=== PATIENT | female | born 1960 | race Caucasian/White ===

== ENCOUNTER → 2020-04-25 08:51 | Outpatient (BNVA) | payer MEDICARE, MEDICAID, SELFPAY | PROVIDERS: Family Provider Family Medicine; PCP Family Medicine; Visit Provider Family Medicine | DX: Z13.220 Encounter for screening for lipoid disorders (principal); Z13.6 Encounter for screening for cardiovascular disorders; I10 Essential (primary) hypertension; E03.9 Hypothyroidism, unspecified; M79.7 Fibromyalgia; M62.830 Muscle spasm of back; J30.2 Other seasonal allergic rhinitis; J44.9 Chronic obstructive pulmonary disease, unspecified | CPT/HCPCS: 80053; 80061; 84439; 84443; 84481 ==

== ENCOUNTER → 2020-05-02 14:02 | Outpatient (BNVA) | payer MEDICARE, MEDICAID, SELFPAY | PROVIDERS: Family Provider Family Medicine; PCP Family Medicine; Visit Provider Family Medicine | DX: I10 Essential (primary) hypertension (principal) | CPT/HCPCS: 83735; 85025 ==

== ENCOUNTER → 2020-07-16 09:54 | Outpatient (BNVA) | payer MEDICARE, MEDICAID, SELFPAY | PROVIDERS: Family Provider Family Medicine; PCP Family Medicine; Visit Provider Family Medicine | DX: G89.29 Other chronic pain (principal); M25.511 Pain in right shoulder; Z72.0 Tobacco use; M62.830 Muscle spasm of back; M79.7 Fibromyalgia; J44.9 Chronic obstructive pulmonary disease, unspecified; E66.9 Obesity, unspecified; I10 Essential (primary) hypertension; E78.00 Pure hypercholesterolemia, unspecified | CPT/HCPCS: 73030 ==

== ENCOUNTER 2021-01-10 15:53 | Outpatient (CLI) | payer MEDICARE, MEDICAID, SELFPAY ==
--- NOTE | 2021-01-10 16:15 | XRR_ITS ---
PROCEDURE INFORMATION: Exam: XR Right Shoulder Exam date and time: 01/10/2021 4:23 PM Age: 60 years old Clinical indication: Pain; Shoulder; Right; Additional info: M25.511 - pain in right shoulder TECHNIQUE: Imaging protocol: XR Right shoulder. Views: 2 or more views. COMPARISON: CR XR shoulder RT min 2V* [id number] 07/16/2020 10:04 AM FINDINGS: Bones/joints: Hypertrophic osseous spurring of the acromioclavicular joint. No fractures. Unremarkable alignment of the joints. Mild sclerosis of the inferior glenoid articular rim. Lungs: Small calcified granuloma in the right upper lobe. Soft tissues: Normal. XR/XR shoulder RT min 2V* [id number] IMPRESSION: 1. No acute right shoulder abnormality. 2. No change from comparison on 07/16/2020.
--- NOTE | 2021-01-10 16:15 | XRR_ITS ---
PROCEDURE INFORMATION: Exam: XR Left Knee Exam date and time: 01/10/2021 4:23 PM Age: 60 years old Clinical indication: Pain; Knee; Left; Additional info: M25.562 - pain in left knee TECHNIQUE: Imaging protocol: XR Left knee. Views: 3 views. COMPARISON: No relevant prior studies available. FINDINGS: Bones/joints: Normal. Soft tissues: Normal. XR/XR knee LT 3V* [id number] IMPRESSION: No acute findings.
== END 2021-01-10 15:54 | disposition home or self-care (01) ==
PROVIDERS: PCP Family Medicine; Visit Provider Emergency Medicine
DX: M25.562 Pain in left knee (principal); M25.511 Pain in right shoulder
CPT/HCPCS: 73030; 73562

== ENCOUNTER 2021-02-13 08:45 | Outpatient (CLI) | payer MEDICARE, MEDICAID, SELFPAY ==
--- NOTE | 2021-02-13 09:30 | MR_ITS ---
WS: [id number] MRI RIGHT SHOULDER HISTORY: M25.511 - Pain in right shoulder COMPARISON: Radiograph 01/10/2021 TECHNIQUE: Multiplanar sequences of the shoulder joint are submitted. Moderate AC joint osteoarthritic changes. Narrowing of the joint space with osteophytes surrounding t he distal clavicle and the acromion. There is an osteophyte measuring 8 mm encroaching upon the dista l supraspinatus muscle and tendon. There is an additional 5 mm osteophyte from the distal undersurfac e of the acromion with encroachment upon the supraspinatus tendon. Small amount of fluid in subacromi al and subdeltoid bursa. No os acromion. Small caliber biceps tendon within the bicipital groove. Moderate elevation of the humeral head from the glenoid. Moderate degenerative changes at the glenohu meral joint with osteophytes and joint space narrowing and loss of cartilage over the humeral head an d glenoid. Insertion site tear of the distal supraspinatus tendon. Does appear to be a full-thickness tear extending over a width of 6 mm. This tear is at the overlapping of the supraspinatus and subsca pularis tendons. There is additional fluid extending along the tendon sheath of the supraspinatus con sistent with interstitial extension. There is significant fraying of the surfaces of the infraspinatu s, supraspinatus and subscapularis tendons. Very mild atrophy of the subscapularis muscle. No muscle edema. Small caliber posterior labrum probably from old injury and tear. MR/MR shoulder RT wo con* [id number] IMPRESSION: 1. Moderate AC joint osteoarthritis with encroachment upon the supraspinatus m uscle and tendon. There is osteophyte encroachment upon the supraspinatus muscl e and tendon from the AC joint disease and distal undersurface of the acromion. 2. Full-thickness 6 mm tear involving the distal overlapping fibers of the sup raspinatus and subscapularis tendons. 3. Interstitial extension of tear into the supraspinatus tendon. 4. Mild atrophy of the subscapularis muscle. 5. Posterior labral chronic tear. 6. Tendinopathy in the distal infraspinatus, supraspinatus and subscapularis t endons. 7. Moderate glenohumeral joint arthritis with mild elevation and superior migr ation of the humeral head.
== END 2021-02-13 08:46 | disposition home or self-care (01) ==
LOC: RADSHAW 08:47
PROVIDERS: PCP Family Medicine; Visit Provider Orthopaedic Surgery
DX: M19.011 Primary osteoarthritis, right shoulder (principal); M75.101 Unspecified rotator cuff tear or rupture of right shoulder, not specified as traumatic; S43.431A Superior glenoid labrum lesion of right shoulder, initial encounter; X58.XXXA Exposure to other specified factors, initial encounter
CPT/HCPCS: 73221

== ENCOUNTER → 2021-03-07 11:38 | Outpatient (BNVA) | payer MEDICARE, MEDICAID, SELFPAY | PROVIDERS: PCP Family Medicine; Visit Provider Orthopaedic Surgery | DX: Z01.812 Encounter for preprocedural laboratory examination (principal); Z20.822 Contact with and (suspected) exposure to COVID-19 | CPT/HCPCS: 87635 ==

== ENCOUNTER 2021-03-13 06:07 | Day surgery (SDC) | payer MEDICARE, MEDICAID, SELFPAY ==
[2021-03-07 10:50] VITALS: BMI 36.2
--- NOTE | 2021-03-07 17:09 | ANES.PREANE2 ---
Pre-Anesthetic Assessment Pre-Anesthetic Assessment: Height/Weight: Height 1.63 m Weight 95.708 kg Proposed Procedure: Operation Date: 03/13/21 10:30 Proposed Procedures p right rotator cuff repair 35014 m75.100(Right) - Malcolm Schroeder MD Was Beta Lazara taken within 24 hours: N/A Was Clonidine taken within 24 hours: N/A Social: Social History: Tobacco and No alcohol Exam: Pre-Anes Outpt Exam: alert, oriented x 3 and regular rate & rhythm Airway: Submandibular: WNL Cervical ROM: WNL MP: 2 Pulmonary: Pulmonary: COPD CV/HEM: CV/HEM: HTN Metabolic: Metabolic: Morbid obesity and Thyroid Musc/skel: Musc/skel: Fibromyalgia and Lower Back Pain Comments: Chronic pain Neuropsych: Neuropsych: Anxiety and MARC Anesthetic Plan: ASA status: 3 Anesthesia: General and Regional (specify below) (Interscalene) Risk of > 500 ml blood loss (7ml/kg in children): No PFSH Anesthesia PFSH: Medical History Chronic pain syndrome COPD (chronic obstructive pulmonary disease) Fibromyalgia NAE (generalized anxiety disorder) Hypertension, essential Hypothyroidism Insomnia Lumbar paraspinal muscle spasm Surgical History H/O foot surgery H/O tubal ligation Family History Other Cancer Diabetes Hypertension Social History Smoking and tobacco status: current every day smoker cigarettes Packs smoked per day: 0.75 Quit status (tobacco): has tried quititng Second hand smoke exposure: No Alcohol intake: current Alcohol intake frequency: holidays/special occasions only Desire information about alcohol rehabilitation?: No Desire information about substance/drug rehabilitation?: No History of recent travel: No Data Anesthesia Cardiac Studies: No Data to Display
[2021-03-13] VITALS (14 sets, daily range): BP systolic 94–123; BP diastolic 49–78; PULSE 61–87; RESP 13–20; TEMP 36.1–36.6; O2SAT 95–98
[2021-03-13] MEDS: sodium chloride 0.9% 1,000 ML 30 ML IV (07:01)
[2021-03-13] MEDS: acetaminophen 500 mg Tablet 1000 MG PO (07:02)
--- NOTE | 2021-03-13 07:20 | P.ANESUD_ITS ---
Pre-Anesthetic Update Pre-Anesthetic Assessment: Date of Surgery/Procedure: 03/13/21 Preop Evonne gnosis: Rotator cuff tear Right shoulder Proposed Procedure: Operation Date: 03/13/21 08:00 Proposed Procedures p right rotator cuff repair 71364 m75.100(Right) - Malcolm Schroeder MD Any changes to Pre-Anesthetic Assessment?: No Last Intake: Intake Last Liquid Date 03/12/21 Last Liquid Time 22:00 Last Solid Date 03/12/21 Last Solid Time 22:00 Vitals: Temperature 97 F L 03/13/21 06:45 Pulse Rate 73 03/13/21 06:45 Respiratory Rate 18 03/13/21 08:01 Respiratory Effort 03/13/21 08:01 Respiratory Depth Normal 03/13/21 08:01 Respiratory Patter n 03/13/21 08:01 Blood Pressure 114/58 03/13/21 06:45 Blood Pressure Dee n 76 03/13/21 06:45 Pulse Oximetry 96 03/13/21 06:45 Oxygen Delivery Me thod 03/13/21 06:47 Exam: Pre-Anes Outpt Exam: alert, oriented x 3, clear to auscultation bilaterally and regular rate & rhythm Cardiac Studies: No Data to Display
[2021-03-13] MEDS: fentaNYL 50 mcg/mL INJ 2mL 100 MCG IVP (08:01)
--- NOTE | 2021-03-13 08:02 | W.PM.OPSUD ---
Surgery/Procedure H&P Update DATE OF PROCEDURE: March 13, 2021 DATE H&P PERFORMED: 02/24/21 PREOP DIAGNOSIS: Rotator cuff tear Right shoulder PLANNED PROCEDURE: Operation Date: 03/13/21 08:00 Proposed Procedures p right rotator cuff repair 35815 m75.100(Right) - Malcolm Schroeder MD
--- NOTE | 2021-03-13 08:45 | ANES.PROC ---
Anesthesia Procedures Procedure/Date: 03/13/21 Nerve Block ^: Nerve Block 1: Main Anesthesia: general anesthesia Time Out Performed: Yes Consent: requested by attending/covering physician, from patient, risks and benefits reviewed and patient agrees to proceed Nerve block location: interscalene (R) Anesthesia monitors applied: pulse oximetry, EKG, BP cuff and oxygen Anesthetic Used: ropivicaine 0.5% and with decadron (1 mg) Amount of anesthesia used (mL): 11 Ultrasound used to: visualize and ID interscalene groove Nerve Stimulator Used?: No Interscalene/Femoral BLK: 2 stimuplex 22 g needle used for position and inplane approach, visualize local anesthetic spread and no vascular puncture identified Injection: neg aspiration of heme and paresthesia +/- Patient Tolerated Procedure: well and no complications Complications: none Additional Comments: 11 cc used d/t pre-existing COPD to minimize phrenic nerve paralysis
--- NOTE | 2021-03-13 10:28 | P.OP_ITS ---
Operative Report Date of procedure: March 13, 2021 Pre-op Diagnosis: Rotator cuff tear Right shoulder Post-op diagnosis: same Post-op Diagnosis: High-grade partial-thickness tear right rotator cuff, impingement Post-op Findings: Same Procedure Done: Arthroscopic repair right rotator cuff with bio inductive implant, subacromial decompression Pathology: none sent Surgeon: Malcolm Schroeder Anesthesia: General and Nerve Block (Interscalene block) Estimated blood loss (mL): 20 Complications: None Findings: The patient had a high-grade partial tear of the leading edge of the supraspinatus with approximately 25% thickness tearing bursal he and 25% intra- articularly. No full-thickness component was identified. She had a large anterior subacromial spur, type II. She had no labral tearing. Her biceps tendon was stable and healthy. No chondromalacia was noted Condition: stable Disposition: PACU Procedure: The patient was taken to the operating room after she was given an interscalene block. She was given 2 g of Ancef. She was prepped and draped in the lateral position with her right arm in 15 and later 20 pounds of traction. A timeout was performed. A posterior portal was made 2 cm inferior medial to the posterior corded acromion. Anterior incision was made so that a small hook could be introduced into the joint. The intra-articular portion of the rotator cuff was identified. The biceps tendon was retracted and found to be healthy. Labral attachments were probed and found to be stable. No chondromalacia was noted. Initial attention was paid to the articular rotator cuff. Utilizing the [employer] Werewolf probe degenerative tissue on the undersurface of the rotator cuff was debrided. This involved a crescentic pattern beginning just posterior to the biceps tendon extending posteriorly perhaps a centimeter and a half with the undersurface tearing extending approximately a centimeter medially. No full-thickness component was identified and tearing was thought to involve perhaps 25% of the thickness of the tendon. The scope was then directed to the subacromial space. A lateral working portal was opened. A [employer] Werewolf probe was placed into the subacromial space and the leading edge of acromion outlined revealing fairly prominent anterior spurring. A 5.5 mm acromionizer was introduced and approximately 5 mm of anterior inferior acromion were removed. Attention was then focused on the bursal cuff. Area of bursal tearing was seen overlying the anterior supraspinatus again extending through perhaps 25% of the thickness of the tendon. Overall the tendon seemed quite dysvascular and atrophic. Traction was placed on the bursal aspect of tendon that was not thought to be particularly mobile. A decision was made to proceed with biological augmentation of the tendon as this was clearly a biological failure. The scope was placed into the glenohumeral joint. The biceps tendon was marked with spinal needles. The scope was then redirected to the subacromial space and through a lower anterior lateral portal a [employer]hew Regeneten implant was introduced. It was fixed medially with for soft tissue stables and out laterally with to bone ray covering the bursal defect and extending anteriorly to the marked level of the biceps tendon. The shoulder was irrigated with saline. Portals are closed with 3-0 Prolene. Sterile dressings were applied. Patient was placed in a sling, extubated, taken to recovery in stable condition.
[2021-03-13] MEDS: oxyCODONE-APAP 5-325 mg Tablet 1 TAB PO (11:03)
--- NOTE | 2021-03-13 11:38 | ANES.PROC ---
Anesthesia Procedures Procedure/Date: 03/13/21 Nerve Block ^: Nerve Block 1: Main Anesthesia: general anesthesia Time Out Performed: Yes Consent: from patient Nerve block location: interscalene (R) Anesthesia monitors applied: pulse oximetry, EKG, BP cuff and oxygen Nerve block position: lateral Anesthetic Used: ropivicaine 0.5% and with decadron (1 mg) Amount of anesthesia used (mL): 15 Ultrasound used to: recognize landmarks, visualize and ID brachial plexus and visualize and ID interscalene groove Nerve Stimulator Used?: No Interscalene/Femoral BLK: 4 stimuplex 21 g needle used for position and inplane approach, visualize local anesthetic spread and no vascular puncture identified Injection: neg aspiration of heme Patient Tolerated Procedure: well Complications: none Additional Comments: Patient requesting rescue block post-op d/t posterior shoulder pain
[2021-03-13] MEDS: ondansetron 2 mg/ML SDV 2 mL 4 MG IVP (11:52)
--- NOTE | 2021-03-13 14:51 | ANE.PACU2 ---
Inpatient post-anesthesia follow up: Airway intact: Yes Vital signs: Temperature 98 F Pulse Rate 64 Respiratory Rate 18 Blood Pressure 110/69 Pulse Oximetry 97 Oxygen Delivery Me thod Room Air Oxygen Flow Rate 2 Fraction of Inspir ed Oxygen 2.0 Hydration adequate: Yes Nausea and vomiting: No Pain level: 4 Mental status: Baseline
== END 2021-03-13 12:25 | disposition home or self-care (01) ==
PROVIDERS: PCP Family Medicine; Visit Provider Orthopaedic Surgery
PROC: (CPT 29826; principal; 2021-03-13 08:00)
DX: M75.101 Unspecified rotator cuff tear or rupture of right shoulder, not specified as traumatic (principal); M75.41 Impingement syndrome of right shoulder; J44.9 Chronic obstructive pulmonary disease, unspecified; I10 Essential (primary) hypertension; E66.01 Morbid (severe) obesity due to excess calories; Z68.36 Body mass index [BMI] 36.0-36.9, adult; M79.7 Fibromyalgia; E03.9 Hypothyroidism, unspecified; F17.210 Nicotine dependence, cigarettes, uncomplicated
CPT/HCPCS: 29826; 29827; 64415; 76942; 96374; C1713; J0690; J1100; J2250; J2405; J2704; J2710; J2795; J3010; J3490; J7030

== ENCOUNTER 2021-03-15 03:59 | Emergency (ER) | payer MEDICARE, MEDICAID, SELFPAY ==
[2021-03-15] VITALS (7 sets, daily range): BP systolic 109–143; BP diastolic 55–99; PULSE 69–84; RESP 16–32; TEMP 36.9; O2SAT 94–100; BMI 34.0
--- NOTE | 2021-03-15 04:13 | XRR_ITS ---
PROCEDURE INFORMATION: Exam: XR Chest Exam date and time: 03/15/2021 4:34 AM Age: 60 years old Clinical indication: Cough and shortness of breath; Prior surgery; Surgery date: 3-7 days post-operative; Patient HX: Cough with SOB. Rotator cuff surgery 3 days ago. ; Additional info: Cp TECHNIQUE: Imaging protocol: XR of the chest. Views: 1 view. COMPARISON: No relevant prior studies available. FINDINGS: Lungs: No CHF/pulmonary edema. Poor inspiration somewhat limits evaluation, especially of the lung bases. Small calcified granuloma in the right lateral mid lung. Visible lungs otherwise appear essentially clear. Pleural spaces: No visible pneumothorax. No definite pleural fluid. Heart/Mediastinum: Heart size is within normal limits. Bones/joints: No significant acute finding. XR/XR chest 1V portable [id number] IMPRESSION: 1. No definite pneumonia or CHF. 2. Other findings discussed above.
--- NOTE | 2021-03-15 04:14 | ECG_ITS ---
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
[2021-03-15 04:23] LABS: Basophils % 0.4 %; Eosinophils # 0.1 10^3/uL (0.0-0.8); Hematocrit 38.1 % (37.0-47.0); Hemoglobin 12.9 g/dL (11.5-15.3); Lymphocytes # 2.7 10^3/uL (0.8-4.8); Lymphocytes % 40.5 %; Mean Corpuscular HGB Conc 33.9 g/dL (30.0-36.0); Mean Corpuscular Hemoglobin 37.4 pg (28.0-34.0); Mean Corpuscular Volume 110.4 fL (81-99); Mean Platelet Volume 11.4 fL (7.4-10.4); Monocytes # 0.3 10^3/uL (0.2-0.9); Neutrophils # 3.65 10^3/uL (1.8-7.7); Nucleated Red Blood Cells % 0 %; Platelet Count 166 10^3/cmm (130-400); Red Blood Count 3.45 10^6/uL (4.1-5.3); Red Cell Distribution Width 15.9 % (12.1-15.1); White Blood Count 6.8 10^3/uL (4.0-10.0)
[2021-03-15 04:36] LABS: D Dimer 2.13 ug/mIFEU (0-0.59)
[2021-03-15 04:42] LABS: Lactic Sepsis W/Reflex 2.2 mmol/L (0.5-2.2)
--- NOTE | 2021-03-15 04:42 | ED_ITS ---
HPI - SOB/Dyspnea General: Chief Complaint: Shortness of Breath/Dyspnea Stated Complaint: cough/sob/cp Time Seen by Provider: 03/15/21 04:09 History of Present Illness: HPI Narrative: 60-year-old female who had surgery on 03/13. This was a rotator cuff repair. She presents this morning with cough, sharp chest pains worse with breathing and shortness of breath. No fever. No sputum production. She states that she had her second Covid vaccine yesterday. She tested negative for Covid 6 days ago prior to her surgery. She took a breathing treatment at home without much improvement. She complains of chest pain, shoulder pain, and shortness of breath currently. MD elicited complaint: shortness of breath, cough, pain with inspiration and chest pain Pertinent past history: COPD Onset (ago): hour(s) Context: other Timing: constant Severity: moderate Exacerbating factors: exertion Relieving factors: nothing Known history of: COPD Associated symptoms: Reports chest pain and cough; Deny abdominal pain, diaphoresis, dizziness, fever(s), nausea, rash or vomiting Treatment prior to arrival: bronchodilator Review of Systems Const: Denies: fever(s) or diaphoresis Eyes: Denies: change in vision ENMT: Reports: odynophagia; Denies: swelling of lips/tongue or bleeding gums Card: Reports: chest pain Resp: Reports: dyspnea, non-productive cough and wheezing GI: Denies: abdominal pain, nausea or vomiting : Denies: dysuria or hematuria Musc: Denies: neck pain Skin/Breast: Denies: rash or erythema Neuro: Denies: headache(s), dizziness or vertigo Psych: Denies: anxiety PFS ED PFSH: Medical History Chronic pain syndrome COPD (chronic obstructive pulmonary disease) Fibromyalgia NAE (generalized anxiety disorder) Hypertension, essential Hypothyroidism Insomnia Lumbar paraspinal muscle spasm Surgical History H/O foot surgery H/O tubal ligation Family History Other Cancer Diabetes Hypertension Social History Smoking and tobacco status: current every day smoker cigarettes Packs smoked per day: 0.75 Quit status (tobacco): has tried quititng Second hand smoke exposure: No Alcohol intake: current Alcohol intake frequency: holidays/special occasions only Desire information about alcohol rehabilitation?: No Desire information about substance/drug rehabilitation?: No History of recent travel: No Physical Exam Const: GENERAL APPEARANCE: well developed and in distress ORIENTATION/CONSCIOUSNESS: Yes oriented to person, Yes oriented to place and Yes oriented to time HENMT: COMMON NORMALS: normocephalic, external ears normal and Normal external nose present HEAD & SCALP: normocephalic FACE & SINUS: normal facial exam NOSE: Normal external nose present and No nasal discharge present EXTERNAL EAR: Yes external ears normal THROAT: posterior oropharynx normal; no peritonsillar mass Eye: COMMON NORMALS: Equal, round and reactive pupils present, EOMs intact bilaterally and conjunctivae normal EYELID: eyelids normal CONJUNCTIVA: Yes conjunctivae normal PUPIL: Yes Equal, round and reactive pupils present Neck/C-Spine: GENERAL: No tracheal deviation Chest: COMMONS NORMALS: normal inspection of the chest CHEST: No tenderness Resp: COMMON NORMALS: negative for clear to auscultation bilaterally EFFORT & INSPECTION: Yes tachypneic, No retractions, Yes uses accessory muscles and No tracheal deviation AUSCULTATION: not clear to auscultation bilaterally, no rhonchi, wheezes and lung sounds not diminished Cardio: COMMON NORMALS: regular rate and regular rhythm RATE: regular rate RHYTHM: regular rhythm HEART SOUNDS: no murmurs PERIPHERAL PULSES: radial pulses present GI: INSPECTION: No abdominal distension AUSCULTATION: No Hyperactive bowel sounds present and No Hypoactive bowel sounds present PALPATION: No Guarding due to palpation present (GI) and No Rigid due to palpation PERCUSSION: no dullness to percussion and no tympanic to percussion Neuro: SENSORIUM/ORIENTATION: Yes oriented to person, Yes oriented to place and Yes oriented to time Psych: COMMON NORMALS: mental status grossly normal Skin: COMMON NORMALS: no rashes or lesions noted GENERAL SKIN EXAM: no rashes or lesions noted Course Vital Signs: Vital signs: Vital Signs Temperature 98.4 F 03/15/21 04:05 Pulse Rate 69 03/15/21 06:32 Respiratory Rate 18 03/15/21 06:32 Blood Pressure 124/58 03/15/21 06:32 Pulse Oximetry 100 03/15/21 06:32 MDM - SOB/Dyspnea MDM Narrative: Medical decision making narrative: 60-year-old lady who is essentially 40 hours postoperative from a rotator cuff repair. She comes in short of breath, and with chest discomfort. Chest x-ray is negative. EKG shows a normal sinus rhythm heart rate of 60s, normal axis and no acute ST changes. Hemoglobin 13. White blood cell count 6.8. D-dimer is elevated post surgery. CTA, however, is negative for PE. She is given Solu-Medrol. She will be treated as a COPD exacerbation. Her second troponin is pending, and will likely be negative. Should it be negative, she will be discharged. Lab Data: Labs: Lab Results 03/15/21 03/15/21 03/15/21 Range/Units 04:15 04:15 04:15 WBC 6.8 (4.0-10.0) 10^3/ uL RBC 3.45 L (4.1-5.3) 10^6/u L Hgb 12.9 (11.5-15.3) g/dL Hct 38.1 (37.0-47.0) % MCV 110.4 H (81-99) fL MCH 37.4 H (28.0-34.0) pg MCHC 33.9 (30.0-36.0) g/dL RDW 15.9 H (12.1-15.1) % Plt Count 166 (130-400) 10^3/c mm MPV 11.4 H (7.4-10.4) fL Neut % (Auto) 54.0 % Lymph % (Auto) 40.5 % Pershing % (Auto) 4.0 % Eos % (Auto) 1.0 % Baso % (Auto) 0.4 % Neut # (Auto) 3.65 (1.8-7.7) 10^3/u L Lymph # (Auto) 2.7 (0.8-4.8) 10^3/u L Pershing # (Auto) 0.3 (0.2-0.9) 10^3/u L Eos # (Auto) 0.1 (0.0-0.8) 10^3/u L Baso # (Auto) 0.0 (0.0-0.1) 10^3/u L Nucleated RBC % (a uto) 0 % Nucleated RBCs # 0.0 /100WBC D-Dimer 2.13 H (0-0.59) ug/mIFE U Sodium 140 (136-145) mmol/L Potassium 3.6 (3.5-5.1) mmol/L Chloride 105 (98-107) mmol/L Carbon Dioxide 23 (22-29) mmol/L Anion Gap 15.6 (5-19) BUN 10 (8-23) mg/dL Creatinine 1.0 H (0.5-0.9) mg/dL GFR Calculation 56.2 L (90-130) mL/min Glucose 86 (65-115) mg/dL Calculated Osmolal ity 288 (285-295) mOsm/k g Lactic Acid (0.5-2.2) mmol/L Calcium 8.6 (8.5-10.5) mg/dL Total Bilirubin 0.8 (0.15-1.2) mg/dL AST 47 H (0-32) U/L ALT 14 (0-33) U/L Alkaline Phosphata se 59 (35-105) IU/L Troponin T Baselin e (0-10) ng/L NT-Pro-B Natriuret Pep 578 H (0-125) pg/mL Total Protein 6.4 L (6.6-8.7) g/dL Albumin 3.7 (3.5-5.2) g/dL Globulin 2.7 (1.3-4.6) g/dL 03/15/21 03/15/21 Range/Units 04:15 04:15 WBC (4.0-10.0) 10^3/ uL RBC (4.1-5.3) 10^6/u L Hgb (11.5-15.3) g/dL Hct (37.0-47.0) % MCV (81-99) fL MCH (28.0-34.0) pg MCHC (30.0-36.0) g/dL RDW (12.1-15.1) % Plt Count (130-400) 10^3/c mm MPV (7.4-10.4) fL Neut % (Auto) % Lymph % (Auto) % Pershing % (Auto) % Eos % (Auto) % Baso % (Auto) % Neut # (Auto) (1.8-7.7) 10^3/u L Lymph # (Auto) (0.8-4.8) 10^3/u L Pershing # (Auto) (0.2-0.9) 10^3/u L Eos # (Auto) (0.0-0.8) 10^3/u L Baso # (Auto) (0.0-0.1) 10^3/u L Nucleated RBC % (a uto) % Nucleated RBCs # /100WBC D-Dimer (0-0.59) ug/mIFE U Sodium (136-145) mmol/L Potassium (3.5-5.1) mmol/L Chloride (98-107) mmol/L Carbon Dioxide (22-29) mmol/L Anion Gap (5-19) BUN (8-23) mg/dL Creatinine (0.5-0.9) mg/dL GFR Calculation (90-130) mL/min Glucose (65-115) mg/dL Calculated Osmolal ity (285-295) mOsm/k g Lactic Acid 2.2 (0.5-2.2) mmol/L Calcium (8.5-10.5) mg/dL Total Bilirubin (0.15-1.2) mg/dL AST (0-32) U/L ALT (0-33) U/L Alkaline Phosphata se (35-105) IU/L Troponin T Baselin e 12 H (0-10) ng/L NT-Pro-B Natriuret Pep (0-125) pg/mL Total Protein (6.6-8.7) g/dL Albumin (3.5-5.2) g/dL Globulin (1.3-4.6) g/dL Discharge Plan Discharge Patient Disposition: Home Clinical Impression: Acute exacerbation of chronic obstructive airways disease Condition: Stable Prescriptions: New doxycycline hyclate 100 mg tablet 100 mg PO BID 7 Days Qty: 14 RF: 0 prednisone 20 mg tablet 40 mg PO DAILY 5 Days Qty: 20 RF: 0 Continued benzonatate 100 mg capsule 100 mg PO BID PRN (Reason: cough) 30 Days Qty: 60 RF: 5 No Action sumatriptan succinate 25 mg tablet 25 mg PO ONCE PRN (Reason: migraine headache) Qty: 9 RF: 2 sertraline 25 mg tablet 25 mg PO DAILY 30 Days Qty: 30 RF: 2 bupropion HCl 300 mg tablet extended release 24 hr 300 mg PO QAM 30 Days Qty: 30 RF: 2 levothyroxine 25 mcg tablet 25 mcg PO DAILY 30 Days Qty: 30 RF: 5 gabapentin 300 mg capsule 600 mg PO TID 30 Days Qty: 180 RF: 2 albuterol sulfate 90 mcg/actuation HFA aerosol inhaler 1 puff INHALATION QID PRN (Reason: shortness of breath or wheezing) 30 Days Qty: 18 RF: 5 nystatin [Nystop] 100,000 unit/gram powder 1 applic TOPICAL TID PRN (Reason: skin irritation) Qty: 15 RF: 1 acetaminophen-codeine 300-30 mg tablet 1 tab PO DAILY PRN (Reason: pain) 90 Days Qty: 30 RF: 0 lorazepam [Ativan] 1 mg tablet 1 mg PO DAILY PRN (Reason: anxiety) Qty: 1 RF: 0 lisinopril-hydrochlorothiazide 10-12.5 mg tablet 1 tab PO DAILY 30 Days Qty: 30 RF: 0 baclofen 20 mg tablet 20 mg PO QDAY PRN (Reason: back pain) RF: 0 oxycodone 5 mg tablet 5 mg PO Q4H PRN (Reason: pain) Qty: 40 RF: 0 Discharge Orders: Discharge ED (Routine); Ordered 03/15/21 Ordered By: Kennedy Sauceda Referrals: Alix Marcus MD [Primary Care Provider] - 4-7 days Patient Instructions: Chronic Obstructive Pulmonary Disease (ED) Activity Restrictions/Additional Instructions: Return for worsening shortness of breath, fever greater than 100 despite 2-3 doses of antibiotics, worsening chest pain, any other concerning symptoms. Coding Level of Care Code ED Directory Operator for [place] Fwd Exam Comprehensive
[2021-03-15] MEDS: ondansetron 2 mg/ML SDV 2 mL 4 MG IVP (04:45)
[2021-03-15 04:46] LABS: Troponin(5th) Baseline 12 ng/L (0-10)
[2021-03-15] MEDS: morphine 4 mg/mL SDV 1 mL IVP (04:47)
[2021-03-15 04:51] LABS: Alanine Aminotransferase 14 U/L (0-33); Albumin Level 3.7 g/dL (3.5-5.2); Alkaline Phosphatase 59 IU/L (35-105); Anion Gap 15.6 (5-19); Aspartate Amino Transferase 47 U/L (0-32); Blood Urea Nitrogen 10 mg/dL (8-23); Calcium 8.6 mg/dL (8.5-10.5); Carbon Dioxide 23 mmol/L (22-29); Chloride 105 mmol/L (98-107); Globulin 2.7 g/dL (1.3-4.6); Glomerular Filtration Rate 56.2 mL/min (90-130); Glucose 86 mg/dL (65-115); NT Pro B Type Natriuretic Pept 578 pg/mL (0-125); Osmolality Calculated 288 mOsm/kg (285-295); Potassium 3.6 mmol/L (3.5-5.1); Sodium 140 mmol/L (136-145); Total Bilirubin 0.8 mg/dL (0.15-1.2); Total Protein 6.4 g/dL (6.6-8.7)
--- NOTE | 2021-03-15 04:59 | CTR_ITS ---
PROCEDURE INFORMATION: Exam: CTA Chest With Contrast Exam date and time: 03/15/2021 5:02 AM Age: 60 years old Clinical indication: Cough and shortness of breath; Prior surgery; Surgery type: Rotator cuff. ; Patient HX: Cough with SOB. Elevated d dimer. Rotator cuff surgery on 03/13/2021. History of copd. ; Additional info: Chest pain TECHNIQUE: Imaging protocol: Computed tomographic angiography of the chest with contrast. 3D rendering (Not supervised by radiologist): MIP and/or 3D reconstructed images were created by the technologist. Radiation optimization: All CT scans at this facility use at least one of these dose optimization techniques: automated exposure control; mA and/or kV adjustment per patient size (includes targeted exams where dose is matched to clinical indication); or iterative reconstruction. Contrast material: OMNI 350; Contrast volume: 65 ml; Contrast route: INTRAVENOUS (IV); COMPARISON: CR (CHEST, ) 03/15/2021 4:32 AM RADIATION DOSE METRICS: Total DLP (mGy-cm): 861.57 FINDINGS: Pulmonary arteries: Normal. No pulmonary emboli. Aorta: Ectatic ascending aorta measuring 3.7 cm in diameter. Lungs: There is a small calcified granuloma in the right upper lobe. Streaky atelectasis noted in the anterior right upper lobe and posterior right lower lobe. The lungs are otherwise unremarkable. Pleural spaces: Unremarkable. No pneumothorax. No pleural effusion. Heart: Unremarkable. No cardiomegaly. No pericardial effusion. Mediastinal space: A small hiatal hernia is present. Lymph nodes: There is small calcified right hilar and mediastinal lymph nodes, likely sequela of previous granulomatous disease. Small reactive mediastinal and bilateral hilar lymph nodes noted, the largest in the right hilar region measuring 1.1 cm in transverse dimension. Stomach and bowel: The patient is status post sleeve gastrectomy. Bones/joints: Degenerative changes of the spine seen. Soft tissues: Unremarkable. CT/CT angio chest PE protcl [id number] IMPRESSION: 1. No pulmonary embolus or other acute pathology in the chest. 2. Ectatic ascending aorta. Radiation Dose CTDIVOL = (mGy): DLP = 861.57 (mGy-cm)
[2021-03-15] MEDS: ipratropium-albuterol 3 mL Neb INHALATION (05:01)
[2021-03-15] MEDS: iohexol 350 mg/mL 100 mL Btl IV (05:18)
[2021-03-15 06:09] LABS: Reflex Lactate Order REFLEX LACTIC ORDERD
--- NOTE | 2021-03-15 06:14 | ECG_ITS ---
[facility] Test Date: 2021-03-15 Pat Name: Sari Henning Department: Room: Gender: Female Manager Sterile: : 1960 Requested By: Kennedy Lopez Order Number: [id number] Reading MD: REGINA BARRIGA Measurements Intervals [place] Rate: 71 P: 49 [place]: 134 QRS: 26 QRSD: 106 T: 55 QT: 415 QTc: 453 Interpretive Statements SINUS RHYTHM Compared to ECG 03/15/2021 04:14:08 No significant changes Electronically Signed On 03-16-2021 22:29:02 CDT by REGINA BARRIGA [id number]
== END 2021-03-15 07:31 | disposition home or self-care (01) ==
PROVIDERS: Emergency Provider Emergency Medicine; PCP Family Medicine
DX: J44.1 Chronic obstructive pulmonary disease with (acute) exacerbation (principal); I10 Essential (primary) hypertension; F17.210 Nicotine dependence, cigarettes, uncomplicated
CPT/HCPCS: 71045; 71275; 80053; 83605; 83880; 84484; 85025; 85378; 93005; 94640; 96374; 96375; 99284; J2270; J2405; J2930; Q9967

== ENCOUNTER → 2021-04-15 09:50 | Outpatient (BNVA) | payer MEDICARE, MEDICAID, SELFPAY | PROVIDERS: PCP Family Medicine; Visit Provider Family Medicine | DX: G43.709 Chronic migraine without aura, not intractable, without status migrainosus (principal); E03.9 Hypothyroidism, unspecified; M79.7 Fibromyalgia; J44.9 Chronic obstructive pulmonary disease, unspecified; F41.1 Generalized anxiety disorder; E66.9 Obesity, unspecified; I10 Essential (primary) hypertension; E78.00 Pure hypercholesterolemia, unspecified; R53.83 Other fatigue; Z72.0 Tobacco use; Z98.84 Bariatric surgery status; Z79.899 Other long term (current) drug therapy | CPT/HCPCS: 80053; 80061; 82607; 82652; 84443 ==

== ENCOUNTER 2021-07-08 14:08 | Outpatient (CLI) | payer MEDICARE, MEDICAID, SELFPAY ==
--- NOTE | 2021-07-08 14:16 | XR_ITS ---
WS: [id number] Exam: XR lumbar spine 2-3V* [id number] Date/Time of Exam: 07/08/2021 2:19 PM Reason For Exam: M54.40 - Lumbago with sciatica, unspecified side No fracture or dislocation. Disc spaces are relatively well maintained. There is spondylosis. Posteri or elements are intact. Facet DJD at all levels. XR/XR lumbar spine 2-3V* [id number] IMPRESSION: 1. Degenerative change and spondylosis. 2. No fracture or malalignment.
--- NOTE | 2021-07-08 14:16 | XR_ITS ---
WS: [id number] Exam: XR hip LT 2-3V wo/w pel* [id number] Date/Time of Exam: 07/08/2021 2:19 PM Reason For Exam: M54.40 - Lumbago with sciatica, unspecified side No fracture or dislocation noted. Mild degenerative change of the acetabulum. The joint compartments are relatively well maintained. Normal soft tissues. XR/XR hip LT 2-3V wo/w pel* [id number] IMPRESSION: 1. Degenerative changes of the acetabulum. 2. No fracture or other significant finding.
== END 2021-07-08 14:09 | disposition home or self-care (01) ==
PROVIDERS: PCP Family Medicine; Visit Provider Family Medicine
DX: M54.40 Lumbago with sciatica, unspecified side (principal); M47.816 Spondylosis without myelopathy or radiculopathy, lumbar region
CPT/HCPCS: 72100; 73502

== ENCOUNTER → 2021-07-28 08:24 | Outpatient (BNVA) | payer MEDICARE, MEDICAID, SELFPAY | PROVIDERS: PCP Family Medicine; Referring Provider Orthopaedic Surgery; Visit Provider Anesthesiology Pain Medicine | DX: G89.29 Other chronic pain (principal); M48.062 Spinal stenosis, lumbar region with neurogenic claudication; M25.552 Pain in left hip; M79.605 Pain in left leg; Z79.891 Long term (current) use of opiate analgesic | CPT/HCPCS: 99204 ==

== ENCOUNTER 2021-08-18 08:31 | Outpatient (CLI) | payer MEDICARE, MEDICAID, SELFPAY ==
--- NOTE | 2021-08-18 08:45 | MR_ITS ---
WS: [id number] MRI LUMBAR SPINE NONCONTRAST HISTORY: Chronic low back pain for years. COMPARISON: None available. TECHNIQUE: Sagittal and axial multisequence imaging is submitted. Mild increase in the LEFT thoracic kyphosis. Posterior lumbar alignment is normal. Disc spaces are mildly narrowed and desiccated throughout. No acute marrow edema or fracture. Conus terminates normally at L1-2 disc level. L1-L2: Mild annular disc bulging and osteophytic ridging with a central disc protrusion. Mild ligamen janet flavum and facet arthritis. No stenosis. L2-L3: Diffuse annular disc bulging and mild osteophytic ridging. No definite disc protrusions. Moder ate ligamentum flavum hypertrophy and bony hypertrophy, greatest on the LEFT. Mild narrowing of the L EFT subarticular recess. L3-L4: Diffuse annular disc bulging and osteophytic ridging. Disc encroachment upon the traversing L4 nerve roots. Mild contact but no displacement. Moderate bilateral ligamentum flavum hypertrophy and bony hypertrophy. Mild central and bilateral subarticular recess narrowing. L4-L5: Diffuse annular disc bulging with a central disc protrusion and annular fissure. Protrusion is just slightly to the LEFT of midline. Moderate ligamentum flavum hypertrophy and bony hypertrophy. T here is very mild central and bilateral lateral recess encroachment but no foraminal stenosis. L5-S1: Mild annular disc bulging with ligamentum flavum and facet arthritis. Mild bilateral subarticu lar recess narrowing. Minimal encroachment upon the S1 nerve roots by the disc but no displacement. Paravertebral soft tissues are normal. MR/MR lumbar spine wo con* [id number] IMPRESSION: 1. Mild central and bilateral lateral recess stenosis at L4-5 due to disc dise ase and ligamentum flavum hypertrophy and facet arthritis. Very small central t o LEFT paracentral disc protrusion at L4-5. 2. Minimal disc encroachment upon the S1 nerve roots bilaterally but no displa cement. 3. Mild central and bilateral subarticular recess narrowing at L3-4. 4. Moderate facet joint arthritis at L2-3 with mild narrowing of the LEFT suba rticular recess.
== END 2021-08-18 08:32 | disposition home or self-care (01) ==
LOC: RADSHAW 08:36
PROVIDERS: PCP Family Medicine; Visit Provider Anesthesiology Pain Medicine
DX: G89.29 Other chronic pain (principal); M48.061 Spinal stenosis, lumbar region without neurogenic claudication; M51.26 Other intervertebral disc displacement, lumbar region; M47.816 Spondylosis without myelopathy or radiculopathy, lumbar region
CPT/HCPCS: 72148

== ENCOUNTER → 2021-08-25 09:37 | Outpatient (BNVA) | payer MEDICARE, MEDICAID, SELFPAY | PROVIDERS: PCP Family Medicine; Visit Provider Anesthesiology Pain Medicine | DX: G89.29 Other chronic pain (principal); M54.50 Low back pain, unspecified; M25.552 Pain in left hip; M79.605 Pain in left leg; F17.210 Nicotine dependence, cigarettes, uncomplicated; Z79.891 Long term (current) use of opiate analgesic | CPT/HCPCS: 99214 ==

== ENCOUNTER 2021-08-29 08:43 | Outpatient (CLI) | payer MEDICARE, MEDICAID, SELFPAY ==
--- NOTE | 2021-08-29 08:46 | CT_ITS ---
WS: [id number] LDCT LUNG CANCER SCREENING HISTORY: Z12.2 - Encounter for screening for malignant neoplasm TECHNIQUE: Axial imaging performed from the apices to 1 cm below the costophrenic angles. Coronal and sagittal reformats are submitted with axial MIP series. All CT scans at [facility] use at least one of these dose optimization techniques: automated exposure control; mA and/or kV adjustment per patient size (includes targeted exams where dose is matched to clinical indication); or iterativ e reconstruction. DLP: 54.98 mGy.cm DIvol: 1.58 mGy COMPARISON: 03/15/2021 Diagnostic quality: Satisfactory Lung Nodules: No pulmonary nodule or endobronchial lesions. Lungs: Benign granuloma RIGHT upper lobe. Mild emphysema. Heart: Normal size heart. Other findings: Very minimal atherosclerosis aorta. CT/CT lung screening [id number] IMPRESSION: LUNG-RADS: 1-Negative FOLLOW UP: 12 Month: Continue annual screening with LDCT OTHER FINDINGS (S MODIFIER): None.
== END 2021-08-29 08:44 | disposition home or self-care (01) ==
LOC: RAD 08:45
PROVIDERS: PCP Family Medicine; Visit Provider Family Medicine
DX: Z12.2 Encounter for screening for malignant neoplasm of respiratory organs (principal); Z72.0 Tobacco use
CPT/HCPCS: 71271

== ENCOUNTER → 2021-09-02 13:08 | Outpatient (BNVA) | payer MEDICARE, MEDICAID, SELFPAY | PROVIDERS: PCP Family Medicine; Visit Provider Anesthesiology Pain Medicine | DX: G89.29 Other chronic pain (principal); M47.816 Spondylosis without myelopathy or radiculopathy, lumbar region; F17.210 Nicotine dependence, cigarettes, uncomplicated; Z79.891 Long term (current) use of opiate analgesic | CPT/HCPCS: 64493; 64494; 64495; J3490 ==

== ENCOUNTER → 2021-09-16 09:07 | Outpatient (BNVA) | payer MEDICARE, MEDICAID, SELFPAY | PROVIDERS: PCP Family Medicine; Visit Provider Anesthesiology Pain Medicine | DX: M51.16 Intervertebral disc disorders with radiculopathy, lumbar region (principal); M47.816 Spondylosis without myelopathy or radiculopathy, lumbar region; M25.552 Pain in left hip; M79.605 Pain in left leg; Z79.891 Long term (current) use of opiate analgesic | CPT/HCPCS: 99214 ==

== ENCOUNTER 2021-09-24 22:28 | Emergency (ER) | payer MEDICARE, MEDICAID, SELFPAY ==
[2021-09-24 22:29] VITALS: BP 108/77; PULSE 70; RESP 18; TEMP 37.1; O2SAT 100; BMI 30.2
[2021-09-24 22:39] VITALS: BP 108/77; PULSE 70; RESP 18; TEMP 37.1; O2SAT 100
--- NOTE | 2021-09-24 22:48 | W.ED.FEMALGU ---
HPI - Female Genitourinary General: Chief complaint: Urogenital-Female Stated complaint: Passes Out\ UTI\Weak Time Seen by Provider: 09/24/21 22:39 History of Present Illness: HPI Narrative: Patient presents via ambulance with complaints of nausea and UTI. Patient was seen text [facility] yesterday for syncopal episode and nausea. Patient had CT of the head and lab work and a UA and was diagnosed with UTI sent home. Patient did not get prescription filled today due to timing issue. Patient presents here feeling worse, nauseated, chills. MD elicited complaint: UTI Onset (ago): day(s) Severity: moderate Associated symptoms: Reports nausea; Deny abdominal pain or headache(s) Review of Systems Const: Denies: fever(s), chills or body aches Eyes: Denies: change in vision or blurry vision ENMT: Denies: throat pain or nasal congestion Card: Reports: other (Passed out yesterday with sudden onset of nausea); Denies: chest pain or dyspnea on exertion Resp: Denies: dyspnea, productive cough or non-productive cough GI: Reports: nausea and vomiting; Denies: abdominal pain : Reports: urinary frequency and urinary urgency Musc: Denies: extremity pain Skin/Breast: Denies: rash Neuro: Denies: headache(s) Psych: Denies: anxiety or depression [place]/Lymph: Denies: easy bruising PFSH ED PFSH: Medical History Chronic pain syndrome COPD (chronic obstructive pulmonary disease) Fibromyalgia NAE (generalized anxiety disorder) Hypertension, essential Did not tolerate lisinopril. Hypothyroidism Insomnia Lumbar paraspinal muscle spasm Surgical History H/O foot surgery H/O tubal ligation Family History Other Cancer Diabetes Hypertension Social History Quit status (tobacco): has tried quititng Second hand smoke exposure: No Alcohol intake: current Alcohol intake frequency: holidays/special occasions only Desire information about alcohol rehabilitation?: No Desire information about substance/drug rehabilitation?: No History of recent travel: No Physical Exam Const: COMMON NORMALS: no acute distress, average body habitus and patient oriented x3 HENMT: COMMON NORMALS: normocephalic HEAD & SCALP: normal to inspection and normocephalic FACE & SINUS: normal facial exam Eye: COMMON NORMALS: conjunctivae normal GENERAL EYE: appearance normal, both eyes and all related structures CONJUNCTIVA: Yes conjunctivae normal Neck/C-Spine: COMMON NORMALS: no JVD Chest: COMMONS NORMALS: normal inspection of the chest Resp: COMMON NORMALS: normal respiratory effort and clear to auscultation bilaterally AUSCULTATION: clear to auscultation bilaterally Cardio: COMMON NORMALS: no JVD, regular rate and regular rhythm RATE: regular rate RHYTHM: regular rhythm GI: COMMON NORMALS: Normal to inspection, nondistended, normoactive bowel sounds present Extremity: COMMON NORMALS: normal to inspection and full ROM Neuro: COMMON NORMALS: patient oriented x3 Course Vital Signs: Vital signs: Vital Signs Temperature 98.8 F 09/24/21 22:39 Pulse Rate 70 09/24/21 22:39 Respiratory Rate 18 09/24/21 22:39 Blood Pressure 108/77 09/24/21 22:39 Pulse Oximetry 100 09/24/21 22:39 Discharge Plan Discharge Prescriptions: No Action indomethacin 50 mg capsule 50 mg PO TID 5 Days Qty: 15 RF: 0 nystatin 100,000 unit/mL suspension 1 ml PO QID 14 Days Qty: 56 RF: 0 levothyroxine 25 mcg tablet 25 mcg PO DAILY 30 Days Qty: 30 RF: 5 albuterol sulfate 90 mcg/actuation HFA aerosol inhaler 1 puff INHALATION QID PRN (Reason: shortness of breath or wheezing) 30 Days Qty: 18 RF: 5 sertraline 25 mg tablet 25 mg PO DAILY 30 Days Qty: 30 RF: 5 bupropion HCl 300 mg tablet extended release 24 hr 300 mg PO QAM 30 Days Qty: 30 RF: 5 gabapentin 300 mg capsule 300 mg PO .at bedtime 30 Days Qty: 30 RF: 5 oxycodone 5 mg tablet 5 mg PO Q4H PRN (Reason: pain) 7 Days Qty: 40 RF: 0 allopurinol PO RF: 0 diazepam 10 mg tablet 10 mg PO ONCE PRN (Reason: anxiety) Qty: 2 RF: 0 nystatin [Nystop] 100,000 unit/gram powder 1 applic TOPICAL TID PRN (Reason: skin irritation) Qty: 15 RF: 1 acetaminophen-codeine 300-30 mg tablet 1 tab PO DAILY PRN (Reason: pain) 90 Days Qty: 30 RF: 0 cyanocobalamin (vitamin B-12) 1,000 mcg/mL kit 1,000 mcg IM .MONTHLY 28 Days Qty: 1 RF: 5 (DME) BD Insulin Syringe 1 mL 25 x 1 syringe See Rx Instructions .Route Qty: 100 RF: 0 sumatriptan succinate 25 mg tablet 25 mg PO ONCE PRN (Reason: migraine headache) Qty: 9 RF: 2 baclofen 20 mg tablet 20 mg PO QDAY PRN (Reason: back pain) Qty: 30 RF: 2 benzonatate 100 mg capsule 100 mg PO BID PRN (Reason: cough) 30 Days Qty: 60 RF: 5 Coding Level of Care Code ED Aids Counselor for Chg Ning
[2021-09-24] MEDS: ondansetron 2 mg/ML SDV 2 mL 4 MG IVP (23:29)
[2021-09-24] MEDS: cefTRIAXone 1,000 MG in sodium chloride 0.9% (plus) 50 ML 100 MG IV (23:39)
[2021-09-24] MEDS: sodium chloride 0.9% 1,000 ML 999 ML IV (23:39)
[2021-09-24 23:57] LABS: Basophils % 0.7 %; Eosinophils # 0.2 10^3/uL (0.0-0.8); Eosinophils % 3.3 %; Hematocrit 38.7 % (37.0-47.0); Hemoglobin 13.7 g/dL (11.5-15.3); Lymphocytes # 1.7 10^3/uL (0.8-4.8); Mean Corpuscular HGB Conc 35.4 g/dL (30.0-36.0); Mean Corpuscular Hemoglobin 38.4 pg (28.0-34.0); Mean Corpuscular Volume 108.4 fl (81-99); Mean Platelet Volume 12.3 fL (7.4-10.4); Monocytes # 0.3 10^3/uL (0.2-0.9); Monocytes % 6.6 %; Neutrophils # 2.37 10^3/uL (1.8-7.7); Neutrophils % 52.2 %; Nucleated Red Blood Cells % 0 %; Platelet Count 172 10^3/cmm (130-400); Red Blood Count 3.57 10^6/uL (4.1-5.3); Red Cell Distribution Width 14.2 % (12.1-15.1); White Blood Count 4.5 10^3/uL (4.0-10.0)
[2021-09-25 00:10] LABS: Alanine Aminotransferase 9 U/L (0-33); Albumin Level 3.9 g/dL (3.5-5.2); Alkaline Phosphatase 59 IU/L (35-105); Aspartate Amino Transferase 15 U/L (0-32); Blood Urea Nitrogen 12 mg/dL (8-23); Calcium 8.9 mg/dL (8.5-10.5); Carbon Dioxide 23 mmol/L (22-29); Chloride 102 mmol/L (98-107); Globulin 2.5 g/dL (1.3-4.6); Glomerular Filtration Rate 72.4 mL/min (90-130); Glucose 74 mg/dL (65-115); Osmolality Calculated 282 mOsm/kg (285-295); Sodium 137 mmol/L (136-145); Total Bilirubin 0.7 mg/dL (0.15-1.2); Total Protein 6.4 g/dL (6.6-8.7)
[2021-09-25] MEDS: ketorolac 30 mg/mL INJ IVP (00:44)
== END 2021-09-25 00:46 | disposition home or self-care (01) ==
PROVIDERS: Emergency Provider Nurse Practitioner Family; PCP Family Medicine
DX: R11.0 Nausea (principal); N39.0 Urinary tract infection, site not specified; J44.9 Chronic obstructive pulmonary disease, unspecified; I10 Essential (primary) hypertension
CPT/HCPCS: 80053; 85025; 96365; 96375; 99283; J0696; J1885; J2405; J7030

== ENCOUNTER → 2021-09-30 13:20 | Outpatient (BNVA) | payer MEDICARE, MEDICAID, SELFPAY | PROVIDERS: PCP Family Medicine; Visit Provider Anesthesiology Pain Medicine | DX: G89.29 Other chronic pain (principal); M54.16 Radiculopathy, lumbar region; M47.816 Spondylosis without myelopathy or radiculopathy, lumbar region; Z79.891 Long term (current) use of opiate analgesic | CPT/HCPCS: 64493; 64494; 64495; J3490 ==

== ENCOUNTER → 2021-10-14 09:10 | Outpatient (BNVA) | payer MEDICARE, MEDICAID, SELFPAY | PROVIDERS: PCP Family Medicine; Visit Provider Anesthesiology Pain Medicine | DX: G89.29 Other chronic pain (principal); M25.559 Pain in unspecified hip; M47.816 Spondylosis without myelopathy or radiculopathy, lumbar region; M51.16 Intervertebral disc disorders with radiculopathy, lumbar region; M79.7 Fibromyalgia; M25.552 Pain in left hip; M79.605 Pain in left leg; F17.210 Nicotine dependence, cigarettes, uncomplicated | CPT/HCPCS: 99214 ==

== ENCOUNTER → 2021-10-15 09:06 | Outpatient (BNVA) | payer MEDICARE, MEDICAID, SELFPAY | PROVIDERS: PCP Family Medicine; Visit Provider Family Medicine | DX: R53.83 Other fatigue (principal); E53.8 Deficiency of other specified B group vitamins; E03.9 Hypothyroidism, unspecified; E78.00 Pure hypercholesterolemia, unspecified; M25.50 Pain in unspecified joint; I10 Essential (primary) hypertension; J44.9 Chronic obstructive pulmonary disease, unspecified; G43.709 Chronic migraine without aura, not intractable, without status migrainosus; E66.9 Obesity, unspecified; K29.70 Gastritis, unspecified, without bleeding; M70.62 Trochanteric bursitis, left hip; M1A.09X0 Idiopathic chronic gout, multiple sites, without tophus (tophi); M25.59 Pain in other specified joint; M51.16 Intervertebral disc disorders with radiculopathy, lumbar region; M79.7 Fibromyalgia; R53.82 Chronic fatigue, unspecified | CPT/HCPCS: 80053; 80061; 82607; 82652; 84439; 84443; 84481; 84550; 85025; 85651; 86140 ==

== ENCOUNTER → 2021-10-21 14:10 | Outpatient (BNVA) | payer MEDICARE, MEDICAID, SELFPAY | PROVIDERS: PCP Family Medicine; Visit Provider Anesthesiology Pain Medicine | DX: G89.29 Other chronic pain (principal); M47.816 Spondylosis without myelopathy or radiculopathy, lumbar region; F17.210 Nicotine dependence, cigarettes, uncomplicated; Z79.891 Long term (current) use of opiate analgesic | CPT/HCPCS: 64635; 64636; J1030 ==

== ENCOUNTER → 2021-11-04 12:52 | Outpatient (BNVA) | payer MEDICARE, MEDICAID, SELFPAY | PROVIDERS: PCP Family Medicine; Visit Provider Anesthesiology Pain Medicine | DX: G89.29 Other chronic pain (principal); M47.816 Spondylosis without myelopathy or radiculopathy, lumbar region; F17.210 Nicotine dependence, cigarettes, uncomplicated; Z79.891 Long term (current) use of opiate analgesic | CPT/HCPCS: 64635; 64636; J1030 ==

== ENCOUNTER → 2021-11-19 09:51 | Outpatient (BNVA) | payer MEDICARE, MEDICAID, SELFPAY | PROVIDERS: PCP Family Medicine; Visit Provider Anesthesiology Pain Medicine | DX: G89.29 Other chronic pain (principal); M47.816 Spondylosis without myelopathy or radiculopathy, lumbar region; M51.16 Intervertebral disc disorders with radiculopathy, lumbar region; M25.552 Pain in left hip; M79.605 Pain in left leg; M79.7 Fibromyalgia; F17.200 Nicotine dependence, unspecified, uncomplicated; Z79.891 Long term (current) use of opiate analgesic | CPT/HCPCS: 99214 ==

== ENCOUNTER → 2021-11-24 14:12 | Outpatient (BNVA) | payer MEDICARE, MEDICAID, SELFPAY | PROVIDERS: PCP Family Medicine; Visit Provider Family Medicine | DX: M1A.09X0 Idiopathic chronic gout, multiple sites, without tophus (tophi) (principal); M25.512 Pain in left shoulder; M25.561 Pain in right knee; M19.042 Primary osteoarthritis, left hand; M19.012 Primary osteoarthritis, left shoulder | CPT/HCPCS: 73030; 73130; 73562 ==

== ENCOUNTER → 2021-12-08 13:30 | Outpatient (BNVA) | payer MEDICARE, MEDICAID, SELFPAY | PROVIDERS: PCP Family Medicine; Visit Provider Family Medicine | DX: M79.642 Pain in left hand (principal); M25.512 Pain in left shoulder; M25.561 Pain in right knee; M79.7 Fibromyalgia | CPT/HCPCS: 85651; 86038; 86140; 86431 ==

== ENCOUNTER 2021-12-25 16:08 | Outpatient (CLI) | payer MEDICARE, MEDICAID, SELFPAY ==
[2021-12-25 17:34] LABS: Creatine Phosphokinase 43 U/L (26-192)
[2021-12-25 18:22] LABS: Hepatitis B Core AB, Total Non-Reactive (Nonreactive); Hepatitis C Virus Antibody Non-Reactive (Nonreactive)
[2021-12-25 22:32] LABS: Hepatitis B Surface Antigen Non-Reactive (Nonreactive)
[2021-12-29 12:17] LABS: Quantiferon Mitogen 9.75 IU/mL; Quantiferon Nil 0.02 IU/mL; Quantiferon Plus TB1 0.01 IU/mL; Quantiferon Plus TB2 0.01 IU/mL; Quantiferon TB Gold NEGATIVE (NEGATIVE)
[2021-12-29 12:29] LABS: THYROID PEROXIDASE ANTIBODIES 1 IU/mL (<9)
[2021-12-29 12:47] LABS: CENTROMERE B ANTIBODY <1.0 NEG AI (<1.0 NEG); COMPLEMENT COMPONENT C3C 166 mg/dL (83-193); COMPLEMENT COMPONENT C4C 33 mg/dL (15-57); JO-1 ANTIBODY <1.0 NEG AI (<1.0 NEG); RNP ANTIBODY <1.0 NEG AI (<1.0 NEG); SCL-70 ANTIBODY <1.0 NEG AI (<1.0 NEG); SJOGREN'S ANTIBODY (SS-A) <1.0 NEG AI (<1.0 NEG); SM ANTIBODY <1.0 NEG AI (<1.0 NEG); SS-B <1.0 NEG AI (<1.0 NEG)
[2021-12-29 12:57] LABS: COMPLEMENT, TOTAL (CH50) >60 U/mL (31-60)
[2021-12-29 14:03] LABS: Cyclic Citrullinated Peptide >250 UNITS
[2021-12-30 12:22] LABS: ANA PATTERN Nuclear, Homogeneous; ANA SCREEN, IFA POSITIVE (NEGATIVE); ANA TITER 1:40 titer
[2021-12-30 14:58] LABS: DNA AB (DS) CRITHIDIA,IFA NEGATIVE (NEGATIVE)
== END 2021-12-25 16:09 | disposition home or self-care (01) ==
PROVIDERS: PCP Family Medicine; Visit Provider Internal Medicine
DX: E03.9 Hypothyroidism, unspecified (principal); E53.8 Deficiency of other specified B group vitamins; G47.00 Insomnia, unspecified; Z11.59 Encounter for screening for other viral diseases; G89.29 Other chronic pain; I10 Essential (primary) hypertension; J30.2 Other seasonal allergic rhinitis; J44.9 Chronic obstructive pulmonary disease, unspecified; K29.70 Gastritis, unspecified, without bleeding; M10.9 Gout, unspecified; M54.9 Dorsalgia, unspecified; M62.830 Muscle spasm of back; M79.7 Fibromyalgia; R11.0 Nausea; Z11.1 Encounter for screening for respiratory tuberculosis; M06.9 Rheumatoid arthritis, unspecified; K29.30 Chronic superficial gastritis without bleeding; F17.210 Nicotine dependence, cigarettes, uncomplicated
CPT/HCPCS: 36415; 82550; 83516; 86160; 86162; 86200; 86235; 86255; 86376; 86480; 86704; 86803; 87340; 99204

== ENCOUNTER 2021-12-30 06:00 | Outpatient (RCR) | payer MEDICARE, MEDICAID, SELFPAY | END 2022-01-12 23:59 | disposition home or self-care (01) | LOC: MPT 06:00 | PROVIDERS: PCP Family Medicine; Referring Provider Orthopaedic Surgery; Visit Provider Orthopaedic Surgery | DX: M76.891 Other specified enthesopathies of right lower limb, excluding foot (principal) | CPT/HCPCS: 97161 ==

== ENCOUNTER 2022-01-13 06:00 | Outpatient (RCR) | payer MEDICARE, MEDICAID, SELFPAY | END 2022-02-12 23:59 | disposition home or self-care (01) | LOC: MPT 06:00 | PROVIDERS: PCP Family Medicine; Referring Provider Orthopaedic Surgery; Visit Provider Orthopaedic Surgery | DX: M25.561 Pain in right knee (principal) | CPT/HCPCS: 97110; G0283 ==

== ENCOUNTER → 2022-01-16 10:50 | Outpatient (BNVA) | payer MEDICARE, MEDICAID, SELFPAY | PROVIDERS: PCP Family Medicine; Visit Provider Internal Medicine | DX: M05.9 Rheumatoid arthritis with rheumatoid factor, unspecified (principal); Z79.899 Other long term (current) drug therapy; F17.210 Nicotine dependence, cigarettes, uncomplicated | CPT/HCPCS: 99214 ==

== ENCOUNTER 2022-01-26 08:52 | Outpatient (CLI) | payer MEDICARE, MEDICAID, SELFPAY ==
--- NOTE | 2022-01-26 08:54 | FL_ITS ---
WS: [id number] FL upper GI w air* [id number] REASON FOR EXAM: Z90.3 - Acquired absence of stomach [part of] FLUOROSCOPY TIME: 1.4 minutes FINDINGS: Barium was administered orally in the upright position. The movement of the barium through the upper GI tract was studied from the upper esophagus to the ligament of Treitz. The esophagus intermittently demonstrated intermittent delays in emptying. No tertiary contractions, stricture, or hiatal hernia identified. No reflux was noted. The stomach shows the fixed narrowing at the junction of the fundus and body of the stomach related t o the previous gastric sleeve procedure. The barium flowed readily through the stomach, pylorus, duodenum, and duodenal sweep. Small diverticulum was seen in the region of the ligament of Treitz. The proximal jejunum was normal. FL/FL upper GI w air* [id number] IMPRESSION: Intermittent hypomotility of the esophagus without fixed anatomic abnormality. The barium readily flowed through the stomach and duodenum.
== END 2022-01-26 08:53 | disposition home or self-care (01) ==
LOC: RAD 08:53
PROVIDERS: PCP Family Medicine; Visit Provider Surgery
DX: Z90.3 Acquired absence of stomach [part of] (principal)
CPT/HCPCS: 74246

== ENCOUNTER → 2022-02-16 11:24 | Outpatient (BNVA) | payer MEDICARE, MEDICAID, SELFPAY | PROVIDERS: PCP Family Medicine; Visit Provider Family Medicine | DX: J44.9 Chronic obstructive pulmonary disease, unspecified (principal); J30.2 Other seasonal allergic rhinitis; K29.70 Gastritis, unspecified, without bleeding; M79.7 Fibromyalgia; F51.05 Insomnia due to other mental disorder; F99 Mental disorder, not otherwise specified; M70.62 Trochanteric bursitis, left hip; E03.9 Hypothyroidism, unspecified; M06.9 Rheumatoid arthritis, unspecified; Z79.899 Other long term (current) drug therapy; K29.30 Chronic superficial gastritis without bleeding; M51.16 Intervertebral disc disorders with radiculopathy, lumbar region; F41.1 Generalized anxiety disorder | CPT/HCPCS: 80053; 84443; 84550; 85025 ==

== ENCOUNTER → 2022-03-23 14:14 | Outpatient (BNVA) | payer MEDICARE, MEDICAID, SELFPAY | PROVIDERS: PCP Family Medicine; Visit Provider Internal Medicine | DX: M06.9 Rheumatoid arthritis, unspecified (principal); Z79.899 Other long term (current) drug therapy | CPT/HCPCS: 80053; 85025; 85651; 86140 ==

== ENCOUNTER 2022-04-02 08:54 | Day surgery (SDC) | payer MEDICARE, MEDICAID, SELFPAY ==
[2022-02-03 10:52] VITALS: BMI 29.2
[2022-04-02 09:58] VITALS: BP 134/75; PULSE 64; RESP 18; TEMP 36.4; O2SAT 97
--- NOTE | 2022-04-02 10:04 | ANES.PREANE2 ---
Pre-Anesthetic Assessment Height/Weight: Height 1.63 m Weight 79.379 kg Temp Pulse Resp BP Pulse Ox 97.5 F L 64 18 134/75 97 04/02/22 09:58 04/02/22 09:58 04/02/22 09:58 04/02/22 09:58 04/02/22 09:58 Preop Diagnosis: Persistent nausea Operation Date: 02/05/22 16:00 Proposed Procedures p EGD Dilation W/ Balloon 26043/r11.0(Not Applicable) - James Curry MD Operation Date: 04/02/22 10:30 Proposed Procedures p EGD Dilation W/ Balloon 61600/r11.0(Not Applicable) - James Curry MD Was Beta Lazara taken within 24 hours: N/A Last intake: Intake Last Liquid Date 04/01/22 Last Liquid Time 21:00 Last Solid Date 04/01/22 Last Solid Time 23:00 Last Intake: 23:00 Social Tobacco 1/2 ppd pack(s) per day Exam alert and oriented x 3 Airway Submandibular: within normal limits Cervical ROM: within normal limits Mallampati: Class II Dentition: full History/ROS No significant history except as noted Pulmonary Chronic Obstructive Pulmonary Disease CV/HEM Hypertension (no longer takes medications) None reported Hepatic None reported GI Gastroesophageal Reflux Disease Metabolic h/o gastric bypass [facility] [place] Fibromyalgia, Lower Back Pain and Rheumatoid Arthritis Neuropsych Anxiety Anesthetic Plan ASA status: 3 Anesthesia: Anesthesia Evaluation and MAC Risk of > 500 ml blood loss (7ml/kg in children): No Medications/Allergies Home Medications Medication Instructions Recorded Confirmed Last Taken Type insulin syringe-needle U-100 1 mL #100 ea 04/29/21 04/02/22 Unknown Rx 25 x 1 (BD Insulin Syringe) promethazine 12.5 mg tablet 12.5 mg PO Q6H PRN #10 tab 09/25/21 04/02/22 03/26/22 Rx levothyroxine 25 mcg tablet 25 mcg PO DAILY 30 Days #30 tab 10/15/21 04/02/22 04/01/22 Rx Lactobacillus 25 billion 1 cap PO DAILY 10/28/21 04/02/22 04/01/22 History cell-Bifido 25 billion [id number] capsule (Women's Probiotic) sumatriptan succinate 25 mg tablet 25 mg PO ONCE PRN tab 11/19/21 04/02/22 03/03/22 History docusate sodium 100 mg capsule 100 mg PO DAILY 11/24/21 04/02/22 04/01/22 History (Colace) sertraline 50 mg tablet 50 mg PO DAILY 30 Days #30 tab 12/30/21 04/02/22 04/01/22 Rx folic acid 1 mg tablet 1 mg PO DAILY #90 tab 01/16/22 04/02/22 04/01/22 Rx methotrexate sodium 2.5 mg tablet 10 mg PO .qweek #20 tab 01/16/22 04/02/22 03/29/22 Rx albuterol sulfate 90 mcg/actuation 1 puff INHALATION QID PRN 30 Days 02/16/22 04/02/22 03/23/22 Rx aerosol inhaler #18 gm benzonatate 100 mg capsule 100 mg PO BID PRN 30 Days #60 cap 02/16/22 04/02/22 03/26/22 Rx omeprazole 40 mg capsule,delayed See Rx Instructions .ROUTE 02/16/22 04/02/22 04/01/22 Rx release .COMPLEX #90 cap oxycodone 5 mg tablet 5 mg PO DAILY PRN 30 Days #30 tab 02/16/22 04/02/22 03/30/22 Rx pregabalin 75 mg capsule 75 mg PO BID #60 cap 02/16/22 04/02/22 04/01/22 Rx trazodone 50 mg tablet 25 mg PO .at bedtime #30 tab 02/16/22 04/02/22 04/01/22 Rx insulin syringe-needle U-100 1 mL #6 ea 03/21/22 04/02/22 Unknown Rx 25 x 1 (BD Insulin Syringe) prednisone 5 mg tablet 5 mg PO DAILY PRN #60 tab 04/01/22 04/02/22 04/01/22 Rx Allergies Allergy/AdvReac Type Severity Reaction Status Date / Time No Known Allergies Allergy Verified 04/02/22 09:47 [facility] Anesthesia Medical History Chronic pain syndrome COPD (chronic obstructive pulmonary disease) Fibromyalgia NAE (generalized anxiety disorder) Hypertension, essential Did not tolerate lisinopril. Hypothyroidism Insomnia Lumbar paraspinal muscle spasm Surgical History H/O foot surgery H/O tubal ligation Family History Other CAD (coronary artery disease) Cancer Diabetes Heart attack Hyperlipidemia Hypertension Rheumatoid arthritis Stroke Denies family history of Lupus Chronic kidney disease (CKD) Social History Smoking and tobacco status: current every day smoker cigarettes Packs smoked per day: 1 Quit status (tobacco): has tried quititng Second hand smoke exposure: No Alcohol intake: current Alcohol intake frequency: holidays/special occasions only Desire information about alcohol rehabilitation?: No Desire information about substance/drug rehabilitation?: No History of recent travel: No Female Reproductive History Spontaneous abortions: No Data Anesthesia Cardiac Studies: No Data to Display
[2022-04-02] MEDS: sodium chloride 0.9% 1,000 ML 30 ML IV (10:08)
--- NOTE | 2022-04-02 10:33 | P.HP_ITS ---
Same Day Surgery H&P Indication for Procedure/HPI DATE OF PROCEDURE: April 02, 2022 CHIEF COMPLAINT/INDICATIONFOR SURGICAL PROCEDURE: Nausea PREOP DIAGNOSIS: Persistent nausea PLANNED PROCEDURE: Operation Date: 02/05/22 16:00 Proposed Procedures p EGD Dilation W/ Balloon 16802/r11.0(Not Applicable) - James Curry MD Operation Date: 04/02/22 10:30 Proposed Procedures p EGD Dilation W/ Balloon 44176/r11.0(Not Applicable) - James Curry MD 11/19/2021 This is a pleasant 61 years old female patient undergone a laparoscopic sleeve gastrectomy per her description at [facility] about 18 months ago.? She had initial weight to 98 pounds and currently she is 174 pounds with a BMI of 29.8.? It does not seem that the patient has been following up with her bariatric surgeon and apparently she has been having nausea and abdominal cramping.? Patient is referred to me for further evaluation and potential management.? Also reports history of chronic constipation and she had an attempted colonoscopy per her description 2 months ago and it seems that the prep was suboptimal. Patient denies any bleeding per orifices.? She also denies any difficulty in swallowing.? Furthermore when I asked the patient she does not seem to be compliant with her bariatric vitamins as it causes a lot of nausea and vomiting for her.Unfortunately I do not hear have her operative report from her bariatric surgery program. ? 04/02/22 Patient comes today after an upper GI study was obtained; Barium was administered orally in the upright position. The movement of the barium through the upper GI tract was studied from the upper esophagus to the ligament of Treitz. The esophagus intermittently demonstrated intermittent delays in emptying. No tertiary contractions, stricture, or hiatal hernia identified. No reflux was noted. The stomach shows the fixed narrowing at the junction of the fundus and body of the stomach related to the previous gastric sleeve procedure. The barium flowed readily through the stomach, pylorus, duodenum, and duodenal sweep. Small diverticulum was seen in the region of the ligament of Treitz. The proximal jejunum was normal. FL/FL upper GI w air* [id number] IMPRESSION: Intermittent hypomotility of the esophagus without fixed anatomic abnormality. The barium readily flowed through the stomach and duodenum. Patient comes today for diagnostic EGD with possible balloon dilation ? ROS All systems have been reviewed negative except as for the above or per problem list. Medications/Allergies* Home Medications Medication Instructions Recorded Confirmed Type Lactobacillus 25 billion 1 cap PO DAILY 10/28/21 04/02/22 History cell-Bifido 25 billion [id number] capsule (Women's Probiotic) sumatriptan succinate 25 mg tablet 25 mg PO ONCE PRN tab 11/19/21 04/02/22 History docusate sodium 100 mg capsule 100 mg PO DAILY 11/24/21 04/02/22 History (Colace) Allergies/Adverse Reactions Allergy/AdvReac Type Severity Reaction Status Date / Time No Known Allergies Allergy Verified 04/02/22 10:35 Current Medications: Generic Name Dose Route Start Last Admin Trade Name Freq PRN Reason Stop Dose Admin Sodium Chloride 1,000 mls @ 30 mls/hr 04/02/22 09:15 04/02/22 10:08 Sodium Chloride 0.9% IV 04/03/22 09:14 30 mls/hr .Q24H NICOLE Administration Pertinent History/Comorbid Conditions* Medical History (Updated 02/16/22 @ 12:54 by Alix Marcus MD) Chronic pain syndrome COPD (chronic obstructive pulmonary disease) Fibromyalgia NAE (generalized anxiety disorder) Hypertension, essential Did not tolerate lisinopril. Hypothyroidism Insomnia Failed amitriptyline, Ambien caused side effects. Lumbar paraspinal muscle spasm Surgical History (Updated 01/24/20 @ 08:32 by Alix Marcus MD) H/O foot surgery H/O tubal ligation Family History (Updated 12/25/21 @ 14:42 by Ramona Bentley LPN) Rheumatoid arthritis Diabetes CAD (coronary artery disease) Hyperlipidemia Heart attack Cancer Hypertension Stroke Denies family history of Lupus Chronic kidney disease (CKD) Social History Smoking and tobacco status: current every day smoker cigarettes Packs smoked per day: 1 Quit status (tobacco): has tried quititng Second hand smoke exposure: No Alcohol intake: current Alcohol intake frequency: holidays/special occasions on ly Desire information about alcohol rehabilitation?: No Desire information about substance/drug rehabilitation?: No History of recent travel: No Pertinent Exam Findings alert, oriented x 3, regular rate & rhythm and procedure specific exam findings (Abdominal examination nontender nontender nondistended soft) Recommendations Surgery/Procedure today (EGD with possible biopsy AND with possible balloon dilation) Coding Level of Care Code Acute Pharmacy Aide for Chg Ning
[2022-04-02 10:55] VITALS: BP 116/67; PULSE 68; RESP 16; TEMP 36.5; O2SAT 94
[2022-04-02 11:16] VITALS: BP 124/74; PULSE 55; RESP 18; O2SAT 99
--- NOTE | 2022-04-02 13:39 | ANE.PACU2 ---
Inpatient post-anesthesia follow up: Airway intact: Yes Vital signs: Temperature 97.7 F Pulse Rate 55 Respiratory Rate 18 Blood Pressure 124/74 Pulse Oximetry 99 Oxygen Delivery Me thod Room Air Oxygen Flow Rate Fraction of Inspir ed Oxygen Hydration adequate: Yes Nausea and vomiting: No Pain level: 1 Mental status: Baseline
== END 2022-04-02 11:28 | disposition home or self-care (01) ==
PROVIDERS: PCP Family Medicine; Visit Provider Surgery
DX: R11.0 Nausea (principal); Z98.84 Bariatric surgery status; Z91.14 Patient's other noncompliance with medication regimen; J44.9 Chronic obstructive pulmonary disease, unspecified; M79.7 Fibromyalgia; I10 Essential (primary) hypertension; E03.9 Hypothyroidism, unspecified; F17.210 Nicotine dependence, cigarettes, uncomplicated; Z79.52 Long term (current) use of systemic steroids
CPT/HCPCS: 43239; 88305; J2704; J7030

== ENCOUNTER → 2022-04-16 13:07 | Outpatient (BNVA) | payer MEDICARE, MEDICAID, SELFPAY | PROVIDERS: PCP Family Medicine; Visit Provider Surgery | DX: Z09 Encounter for follow-up examination after completed treatment for conditions other than malignant neoplasm (principal); R11.0 Nausea; R11.2 Nausea with vomiting, unspecified; R19.7 Diarrhea, unspecified; M06.9 Rheumatoid arthritis, unspecified; I10 Essential (primary) hypertension | CPT/HCPCS: 99213 ==

== ENCOUNTER → 2022-04-28 11:00 | Outpatient (BNVA) | payer MEDICARE, MEDICAID, SELFPAY | PROVIDERS: PCP Family Medicine; Visit Provider Internal Medicine | DX: M06.9 Rheumatoid arthritis, unspecified (principal); Z79.899 Other long term (current) drug therapy | CPT/HCPCS: 80053; 85025; 85651; 86140 ==

== ENCOUNTER → 2022-05-08 08:27 | Outpatient (BNVA) | payer MEDICARE, MEDICAID, SELFPAY | PROVIDERS: PCP Family Medicine; Visit Provider Internal Medicine | DX: M06.9 Rheumatoid arthritis, unspecified (principal); Z79.899 Other long term (current) drug therapy; M77.40 Metatarsalgia, unspecified foot | CPT/HCPCS: 36415; 73120; 73620; 81291; 99214 ==

== ENCOUNTER → 2022-06-03 09:26 | Outpatient (BNVA) | payer MEDICARE, MEDICAID, SELFPAY | PROVIDERS: PCP Family Medicine; Visit Provider Internal Medicine | DX: M06.9 Rheumatoid arthritis, unspecified (principal); M79.7 Fibromyalgia; I10 Essential (primary) hypertension; E03.9 Hypothyroidism, unspecified; Z79.899 Other long term (current) drug therapy; E78.5 Hyperlipidemia, unspecified | CPT/HCPCS: 80053; 84443; 85025; 85651; 86140 ==

== ENCOUNTER 2022-06-08 06:56 | Outpatient (CLI) | payer MEDICARE, MEDICAID, SELFPAY ==
--- NOTE | 2022-06-08 07:00 | US_ITS ---
WS: [id number] RIGHT UPPER QUADRANT ULTRASOUND HISTORY: n/v/d COMPARISON: None available. Liver: 15.4 cm in length. Liver is normal size with mild coarsened echotexture throughout. No mass or bile duct dilatation. Portal Vein: Normal hepatopetal flow with monophasic waveform. Gallbladder: Gallbladder is normally distended. There is a very small 6 mm hyperechoic focus pended p ortion of the gallbladder which does not move with positioning. This could be a small polyp or adhere nt calcification. CBD: 0.5 cm Pancreas: Normal size and echogenicity. Right kidney: 9.1 cm in length. Normal size and echogenicity. No hydronephrosis or mass. Aorta and IVC: Unremarkable abdominal aorta and IVC. No ascites. US/US gall bladder [id number] IMPRESSION: 1. 6 mm focus in the gallbladder lumen does not move with positioning. This is hyperechoic and could represent a small stone adherent to the gallbladder wall or small polyp. This could be evaluated in 3-4 months by ultrasound follow-up if clinically thought necessary. 2. Mild hepatic steatosis.
== END 2022-06-08 06:57 | disposition home or self-care (01) ==
LOC: RAD 06:56
PROVIDERS: PCP Family Medicine; Visit Provider Surgery
DX: R11.2 Nausea with vomiting, unspecified (principal); R19.7 Diarrhea, unspecified; K76.0 Fatty (change of) liver, not elsewhere classified
CPT/HCPCS: 76705

== ENCOUNTER → 2022-07-02 14:10 | Outpatient (BNVA) | payer MEDICARE, MEDICAID, SELFPAY | PROVIDERS: PCP Family Medicine; Visit Provider Surgery | DX: Z09 Encounter for follow-up examination after completed treatment for conditions other than malignant neoplasm (principal); R10.9 Unspecified abdominal pain; K80.20 Calculus of gallbladder without cholecystitis without obstruction | CPT/HCPCS: 99213 ==

== ENCOUNTER → 2022-07-22 12:00 | Outpatient (BNVA) | payer MEDICARE, MEDICAID, SELFPAY | PROVIDERS: PCP Family Medicine; Visit Provider Internal Medicine | DX: I10 Essential (primary) hypertension (principal); M06.9 Rheumatoid arthritis, unspecified | CPT/HCPCS: 80048 ==

== ENCOUNTER 2022-07-28 15:11 | Observation (INO) | payer MEDICARE, MEDICAID, SELFPAY ==
[2022-07-28] VITALS (31 sets, daily range): BP systolic 96–150; BP diastolic 49–88; PULSE 47–81; RESP 12–23; TEMP 36.4–36.8; O2SAT 93–100
[2022-07-28] MEDS: sodium chloride 0.9% 1,000 ML 30 ML IV (10:21)
[2022-07-28] MEDS: acetaminophen 1,000 MG/100 ML PIGGYBACK 400 MG IV (10:22)
[2022-07-28] MEDS: heparin 5,000 unit/mL INJ 1 mL 3000 UNIT SUBCUT (10:24)
[2022-07-28] MEDS: scopolamine 1.5 Patch 1 PATCH TRANSDERMA (10:48)
--- NOTE | 2022-07-28 11:21 | P.ANESASSM_ITS ---
Pre-Anesthetic Assessment Height/Weight: Height 1.63 m Weight 79.379 kg Temp Pulse Resp BP Pulse Ox O2 Del Method 98 F 81 15 122/77 97 07/28/22 10:07 07/28/22 10:07 07/28/22 10:07 07/28/22 10:07 07/28/22 10:07 07/28/22 10:07 Preop Diagnosis: Symptomati cholelithiasis Operation Date: 07/28/22 11:20 Proposed Procedures p Laparoscopic Cholecystectomy 07324,R10.9(Not Applicable) - James Curry MD Familial anesthetic complications: none Was Beta Lazara taken within 24 hours: N/A Was Clonidine taken within 24 hours: N/A Last intake: Intake Last Liquid Date 07/27/22 Last Liquid Time 21:00 Last Solid Date 07/27/22 Last Solid Time 21:00 Social Tobacco and No alcohol Exam alert, oriented x 3, clear to auscultation bilaterally and regular rate & rhythm Airway Submandibular: within normal limits Cervical ROM: within normal limits Mallampati: Class II Dentition: false Pulmonary Chronic Obstructive Pulmonary Disease CV/HEM MTHFR mutation METS > 4 EKG 03/2021 Interpretive Statements SINUS RHYTHM Compared to ECG 03/15/2021 04:14:08 No significant changes Electronically Signed On 03-16-2021 22:29:02 CDT by REGINA BARRIGA [email or web address] None reported Hepatic None reported GI Gastroesophageal Reflux Disease Cholelithiasis Gastritis Metabolic Thyroid Disease [facility] Fibromyalgia, Lower Back Pain, Osteoarthritis/DJD and Rheumatoid Arthritis Neuropsych Anxiety Anesthetic Plan ASA status: 3 Anesthesia: Anesthesia Evaluation and General Other: We discussed risk and benefits of general anesthesia including PONV, sore throat (sometimes severe), corneal abrasion, positioning and peripheral nerve injuries, life threatening allergic reaction, post operative ICU admission requiring prolonged intubation, aspiration, stroke, heart attack, , and rare incidences of recall. Patient consents to proceed with general anesthesia. Risk of > 500 ml blood loss (7ml/kg in children): No Medications/Allergies Home Medications Medication Instructions Recorded Confirmed Last Taken Type promethazine 12.5 mg tablet 12.5 mg PO Q6H PRN nausea and 11/11/21 09/12/22 05/12/22 Rx vomiting #10 tabs Lactobacillus 25 billion 1 cap PO DAILY 10/28/21 07/28/22 07/27/22 History cell-Bifido 25 billion [id number] capsule (Women's Probiotic) sumatriptan succinate 25 mg tablet 25 mg PO ONCE PRN migraine headache 11/19/21 07/27/22 03/03/22 History docusate sodium 100 mg capsule 100 mg PO DAILY 11/24/21 07/28/22 07/27/22 History (Colace) albuterol sulfate 90 mcg/actuation 1 puff inhalation QID PRN 02/16/22 07/27/22 03/23/22 Rx aerosol inhaler shortness of breath or wheezing 30 days #18 grams benzonatate 100 mg capsule 100 mg PO BID PRN cough 30 days 02/16/22 07/27/22 03/26/22 Rx #60 caps prednisone 5 mg tablet 15 mg PO DAILY PRN Flares 04/16/22 07/27/22 Unknown History amitriptyline 25 mg tablet 25 mg PO .at bedtime 30 days #30 05/20/22 07/28/22 07/27/22 Rx tabs levomefolate calcium 15 mg tablet 15 mg PO DAILY 90 days #90 tabs 05/20/22 07/28/22 07/27/22 Rx (L-Methylfolate) levothyroxine 25 mcg tablet 25 mcg PO DAILY 30 days #30 tabs 05/20/22 07/28/22 07/27/22 Rx omeprazole 40 mg capsule,delayed 40 mg PO BID 90 days #180 caps 05/20/22 07/28/22 07/27/22 Rx release sertraline 50 mg tablet 50 mg PO DAILY 30 days #30 tabs 05/20/22 07/27/22 Unknown Rx methotrexate sodium 2.5 mg tablet 10 mg PO .weekly #20 tabs 05/26/22 07/28/22 07/23/22 Rx diclofenac sodium 1 % topical gel 4 g topical QID #100 grams 05/28/22 07/28/22 07/27/22 Rx (Voltaren Arthritis Pain) cyanocobalamin (vitamin B-12) See Rx Instructions .Route 06/23/22 07/28/22 07/27/22 Rx 1,000 mcg/mL injection solution .COMPLEX #6 mL insulin syringe-needle U-100 1 mL #100 ea 06/23/22 07/03/22 Unknown Rx 25 x 1 (BD Insulin Syringe) oxycodone 5 mg tablet 5 mg PO DAILY PRN pain 10 days #10 07/21/22 07/27/22 Unknown Rx tabs Allergies Allergy/AdvReac Type Severity Reaction Status Date / Time fentanyl AdvReac Severe ADR-Nightma Verified 07/27/22 12:06 re Current Medications Generic Name Dose Route Start Last Admin Trade Name Freq PRN Reason Stop Dose Admin Sodium Chloride 1,000 mls @ 30 mls/hr 07/28/22 10:00 07/28/22 10:21 Sodium Chloride 0.9% IV 07/29/22 09:59 30 mls/hr .Q24H NICOLE Administration PFSH Anesthesia Medical History Chronic pain syndrome COPD (chronic obstructive pulmonary disease) Fibromyalgia NAE (generalized anxiety disorder) Hypertension, essential Did not tolerate lisinopril. Hypothyroidism Insomnia Failed amitriptyline, Ambien caused side effects. Lumbar paraspinal muscle spasm Metatarsalgia Surgical History H/O foot surgery H/O tubal ligation Family History Other CAD (coronary artery disease) Cancer Diabetes Heart attack Hyperlipidemia Hypertension Rheumatoid arthritis Stroke Denies family history of Lupus Chronic kidney disease (CKD) Social History Smoking and tobacco status: current every day smoker cigarettes Packs smoked per day: 1 Quit status (tobacco): has tried quititng Second hand smoke exposure: No Alcohol intake: current Alcohol intake frequency: holidays/special occasions only Desire information about alcohol rehabilitation?: No Desire information about substance/drug rehabilitation?: No History of recent travel: No Female Reproductive History Spontaneous abortions: No Data Anesthesia Cardiac Studies: No Data to Display
--- NOTE | 2022-07-28 11:37 | W.PM.OPSUD ---
Surgery/Procedure H&P Update DATE OF PROCEDURE: July 28, 2022 DATE H&P PERFORMED: 07/02/22 H&P UPDATE INFORMATION: I have reviewed H&P completed within last 30 days, I have examined patient prior to procedure and No changes to prior documentation PREOP DIAGNOSIS: Symptomati cholelithiasis PRIMARY INDICATION FOR PROCEDURE: The same PLANNED PROCEDURE: Operation Date: 07/28/22 11:20 Proposed Procedures p Laparoscopic Cholecystectomy 06818,R10.9(Not Applicable) - James Curry MD
[2022-07-28] MEDS: ampicillin-sulbactam 3 GM in sodium chloride 0.9% (plus) 50 ML IV (12:11)
[2022-07-28] MEDS: lidocaine 1% INJ 50 mL 20 ML INJECTION (12:53)
--- NOTE | 2022-07-28 13:27 | P.OP_ITS ---
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 Time-out was done verifying the patient's name/date of /planned procedure and destination after the procedure, all were in agreement. SCDs confirmed to be functioning, preoperative antibiotics administered per protocol, and beta mag protocol was confirmed. Patient was appropriately secured to the table, footboard was applied to the OR table, before prep and drape anesthesia was asked to tilt the table back and forth to make sure that the patient is appropriately secured and she was. Prep and drape of the abdomen was done under the usual sterile technique, followed by that supraumbilical skin incision,skin incision was done by a 15 blade knife, during dissection a small preperitoneal fat protruding at the umbilicus was noted the hernia was then dissected, fascial defect was about a centimeter in diameter and stay sutures were applied to the fascia and Bright trocar technique was used to enter the abdominal without injuring any abdominal viscera, started by low flow gas insufflation followed by a high flow, started with a 10 mm laparoscope and under direct vision there was no evidence of any injuries, the scope then switched to a 30? ,10 millimeter scope and under direct visualization 5 millimeter trocar was inserted in the epigastric region followed by two 5 mm trocars were inserted in the right upper quadrant that was done after injection of local lidocaine 1% at all incision sites. Before insertion of the last 2 5 mm trochars; Adhesiolysis under direct visualization using sharp technique and cauterization without violation of the integrity of the bowel was then achieved. Gallbladder showed chronic cholecystitis and mild fatty Liver also noticed right upper quadrant intra-abdominal adhesions between the ascending colon and the abdominal wall Patient was then positioned in the head up and tilted to the left. Ratcheted forceps were introduced into the lateral most 5mm port and was applied unto the fundus of the gallbladder cephalad and using Bullet forceps the infundibulum of the gallbladder was retracted laterally. Using [place] forceps then L-hook cautery to dissect the peritoneum overlying the Calot's triangle which was then opened medially and laterally until the cystic duct and the cystic artery were skeletonized. Dissection was carried along the body of the gallbladder and after ensuring critical view of safety was identfied. Cystic duct and cystic artery where seen connected to the gallbladder. Clips were applied on the cystic duct towards the common bile duct 1 towards the gallbladder then divided is in sharp scissors, 2 clips were then applied onto the cystic artery and 1 towards the gallbladder and divided by sharp scissors. Dissection was then carried along of the gallbladder from the gallbladder fossa using cautery as well as sharp dissection with heat energy. The gallbladder then was dissected out from the gallbladder fossa totally , cholecystectomy was then achieved and was placed in an Endo Catch bag and then retrieved from the Bright trocar site under direct visualization using a 5 mm 30? scope through the epigastric trocar, specimen was then passed to the circulating nurse to go for permanent pathology,irrigation and hemostasis was done to the gallbladder fossa after hemostasis was secured and finalized by placement of small pieces of Surgicel at the gallbladder fossa, final survey laparoscopy was done that showed no injuries. Suction irrigation was obtained. The supraumbilical fascial defect was then closed using interrupted number one PDS sutures using a fascial closure device ;Henrique Hayden under direct visualization,.following that Gas was allowed to deflate,Trocars were then taken out under direct vision there was no evidence of bleeding. Specimen was passed to the circulating nurse for permanent pathology also the umbilical hernia was passed to the circulating nurse for. No drains were placed and the supraumbilical incision as well as all trocar sites were closed by 3/0 Vicryl followed by skin staple to approximate the skin edges of the incisions , dressing was applied in the form of surical glue and the patient patient got extubated and was taken to recovery area in a stable condition. Count of sponges,needles and instruments were completed at the end of the procedure I was present for the whole entire procedure.
[2022-07-28] MEDS: ketorolac 30 mg/mL INJ 15 MG IVP (13:56)
--- NOTE | 2022-07-28 13:58 | SUR.PHASEI ---
1335 PT TO PACU 5 PT AWAKES TO VOICE, THEN QUICKLY BACK TO SLEEP VSS MONITOR SR TO SB WITH NO ECTOPY, IV TO RT WRIST #20 WITH NS 1000ML UP AT KVO RATE PER GRAVITY, ID BRACELT TO LT WRIST PT ID'D WITH 2 IDENTIFIERS, WARM BLANKETS TO PT, PT ABDOMEN SOFT WITH 4 SITES TO ABDOMEN WITH BANDAIDS.
--- NOTE | 2022-07-28 14:00 | SUR.PHASEI ---
1356 SEE PAIN MED GIVEN PT AWAKE MOANING, C/O OF ABDOMENAL PAIN OF 10 , PT IS ALLERGIC TO FENTANYL, SEE MORPINE GIVEN IN OR. DR STALLWORTH AT BEDSIDE ORDERS RECIEVED TO GIVE TORDOL 15MG IVP IN PACU.
[2022-07-28] MEDS: ondansetron 2 mg/ML SDV 2 mL 4 MG IVP (14:28)
--- NOTE | 2022-07-28 14:30 | SUR.PHASEI ---
1415 PT STILL C/O OF PAIN OF 10, BUT PT SLEEPS OFF AND ON, FACE SCALE 3 PT SLEEPY BUT APPROPRIATE. PT OK WITH TAKING PO PAIN MED IN OPS , PT REQUESTS SPRITE TO SIP ON, ABDOMEN REMAINS SOFT SITES D/I , HANDOFF AT BEDSIDE TO PETER BASHIR REGULAR ICE PACE TO ABDOMEN FOR COMFORT.
--- NOTE | 2022-07-28 14:46 | ECG_ITS ---
[facility] Test Date: 2022-07-28 Pat Name: Sari Henning Department: Room: Gender: Female Enameler: : 1960 Requested By: Jmaes Curry Order Number: [id number] Jass MD: Марина Figueroa M.D. Measurements Intervals [place] Rate: 52 P: 75 MO: 165 QRS: 12 QRSD: 96 T: 45 QT: 447 QTc: 418 Interpretive Statements SINUS BRADYCARDIA INCOMPLETE RIGHT BUNDLE BRANCH BLOCK [90+ ms QRS DURATION, TERMINAL R IN V1/V2, 40+ ms S IN I/aVL/V4/V5/V6] Compared to ECG 03/15/2021 06:28:57 Incomplete right bundle-branch block now present Sinus rhythm no longer present Electronically Signed On 07-28-2022 18:07:29 CDT by Марина Figueroa M.D. [email or web address]
--- NOTE | 2022-07-28 14:51 | XRR_ITS ---
PROCEDURE INFORMATION: Exam: XR Chest Exam date and time: 07/28/2022 2:58 PM Age: 62 years old Clinical indication: Pain; Angina pectoris; Additional info: Chest pain postoperatively, status post laparoscopic cholecystectomy patient just came TECHNIQUE: Imaging protocol: Radiologic exam of the chest. Views: 1 view. COMPARISON: CR XR chest 1V portable [id number] 03/15/2021 4:32 AM FINDINGS: Lungs: Calcified granuloma in the right lung. No consolidation. Pleural spaces: Unremarkable. No pleural effusion. No pneumothorax. Heart/Mediastinum: Unremarkable. No cardiomegaly. Bones/joints: Unremarkable. XR/XR chest 1V portable [id number] IMPRESSION: No acute findings.
--- NOTE | 2022-07-28 14:58 | PM.PACU ---
PACU note Narrative: Patient recovering in phase 2 of PACU when being evaluated by Doctor Chapa she suddenly began to complain of chest pain. I was asked to come to bedside. VSS, on RA 98% normotensive, p 55 , non labored respirations. Clutching chest, describing chest pressure that does not radiate to jaw or arm. Patient placed on 6 LPM NC. EKG, CXR, CBC, BMP, troponins ordered. Lungs CTA b/l, no murmurs, EKG showed 1st degree block, no overt ST changes, sinus bradycardia. Pain not reproducible with palpation. 2 mg morphine and 0.4 mg nitroglycerin ordered. Doctor Chapa consulted medicine and made arrangements for overnight admission.
[2022-07-28] MEDS: nitroglycerin 0.4 mg sublingual Tablet (15:06)
--- NOTE | 2022-07-28 15:06 | SUR.PHASEII ---
1505 hr 54 100% O2-2l-nc resp 18 b/p 121/79
[2022-07-28 15:13] LABS: Basophils % 0.6 %; Eosinophils # 0.1 10^3/uL (0.0-0.8); Eosinophils % 3.5 %; Hematocrit 40.2 % (37.0-47.0); Hemoglobin 13.5 g/dL (11.5-15.3); Lymphocytes # 0.6 10^3/uL (0.8-4.8); Lymphocytes % 17.7 %; Mean Corpuscular HGB Conc 33.6 g/dL (30.0-36.0); Mean Corpuscular Hemoglobin 33.8 pg (28.0-34.0); Mean Corpuscular Volume 100.8 fl (81-99); Mean Platelet Volume 11.8 fL (7.4-10.4); Monocytes # 0.1 10^3/uL (0.2-0.9); Monocytes % 1.6 %; Neutrophils # 2.37 10^3/uL (1.8-7.7); Neutrophils % 76.6 %; Nucleated Red Blood Cells % 0 %; Platelet Count 138 10^3/cmm (130-400); Red Blood Count 3.99 10^6/uL (4.1-5.3); Red Cell Distribution Width 14.2 % (12.1-15.1); White Blood Count 3.1 10^3/uL (4.0-10.0)
--- NOTE | 2022-07-28 15:18 | PM.PACU ---
PACU note Narrative: Patient continues to have chest pressure after NTG. Concerned that component of anxiety and gas pain vs PE. Midazolam 2 mg ordered.
--- NOTE | 2022-07-28 15:19 | SUR.PHASEII ---
1435 DR CHESTER IN ROOM AND PT C/O PRESSURE ON CHEST,STAT EKG,CHEST XRAY AND LABS ORDERED AND OBTAINED,DR HARTMAN ANESTHESIOLOGIST HERE,SINUS RAKESH ON MONITOR
[2022-07-28 15:36] LABS: D Dimer 1.12 ug/mIFEU (0-0.59)
[2022-07-28 15:45] LABS: Troponin T (5th) Once 13 ng/L (0-10)
[2022-07-28 15:49] LABS: Alanine Aminotransferase 58 U/L (0-33); Albumin Level 3.8 g/dL (3.5-5.2); Alkaline Phosphatase 65 U/L (35-105); Anion Gap 14.2 (5-19); Aspartate Amino Transferase 61 U/L (0-32); Blood Urea Nitrogen 8 mg/dL (8-23); Calcium 8.5 mg/dL (8.5-10.5); Carbon Dioxide 23 mmol/L (22-29); Chloride 108 mmol/L (98-107); Globulin 2.7 g/dL (1.3-4.6); Glomerular Filtration Rate 84.2 mL/min (90-130); Glucose 145 mg/dL (65-115); Osmolality Calculated 293 mOsm/kg (285-295); Phosphorus 3.3 mg/dL (2.5-4.5); Potassium 4.2 mmol/L (3.5-5.1); Sodium 141 mmol/L (136-145); Total Bilirubin 0.4 mg/dL (0.15-1.2); Total Protein 6.5 g/dL (6.6-8.7)
--- NOTE | 2022-07-28 16:01 | P.CONIM_ITS ---
Providers/Reason For Consult Consulting Physician/Specialty*: Reason for Consult*: Chest pain Attending Physician: James Curry MD Primary Care Provider: Alix Marcus MD History of Present Illness History of Present Illness Sari Henning is a 62 year old female with past medical history of HTN, hypothyroidism , fibromyalgia , chronic pain syndrome , seronegative RA, S/p laparoscopic cholecystectomy and umbilical hernia repair for history of chronic cholecystitis and small umbilical hernia.Medicine was consulted as postop patient started complaining of substernal chest pain, 6 out of 10 in severity, non radiating, pressure-like. Chest pain is reproducible . patient denied any diaphoresis, nausea vomiting, fever cough. EKG done so far has shown : Sinus bradycardia with incomplete right bundle branch block. Baseline troponin is pending, D-dimer is: 1.12 WBC 3.1, H&H 13 and 40 , PLT : 138 , serum sodium 141 serum potassium 4.2, BUN/SCR : 8/0.7 , random blood sugar 145, AST 61 ALT 58 ALP 65, Baseline troponin 13, 2-hour troponin pending. Vitals have been reviewed Review of Systems Const: Denies: fever(s), chills, body aches, change in appetite or diaphoresis Card: Denies: palpitations, edema, swelling of feet/ankles, dyspnea on exe rtion, orthopnea or leg pain with exertion Resp: Denies: dyspnea, productive cough, wheezing or pain on inspiration GI: Denies: nausea, vomiting, diarrhea or constipation : Denies: flank pain Musc: Denies: back pain, extremity pain or extremity swelling Neuro: Denies: headache(s), difficulty walking or confusion Medications/Allergies Home Medications Medication Instructions Recorded Confirmed Last Taken Type promethazine 12.5 mg tablet 12.5 mg PO Q6H PRN nausea and 09/25/21 07/27/22 03/26/22 Rx vomiting #10 tabs Lactobacillus 25 billion 1 cap PO DAILY 10/28/21 07/28/22 07/27/22 History cell-Bifido 25 billion uofc-IAW-oqloz capsule (Women's Probiotic) sumatriptan succinate 25 mg tablet 25 mg PO ONCE PRN migraine headache 11/19/21 07/27/22 03/03/22 History docusate sodium 100 mg capsule 100 mg PO DAILY 0107/28/22 07/27/22 History (Colace) albuterol sulfate 90 mcg/actuation 1 puff inhalation QID PRN 02/16/22 07/27/22 03/23/22 Rx aerosol inhaler shortness of breath or wheezing 30 days #18 grams benzonatate 100 mg capsule 100 mg PO BID PRN cough 30 days 02/16/22 07/27/22 03/26/22 Rx #60 caps prednisone 5 mg tablet 15 mg PO DAILY PRN Flares 04/16/22 07/27/22 Unknown History amitriptyline 25 mg tablet 25 mg PO .at bedtime 30 days #30 05/20/22 07/28/22 07/27/22 Rx tabs levomefolate calcium 15 mg tablet 15 mg PO DAILY 90 days #90 tabs 05/20/22 07/28/22 07/27/22 Rx (L-Methylfolate) levothyroxine 25 mcg tablet 25 mcg PO DAILY 30 days #30 tabs 05/20/22 07/28/22 07/27/22 Rx omeprazole 40 mg capsule,delayed 40 mg PO BID 90 days #180 caps 05/20/22 07/28/22 07/27/22 Rx release sertraline 50 mg tablet 50 mg PO DAILY 30 days #30 tabs 05/20/22 07/27/22 Unknown Rx methotrexate sodium 2.5 mg tablet 10 mg PO .weekly #20 tabs 05/26/22 07/28/22 07/23/22 Rx diclofenac sodium 1 % topical gel 4 g topical QID #100 grams 05/28/22 07/28/22 07/27/22 Rx (Voltaren Arthritis Pain) cyanocobalamin (vitamin B-12) See Rx Instructions .Route 06/23/22 07/28/22 07/27/22 Rx 1,000 mcg/mL injection solution .COMPLEX #6 mL insulin syringe-needle U-100 1 mL #100 ea 06/23/22 07/03/22 Unknown Rx 25 x 1 (BD Insulin Syringe) oxycodone 5 mg tablet 5 mg PO DAILY PRN pain 10 days #10 07/21/22 07/27/22 Unknown Rx tabs hydrocodone 5 mg-acetaminophen 325 1 tab PO Q6H PRN pain #28 tabs 07/28/22 Unknown Rx mg tablet Allergies Allergy/AdvReac Type Severity Reaction Status Date / Time fentanyl AdvReac Severe ADR-Nightma Verified 07/27/22 12:06 re Current Medications Generic Name Dose Route Start Last Admin Trade Name Varun PRN Reason Stop Dose Admin Sodium Chloride 1,000 mls @ 30 mls/hr 07/28/22 10:00 07/28/22 10:21 Sodium Chloride 0.9% IV 07/29/22 09:59 30 mls/hr .Q24H NICOLE Administration Ondansetron HCl 4 mg 07/28/22 11:20 07/28/22 14:28 Ondansetron 2 Mg/Ml Sdv 2 Ml IVP 4 mg Q15M PRN Administration Nausea/Vomiting PACU PHASE II PFSH Acute PFSH: Medical History Chronic pain syndrome COPD (chronic obstructive pulmonary disease) Fibromyalgia NAE (generalized anxiety disorder) Hypertension, essential Did not tolerate lisinopril. Hypothyroidism Insomnia Failed amitriptyline, Ambien caused side effects. Lumbar paraspinal muscle spasm Metatarsalgia Surgical History H/O foot surgery H/O tubal ligation Family History Other CAD (coronary artery disease) Cancer Diabetes Heart attack Hyperlipidemia Hypertension Rheumatoid arthritis Stroke Denies family history of Lupus Chronic kidney disease (CKD) Social History Smoking and tobacco status: current every day smoker cigarettes Packs smoked per day: 1 Quit status (tobacco): has tried quititng Second hand smoke exposure: No Alcohol intake: current Alcohol intake frequency: holidays/special occasions only Desire information about alcohol rehabilitation?: No Desire information about substance/drug rehabilitation?: No History of recent travel: No Female Reproductive History: Spontaneous abortions: No Vitals/I&O/Wt Last Vital Signs Temp 98 F 07/28/22 14:16 Pulse 60 07/28/22 14:31 Resp 14 07/28/22 14:31 BP 122/70 07/28/22 14:31 Pulse Ox 98 07/28/22 14:31 O2 Del Method 07/28/22 14:31 O2 Flow Rate 1.0 07/28/22 14:16 07/28/22 07/28/22 07/28/22 06:59 14:59 22:59 Intake Total 150 / 150 Output Total 25 / 25 Balance 125 / 125 Weight last 48 hrs Weight 79.379 kg Physical Exam Const: COMMON NORMALS: patient oriented x3 Resp: COMMON NORMALS: normal respiratory effort, No retractions, No use of accessory muscles and clear to auscultation bilaterally EFFORT & INSPECTION: Yes symmetric chest movement AUSCULTATION: clear to auscultation bilaterally Cardio: COMMON NORMALS: regular rate, regular rhythm, S1 normal heart sound present, S2 normal heart sound present, No gallops present (Cardio), No murmurs present (Cardio), No rub (Cardio) and Peripheral pulses 2+ throughout RATE: regular rate RHYTHM: regular rhythm HEART SOUNDS: S1 normal heart sound present and S2 normal heart sound present PERIPHERAL PULSES: Peripheral pulses 2+ throughout GI: COMMON NORMALS: Normal to inspection, nondistended, normoactive bowel sounds present AUSCULTATION: Yes normoactive bowel sounds RECTAL EXAM: deferred Extremity: COMMON NORMALS: no clubbing, cyanosis or edema and no pedal edema Neuro: COMMON NORMALS: patient oriented x3 Data : 07/28/22 14:59 07/28/22 14:59 A&P Assessment and plan (1) Chest pain: Status: Acute (2) COPD (chronic obstructive pulmonary disease): Status: Acute (3) Fibromyalgia: Status: Chronic (4) Hypertension, essential: Status: Acute (5) Hypothyroidism: Status: Acute Qualifiers: Hypothyroidism type: acquired Qualified Code(s): E03.9 - Hypothyroidism, unspecified Plan 62 year old female with past medical history of HTN, hypothyroidism , fibromyalgia , chronic pain syndrome , seronegative RA, S/p laparoscopic ch olecystectomy and umbilical hernia repair for history of chronic cholecystitis and small umbilical hernia.Medicine was consulted as postop patient started complaining of substernal chest pain, 6 out of 10 in severity, non radiating, pressure-like. Patient denied any diaphoresis, nausea vomiting, fever cough. Assessment: Chest pain: Likely noncardiac: HTN hypothyroidism fibromyalgia chronic pain syndrome seronegative RA Plan: Follow troponin trend Serial EKG Continue telemetry monitoring Continue levothyroxine Continue Zoloft. Sublingual nitro as needed As needed Tylenol. Muscle relaxant could also be helpful. Thanks for consulting medicine we will follow the patient. Consult Attestations Medical Necessity Statement: Per primary team. 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
--- NOTE | 2022-07-28 16:13 | SUR.PHASEII ---
1600 pt resting in bed in eyes closed v/s 59-13-104/63 o2 sat 100% on 2L-nc ,family at bedside, awaiting a bed to admit pt,orders in computer and [employer] labor supervisor called for a bed assignment
[2022-07-28] MEDS: HYDROcodone-acetaminophen 5-325 mg Tablet 1 TAB PO (16:52)
--- NOTE | 2022-07-28 19:23 | SUR.EXTENDED ---
patient transported to [facility]. report was called to nurse oumar. patient awake and alert. pt on nc 2L. scooted herself to floor bed. pt dressings dry and intact. scds in place.
--- NOTE | 2022-07-28 20:20 | PC.NURSE ---
Spoke with Dr Hunt regarding surgical patient admitted for chest pain. Made aware that would like him to come check on the patient tonight and that he wants a troponin series. Patient also requesting her amitriptyline that she take at home. said he would put in orders and to let him know if the patient continues to have chest pain.
--- NOTE | 2022-07-28 20:20 | ECG_ITS ---
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 Measurements Intervals [place] Rate: 50 P: 82 MI: 178 QRS: 26 QRSD: 99 T: 44 QT: 427 QTc: 390 Interpretive Statements SINUS BRADYCARDIA Compared to ECG 07/28/2022 14:46:21 Incomplete right bundle-branch block no longer present Electronically Signed On 07-29-2022 9:36:45 CDT by Марина Figueroa M.D. [id number]
[2022-07-28] MEDS: amitriptyline 25 mg Tablet PO (21:18)
[2022-07-28] MEDS: levothyroxine 25 mcg Tablet PO (21:18)
[2022-07-28] MEDS: sodium chloride 0.9% 1,000 ML 100 ML IV (21:18)
[2022-07-28] MEDS: morphine 4 mg/mL SDV 1 mL 2 MG IVP ×2 (21:31→23:16)
--- NOTE | 2022-07-28 21:40 | PC.NURSE ---
Made aware that the patient is still having chest pain 3/10, worse when she takes deep breaths. The patient has PRN morphine which she was given.
[2022-07-28 21:46] LABS: NT Pro B Type Natriuretic Pept 516 pg/mL (0-125)
--- NOTE | 2022-07-28 22:20 | ECG_ITS ---
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 Measurements Intervals [place] Rate: 63 P: 88 RI: 173 QRS: 25 QRSD: 101 T: 49 QT: 412 QTc: 425 Interpretive Statements SINUS RHYTHM WITH SINUS ARRHYTHMIA Compared to ECG 07/28/2022 21:26:41 Sinus bradycardia no longer present Electronically Signed On 07-30-2022 10:44:09 CDT by Salomón Logan M.D. [id number]
[2022-07-28 22:29] LABS: Troponin(5th) Baseline 13 ng/L (0-10)
[2022-07-28 23:54] LABS: Troponin 5 2HR 11.85 ng/L (0-10)
[2022-07-29] VITALS (11 sets, daily range): BP systolic 91–127; BP diastolic 48–71; PULSE 44–69; RESP 14–18; TEMP 36.4–37.1; O2SAT 91–94
[2022-07-29 00:02] LABS: Troponin 5 2HR Delta -1.15 ABS# (0-10)
--- NOTE | 2022-07-29 02:18 | ECG_ITS ---
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 Measurements Intervals [place] Rate: 47 P: 89 VA: 200 QRS: 32 QRSD: 105 T: 48 QT: 441 QTc: 393 Interpretive Statements SINUS BRADYCARDIA Compared to ECG 07/28/2022 23:00:55 Sinus rhythm no longer present Sinus arrhythmia no longer present Electronically Signed On 07-30-2022 10:43:54 CDT by Salomón Logan M.D. [id number]
[2022-07-29] MEDS: famotidine 20 mg/2 mL INJ IVP (02:45)
[2022-07-29] MEDS: morphine 4 mg/mL SDV 1 mL 2 MG IVP ×2 (02:49→05:32)
[2022-07-29 03:51] LABS: Troponin 5 6HR 10.91 ng/L (0-10)
[2022-07-29 04:13] LABS: Troponin 5 6HR Delta -2.09 ng/L (0-12)
[2022-07-29] MEDS: heparin 5,000 unit/mL INJ 1 mL 5000 UNIT SUBCUT ×2 (05:32→18:14)
[2022-07-29] MEDS: sodium chloride 0.9% 1,000 ML 100 ML IV (05:34)
--- NOTE | 2022-07-29 06:54 | P.HP_ITS ---
Same Day Surgery H&P Indication for Procedure/HPI DATE OF PROCEDURE: July 29, 2022 CHIEF COMPLAINT/INDICATIONFOR SURGICAL PROCEDURE: Chest pain PREOP DIAGNOSIS: Symptomati cholelithiasis PLANNED PROCEDURE: Operation Date: 07/28/22 11:20 Proposed Procedures p Laparoscopic Cholecystectomy 86282,R10.9(Not Applicable) - James Curry MD This is a pleasant 62 years old female patient undergone laparoscopic cholecystectomy 07/28/2022, at postoperative recovery phase 2 patient started to encounter acute onset of substernal chest discomfort and subsequently a full work-up was done where EKGs, lab work, chest x-ray and anesthesia postop evaluation was achieved as well as hospitalist was consulted for further evaluation. I elected to have the patient admitted to the hospital as an observation status for further evaluation and following troponin levels and also to make sure that the patient is not deteriorating and may require intervention from cardiology. Overnight seems that the patient has been feeling more comfortable yet she continues to have lower substernal chest discomfort concomitantly some discomfort at the upper epigastric incision. Pain to have stable vital signs and she is asking for food as she has been hungry. ROS All systems have been reviewed negative except as for the above or per problem list. Medications/Allergies* Home Medications Medication Instructions Recorded Confirmed Type Lactobacillus 25 billion 1 cap PO DAILY 10/28/21 07/28/22 History cell-Bifido 25 billion [id number] capsule (Women's Probiotic) sumatriptan succinate 25 mg tablet 25 mg PO ONCE PRN migraine headache 11/19/21 07/27/22 History docusate sodium 100 mg capsule 100 mg PO DAILY 11/24/21 07/28/22 History (Colace) prednisone 5 mg tablet 15 mg PO DAILY PRN Flares 04/16/22 07/27/22 History Allergies/Adverse Reactions Allergy/AdvReac Type Severity Reaction Status Date / Time fentanyl AdvReac Severe ADR-Nightma Verified 07/29/22 06:57 re Current Medications: Generic Name Dose Route Start Last Admin Trade Name Freq PRN Reason Stop Dose Admin Amitriptyline HCl 25 mg 07/28/22 21:00 07/28/22 21:18 Amitriptyline 25 Mg Tablet PO 25 mg BEDTIME NICOLE Administration Famotidine 20 mg 07/28/22 15:15 07/29/22 02:45 Famotidine 20 Mg/2 Ml Inj IVP 20 mg Q12H NICOLE Administration Heparin Sodium (Porcine) 5,000 unit 07/29/22 06:00 07/29/22 05:32 Heparin 5,000 Unit/Ml Inj 1 Ml SUBCUT 5,000 unit Q12H NICOLE Administration Sodium Chloride 1,000 mls @ 100 mls/hr 07/28/22 15:15 07/29/22 05:34 Sodium Chloride 0.9% IV 100 mls/hr .Q10H NICOLE Administration Levothyroxine Sodium 25 mcg 07/28/22 21:00 07/28/22 21:18 Levothyroxine 25 Mcg Tablet PO 25 mcg BEDTIME NICOLE Administration Morphine Sulfate 2 mg 07/28/22 15:11 07/29/22 05:32 Morphine 4 Mg/Ml Sdv 1 Ml IVP 2 mg Q1H PRN Administration SEVERE PAIN Pertinent History/Comorbid Conditions* Medical History (Updated 07/28/22 @ 16:04 by Merlin Scott MD) Chronic pain syndrome COPD (chronic obstructive pulmonary disease) Fibromyalgia NAE (generalized anxiety disorder) Hypertension, essential Did not tolerate lisinopril. Hypothyroidism Insomnia Failed amitriptyline, Ambien caused side effects. Lumbar paraspinal muscle spasm Metatarsalgia Surgical History (Updated 01/24/20 @ 08:32 by Alix Marcus MD) H/O foot surgery H/O tubal ligation Family History (Updated 12/25/21 @ 14:42 by Ramona Bentley LPN) Rheumatoid arthritis Diabetes CAD (coronary artery disease) Hyperlipidemia Heart attack Cancer Hypertension Stroke Denies family history of Lupus Chronic kidney disease (CKD) Social History Smoking and tobacco status: current every day smoker cigarettes Packs smoked per day: 1 Quit status (tobacco): has tried quititng Second hand smoke exposure: No Alcohol intake: current Alcohol intake frequency: holidays/special occasions only Desire information about alcohol rehabilitation?: No Desire information about substance/drug rehabilitation?: No History of recent travel: No Pertinent Exam Findings alert, oriented x 3, clear to auscultation bilaterally, regular rate & rhythm and procedure specific exam findings (Abdominal exam shows mild tenderness at the incision sites otherwise unrema) Soft, no signs of peritonitis. Recommendations Surgery/Procedure today (Continue conservative measures and will follow recommendations per hospitalist service) Coding Level of Care Code Acute Billing Representative for Aishwarya Barclay
--- NOTE | 2022-07-29 07:00 | PC.NURSE ---
rounded on patient this morning. Patient was informed that she would not be discharged that she needed to be seen by Hospitalist first. Dr Garzon discussed with nurse that if the patient was cleared by the hospitalist that he would possibly discharge the patient after that. Patient was to remain NPO except ice chips for the time being. Day shift to communicate with regarding any changes or updates.
[2022-07-29 07:07] LABS: Hemoglobin 11.6 g/dL (11.5-15.3)
[2022-07-29 07:17] LABS: Anion Gap 13.4 (5-19); Blood Urea Nitrogen 9 mg/dL (8-23); Calcium 8.7 mg/dL (8.5-10.5); Carbon Dioxide 24 mmol/L (22-29); Chloride 106 mmol/L (98-107); Glucose 102 mg/dL (65-115); Osmolality Calculated 287 mOsm/kg (285-295); Potassium 4.4 mmol/L (3.5-5.1); Sodium 139 mmol/L (136-145)
[2022-07-29] MEDS: sertraline 50 mg Tablet PO (10:20)
--- NOTE | 2022-07-29 10:32 | PC.NURSE ---
Discussed discharge instructions, new medications and follow up appointment with patient and family member. Verbalized understanding.
--- NOTE | 2022-07-29 12:25 | P.EN_ITS ---
Event Note Event Note: I was informed by the charge nurse Heather around 11:25 AM that Mrs. Henning got discharged by her dayshift nurse which apparently was not the plan as the patient has been under surgical and medical care for further work-up for her chest pain and was not yet released or cleared by the medical hosp italist. I did keep the patient n.p.o. except for ice chips pending further work-up and potential intervention should to be required. I rounded earlier with the wastewater project manager Sveta as I made it very clear that the patient will be staying till we have clearance from hospitalist service and at that point we will start feeding the patient for potential discharge when appropriate. Around 12:30 PM I did call the patient on [phone] and I requested that she would come back to the hospital for final evaluation, and to make sure that we are all on the same page/patient promised that she will come back and she is just waiting on her daughter to give her a ride back. I made the nursing staff aware of this conversation and to expect Mrs. Henning to come back.
--- NOTE | 2022-07-29 14:33 | P.PN_ITS ---
Subjective Subjective: Patient was seen and examined this morning, she was complaining of nonspecific chest pain mostly musculoskeletal in nature. She was also hungry and was asking for food. Medications: Medication Review Details: Generic Name Dose Route Start Last Admin Trade Name Varun PRN Reason Stop Dose Admin Amitriptyline HCl 25 mg 07/28/22 21:00 07/28/22 21:18 Amitriptyline 25 Mg Tablet PO 25 mg BEDTIME NICOLE Administration Famotidine 20 mg 07/28/22 15:15 07/29/22 02:45 Famotidine 20 Mg /2 Ml Inj IVP 20 mg Q12H NICOLE Administration Heparin Sodium (Po rcine) 5,000 unit 07/29/22 06:00 07/29/22 05:32 Heparin 5,000 Un it/Ml Inj 1 Ml SUBCUT 5,000 unit Q12H NICOLE Administration Sodium Chloride 1,000 mls @ 100 m ls/hr 07/28/22 15:15 07/29/22 05:34 Sodium Chloride 0.9% IV 100 mls/hr .Q10H NICOLE Administration Levothyroxine Sodi um 25 mcg 07/28/22 21:00 07/28/22 21:18 Levothyroxine 25 Mcg Tablet PO 25 mcg BEDTIME NICOLE Administration Morphine Sulfate 2 mg 07/28/22 15:11 07/29/22 05:32 Morphine 4 Mg/Ml Sdv 1 Ml IVP 2 mg Q1H PRN Administration SEVERE PAIN Sertraline HCl 50 mg 07/29/22 09:00 07/29/22 10:20 Sertraline 50 Mg Tablet PO 50 mg DAILY NICOLE Administration Vitals/I&O/Wt Last Vital Signs Temp 98.3 F 07/29/22 07:03 Pulse 57 L 07/29/22 12:04 Resp 17 07/29/22 12:04 BP 104/59 07/29/22 07:03 Pulse Ox 92 07/29/22 12:04 O2 Del Method 07/29/22 08:56 O2 Flow Rate 2 07/28/22 22:00 07/28/22 07/29/22 07/29/22 22:59 06:59 14:59 Intake Total 1345.667 / 1495.667 Balance 1345.667 / 1470.667 Physical Exam Const: COMMON NORMALS: patient oriented x3 Resp: COMMON NORMALS: normal respiratory effort, No retractions, No use of accessory muscles and clear to auscultation bilaterally EFFORT & INSPECTION: Yes symmetric chest movement AUSCULTATION: clear to auscultation bilaterally Cardio: COMMON NORMALS: regular rate, regular rhythm, S1 normal heart sound present, S2 normal heart sound present, No gallops present (Cardio), No murmurs present (Cardio), No rub (Cardio) and Peripheral pulses 2+ throughout RATE: regular rate RHYTHM: regular rhythm HEART SOUNDS: S1 normal heart sound present and S2 normal heart sound present PERIPHERAL PULSES: Peripheral pulses 2+ throughout GI: COMMON NORMALS: Normal to inspection, nondistended, normoactive bowel sounds present AUSCULTATION: Yes normoactive bowel sounds RECTAL EXAM: deferred Extremity: COMMON NORMALS: no clubbing, cyanosis or edema and no pedal edema Neuro: COMMON NORMALS: patient oriented x3 Data : 07/29/22 02:51 07/29/22 02:51 A&P Assessment and plan (1) Chest pain: Status: Acute (2) COPD (chronic obstructive pulmonary disease): Status: Acute (3) Fibromyalgia: Status: Chronic (4) Hypertension, essential: Status: Acute (5) Hypothyroidism: Status: Acute Qualifiers: Hypothyroidism type: acquired Qualified Code(s): E03.9 - Hypothyroidism, unspecified Plan 62 year old female with past medical history of HTN, hypothyroidism , fibromyalgia , chronic pain syndrome , seronegative RA, S/p laparoscopic cholecystectomy and umbilical hernia repair for history of chronic cholecystitis and small umbilical hernia.Medicine was consulted as postop patient started complaining of substernal chest pain, 6 out of 10 in severity, non radiating, pressure-like. Patient denied any diaphoresis, nausea vomiting, fever cough. Assessment: Chest pain: Likely noncardiac: Appears to be musculoskeletal in nature. HTN hypothyroidism fibromyalgia chronic pain syndrome seronegative RA Plan: Troponin trend: Serial EKG: Has failed to show any acute ST-T wave changes. On Telemetry monitoring Continue levothyroxine Continue Zoloft. Sublingual nitro as needed As needed Tylenol. Muscle relaxant could also be helpful. Patient chest pain appears mostly noncardiac. She can follow with primary care physician as outpatient. If she continued to have similar chest pain. She may need further cardiac work- up, including 2D echo/stress test, cardiac cath. For now she is good to be discharged from medicine standpoint. Attestations Medical Necessity Statement*: PER PRIMARY Coding Level of Care Code Acute Associate Dean Of Women for Chg Fwd Diagnoses Chest pain R07.9 COPD (chronic obstructive pulmonary disease) J44.9 Fibromyalgia M79.7 Hypertension, essential I10 Hypothyroidism E03.9 Hypothyroidism type: acquired
--- NOTE | 2022-07-29 17:04 | ANE.PACU2 ---
Inpatient post-anesthesia follow up: Airway intact: Yes Vital signs: Temperature 98.8 F Pulse Rate 60 Respiratory Rate 16 Blood Pressure 104/62 Pulse Oximetry 93 Oxygen Delivery Me thod Room Air Oxygen Flow Rate 2 Fraction of Inspir ed Oxygen Hydration adequate: Yes Nausea and vomiting: No Pain level: 1 Mental status: Baseline
--- NOTE | 2022-07-29 17:26 | PM.PN ---
Subjective Subjective: Patient came back and she was reevaluated this evening and seems to be doing well, she had a small bite of ham sandwich and tolerated it but she felt full, patient was seen later through the day by Dr. Scott and he believes that the patient is appropriate to be discharged home and to follow-up with her primary care provider as no further work-up is indicated at this point with regard to her chest pain. Vitals/I&O/Wt Last Vital Signs Temp 98.8 F 07/29/22 15:07 Pulse 60 07/29/22 15:07 Resp 16 07/29/22 15:07 BP 104/62 07/29/22 15:07 Pulse Ox 93 07/29/22 15:07 O2 Del Method 07/29/22 15:07 O2 Flow Rate 2 07/28/22 22:00 07/29/22 07/29/22 07/29/22 06:59 14:59 22:59 Intake Total 1345.667 / 1495.667 Balance 1345.667 / 1470.667 Physical Exam Narrative: Patient is conscious alert oriented X3 No apparent distress BMI 30 Head and neck examination PERRLA no masses no cervical lymphadenopathy no jaundice Abdomen nontender except slightly towards the incision site nondistended soft no organomegaly guarding or rigidity/no signs of peritonitis Data : 07/29/22 02:51 07/29/22 02:51 A&P Assessment and plan (1) Chest pain: We will keep the patient 1 more night in observation status with the plan to discharge home Status: Resolved (2) Symptomatic cholelithiasis: We will start the patient on diet and make sure that she is tolerating well Assurance and education All questions have been answered and all concerns have been addressed to patient's satisfaction. Status: Resolved Attestations Medical Necessity Statement*: Observation status for postoperative chest pain Coding Level of Care Code Acute Importer Or Exporter for Chg Fwd Diagnoses Chest pain R07.9 Symptomatic cholelithiasis K80.20
[2022-07-29] MEDS: famotidine 20 mg Tablet PO (18:14)
[2022-07-29] MEDS: levothyroxine 25 mcg Tablet PO (21:22)
[2022-07-29] MEDS: amitriptyline 25 mg Tablet PO (21:22)
[2022-07-29] MEDS: HYDROcodone-acetaminophen 5-325 mg Tablet 1 TAB PO (21:26)
[2022-07-30 04:00] VITALS: BP 112/67; PULSE 64; RESP 18; TEMP 36.5; O2SAT 94
[2022-07-30] MEDS: HYDROcodone-acetaminophen 5-325 mg Tablet 1 TAB PO (05:38)
[2022-07-30] MEDS: heparin 5,000 unit/mL INJ 1 mL 5000 UNIT SUBCUT (05:39)
--- NOTE | 2022-07-30 06:47 | PM.SDS ---
Short Stay Summary Providers Date of Admit/Discharge: 07/30/22 Attending Provider: James Curry MD Primary Care Provider: Alix Marcus MD Chief Complaint: unspecified abdominal pain HPI History of Present Illness Sari Henning is a 62 year old female undergone uneventful laparoscopic cholecystectomy and at phase 2 recovery started to encounter acute onset of chest pain. Full work-up was done and patient was admitted for observation status after hospitalist was consulted. Review of Systems General: Reports: 10 or more systems reviewed and unremarkable except in HPI and below Home Meds/Allergies Home Medications and Allergies Home Medications Medication Instructions Recorded Confirmed Type Lactobacillus 25 billion 1 cap PO DAILY 10/28/21 07/28/22 History cell-Bifido 25 billion [id number] capsule (Women's Probiotic) sumatriptan succinate 25 mg tablet 25 mg PO ONCE PRN migraine headache 11/19/21 07/27/22 History docusate sodium 100 mg capsule 100 mg PO DAILY 11/24/21 07/28/22 History (Colace) prednisone 5 mg tablet 15 mg PO DAILY PRN Flares 04/16/22 07/27/22 History Allergies Allergy/AdvReac Type Severity Reaction Status Date / Time fentanyl AdvReac Severe ADR-Nightma Verified 07/29/22 06:57 re PFSH Acute PFSH: Medical History Chest pain Chronic pain syndrome COPD (chronic obstructive pulmonary disease) Fibromyalgia NAE (generalized anxiety disorder) Hypertension, essential Did not tolerate lisinopril. Hypothyroidism Insomnia Failed amitriptyline, Ambien caused side effects. Lumbar paraspinal muscle spasm Metatarsalgia Symptomatic cholelithiasis Surgical History H/O foot surgery H/O tubal ligation Family History Other CAD (coronary artery disease) Cancer Diabetes Heart attack Hyperlipidemia Hypertension Rheumatoid arthritis Stroke Denies family history of Lupus Chronic kidney disease (CKD) Social History Smoking and tobacco status: current every day smoker cigarettes Packs smoked per day: 1 Quit status (tobacco): has tried quititng Second hand smoke exposure: No Alcohol intake: current Alcohol intake frequency: holidays/special occasions only Desire information about alcohol rehabilitation?: No Desire information about substance/drug rehabilitation?: No History of recent travel: No Female Reproductive History: Spontaneous abortions: No Vitals/I&O/Wt Last Vital Signs Temp 97.7 F 07/30/22 04:00 Pulse 64 07/30/22 04:00 Resp 18 07/30/22 04:00 BP 112/67 07/30/22 04:00 Pulse Ox 94 07/30/22 04:00 O2 Del Method 07/29/22 15:07 O2 Flow Rate 2 07/28/22 22:00 07/29/22 07/29/22 07/30/22 14:59 22:59 06:59 Intake Total 1720 / 1720 240 / 1960 Output Total 500 / 500 Balance 1720 / 1720 -260 / 1460 Physical Exam Const: COMMON NORMALS: no acute distress and patient oriented x3 GENERAL APPEARANCE: cooperative ORIENTATION/CONSCIOUSNESS: Yes awake, Yes oriented to person, Yes oriented to place and Yes oriented to time HENMT: COMMON NORMALS: normocephalic HEAD & SCALP: normocephalic Eye: COMMON NORMALS: Equal, round and reactive pupils present and no scleral icterus PUPIL: Yes Equal, round and reactive pupils present Lymph: LYMPHATIC: no lymphadenopathy noted Chest: COMMONS NORMALS: normal inspection of the chest Resp: COMMON NORMALS: normal respiratory effort and clear to auscultation bilaterally AUSCULTATION: clear to auscultation bilaterally Cardio: COMMON NORMALS: S1 normal heart sound present and S2 normal heart sound present; negative for No murmurs present (Cardio) HEART SOUNDS: S1 normal heart sound present and S2 normal heart sound present GI: COMMON NORMALS: Soft to palpation; negative for No hepatosplenomegaly present INSPECTION: Yes normal to inspection PALPATION: Yes Soft to palpation, No Firmness to palpation present (GI), No Tenderness to palpation present (GI) (Mildly tender at the incision sites), No Guarding due to palpation present (GI), No Rigid due to palpation and No No hepatosplenomegaly present Neuro: COMMON NORMALS: patient oriented x3 SENSORIUM/ORIENTATION: Yes oriented to person, Yes oriented to place and Yes oriented to time Psych: COMMON NORMALS: mental status grossly normal Skin: COMMON NORMALS: no rashes or lesions noted GENERAL SKIN EXAM: no rashes or lesions noted Hospital Course Hospital Course 62 years old female patient status post laparoscopic cholecystectomy started to encounter acute onset of chest pain. That required full work-up with hospitalist and anesthesiologist involvement and patient was admitted under my service for observation. Patient was cleared by hospitalist service and was started on diet and tolerated it well. Patient reported that she had history of DVT about 1 year ago and I decided to send her home on Lovenox 40 mg once a day for 10 days. To further discussion with hospitalist service it was not found crucial or required to obtain a CTA particularly the patient has been denying any shortness of breath and D-dimers were not impressively showing elevation. And patient has been on heparin subcu in the perioperative period. Patient maintained to have stable vital signs and adequate urine output and tolerating p.o. intake. At some point the patient was discharged prematurely by the nursing staff yet patient was educated to come back to the hospital for further evaluation and to make sure that she met the appropriate criteria for safe discharge home and subsequently I elected to keep the patient 1 more night in an observation status to make sure that the patient is able to tolerate p.o. intake and she did and subsequently patient was discharged home today after meeting the appropriate and safe indications for safe discharge home. Discharge Summary Patient met the appropriate and safe criteria to be discharged home. And she was well educated about any development of acute chest pain she is to come back to the emergency department for further work-up. Patient understand that she is at high risk of development of DVT PE subsequently she was placed on Lovenox 40 mg subcutaneous daily for 10 days. SSS Data Data Completed and Pending: Completed Studies During Hospitalization Category Date Time Status CXRP [XR chest 1V portable [id number]] S tat Exams 07/28/22 14:51 Completed Pending at discharge Category Date Time Status ES surgery / GI i mages Routine Exams 07/28/22 12:01 Taken Pathology: Surgic al [PTH] Routine Pth 07/28/22 13:38 Received Diagnoses at Discharge Discharge Diagnosis (1) Chest pain: Details from hospital stay: Condition resolved Status: Resolved (2) Symptomatic cholelithiasis: Details from hospital stay: Condition resolved Status: Resolved Discharge Plan Discharge Patient Disposition: Home Condition: Stable Prescriptions: New hydrocodone-acetaminophen 5-325 mg tablet 1 tab PO Q6H PRN (Reason: pain) Qty: 28 0RF Lovenox 40 mg/0.4 mL syringe 40 mg SUBCUT DAILY 10 Days Qty: 4 0RF Rx Instructions: Patient should start the first dose 07/31/2022 Continued docusate sodium [Colace] 100 mg capsule 100 mg PO DAILY Women's Probiotic 25B cell-25B cell-50 mg capsule 1 cap PO DAILY sumatriptan succinate 25 mg tablet 25 mg PO ONCE PRN (Reason: migraine headache) albuterol sulfate 90 mcg/actuation HFA aerosol inhaler 1 puff INHALATION QID PRN (Reason: shortness of breath or wheezing) 30 Days Qty: 18 5RF benzonatate 100 mg capsule 100 mg PO BID PRN (Reason: cough) 30 Days Qty: 60 5RF sertraline 50 mg tablet 50 mg PO DAILY 30 Days Qty: 30 5RF omeprazole 40 mg capsule,delayed release(DR/EC) 40 mg PO BID 90 Days Qty: 180 3RF levomefolate calcium [L-Methylfolate] 15 mg tablet 15 mg PO DAILY 90 Days Qty: 90 1RF levothyroxine 25 mcg tablet 25 mcg PO DAILY 30 Days Qty: 30 2RF amitriptyline 25 mg tablet 25 mg PO .at bedtime 30 Days Qty: 30 5RF prednisone 5 mg tablet 15 mg PO DAILY PRN (Reason: Flares) Rx Instructions: 1-2 for flares methotrexate sodium 2.5 mg tablet 10 mg PO .weekly Qty: 20 2RF diclofenac sodium [Voltaren Arthritis Pain] 1 % gel 4 g topical QID Qty: 100 2RF Rx Instructions: apply to single knee, ankle, foot; for foot includes sole/toes/top of foot (DME) BD Insulin Syringe 1 mL 25 x 1 syringe See Rx Instructions .Route Qty: 100 0RF Rx Instructions: use with B12 medication once weekly cyanocobalamin (vitamin B-12) 1,000 mcg/mL solution See Rx Instructions .ROUTE .COMPLEX Qty: 6 0RF Dose Instruction: INJECT 1 ML INTRAMUSCULARLY ONCE EVERY MONTH PATIENT TO INJECT AT HOME WITH SYRINGES Rx Instructions: INJECT 1 ML INTRAMUSCULARLY ONCE EVERY MONTH PATIENT TO INJECT AT HOME WITH SYRINGES oxycodone 5 mg tablet 5 mg PO DAILY PRN (Reason: pain) 10 Days Qty: 10 0RF promethazine 12.5 mg tablet 12.5 mg PO Q6H PRN (Reason: nausea and vomiting) Qty: 10 0RF Rx Instructions: 3 doses during day; last dose no later than 4 hr before bedtime Discharge Orders: Discharge Order (Routine); Ordered 07/30/22 Ordered By: James Curry Referrals: James Curry MD [Physician] - 08/06/22 1:30 pm (Return to surgery office in 10 days) Discharge Diet: Advance as tolerated Discharge Activity: Limit activity as instructed Patient Instructions: Hydrocodone/Acetaminophen (By mouth), Enoxaparin (By injection), Chest Pain (ED), How to Give a Subcutaneous Injection (GEN), Laparoscopic Cholecystectomy (GEN), Chest Pain Stoplight, Opioid Safety, Post Anesthesia Care Activity Restrictions/Additional Instructions: 1. Patient can shower after 48 hours from surgery 2. Remove secondary dressing can take down after 48 hours. 3. Up and walking as tolerated 4. Do not lift more than 5 pounds first 2 weeks after surgery and not more than 25 pounds 6 to 8 weeks after surgery. 5. Do not operate heavy machinery or drive while using pain medications. 6.Contact the office or return to the ER for worsening nausea vomiting fevers or chills, or noticing any redness around incision sites or discharge. 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
[2022-07-30 08:00] VITALS: BP 116/75; PULSE 56; RESP 16; TEMP 36.7; O2SAT 96
[2022-07-30 08:27] VITALS: PULSE 60; RESP 16; O2SAT 93
--- NOTE | 2022-07-30 09:50 | PC.NURSE ---
Discharge Note Patient discharged to home via private vehicle accompanied by family. Discharge instructions reviewed with patient and/or food service representative. Mobile pharmacy medications and/or prescriptions provided. Belongings/home medications returned.
--- NOTE | 2022-07-30 14:43 | PM.PN ---
Subjective Subjective: Patient was seen and examined this morning,was complaining of slight pain at incision sight,no other complain. Medications: Medication Review Details: Generic Name Dose Route Start Last Admin Trade Name Varun PRN Reason Stop Dose Admin Amitriptyline HCl 25 mg 07/28/22 21:00 07/28/22 21:18 Amitriptyline 25 Mg Tablet PO 25 mg BEDTIME NICOLE Administration Famotidine 20 mg 07/28/22 15:15 07/29/22 02:45 Famotidine 20 Mg /2 Ml Inj IVP 20 mg Q12H NICOLE Administration Heparin Sodium (Po rcine) 5,000 unit 07/29/22 06:00 07/29/22 05:32 Heparin 5,000 Un it/Ml Inj 1 Ml SUBCUT 5,000 unit Q12H NICOLE Administration Sodium Chloride 1,000 mls @ 100 m ls/hr 07/28/22 15:15 07/29/22 05:34 Sodium Chloride 0.9% IV 100 mls/hr .Q10H NICOLE Administration Levothyroxine Sodi um 25 mcg 07/28/22 21:00 07/28/22 21:18 Levothyroxine 25 Mcg Tablet PO 25 mcg BEDTIME NICOLE Administration Morphine Sulfate 2 mg 07/28/22 15:11 07/29/22 05:32 Morphine 4 Mg/Ml Sdv 1 Ml IVP 2 mg Q1H PRN Administration SEVERE PAIN Sertraline HCl 50 mg 07/29/22 09:00 07/29/22 10:20 Sertraline 50 Mg Tablet PO 50 mg DAILY NICOLE Administration Vitals/I&O/Wt Last Vital Signs Temp 98.1 F 07/30/22 08:00 Pulse 60 07/30/22 08:27 Resp 16 07/30/22 08:27 BP 116/75 07/30/22 08:00 Pulse Ox 93 07/30/22 08:27 O2 Del Method 07/30/22 08:27 O2 Flow Rate 2 07/30/22 08:00 07/29/22 07/30/22 07/30/22 22:59 06:59 14:59 Intake Total 1720 / 1720 240 / 1960 240 / 240 Output Total 500 / 500 525 / 525 Balance 1720 / 1720 -260 / 1460 -285 / -285 Physical Exam Const: COMMON NORMALS: patient oriented x3 Resp: COMMON NORMALS: normal respiratory effort, No retractions, No use of accessory muscles and clear to auscultation bilaterally EFFORT & INSPECTION: Yes symmetric chest movement AUSCULTATION: clear to auscultation bilaterally Cardio: COMMON NORMALS: regular rate, regular rhythm, S1 normal heart sound present, S2 normal heart sound present, No gallops present (Cardio), No murmurs present (Cardio), No rub (Cardio) and Peripheral pulses 2+ throughout RATE: regular rate RHYTHM: regular rhythm HEART SOUNDS: S1 normal heart sound present and S2 normal heart sound present PERIPHERAL PULSES: Peripheral pulses 2+ throughout GI: COMMON NORMALS: Normal to inspection, nondistended, normoactive bowel sounds present AUSCULTATION: Yes normoactive bowel sounds RECTAL EXAM: deferred Extremity: COMMON NORMALS: no clubbing, cyanosis or edema and no pedal edema Neuro: COMMON NORMALS: patient oriented x3 Data : 07/29/22 02:51 07/29/22 02:51 A&P Assessment and plan (1) Chest pain: Status: Resolved (2) COPD (chronic obstructive pulmonary disease): Status: Acute (3) Fibromyalgia: Status: Chronic (4) Hypertension, essential: Status: Acute (5) Hypothyroidism: Status: Acute Qualifiers: Hypothyroidism type: acquired Qualified Code(s): E03.9 - Hypothyroidism, unspecified Plan 62 year old female with past medical history of HTN, hypothyroidism , fibromyalgia , chronic pain syndrome , seronegative RA, S/p laparoscopic cholecystectomy and umbilical hernia repair for history of chronic cholecystitis and small umbilical hernia.Medicine was consulted as postop patient started complaining of substernal chest pain, 6 out of 10 in severity, non radiating, pressure-like. Patient denied any diaphoresis, nausea vomiting, fever cough. Assessment: Chest pain: Likely noncardiac: Appears to be musculoskeletal in nature. HTN hypothyroidism fibromyalgia chronic pain syndrome seronegative RA Plan: Troponin trend: Serial EKG: Has failed to show any acute ST-T wave changes. On Telemetry monitoring Continue levothyroxine Continue Zoloft. Sublingual nitro as needed As needed Tylenol. Muscle relaxant could also be helpful. Patient chest pain appears mostly noncardiac. She can follow with primary care physician as outpatient. If she continued to have similar chest pain. She may need further cardiac work-up, including 2D echo/stress test, cardiac cath. For now she is good to be discharged from medicine standpoint. Attestations Medical Necessity Statement*: patient is being discharged today. Coding Level of Care Code Acute [employer] Diagnoses Chest pain R07.9 COPD (chronic obstructive pulmonary disease) J44.9 Fibromyalgia M79.7 Hypertension, essential I10 Hypothyroidism E03.9 Hypothyroidism type: acquired
== END 2022-07-30 09:50 | disposition home or self-care (01) ==
LOC: MEDSURG 20:04
PROVIDERS: Anesthesiology; Family Medicine; Admitting Provider Surgery; PCP Family Medicine; Visit Provider Surgery
PROC: 0FT44ZZ Resection of Gallbladder, Percutaneous Endoscopic Approach (ICD-10-PCS; CPT 47562; principal; 2022-07-28 11:10)
PROC: (CPT 47562; 2022-07-28 11:10)
DX: K81.1 Chronic cholecystitis (principal); K42.9 Umbilical hernia without obstruction or gangrene; R07.9 Chest pain, unspecified; I10 Essential (primary) hypertension; E03.9 Hypothyroidism, unspecified; K21.9 Gastro-esophageal reflux disease without esophagitis; J44.9 Chronic obstructive pulmonary disease, unspecified; I44.0 Atrioventricular block, first degree; I45.10 Unspecified right bundle-branch block; M06.00 Rheumatoid arthritis without rheumatoid factor, unspecified site; M79.7 Fibromyalgia; G89.4 Chronic pain syndrome; F17.210 Nicotine dependence, cigarettes, uncomplicated
CPT/HCPCS: 47562; 36415; 71045; 80048; 80053; 83735; 83880; 84100; 84484; 85014; 85018; 85025; 85378; 88302; 88304; 93005; 96372; G0378; J0295; J0330; J1100; J1200; J1644; J1885; J2270; J2405; J2704; J3490; J7030

== ENCOUNTER → 2022-07-31 10:25 | Outpatient (BNVA) | payer MEDICARE, MEDICAID, SELFPAY | PROVIDERS: PCP Family Medicine; Visit Provider Internal Medicine | DX: M06.9 Rheumatoid arthritis, unspecified (principal); Z79.899 Other long term (current) drug therapy; M77.40 Metatarsalgia, unspecified foot | CPT/HCPCS: 99214 ==

== ENCOUNTER → 2022-08-06 13:18 | Outpatient (BNVA) | payer MEDICARE, MEDICAID, SELFPAY | PROVIDERS: PCP Family Medicine; Visit Provider Surgery | DX: Z98.890 Other specified postprocedural states (principal); Z90.49 Acquired absence of other specified parts of digestive tract | CPT/HCPCS: 99024 ==

== ENCOUNTER → 2022-09-17 13:17 | Outpatient (BNVA) | payer MEDICARE, MEDICAID, SELFPAY | PROVIDERS: PCP Family Medicine; Visit Provider Surgery | DX: Z98.890 Other specified postprocedural states (principal); Z90.49 Acquired absence of other specified parts of digestive tract | CPT/HCPCS: 99024 ==

== ENCOUNTER → 2022-10-19 09:58 | Outpatient (BNVA) | payer MEDICARE, MEDICAID, SELFPAY | PROVIDERS: PCP Family Medicine; Visit Provider Family Medicine | DX: M54.40 Lumbago with sciatica, unspecified side (principal); M70.62 Trochanteric bursitis, left hip; F41.1 Generalized anxiety disorder; E03.9 Hypothyroidism, unspecified; M06.9 Rheumatoid arthritis, unspecified; Z15.89 Genetic susceptibility to other disease; E78.00 Pure hypercholesterolemia, unspecified; J32.9 Chronic sinusitis, unspecified; B96.89 Other specified bacterial agents as the cause of diseases classified elsewhere; M77.40 Metatarsalgia, unspecified foot; R10.9 Unspecified abdominal pain; Z79.899 Other long term (current) drug therapy; M51.16 Intervertebral disc disorders with radiculopathy, lumbar region; R74.8 Abnormal levels of other serum enzymes | CPT/HCPCS: 80053; 80061; 84443; 85025; 85651; 86140 ==

== ENCOUNTER → 2022-10-23 10:56 | Outpatient (BNVA) | payer MEDICARE, MEDICAID, SELFPAY | PROVIDERS: PCP Family Medicine; Visit Provider Internal Medicine | DX: M06.9 Rheumatoid arthritis, unspecified (principal); Z79.899 Other long term (current) drug therapy; M77.40 Metatarsalgia, unspecified foot | CPT/HCPCS: 99214 ==

== ENCOUNTER 2022-11-24 14:15 | Outpatient (CLI) | payer MEDICARE, MEDICAID, SELFPAY ==
--- NOTE | 2022-11-24 14:26 | MM_ITS ---
WS: [id number] BILATERAL 3D TOMOSYNTHESIS DIGITAL DIAGNOSTIC MAMMOGRAPHY WITH CAD CLINICAL INFORMATION: Z12.39 - Encounter for other screening for malignant neop... HISTORY: COMPARISON: None. TECHNIQUE: Bilateral CC, MLO, and ML views. FINDINGS: Scattered fibroglandular densities bilaterally. Punctate and lucent centered calcifications. No paren chymal abnormalities in the area of palpable concern along the axillary tail. Ultrasound LEFT breast described below. RIGHT breast is unremarkable. ULTRASOUND BREAST LEFT TECHNIQUE: Ultrasound left breast focused area of concern. CLINICAL INFORMATION: Z12.39 - Encounter for other screening for malignant neop... COMPARISON: None. FINDINGS: Ultrasound LEFT breast in the area of concern. There is a normal-appearing slightly prominent lymph n ode with preserved fatty hilum in the area of concern LEFT axilla measuring 1.7 x 1.8 x 1.3 CM. No ot her suspicious findings. MM/[place] [id number] IMPRESSION: BI-RADS: 2-Benign FOLLOW UP: 1 Year Follow-up Recommend return to annual screening mammography.
--- NOTE | 2022-11-24 15:02 | US_ITS ---
WS: [id number] BILATERAL 3D TOMOSYNTHESIS DIGITAL DIAGNOSTIC MAMMOGRAPHY WITH CAD CLINICAL INFORMATION: Z12.39 - Encounter for other screening for malignant neop... HISTORY: COMPARISON: None. TECHNIQUE: Bilateral CC, MLO, and ML views. FINDINGS: Scattered fibroglandular densities bilaterally. Punctate and lucent centered calcifications. No paren chymal abnormalities in the area of palpable concern along the axillary tail. Ultrasound LEFT breast described below. RIGHT breast is unremarkable. ULTRASOUND BREAST LEFT TECHNIQUE: Ultrasound left breast focused area of concern. CLINICAL INFORMATION: Z12.39 - Encounter for other screening for malignant neop... COMPARISON: None. FINDINGS: Ultrasound LEFT breast in the area of concern. There is a normal-appearing slightly prominent lymph n ode with preserved fatty hilum in the area of concern LEFT axilla measuring 1.7 x 1.8 x 1.3 CM. No ot her suspicious findings. US/US breast LT limited* [id number] IMPRESSION: BI-RADS: 2-Benign FOLLOW UP: 1 Year Follow-up Recommend return to annual screening mammography.
== END 2022-11-24 14:16 | disposition home or self-care (01) ==
LOC: RAD 14:18
PROVIDERS: PCP Family Medicine; Visit Provider Family Medicine
DX: Z12.39 Encounter for other screening for malignant neoplasm of breast (principal)
CPT/HCPCS: 76642; 77062; G0279

== ENCOUNTER → 2022-12-21 09:35 | Outpatient (BNVA) | payer MEDICARE, MEDICAID, SELFPAY | PROVIDERS: PCP Family Medicine; Visit Provider Family Medicine | DX: F41.1 Generalized anxiety disorder (principal); M54.40 Lumbago with sciatica, unspecified side; M70.62 Trochanteric bursitis, left hip; E03.9 Hypothyroidism, unspecified; G47.00 Insomnia, unspecified; R74.8 Abnormal levels of other serum enzymes; Z51.81 Encounter for therapeutic drug level monitoring; M06.9 Rheumatoid arthritis, unspecified; F51.05 Insomnia due to other mental disorder; F99 Mental disorder, not otherwise specified; M51.16 Intervertebral disc disorders with radiculopathy, lumbar region | CPT/HCPCS: 80053; 85025 ==

== ENCOUNTER 2023-01-16 19:10 | Emergency (ER) | payer MEDICARE, MEDICAID, SELFPAY ==
[2023-01-16 19:23] VITALS: BP 108/63; PULSE 82; RESP 18; TEMP 36.4; O2SAT 100
[2023-01-16 21:08] LABS: Basophils % 0.7 %; Eosinophils % 0.4 %; Hematocrit 41.2 % (37.0-47.0); Hemoglobin 14.3 g/dL (11.5-15.3); Lymphocytes # 1.3 10^3/uL (0.8-4.8); Lymphocytes % 23.5 %; Mean Corpuscular HGB Conc 34.7 g/dL (30.0-36.0); Mean Corpuscular Volume 100.7 fl (81-99); Mean Platelet Volume 11.6 fL (7.4-10.4); Monocytes # 0.2 10^3/uL (0.2-0.9); Monocytes % 2.8 %; Neutrophils # 3.91 10^3/uL (1.8-7.7); Neutrophils % 72.4 %; Nucleated Red Blood Cells % 0 %; Platelet Count 174 10^3/cmm (130-400); Red Blood Count 4.09 10^6/uL (4.1-5.3); Red Cell Distribution Width 15.4 % (12.1-15.1); White Blood Count 5.4 10^3/uL (4.0-10.0)
[2023-01-16 21:34] LABS: Alanine Aminotransferase 36 U/L (0-33); Albumin Level 4.2 g/dL (3.5-5.2); Alkaline Phosphatase 57 U/L (35-105); Anion Gap 17.1 (5-19); Aspartate Amino Transferase 36 U/L (0-32); Blood Urea Nitrogen 11 mg/dL (8-23); Calcium 9.6 mg/dL (8.5-10.5); Carbon Dioxide 22 mmol/L (22-29); Chloride 105 mmol/L (98-107); Globulin 2.3 g/dL (1.3-4.6); Glomerular Filtration Rate 84.2 mL/min (90-130); Glucose 106 mg/dL (65-115); Lipase 11 U/L (13-60); Osmolality Calculated 290 mOsm/kg (285-295); Potassium 4.1 mmol/L (3.5-5.1); Sodium 140 mmol/L (136-145); Total Bilirubin 1.2 mg/dL (0.15-1.2); Total Protein 6.5 g/dL (6.6-8.7)
--- NOTE | 2023-01-16 22:24 | ED_ITS ---
HPI - Nausea/Vomiting/Diarrhea General: Chief complaint: Abdominal Pain Stated complaint: n/v/d, fever Time Seen by Provider: 01/16/23 20:15 Source: patient and family Mode of arrival: ambulatory History of Present Illness: 62-year-old female who presents with nausea, vomiting and diarrhea. She started having that this morning. She has not kept any fluids down all day long. She has been having crampy diffuse abdominal pain in association with it. No fever. She denies melanotic stools. She denies bloody emesis. She has been having chills and sweats but no fever. She was exposed to her grandson who has strep. She does have a history of rheumatoid arthritis. Review of Systems Narrative: See HPI PFSH ED PFSH: Medical History Chest pain Chronic pain syndrome COPD (chronic obstructive pulmonary disease) Fibromyalgia NAE (generalized anxiety disorder) Hypertension, essential Did not tolerate lisinopril. Hypothyroidism Insomnia Failed amitriptyline, Ambien caused side effects. Lumbar paraspinal muscle spasm Metatarsalgia Nausea Symptomatic cholelithiasis Surgical History H/O foot surgery H/O tubal ligation Family History Other CAD (coronary artery disease) Cancer Diabetes Heart attack Hyperlipidemia Hypertension Rheumatoid arthritis Stroke Denies family history of Lupus Chronic kidney disease (CKD) Social History Smoking and tobacco status: current every day smoker cigarettes Packs smoked per day: 1 Quit status (tobacco): has tried quititng Second hand smoke exposure: No Alcohol intake: current Alcohol intake frequency: holidays/special occasions only Desire information about alcohol rehabilitation?: No Desire information about substance/drug rehabilitation?: No Female Reproductive History: Spontaneous abortions: No Physical Exam Const: COMMON NORMALS: no acute distress, patient oriented x3 and well nourished HENMT: OTHER: Dry mucous membranes Neck/C-Spine: OTHER: Neck supple Resp: OTHER: Lungs are clear bilaterally Cardio: OTHER: Has regular rate and rhythm. GI: OTHER: Mild diffuse abdominal tenderness, normal bowel sounds. Abdomen is soft without guarding. Extremity: OTHER: No edema or tenderness Neuro: COMMON NORMALS: patient oriented x3 Course Vital Signs: Vital signs: Vital Signs Temperature 97.5 F L 01/16/23 19:23 Pulse Rate 82 01/16/23 19:23 Respiratory Rate 18 01/16/23 19:23 Blood Pressure 108/63 01/16/23 19:23 Pulse Oximetry 100 01/16/23 19:23 Oxygen Delivery Me thod 01/16/23 19:23 MDM - Nausea/Vomiting/Diarrhea Medical Decision Making 62-year-old female presents with nausea, vomiting and diarrhea. No significant abdominal pain. Differential includes gastroenteritis, pancreatitis, enteritis, gastritis, upper GI bleed. Labs have been obtained white blood cell count is normal. Electrolytes are normal. Renal function is normal. Glucose is 106. Lipase is 11. LFTs are normal. We will start an IV, give her IV fluids and IV Zofran for nausea. We will p.o. challenge the patient once she has had Zofran. Patient's labs are unremarkable. Her exam is benign. This is likely just a viral gastroenteritis. We will plan for discharge home with Phenergan to take every 4-6 hours as needed for nausea and vomiting. She can take Imodium 4 times daily as needed for diarrhea. Return if she has persistent vomiting, worsening pain or persistent fever. Medical Records I reviewed the patient's medical records. Per old charts, patient does have a history of rheumatoid arthritis and is on methotrexate as well as prednisone. With her electrolytes being stable and her blood pressure stable, I do not feel that she is in an adrenal crisis. Lab Data I reviewed the patient's lab results. White blood cell count normal. Electrolytes normal. LFTs are normal. Lipase is normal. 01/16/23 21:00 01/16/23 21:00 Laboratory Results WBC 5.4 10^3/uL (4.0-10.0) 01/16/23 21:00 RBC 4.09 10^6/uL (4.1-5.3) L 01/16/23 21:00 Hgb 14.3 g/dL (11.5-15.3) 01/16/23 21:00 Hct 41.2 % (37.0-47.0) 01/16/23 21:00 MCV 100.7 fl (81-99) H 01/16/23 21:00 MCH 35.0 pg (28.0-34.0) H 01/16/23 21:00 MCHC 34.7 g/dL (30.0-36.0) 01/16/23 21:00 RDW 15.4 % (12.1-15.1) H 01/16/23 21:00 Plt Count 174 10^3/cmm (130-400) 01/16/23 21:00 MPV 11.6 fL (7.4-10.4) H 01/16/23 21:00 Neut % (Auto) 72.4 % 01/16/23 21:00 Lymph % (Auto) 23.5 % 01/16/23 21:00 [place] % (Auto) 2.8 % 01/16/23 21:00 Eos % (Auto) 0.4 % 01/16/23 21:00 Baso % (Auto) 0.7 % 01/16/23 21:00 Neut # (Auto) 3.91 10^3/uL (1.8-7.7) 01/16/23 21:00 Lymph # (Auto) 1.3 10^3/uL (0.8-4.8) 01/16/23 21:00 [place] # (Auto) 0.2 10^3/uL (0.2-0.9) 01/16/23 21:00 Eos # (Auto) 0.0 10^3/uL (0.0-0.8) 01/16/23 21:00 Baso # (Auto) 0.0 10^3/uL (0.0-0.1) 01/16/23 21:00 Nucleated RBC % (auto) 0 % 01/16/23 21:00 Nucleated RBCs # 0.0 /100WBC 01/16/23 21:00 Sodium 140 mmol/L (136-145) 01/16/23 21:00 Potassium 4.1 mmol/L (3.5-5.1) 01/16/23 21:00 Chloride 105 mmol/L (98-107) 01/16/23 21:00 Carbon Dioxide 22 mmol/L (22-29) 01/16/23 21:00 Anion Gap 17.1 (5-19) 01/16/23 21:00 BUN 11 mg/dL (8-23) 01/16/23 21:00 Creatinine 0.7 mg/dL (0.5-0.9) 01/16/23 21:00 GFR Calculation 84.2 mL/min (90-130) L 01/16/23 21:00 Glucose 106 mg/dL (65-115) 01/16/23 21:00 Calculated Osmolality 290 mOsm/kg (285-295) 01/16/23 21:00 Calcium 9.6 mg/dL (8.5-10.5) 01/16/23 21:00 Total Bilirubin 1.2 mg/dL (0.15-1.2) 01/16/23 21:00 AST 36 U/L (0-32) H 01/16/23 21:00 ALT 36 U/L (0-33) H 01/16/23 21:00 Alkaline Phosphatase 57 U/L (35-105) 01/16/23 21:00 Total Protein 6.5 g/dL (6.6-8.7) L 01/16/23 21:00 Albumin 4.2 g/dL (3.5-5.2) 01/16/23 21:00 Globulin 2.3 g/dL (1.3-4.6) 01/16/23 21:00 Lipase 11 U/L (13-60) L 01/16/23 21:00 Discharge Plan Discharge Clinical Impression: Gastroenteritis Condition: Stable Prescriptions: New promethazine 25 mg tablet 25 mg PO QID PRN (Reason: nausea and vomiting) Qty: 20 0RF No Action docusate sodium [Colace] 100 mg capsule 100 mg PO DAILY Women's Probiotic 25B cell-25B cell-50 mg capsule 1 cap PO DAILY sumatriptan succinate 25 mg tablet 25 mg PO ONCE PRN (Reason: migraine headache) albuterol sulfate 90 mcg/actuation HFA aerosol inhaler 1 puff INHALATION QID PRN (Reason: shortness of breath or wheezing) 30 Days Qty: 18 5RF benzonatate 100 mg capsule 100 mg PO BID PRN (Reason: cough) 30 Days Qty: 60 5RF prednisone 5 mg tablet See Rx Instructions PO DAILY Qty: 30 1RF Rx Instructions: take 3 tabs daily orally for 5 days then 2 tabs daily x5 days and then 1 tab daily x5 days then stop Galzin 25 mg (zinc) capsule 25 mg PO DAILY Qty: 30 0RF ascorbic acid (vitamin C) 1,000 mg capsule 1 g PO DAILY Qty: 30 0RF levomefolate calcium [L-Methylfolate] 15 mg tablet 15 mg PO DAILY 90 Days Qty: 90 1RF omeprazole 40 mg capsule,delayed release(DR/EC) 40 mg PO BID 90 Days Qty: 180 3RF prednisone 5 mg tablet 15 mg PO DAILY PRN (Reason: Flares) Rx Instructions: 1-2 for flares sertraline 50 mg tablet 50 mg PO DAILY 30 Days Qty: 30 5RF oxycodone 5 mg tablet 5 mg PO DAILY PRN (Reason: pain) 30 Days Qty: 30 0RF levothyroxine 25 mcg tablet 25 mcg PO DAILY 30 Days Qty: 30 5RF amitriptyline 50 mg tablet 50 mg PO .at bedtime 30 Days Qty: 30 5RF diclofenac sodium [Voltaren Arthritis Pain] 1 % gel 4 g topical QID Qty: 100 2RF Rx Instructions: apply to single knee, ankle, foot; for foot includes sole/toes/top of foot (DME) BD Insulin Syringe 1 mL 25 x 1 syringe See Rx Instructions .Route Qty: 100 0RF Rx Instructions: use with B12 medication once weekly (DME) Monoject TB Safety Syringe 1 mL 25 gauge x 5/8 syringe See Rx Instructions .ROUTE .MEDSUPPLY Qty: 50 1RF Rx Instructions: As directed methotrexate sodium 25 mg/mL solution 15 mg SUBCUT .Q7days Qty: 10 0RF Humira Pen 40 mg/0.8 mL pen injector kit 40 mg SUBCUT Q14D Qty: 2 3RF cyanocobalamin (vitamin B-12) 1,000 mcg/mL solution See Rx Instructions .ROUTE .COMPLEX Qty: 6 0RF Dose Instruction: INJECT 1 ML INTRAMUSCULARLY ONCE EVERY MONTH PATIENT TO INJECT AT HOME WITH SYRINGES Rx Instructions: INJECT 1 ML INTRAMUSCULARLY ONCE EVERY MONTH PATIENT TO INJECT AT HOME WITH SYRINGES Referrals: Alix Marcus MD [Primary Care Provider] - Discharge Diet: Advance as tolerated Discharge Activity: Increase activity as tolerated Patient Instructions: Dehydration (ED), Gastroenteritis (DC), Acute Nausea and Vomiting (DC) Activity Restrictions/Additional Instructions: Patient to drink plenty of fluids. Preferably Gatorade, Powerade or Pedialyte. Take the Phenergan every 4-6 hours as needed for nausea and vomiting. You can take Imodium 4 times daily as needed for diarrhea. Return if you have persistent vomiting or worsening diarrhea or increased abdominal pain. Follow- up as needed with your primary care doctor Coding Level of Care Code ED Hybrid Tester for Aishwarya Barclay
[2023-01-16] MEDS: ondansetron 2 mg/ML SDV 2 mL 4 MG IVP (22:35)
[2023-01-16] MEDS: sodium chloride 0.9% 1,000 ML 999 ML IV (22:36)
[2023-01-16] MEDS: diphenoxylate/atropine Tablet 2 TAB PO (22:51)
[2023-01-16 22:56] VITALS: BP 143/75; PULSE 61; RESP 18; O2SAT 100
[2023-01-16 23:00] VITALS: BP 137/81; PULSE 58; RESP 18; O2SAT 100
== END 2023-01-16 23:40 | disposition home or self-care (01) ==
PROVIDERS: Nurse Practitioner Family; Emergency Provider Emergency Medicine; PCP Family Medicine
DX: K52.9 Noninfective gastroenteritis and colitis, unspecified (principal)
CPT/HCPCS: 36415; 80053; 83690; 85025; 87071; 87880; 96361; 96374; 99284; J2405; J7030

== ENCOUNTER → 2023-02-16 09:34 | Outpatient (BNVA) | payer MEDICARE, MEDICAID, SELFPAY | PROVIDERS: PCP Family Medicine; Visit Provider Internal Medicine | DX: M06.9 Rheumatoid arthritis, unspecified (principal) | CPT/HCPCS: 80053; 85025; 85651; 86140 ==

== ENCOUNTER → 2023-02-24 15:08 | Outpatient (BNVA) | payer MEDICARE, MEDICAID, SELFPAY | PROVIDERS: PCP Family Medicine; Visit Provider Internal Medicine | DX: M06.9 Rheumatoid arthritis, unspecified (principal); R11.0 Nausea; Z79.899 Other long term (current) drug therapy | CPT/HCPCS: 99214 ==

== ENCOUNTER 2023-03-12 14:03 | Outpatient (CLI) | payer MEDICARE, MEDICAID, SELFPAY ==
--- NOTE | 2023-03-12 12:30 | CT_ITS ---
WS: [id number] CT ABDOMEN PELVIS TECHNIQUE: Noncontrast CT of the abdomen and pelvis with coronal and sagittal reformatted images. CLINICAL INFORMATION: R11.0 - Nausea DLP: 482.[address] scans at [facility] use at least one of these dose optimization techniques: automated e xposure control; mA and/or kV adjustment per patient size (includes targeted exams where dose is matc hed to clinical indication); or iterative reconstruction. FINDINGS: Lung bases are well aerated. Noncontrast liver is normal. Tiny cyst RIGHT hepatic lobe. Small esophag eal hiatal hernia. Postoperative changes GE junction. Lung bases are well aerated. Normal noncontrast spleen. Fatty atrophy of the pancreas. Normal adrenal glands. No hydronephrosis in either kidney. Normal caliber abdominal aorta. Sigmoid diverticulosis. No evidence of acute divertic ulitis. No evidence of small or large bowel obstruction. Surgical clips RIGHT midabdomen laterally No free fluid in the abdomen or pelvis. No abdominal or pelvic lymphadenopathy. No inguinal lymphaden opathy. CT/CT abdomen pelvis wo con 00002 IMPRESSION: 1. Prior cholecystectomy. 2. Small esophageal hiatal hernia. Postoperative changes at the GE junction. 3. A few sigmoid diverticuli. No evidence of acute diverticulitis. 4. No evidence of small or large bowel obstruction. 5. Normal appendix in the RIGHT lower quadrant. 6. No other remarkable findings.
[2023-03-12] MEDS: iohexol 350 mg/mL 500 mL Btl (per mL) PO (15:35)
== END 2023-03-12 14:04 | disposition home or self-care (01) ==
LOC: RAD 14:08
PROVIDERS: PCP Family Medicine; Visit Provider Internal Medicine
DX: R11.0 Nausea (principal); K44.9 Diaphragmatic hernia without obstruction or gangrene; K57.30 Diverticulosis of large intestine without perforation or abscess without bleeding; Z98.890 Other specified postprocedural states
CPT/HCPCS: 74176; 99214; Q9967

== ENCOUNTER 2023-05-19 18:54 | Emergency (ER) | payer MEDICARE, MEDICAID, SELFPAY ==
[2023-05-19 18:55] VITALS: BP 149/54; PULSE 54; RESP 20; TEMP 36.7; O2SAT 100; BMI 29.8
--- NOTE | 2023-05-19 18:57 | W.ED.HEATRA ---
HPI - Head Injury General: Chief complaint: Nausea/Vomiting/Diarrhea Stated complaint: Fall/ Lightheadness Time Seen by Provider: 05/19/23 18:56 History of Present Illness: Ms. Henning is a 63-year-old lady presented the emergency department for generalized illness and episode of syncope. She notes onset of symptoms approximately 6 days ago. Somers generally unwell with recurrent episodes of vomiting. No significant associated abdominal pain, no GI changes otherwise. No measured fevers. Symptoms have worsened and patient feels achy. She has had a headache. She also notes some generalized chest heaviness and discomfort though no respiratory symptoms otherwise. Last night she became dizzy after going from sitting to standing and fell hitting her head and landing on her neck and left shoulder and side. Moderate intensity pain associated with that. No new focal neurologic deficits appreciated. No other specific changes in health, exacerbating, or alleviating factors identified. Onset (ago): day(s) Location of injury: occipital Other Injuries: neck, upper extremity and other Associated symptoms: Reports other Review of Systems General: Reports: 10 or more systems reviewed and unremarkable except in HPI and below PFSH ED PFSH: Medical History Chest pain Chronic pain syndrome COPD (chronic obstructive pulmonary disease) Fibromyalgia NAE (generalized anxiety disorder) Hypertension, essential Did not tolerate lisinopril. Hypothyroidism Insomnia Failed amitriptyline, Ambien caused side effects. Lumbar paraspinal muscle spasm Metatarsalgia Nausea Symptomatic cholelithiasis Surgical History H/O foot surgery H/O tubal ligation Family History Other CAD (coronary artery disease) Cancer Diabetes Heart attack Hyperlipidemia Hypertension Rheumatoid arthritis Stroke Denies family history of Lupus Chronic kidney disease (CKD) Social History Smoking and tobacco status: current every day smoker cigarettes Packs smoked per day: 1 Quit status (tobacco): has tried quititng Second hand smoke exposure: No Alcohol intake: current Alcohol intake frequency: holidays/special occasions only Desire information about alcohol rehabilitation?: No Substance/Drug Use: never Desire information about substance/drug rehabilitation?: No Female Reproductive History: Spontaneous abortions: No Physical Exam Const: COMMON NORMALS: alert GENERAL APPEARANCE: cooperative and well developed HENMT: COMMON NORMALS: normocephalic and atraumatic HEAD & SCALP: normocephalic and atraumatic Eye: COMMON NORMALS: Equal, round and reactive pupils present, EOMs intact bilaterally and conjunctivae normal CONJUNCTIVA: Yes conjunctivae normal SCLERA: sclerae normal PUPIL: Yes Equal, round and reactive pupils present Neck/C-Spine: COMMON NORMALS: supple GENERAL: Yes trachea midline CERVICAL SPINE: Yes Cervical spine tenderness Resp: COMMON NORMALS: normal respiratory effort and clear to auscultation bilaterally EFFORT & INSPECTION: Yes able to speak in complete sentences AUSCULTATION: clear to auscultation bilaterally Cardio: COMMON NORMALS: regular rhythm RATE: bradycardic RHYTHM: regular rhythm GI: COMMON NORMALS: Soft to palpation PALPATION: Yes Soft to palpation and No Tenderness to palpation present (GI) Extremity: NARRATIVE EXTREMITY EXAM: Left shoulder and left posterior superior iliac region tenderness palpation GENERAL: Yes normal exam except as noted and No edema Neuro: COMMON NORMALS: moves all extremities SENSORIUM/ORIENTATION: Yes alert and No Orientation impaired Psych: COMMON NORMALS: mental status grossly normal and Normal thought process present THOUGHT PROCESS: Normal thought process present Course Vital Signs: Vital signs: Vital Signs Temperature 98.1 F 05/19/23 18:55 Pulse Rate 54 L 05/19/23 22:41 Respiratory Rate 18 05/19/23 19:35 Blood Pressure 119/52 05/19/23 22:41 Pulse Oximetry 97 05/19/23 22:41 Oxygen Delivery Me thod Room Air 05/19/23 21:30 MDM - Head Injury Medcial Decision Making 63-year-old lady presenting with generalized illness and fall. Nontoxic in appearance. EKG demonstrates sinus rhythm with bradycardia. Normal axis and intervals, no STEMI. Labs with leukopenia, normal hemoglobin, normal platelet count. ANC is again noted to be low. Unremarkable electrolyte panel. Range your delta troponin. Pro-Malik negative. No UTI. Viral panel negative. CT head negative for acute process. No acute cervical spine injury. X-rays negative for fracture. Patient feels improved with fluid, antiemetic, analgesia. She is able to tolerate p.o. intake. The results of ED evaluation were discussed with the patient including prescriptions and/or symptomatic cares (if applicable) including appropriate and responsible use, followup plan, and return precautions. The patient verbalized understanding and felt safe for discharge. Medical Records I reviewed the patient's medical records. Lab Data I reviewed the patient's lab results. 05/19/23 19:29 05/19/23 19:29 Radiology Impressions Cervical Spine CT 05/19/23 19:07 IMPRESSION: No acute findings. Chest X-Ray 05/19/23 19:07 IMPRESSION: No acute findings. Head CT 05/19/23 19:07 IMPRESSION: No acute intracranial abnormality. Pelvis X-Ray 05/19/23 19:07 IMPRESSION: No acute findings. Shoulder X-Ray 05/19/23 19: IMPRESSION: No acute findings. Laboratory Results WBC 2.4 10^3/uL (4.0-10.0) L 05/19/23 19: RBC 3.31 10^6/uL (4.1-5.3) L 05/19/23: Hgb 12.1 g/dL (11.5-15.3) 05/19/23 19: Hct 34.9 % (37.0-47.0) L 05/19/23 19: MCV 105.4 fl (81-99) H 05/19/23 19: MCH 36.6 pg (28.0-34.0) H 05/19/23 19: MCHC 34.7 g/dL (30.0-36.0) 05/19/23 19: RDW 14.9 % (12.1-15.1) 05/19/23: Plt Count 130 10^3/cmm (130-400) 05/19/23 19: MPV 12.1 fL (7.4-10.4) H 05/19/23 19: Neut % (Auto) 25.8 % 05/19/23 19: Lymph % (Auto) 53.3 % 05/19/23: [place] % (Auto) 11.5 % 05/19/23 19: Eos % (Auto) 7.8 % 05/19/23: Baso % (Auto) 1.6 % 05/19/23: Neut # (Auto) 0.63 10^3/uL (1.8-7.7) L* 05/19/23 19: Lymph # (Auto) 1.3 10^3/uL (0.8-4.8) 05/19/23 19: [place] # (Auto) 0.3 10^3/uL (0.2-0.9) 05/19/23 19: Eos # (Auto) 0.2 10^3/uL (0.0-0.8) 05/19/23 19: Baso # (Auto) 0.0 10^3/uL (0.0-0.1) 05/19/23 19: Nucleated RBC % (auto) 0 % 05/19/23: Nucleated RBCs # 0.0 /100WBC 05/19/23 19: Sodium 140 mmol/L (136-145) 05/19/23 19: Potassium 4.2 mmol/L (3.5-5.1) 05/19/23: Chloride 107 mmol/L (98-107) 05/19/23: Carbon Dioxide 23 mmol/L (22-29) 05/19/23 19: Anion Gap 14.2 (5-19) 05/19/23 19: BUN 8 mg/dL (8-23) 05/19/23 19: Creatinine 0.7 mg/dL (0.5-0.9) 05/19/23 19: GFR Calculation 84.0 mL/min (90-130) L 05/19/23 19: Glucose 81 mg/dL (65-115) 05/19/23: Calculated Osmolality 287 mOsm/kg (285-295) 05/19/23 19: Lactic Acid 1.5 mmol/L (0.5-2.2) 05/19/23 19: Calcium 8.0 mg/dL (8.5-10.5) L 05/19/23: Magnesium 2.0 mg/dL (1.7-2.3) 05/19/23 19: Total Bilirubin 0.8 mg/dL (0.15-1.2) 05/19/23 19: AST 30 U/L (0-32) 05/19/23 19: ALT 27 U/L (0-33) 05/19/23 19:29 Alkaline Phosphatase 58 U/L (35-105) 05/19/23 19:29 Troponin T Baseline 7 ng/L (0-10) 05/19/23 19:29 Troponin T 120 Minute 7.68 ng/L (0-10) 05/19/23 21:55 Delta Troponin T 0.68 ABS# (0-10) 05/19/23 21:55 C-Reactive Protein 3.0 mg/L (0.0-4.9) 05/19/23 19:29 NT-Pro-B Natriuret Pep 439 pg/mL (0-125) H 05/19/23 19:29 Total Protein 5.1 g/dL (6.6-8.7) L 05/19/23 19: Albumin 3.4 g/dL (3.5-5.2) L 05/19/23 19: Globulin 1.7 g/dL (1.3-4.6) 05/19/23 19:29 Procalcitonin 0.15 ng/mL (0-0.5) 05/19/23 19: TSH 0.91 uIU/mL (0.27-4.20) 05/19/23 19:29 Urine Color Yellow (Yellow) 05/19/23 21:34 Urine Appearance Clear (CLEAR) 05/19/23 21:34 Urine pH 6 (5-7) 05/19/23 21:34 Ur Specific [place] 1.005 (1.005-1.030) 05/19/23 21:34 Urine Protein Neg (Negative) 05/19/23 21:34 Urine Glucose (UA) Norm (Normal) 05/19/23 21:34 Urine Ketones Negative (Negative) 05/19/23 21:34 Urine Blood Neg (Negative) 05/19/23 21:34 Urine Nitrate Negative (Negative) 05/19/23 21:34 Urine Bilirubin Neg (Negative) 05/19/23 21:34 Urine Urobilinogen Neg mg/dL (Negative) 05/19/23 21:34 Ur Leukocyte Esterase Negative (Negative) 05/19/23 21:34 Nasal Influ A H1 2008 PCR Not detected (NOT DETECT) 05/19/23 19:38 Adenovirus (PCR) Not detected (NOT DETECT) 05/19/23 19:38 C. pneumoniae DNA (PCR) Not detected (NOT DETECT) 05/19/23 19:38 Coronavirus 229E (PCR) Not detected (NOT DETECT) 05/19/23 19:38 Human Metapneumovir PCR Not detected (NOT DETECT) 05/19/23 19:38 Influenza A (H1) PCR Not detected (NOT DETECT) 05/19/23 19:38 Influenza A (H3) PCR Not detected (NOT DETECT) 05/19/23 19:38 Influenza Type A (PCR) Not detected (NOT DETECT) 05/19/23 19:38 Influenza Type B (PCR) Not detected (NOT DETECT) 05/19/23 19:38 M. pneumoniae (PCR) Not detected (NOT DETECT) 05/19/23 19:38 Parainfluenza 1 (PCR) Not detected (NOT DETECT) 05/19/23 19:38 Parainfluenza 2 (PCR) Not detected (NOT DETECT) 05/19/23 19:38 Parainfluenza 3 (PCR) Not detected (NOT DETECT) 05/19/23 19:38 Parainfluenza 4 (PCR) Not detected (NOT DETECT) 05/19/23 19:38 RSV Type A (PCR) Not detected (NOT DETECT) 05/19/23 19:38 RSV Type B (PCR) Not detected (NOT DETECT) 05/19/23 19:38 Entero/Rhino (PCR) Not detected (NOT DETECT) 05/19/23 19:38 SARS-CoV-2 (PCR) Not detected (NOT DETECT) 05/19/23 19:38 Discharge Plan Discharge Patient Disposition: Home Clinical Impression: Dehydration, Gastroenteritis, Head injury, Leukopenia Condition: Stable Prescriptions: New Reglan 10 mg tablet 10 mg PO Q6H PRN (Reason: nausea and vomiting) Qty: 20 0RF No Action docusate sodium [Colace] 100 mg capsule 100 mg PO DAILY Women's Probiotic 25B cell-25B cell-50 mg capsule 1 cap PO DAILY sumatriptan succinate 25 mg tablet 25 mg PO ONCE PRN (Reason: migraine headache) albuterol sulfate 90 mcg/actuation HFA aerosol inhaler 1 puff INHALATION QID PRN (Reason: shortness of breath or wheezing) 30 Days Qty: 18 5RF benzonatate 100 mg capsule 100 mg PO BID PRN (Reason: cough) 30 Days Qty: 60 5RF prednisone 5 mg tablet See Rx Instructions PO DAILY Qty: 30 1RF Rx Instructions: take 3 tabs daily orally for 5 days then 2 tabs daily x5 days and then 1 tab daily x5 days then stop Galzin 25 mg (zinc) capsule 25 mg PO DAILY Qty: 30 0RF ascorbic acid (vitamin C) 1,000 mg capsule 1 g PO DAILY Qty: 30 0RF levomefolate calcium [L-Methylfolate] 15 mg tablet 15 mg PO DAILY 90 Days Qty: 90 1RF omeprazole 40 mg capsule,delayed release(DR/EC) 40 mg PO BID 90 Days Qty: 180 3RF prednisone 5 mg tablet 15 mg PO DAILY PRN (Reason: Flares) Rx Instructions: 1-2 for flares sertraline 50 mg tablet 50 mg PO DAILY 30 Days Qty: 30 5RF levothyroxine 25 mcg tablet 25 mcg PO DAILY 30 Days Qty: 30 5RF quetiapine [Seroquel] 25 mg tablet 25 mg PO .at bedtime 30 Days Qty: 30 2RF oxycodone 5 mg tablet 5 mg PO DAILY PRN (Reason: pain) 30 Days Qty: 30 0RF [place] 125 mg/mL syringe 125 mg SUBCUT .qweek Qty: 4 3RF diclofenac sodium [Voltaren Arthritis Pain] 1 % gel 4 g topical QID Qty: 100 2RF Rx Instructions: apply to single knee, ankle, foot; for foot includes sole/toes/top of foot (DME) BD Insulin Syringe 1 mL 25 x 1 syringe See Rx Instructions .Route Qty: 100 0RF Rx Instructions: use with B12 medication once weekly (DME) Monoject TB Safety Syringe 1 mL 25 gauge x 5/8 syringe See Rx Instructions .ROUTE .MEDSUPPLY Qty: 50 1RF Rx Instructions: As directed cyanocobalamin (vitamin B-12) 1,000 mcg/mL solution See Rx Instructions .ROUTE .COMPLEX Qty: 6 0RF Dose Instruction: INJECT 1 ML INTRAMUSCULARLY ONCE EVERY MONTH PATIENT TO INJECT AT HOME WITH SYRINGES Rx Instructions: INJECT 1 ML INTRAMUSCULARLY ONCE EVERY MONTH PATIENT TO INJECT AT HOME WITH SYRINGES methotrexate sodium 25 mg/mL solution 15 mg SUBCUT .Q7days Qty: 10 0RF Humira Pen 40 mg/0.8 mL pen injector kit See Rx Instructions SUBCUT .COMPLEX Qty: 4 2RF Rx Instructions: inject one - 40 mg/0.8 mL pen every 2 weeks SUBCUT promethazine 25 mg tablet 25 mg PO QID PRN (Reason: nausea and vomiting) Qty: 20 0RF Discharge Orders: Discharge ED (Routine); Ordered 05/19/23 Ordered By: Alberto Burns Referrals: Alix Marcus MD [Primary Care Provider] - Discharge Diet: Advance as tolerated and Clear Liquid Discharge Activity: Increase activity as tolerated Patient Instructions: Dehydration (ED), Gastroenteritis (ED), Acute Headache (ED), Opioid Safety Activity Restrictions/Additional Instructions: Thank you for visiting the emergency department. You were seen and evaluated for generalized illness including fainting. The exact cause of your symptoms is unclear however may be related to a viral syndrome such as viral gastroenteritis with dehydration. Please follow-up with your primary care provider. Return for uncontrolled symptoms, inability to tolerate medication, chest pain, shortness of breath, recurrent falls or syncope, or anything else that you are concerned about and feel needs emergency department evaluation Coding Level of Care Code ED Radiochemical Technician for Aishwarya Barclay
--- NOTE | 2023-05-19 19:07 | XRR_ITS ---
PROCEDURE INFORMATION: Exam: XR Chest Exam date and time: 05/19/2023 7:19 PM Age: 63 years old Clinical indication: Pain; Chest pressure; Additional info: Cp TECHNIQUE: Imaging protocol: Radiologic exam of the chest. Views: 1 view. COMPARISON: CR XR chest 1V portable [id number] 07/28/2022 2:58 PM FINDINGS: Lungs: Unremarkable. No consolidation. Pleural spaces: Unremarkable. No pleural effusion. No pneumothorax. Heart/Mediastinum: Unremarkable. No cardiomegaly. Bones/joints: Unremarkable. XR/XR chest 1V portable [id number] IMPRESSION: No acute findings.
--- NOTE | 2023-05-19 19:07 | XRR_ITS ---
PROCEDURE INFORMATION: Exam: XR Left Shoulder Exam date and time: 05/19/2023 7:19 PM Age: 63 years old Clinical indication: Injury or trauma; Fall; Additional info: Fall, shoulder pain TECHNIQUE: Imaging protocol: Radiologic exam of the left shoulder. Views: 2 or more views. COMPARISON: CR XR chest 1V portable [id number] 07/28/2022 2:58 PM FINDINGS: Bones/joints: Osseous structures are intact. Negative for fracture or dislocation. Soft tissues: Normal. XR/XR shoulder LT min 2V* [id number] IMPRESSION: No acute findings.
--- NOTE | 2023-05-19 19:07 | CTR_ITS ---
PROCEDURE INFORMATION: Exam: CT Head Without Contrast Exam date and time: 05/19/2023 7:56 PM Age: 63 years old Clinical indication: Pain; Syncope and collapse; Headache not specified; Additional info: Headache, syncope TECHNIQUE: Imaging protocol: Computed tomography of the head without contrast. Radiation optimization: All CT scans at this facility use at least one of these dose optimization techniques: automated exposure control; mA and/or kV adjustment per patient size (includes targeted exams where dose is matched to clinical indication); or iterative reconstruction. REPORTING DATA: Count of CT and Cardiac NM exams in prior 12 months: This patient has received [address] and 0 known cardiac nuclear medicine studies in the 12 months prior to the current study. COMPARISON: No relevant prior studies available. RADIATION DOSE METRICS: Total DLP (mGy-cm): 1171.45 FINDINGS: Brain: Normal. No hemorrhage. Unremarkable white matter. No mass effect. Cerebral ventricles: No ventriculomegaly. Paranasal sinuses: Visualized sinuses are unremarkable. No fluid levels. Mastoid air cells: Visualized mastoid air cells are well aerated. Bones/joints: Unremarkable. No acute fracture. Soft tissues: Unremarkable. CT/CT head wo con* [id number] IMPRESSION: No acute intracranial abnormality.
--- NOTE | 2023-05-19 19:07 | CTR_ITS ---
PROCEDURE INFORMATION: Exam: CT Cervical Spine Without Contrast Exam date and time: 05/19/2023 7:56 PM Age: 63 years old Clinical indication: Injury or trauma; Fall; Blunt trauma; Additional info: Fall, neck pain, mid to lower TECHNIQUE: Imaging protocol: Computed tomography of the cervical spine without contrast. Radiation optimization: All CT scans at this facility use at least one of these dose optimization techniques: automated exposure control; mA and/or kV adjustment per patient size (includes targeted exams where dose is matched to clinical indication); or iterative reconstruction. REPORTING DATA: Count of CT and Cardiac NM exams in prior 12 months: This patient has received [address] and 0 known cardiac nuclear medicine studies in the 12 months prior to the current study. COMPARISON: CT lung screening [id number] 08/29/2021 8:54 AM RADIATION DOSE METRICS: Total DLP (mGy-cm): 208 FINDINGS: Bones/joints: No acute fracture. Normal alignment. No significant disc bulge or herniation. No severe spinal canal stenosis. Lungs: Lung apices are normal. Soft tissues: Unremarkable. CT/CT cervical spin wo con* [id number] IMPRESSION: No acute findings.
--- NOTE | 2023-05-19 19:07 | XRR_ITS ---
PROCEDURE INFORMATION: Exam: XR Pelvis Exam date and time: 05/19/2023 7:19 PM Age: 63 years old Clinical indication: Injury or trauma; Fall; Additional info: Fall, L pelvis pain/hip pain TECHNIQUE: Imaging protocol: Radiologic exam of the pelvis. Views: 1 or 2 view. COMPARISON: CT abdomen pelvis con [id number] 03/12/2023 3:43 PM FINDINGS: Bones/joints: Unremarkable. No acute fracture. Soft tissues: Unremarkable. XR/XR pelvis 1-2V* [id number] IMPRESSION: No acute findings.
--- NOTE | 2023-05-19 19:08 | ECG_ITS ---
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 Measurements Intervals [place] Rate: 54 P: 68 MD: 166 QRS: 16 QRSD: 94 T: 9 QT: 464 QTc: 442 Interpretive Statements SINUS BRADYCARDIA LOW QRS VOLTAGE IN PRECORDIAL LEADS [QRS DEFLECTION < 1.0 mV IN CHEST LEADS] INCOMPLETE RIGHT BUNDLE BRANCH BLOCK [90+ ms QRS DURATION, TERMINAL R IN V1/V2, 40+ ms S IN I/aVL/V4/V5/V6] Compared to ECG 07/29/2022 02:18:21 Low QRS voltage now present Incomplete right bundle-branch block now present Electronically Signed On 05-20-2023 12:16:40 CDT by Salomón Logan M.D. [id number]
[2023-05-19] MEDS: sodium chloride 0.9% 1,000 ML 999 ML IV (19:34)
[2023-05-19 19:35] VITALS: RESP 18
[2023-05-19] MEDS: morphine 4 mg/mL SDV 1 mL IVP (19:35)
[2023-05-19] MEDS: ketorolac 30 mg/mL INJ 15 MG IVP (19:35)
[2023-05-19] MEDS: ondansetron 2 mg/ML SDV 2 mL 4 MG IVP (19:35)
[2023-05-19 19:45] LABS: Basophils % 1.6 %; Eosinophils # 0.2 10^3/uL (0.0-0.8); Eosinophils % 7.8 %; Hematocrit 34.9 % (37.0-47.0); Hemoglobin 12.1 g/dL (11.5-15.3); Lymphocytes # 1.3 10^3/uL (0.8-4.8); Lymphocytes % 53.3 %; Mean Corpuscular HGB Conc 34.7 g/dL (30.0-36.0); Mean Corpuscular Hemoglobin 36.6 pg (28.0-34.0); Mean Corpuscular Volume 105.4 fl (81-99); Mean Platelet Volume 12.1 fL (7.4-10.4); Monocytes # 0.3 10^3/uL (0.2-0.9); Monocytes % 11.5 %; Neutrophils % 25.8 %; Nucleated Red Blood Cells % 0 %; Platelet Count 130 10^3/cmm (130-400); Red Blood Count 3.31 10^6/uL (4.1-5.3); Red Cell Distribution Width 14.9 % (12.1-15.1); White Blood Count 2.4 10^3/uL (4.0-10.0)
[2023-05-19 20:03] LABS: Lactic Sepsis W/Reflex 1.5 mmol/L (0.5-2.2)
[2023-05-19 20:04] LABS: Troponin(5th) Baseline 7 ng/L (0-10)
[2023-05-19 20:15] LABS: NT Pro B Type Natriuretic Pept 439 pg/mL (0-125); Procalcitonin 0.15 ng/mL (0-0.5); Thyroid Stimulating Hormone 0.91 uIU/mL (0.27-4.20)
[2023-05-19 20:16] LABS: Neutrophils # 0.63 10^3/uL (1.8-7.7)
[2023-05-19 20:26] LABS: Alanine Aminotransferase 27 U/L (0-33); Albumin Level 3.4 g/dL (3.5-5.2); Alkaline Phosphatase 58 U/L (35-105); Anion Gap 14.2 (5-19); Aspartate Amino Transferase 30 U/L (0-32); Blood Urea Nitrogen 8 mg/dL (8-23); Carbon Dioxide 23 mmol/L (22-29); Chloride 107 mmol/L (98-107); Globulin 1.7 g/dL (1.3-4.6); Glucose 81 mg/dL (65-115); Osmolality Calculated 287 mOsm/kg (285-295); Potassium 4.2 mmol/L (3.5-5.1); Sodium 140 mmol/L (136-145); Total Bilirubin 0.8 mg/dL (0.15-1.2); Total Protein 5.1 g/dL (6.6-8.7)
[2023-05-19 20:31] VITALS: BP 117/67; PULSE 53; O2SAT 98
--- NOTE | 2023-05-19 21:24 | ECG_ITS ---
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 Measurements Intervals [place] Rate: 51 P: 94 WI: 186 QRS: 14 QRSD: 97 T: 33 QT: 465 QTc: 431 Interpretive Statements SINUS BRADYCARDIA LOW QRS VOLTAGE IN PRECORDIAL LEADS [QRS DEFLECTION < 1.0 mV IN CHEST LEADS] INCOMPLETE RIGHT BUNDLE BRANCH BLOCK [90+ ms QRS DURATION, TERMINAL R IN V1/V2, 40+ ms S IN I/aVL/V4/V5/V6] Compared to ECG 05/19/2023 19:16:05 No significant changes Electronically Signed On 05-20-2023 12:23:46 CDT by Salomón Logan M.D. [id number]
[2023-05-19 21:28] LABS: Adenovirus Not Detected (NOT DETECT); Chlamydia Pneumoniae Not Detected (NOT DETECT); Coronavirus 229E,HKU1,NL63,OC4 Not Detected (NOT DETECT); Human Metapneumovirus Not Detected (NOT DETECT); Human Rhinovirus/Enterovirus Not Detected (NOT DETECT); Influenza A Not Detected (NOT DETECT); Influenza A H1 Not Detected (NOT DETECT); Influenza A H1-2009 Not Detected (NOT DETECT); Influenza A H3 Not Detected (NOT DETECT); Influenza B Not Detected (NOT DETECT); Mycoplasma Pneumoniae Not Detected (NOT DETECT); Parainfluenza Virus Type 1 Not Detected (NOT DETECT); Parainfluenza Virus Type 2 Not Detected (NOT DETECT); Parainfluenza Virus Type 3 Not Detected (NOT DETECT); Parainfluenza Virus Type 4 Not Detected (NOT DETECT); Respiratory Syncytial Virus A Not Detected (NOT DETECT); Respiratory Syncytial Virus B Not Detected (NOT DETECT); SARS-COV-2 Not Detected (NOT DETECT)
[2023-05-19 21:30] VITALS: BP 112/62; PULSE 52; O2SAT 99
[2023-05-19 21:42] LABS: Add Urine Microscopic? NO; Charge for UA Resulting for Rev
[2023-05-19 21:47] LABS: Bilirubin Urine Neg (Negative); Blood Urine Neg (Negative); Glucose Urine UA Norm (Normal); Ketones Urine Negative (Negative); Nitrate Urine Negative (Negative); Protein Urine Neg (Negative); Specific Gravity, Urine 1.005 (1.005-1.030); Urine Appearance Clear (CLEAR); Urine Color Yellow (Yellow); pH Urine 6 (5-7)
[2023-05-19 21:48] LABS: Leukocyte Esterase Urine Negative (Negative); Urobilinogen Urine Neg (Negative)
[2023-05-19 22:26] LABS: Troponin 5 2HR 7.68 ng/L (0-10)
[2023-05-19 22:35] LABS: Troponin 5 2HR Delta 0.68 ABS# (0-10)
[2023-05-19 22:41] VITALS: BP 119/52; PULSE 54; O2SAT 97
== END 2023-05-19 22:42 | disposition home or self-care (01) ==
PROVIDERS: Emergency Provider Emergency Medicine; PCP Family Medicine
DX: S09.90XA Unspecified injury of head, initial encounter (principal); W19.XXXA Unspecified fall, initial encounter; Y92.009 Unspecified place in unspecified non-institutional (private) residence as the place of occurrence of the external cause; M54.2 Cervicalgia; M25.512 Pain in left shoulder; R10.2 Pelvic and perineal pain; R00.1 Bradycardia, unspecified; D72.819 Decreased white blood cell count, unspecified; E86.0 Dehydration; K52.9 Noninfective gastroenteritis and colitis, unspecified
CPT/HCPCS: 36415; 70450; 71045; 72125; 72170; 73030; 80053; 81003; 83605; 83735; 83880; 84145; 84443; 84484; 85025; 86140; 87486; 87581; 87633; 93005; 96361; 96374; 96375; 99285; J1885; J2270; J2405; J7030

== ENCOUNTER → 2023-06-21 09:38 | Outpatient (BNVA) | payer MEDICARE, MEDICAID, SELFPAY | PROVIDERS: PCP Family Medicine; Visit Provider Family Medicine | DX: E03.9 Hypothyroidism, unspecified (principal); M54.40 Lumbago with sciatica, unspecified side; M70.62 Trochanteric bursitis, left hip; K29.70 Gastritis, unspecified, without bleeding; F41.1 Generalized anxiety disorder; G47.00 Insomnia, unspecified; K13.0 Diseases of lips; M06.9 Rheumatoid arthritis, unspecified; D72.819 Decreased white blood cell count, unspecified; F51.05 Insomnia due to other mental disorder; F99 Mental disorder, not otherwise specified; M51.16 Intervertebral disc disorders with radiculopathy, lumbar region; S83.92XD Sprain of unspecified site of left knee, subsequent encounter; W19.XXXD Unspecified fall, subsequent encounter; Y92.009 Unspecified place in unspecified non-institutional (private) residence as the place of occurrence of the external cause; K29.30 Chronic superficial gastritis without bleeding | CPT/HCPCS: 84439; 84443; 84481; 85007; 85027; 85651; 86140 ==

== ENCOUNTER → 2023-06-28 13:17 | Outpatient (BNVA) | payer MEDICARE, MEDICAID, SELFPAY | PROVIDERS: PCP Family Medicine; Visit Provider Internal Medicine | DX: Z79.899 Other long term (current) drug therapy; M05.9 Rheumatoid arthritis with rheumatoid factor, unspecified | CPT/HCPCS: 99214 ==

== ENCOUNTER → 2023-07-05 09:24 | Outpatient (BNVA) | payer MEDICARE, MEDICAID, SELFPAY | PROVIDERS: PCP Family Medicine; Referring Provider Family Medicine; Visit Provider Family Medicine | DX: E03.9 Hypothyroidism, unspecified (principal); K44.9 Diaphragmatic hernia without obstruction or gangrene; Z15.89 Genetic susceptibility to other disease; Z79.899 Other long term (current) drug therapy; G47.00 Insomnia, unspecified | CPT/HCPCS: 80053; 85025; 85651; 86140 ==

== ENCOUNTER 2023-07-08 12:08 | Emergency (ER) | payer MEDICARE, MEDICAID, SELFPAY ==
[2023-07-08 13:01] VITALS: BP 103/59; PULSE 69; RESP 15; TEMP 36.7; O2SAT 96
--- NOTE | 2023-07-08 15:43 | XR_ITS ---
WS: [id number] EXAMINATION: XR hip RT 2-3V wo/w pel* [id number] REASON FOR EXAM: Trauma COMPARISON: 05/19/2023 ORDER DATE: 07/08/2023 3:57 PM TECHNIQUE: Frontal internal/external rotation views of the right hip were obtained. X-RAY FINDINGS: There are no fractures or dislocations. Normal motion with internal/external rotation is present. Minor generalized bilateral degenerative changes. IMPRESSION: 1. Bilateral osteoarthritis of the hips with normal motion with internal/external rotation on the ri ght..
--- NOTE | 2023-07-08 15:43 | W.ED.FALL ---
HPI - Fall General: Chief Complaint: Fall Stated Complaint: fall Time Seen by Provider: 07/08/23 15:43 Source: patient Mode of arrival: EMS History of Present Illness: 63-year-old female who presents emergency room after a fall this morning. She bent over to pick something up when she stood up shortly after she began to get lightheaded and dizzy she tried to reach for chair to sit down and fell to her right side she has pain over the outer aspect of the right hip and on the right elbow with bruising on the right elbow she did not strike her head she was disoriented for a time but does not believe she ever completely lost consciousness no chest pain no shortness of breath has not happened had any previous episodes like this she is on multiple medications list reviewed she denies any recent changes in medications. Patient is diabetic no known history of coronary artery disease. MD complaint: fall Onset (ago): minute(s) Fall from: standing Fall witnessed: yes, by family Place fall occurred: home Loss of consciousness: Unsure Prolonged down time: no Symptoms prior to fall: none Context: other (After bending over and standing up) Location of injury - extremities: Right: elbow and thigh Associated symptoms-after fall: Denies abdominal pain, chest pain, confusion, difficulty walking, headache(s), hematuria, lightheadedness, neck pain, numbness, short of breath, vertigo or weakness Review of Systems Const: Denies: fever(s), chills, fatigue or malaise Card: Denies: chest pain or lightheadedness Resp: Denies: dyspnea, productive cough or non-productive cough GI: Denies: abdominal pain : Denies: hematuria Musc: Denies: neck pain Skin/Breast: Denies: rash or pruritus Neuro: Denies: headache(s), difficulty walking, vertigo or confusion Psych: Reports: hopelessness PFSH ED PFSH: Medical History Chest pain Chronic pain syndrome COPD (chronic obstructive pulmonary disease) Fibromyalgia NAE (generalized anxiety disorder) Hypertension, essential Did not tolerate lisinopril. Hypothyroidism Insomnia Failed amitriptyline, trazodone, Ambien caused side effects. Lumbar paraspinal muscle spasm Metatarsalgia Nausea Symptomatic cholelithiasis Surgical History H/O foot surgery H/O tubal ligation Family History Other CAD (coronary artery disease) Cancer Diabetes Heart attack Hyperlipidemia Hypertension Rheumatoid arthritis Stroke Denies family history of Lupus Chronic kidney disease (CKD) Social History Smoking and tobacco status: current every day smoker cigarettes Packs smoked per day: 1 Quit status (tobacco): has tried quititng Second hand smoke exposure: No Alcohol intake: current Alcohol intake frequency: holidays/special occasions only Desire information about alcohol rehabilitation?: No Substance/Drug Use: never Desire information about substance/drug rehabilitation?: No Female Reproductive History: Spontaneous abortions: No Physical Exam Const: GENERAL APPEARANCE: cooperative and comfortable ORIENTATION/CONSCIOUSNESS: Yes awake, Yes oriented to person, Yes oriented to place and Yes oriented to time HENMT: COMMON NORMALS: normocephalic, atraumatic and hearing grossly normal bilaterally HEAD & SCALP: normocephalic and atraumatic Resp: COMMON NORMALS: normal respiratory effort, No retractions, No use of accessory muscles and clear to auscultation bilaterally AUSCULTATION: clear to auscultation bilaterally Cardio: COMMON NORMALS: regular rate, regular rhythm and No murmurs present (Cardio) RATE: regular rate RHYTHM: regular rhythm GI: COMMON NORMALS: Soft to palpation and No hepatosplenomegaly present AUSCULTATION: Yes normoactive bowel sounds PALPATION: Yes Soft to palpation, No Tenderness to palpation present (GI), No Guarding due to palpation present (GI) and Yes No hepatosplenomegaly present Extremity: OTHER: Exquisite tenderness over the right greater trochanter as well as mild tenderness at the right elbow with some overlying bruising Neuro: SENSORIUM/ORIENTATION: Yes oriented to person, Yes oriented to place and Yes oriented to time Skin: COMMON NORMALS: no rashes or lesions noted GENERAL SKIN EXAM: no rashes or lesions noted Course Vital Signs: Vital signs: Vital Signs Temperature 98.1 F 07/08/23 13:01 Pulse Rate 55 L 07/08/23 18:07 Respiratory Rate 15 07/08/23 13:01 Blood Pressure 105/59 07/08/23 18:07 Pulse Oximetry 97 07/08/23 18:07 Oxygen Delivery Me thod Room Air 07/08/23 16:37 MDM - Fall Medical Decision Making X-ray left hip pelvis and left elbow are all negative for acute fracture. I do think she has a trochanteric bursitis she does have a area of ecchymosis overlying the olecranon process on the right elbow which is also exquisitely tender. She has oxycodone at home Diclofenac to use along with that. Can apply ice as needed follow-up with primary care return if has further problems. Medical Records I reviewed the patient's medical records. Lab Data I reviewed the patient's lab results. 07/08/23 16:36 07/08/23 16:36 Laboratory Results WBC 3.73 10^3/uL (3.29-11.43) 07/08/23 16:36 RBC 3.73 10^6/uL (3.85-5.65) L 07/08/23 16:36 Hgb 13.60 g/dL (11.27-16.99) 07/08/23 16:36 Hct 40.2 % (36-47) 07/08/23 16:36 MCV 107.8 fl (85-98) H 07/08/23 16:36 MCH 36.5 pg (27-33) H 07/08/23 16:36 MCHC 33.8 g/dL (30-55) 07/08/23 16:36 RDW 14.1 % (12.1-15.1) 07/08/23 16:36 Plt Count 140 10^3/cmm (157-399) L 07/08/23 16:36 MPV 12.4 fL (7.4-10.4) H 07/08/23 16:36 Neut % (Auto) 45.0 % 07/08/23 16:36 Lymph % (Auto) 30.8 % 07/08/23 16:36 [place] % (Auto) 15.8 % 07/08/23 16:36 Eos % (Auto) 7.0 % 07/08/23 16:36 Baso % (Auto) 1.1 % 07/08/23 16:36 Neut # (Auto) 1.68 10^3/uL (1.8-7.7) L 07/08/23 16:36 Lymph # (Auto) 1.2 10^3/uL (0.8-4.8) 07/08/23 16:36 [place] # (Auto) 0.6 10^3/uL (0.2-0.9) 07/08/23 16:36 Eos # (Auto) 0.3 10^3/uL (0.0-0.8) 07/08/23 16:36 Baso # (Auto) 0.0 10^3/uL (0.0-0.1) 07/08/23 16:36 Nucleated RBC % (auto) 0 % 07/08/23 16:36 Nucleated RBCs # 0.0 /100WBC 07/08/23 16:36 Sodium 140 mmol/L (136-145) 07/08/23 16:36 Potassium 4.0 mmol/L (3.5-5.1) 07/08/23 16:36 Chloride 105 mmol/L (98-107) 07/08/23 16:36 Carbon Dioxide 27 mmol/L (22-29) 07/08/23 16:36 Anion Gap 12.0 (5-19) 07/08/23 16:36 BUN 10 mg/dL (8-23) 07/08/23 16:36 Creatinine 0.7 mg/dL (0.5-0.9) 07/08/23 16:36 GFR Calculation 84.0 mL/min (90-130) L 07/08/23 16:36 Glucose 76 mg/dL (65-115) 07/08/23 16:36 Calculated Osmolality 288 mOsm/kg (285-295) 07/08/23 16:36 Calcium 8.3 mg/dL (8.5-10.5) L 07/08/23 16:36 Total Bilirubin 0.7 mg/dL (0.15-1.2) 07/08/23 16:36 AST 68 U/L (0-32) H 07/08/23 16:36 ALT 30 U/L (0-33) 07/08/23 16:36 Alkaline Phosphatase 78 U/L (35-105) 07/08/23 16:36 Total Protein 5.9 g/dL (6.6-8.7) L 07/08/23 16:36 Albumin 3.2 g/dL (3.5-5.2) L 07/08/23 16:36 Globulin 2.7 g/dL (1.3-4.6) 07/08/23 16:36 Discharge Plan Discharge Patient Disposition: Home Clinical Impression: Trochanteric bursitis of right hip, Contusion of elbow, right, Postural hypotension Condition: Stable Prescriptions: New diclofenac sodium 75 mg tablet,delayed release (DR/EC) 75 mg PO Q12H PRN (Reason: pain) Qty: 20 0RF No Action docusate sodium [Colace] 100 mg capsule 100 mg PO DAILY sumatriptan succinate 25 mg tablet 25 mg PO ONCE PRN (Reason: migraine headache) albuterol sulfate 90 mcg/actuation HFA aerosol inhaler 1 puff INHALATION QID PRN (Reason: shortness of breath or wheezing) 30 Days Qty: 18 5RF benzonatate 100 mg capsule 100 mg PO BID PRN (Reason: cough) 30 Days Qty: 60 5RF levomefolate calcium [L-Methylfolate] 15 mg tablet 15 mg PO DAILY 90 Days Qty: 90 1RF tramadol 50 mg tablet 50 mg PO Q8H PRN (Reason: Pain) levothyroxine 25 mcg tablet 25 mcg PO DAILY 30 Days Qty: 30 5RF oxycodone 5 mg tablet 5 mg PO DAILY PRN (Reason: pain) 30 Days Qty: 30 0RF omeprazole 40 mg capsule,delayed release(DR/EC) 40 mg PO BID 90 Days Qty: 180 3RF sertraline 50 mg tablet 50 mg PO DAILY 30 Days Qty: 30 5RF triamcinolone acetonide 0.025 % ointment 1 applic topical DAILY PRN (Reason: rash) Qty: 15 0RF Rx Instructions: to corners of mouth (DME) BD Insulin Syringe 1 mL 25 x 1 syringe See Rx Instructions .Route Qty: 100 0RF Rx Instructions: use with B12 medication once weekly (DME) Monoject TB Safety Syringe 1 mL 25 gauge x 5/8 syringe See Rx Instructions .ROUTE .MEDSUPPLY Qty: 50 1RF Rx Instructions: As directed methotrexate sodium 25 mg/mL solution 15 mg SUBCUT .Q7days Qty: 10 0RF Humira Pen 40 mg/0.8 mL pen injector kit See Rx Instructions SUBCUT .COMPLEX Qty: 4 2RF Rx Instructions: inject one - 40 mg/0.8 mL pen every 2 weeks SUBCUT cyanocobalamin (vitamin B-12) 1,000 mcg/mL solution See Rx Instructions .ROUTE .COMPLEX Qty: 6 0RF Dose Instruction: INJECT 1 ML INTRAMUSCULARLY ONCE EVERY MONTH PATIENT TO INJECT AT HOME WITH SYRINGES Rx Instructions: INJECT 1 ML INTRAMUSCULARLY ONCE EVERY MONTH PATIENT TO INJECT AT HOME WITH SYRINGES Probiotic Complex (Inulin) 1 cap PO DAILY quetiapine 25 mg tablet 25 mg PO BEDTIME prednisone 5 mg tablet See Rx Instructions PO DAILY PRN (Reason: Shortness Of Breath) Rx Instructions: take 5 tabs daily orally for 15 days then 5 tabs daily for 10 days and then 5 tabs daily for 5 days then stop Discharge Orders: Discharge ED (Routine); Ordered 07/08/23 Ordered By: Suhail Frey Referrals: Alix Marcus MD [Primary Care Provider] - Discharge Diet: Usual diet Discharge Activity: Increase activity as tolerated Patient Instructions: Opioid Safety, Pain Management Activity Restrictions/Additional Instructions: You were seen today after a fall. The andrews fall was due to postural hypotension. You have trochanteric bursitis on the right hip, contusion in the right elbow. Use of previously prescribed pain medications and the diclofenac you are given at this visit as needed. Coding Level of Care Code ED Outbound Telemarketing Representative for Aishwarya Barclay
--- NOTE | 2023-07-08 15:48 | XR_ITS ---
WS: [id number] EXAMINATION: XR elbow RT min 3V* [id number] REASON FOR EXAM: trauma COMPARISON: None available. ORDER DATE: 07/08/2023 3:57 PM FINDINGS: There is no sign of any acute osseous or articular abnormality. There are no specific soft tissue abn ormalities. IMPRESSION: No acute change
[2023-07-08 16:37] VITALS: BP 116/57; PULSE 56; O2SAT 97
--- NOTE | 2023-07-08 16:48 | PC.NURSE ---
ASSUMED CARE AT 1622. PT RESTING IN BED WITH EVEN RESPIRATIONS AT THIS TIME.
[2023-07-08 16:50] LABS: Basophils % 1.1 %; Eosinophils # 0.3 10^3/uL (0.0-0.8); Hematocrit 40.2 % (36-47); Lymphocytes # 1.2 10^3/uL (0.8-4.8); Lymphocytes % 30.8 %; Mean Corpuscular HGB Conc 33.8 g/dL (30-55); Mean Corpuscular Hemoglobin 36.5 pg (27-33); Mean Corpuscular Volume 107.8 fl (85-98); Mean Platelet Volume 12.4 fL (7.4-10.4); Monocytes # 0.6 10^3/uL (0.2-0.9); Monocytes % 15.8 %; Neutrophils # 1.68 10^3/uL (1.8-7.7); Nucleated Red Blood Cells % 0 %; Platelet Count 140 10^3/cmm (157-399); Red Blood Count 3.73 10^6/uL (3.85-5.65); Red Cell Distribution Width 14.1 % (12.1-15.1); White Blood Count 3.73 10^3/uL (3.29-11.43)
[2023-07-08] MEDS: HYDROcodone-acetaminophen 10-325 mg Tablet 1 TAB PO (16:53)
[2023-07-08 16:54] VITALS: BP 113/60; PULSE 50
[2023-07-08 16:55] VITALS: BP 134/69; PULSE 68
[2023-07-08 16:56] VITALS: BP 99/66; PULSE 69
[2023-07-08 17:11] LABS: Alanine Aminotransferase 30 U/L (0-33); Albumin Level 3.2 g/dL (3.5-5.2); Alkaline Phosphatase 78 U/L (35-105); Aspartate Amino Transferase 68 U/L (0-32); Blood Urea Nitrogen 10 mg/dL (8-23); Calcium 8.3 mg/dL (8.5-10.5); Carbon Dioxide 27 mmol/L (22-29); Chloride 105 mmol/L (98-107); Creatinine Clr Calc Pharmacy 73.5166; Globulin 2.7 g/dL (1.3-4.6); Glucose 76 mg/dL (65-115); Osmolality Calculated 288 mOsm/kg (285-295); Sodium 140 mmol/L (136-145); Total Bilirubin 0.7 mg/dL (0.15-1.2); Total Protein 5.9 g/dL (6.6-8.7)
[2023-07-08 18:07] VITALS: BP 105/59; PULSE 55; O2SAT 97
== END 2023-07-08 18:09 | disposition home or self-care (01) ==
PROVIDERS: Emergency Provider Family Medicine; PCP Family Medicine
DX: M70.61 Trochanteric bursitis, right hip (principal); I95.1 Orthostatic hypotension; S50.01XA Contusion of right elbow, initial encounter; F17.210 Nicotine dependence, cigarettes, uncomplicated; J44.9 Chronic obstructive pulmonary disease, unspecified; I10 Essential (primary) hypertension; W18.39XA Other fall on same level, initial encounter
CPT/HCPCS: 36415; 73080; 73502; 80053; 85025; 99284

== ENCOUNTER → 2023-08-24 09:22 | Outpatient (BNVA) | payer MEDICARE, MEDICAID, SELFPAY | PROVIDERS: PCP Family Medicine; Referring Provider Internal Medicine; Visit Provider Internal Medicine | DX: J30.2 Other seasonal allergic rhinitis (principal); J44.9 Chronic obstructive pulmonary disease, unspecified | CPT/HCPCS: 80053; 85025; 85651; 86140 ==

== ENCOUNTER → 2023-08-27 11:03 | Outpatient (BNVA) | payer MEDICARE, MEDICAID, SELFPAY | PROVIDERS: PCP Family Medicine; Visit Provider Internal Medicine | DX: Z79.899 Other long term (current) drug therapy (principal); E03.9 Hypothyroidism, unspecified; Z15.89 Genetic susceptibility to other disease; M77.40 Metatarsalgia, unspecified foot; M54.9 Dorsalgia, unspecified; G89.29 Other chronic pain; E53.8 Deficiency of other specified B group vitamins; E78.00 Pure hypercholesterolemia, unspecified; M06.9 Rheumatoid arthritis, unspecified | CPT/HCPCS: 99214 ==

== ENCOUNTER → 2023-08-31 11:17 | Outpatient (BNVA) | payer MEDICARE, MEDICAID, SELFPAY | PROVIDERS: PCP Family Medicine; Referring Provider Internal Medicine; Visit Provider Family Medicine | DX: E03.9 Hypothyroidism, unspecified (principal); E53.8 Deficiency of other specified B group vitamins; E78.00 Pure hypercholesterolemia, unspecified; G89.29 Other chronic pain; M54.9 Dorsalgia, unspecified; M77.40 Metatarsalgia, unspecified foot; Z15.89 Genetic susceptibility to other disease; Z79.899 Other long term (current) drug therapy | CPT/HCPCS: 82306; 82607; 83090 ==

== ENCOUNTER → 2023-11-30 09:55 | Outpatient (BNVA) | payer MEDICARE, MEDICAID, SELFPAY | PROVIDERS: PCP Family Medicine; Visit Provider Internal Medicine | DX: Z79.899 Other long term (current) drug therapy (principal); M06.9 Rheumatoid arthritis, unspecified; E78.00 Pure hypercholesterolemia, unspecified; R53.83 Other fatigue | CPT/HCPCS: 36415; 80053; 81001; 84443; 85025; 85651; 86140; 87086; 99214 ==

== ENCOUNTER → 2023-12-28 14:25 | Outpatient (BNVA) | payer MEDICARE, MEDICAID, SELFPAY | PROVIDERS: PCP Family Medicine; Visit Provider Family Medicine | DX: S49.92XA Unspecified injury of left shoulder and upper arm, initial encounter (principal); W19.XXXA Unspecified fall, initial encounter | CPT/HCPCS: 73030 ==

== ENCOUNTER → 2024-01-17 14:08 | Outpatient (BNVA) | payer MEDICARE, MEDICAID, SELFPAY | PROVIDERS: PCP Family Medicine; Visit Provider Emergency Medicine | DX: B34.9 Viral infection, unspecified (principal) | CPT/HCPCS: 87400; 87426 ==

== ENCOUNTER → 2024-02-03 11:34 | Outpatient (BNVA) | payer MEDICARE, MEDICAID, SELFPAY | PROVIDERS: PCP Family Medicine; Visit Provider Family Medicine | DX: K59.04 Chronic idiopathic constipation (principal); K58.1 Irritable bowel syndrome with constipation; K29.30 Chronic superficial gastritis without bleeding; M54.40 Lumbago with sciatica, unspecified side; M70.62 Trochanteric bursitis, left hip; R10.9 Unspecified abdominal pain; E78.00 Pure hypercholesterolemia, unspecified; R11.0 Nausea; R10.31 Right lower quadrant pain | CPT/HCPCS: 80053; 80061; 82977; 83690; 85025 ==

== ENCOUNTER → 2024-02-07 12:34 | Outpatient (BNVA) | payer MEDICARE, MEDICAID, SELFPAY | PROVIDERS: PCP Family Medicine; Referring Provider Family Medicine; Visit Provider Surgery | DX: K21.9 Gastro-esophageal reflux disease without esophagitis; Z87.11 Personal history of peptic ulcer disease; K59.03 Drug induced constipation; T40.2X5A Adverse effect of other opioids, initial encounter; R10.9 Unspecified abdominal pain; X58.XXXA Exposure to other specified factors, initial encounter | CPT/HCPCS: 99214 ==

== ENCOUNTER 2024-02-10 16:51 | Outpatient (CLI) | payer MEDICARE, MEDICAID, SELFPAY ==
[2024-02-10] MEDS: iohexol 350 mg/mL 500 mL Btl (per mL) IV (17:27)
--- NOTE | 2024-02-10 17:30 | CT_ITS ---
WS: [id number] CT ABDOMEN AND PELVIS WITH AND WITHOUT CONTRAST HISTORY: K29.30 - Chronic superficial gastritis without bleeding TECHNIQUE: Unenhanced 5 mm axial imaging first performed through the abdomen. Post contrast imaging t hrough the abdomen and pelvis. Oral contrast has not been provided. Sagittal and coronal reformats a re submitted. All CT scans at [facility] use at least one of these dose optimization techniqu es: automated exposure control; mA and/or kV adjustment per patient size (includes targeted exams whe re dose is matched to clinical indication); or iterative reconstruction. CONTRAST: Omnipaque 350; 95 mL IV. DLP: 1001.38 mGy.cm COMPARISON: 03/12/2023 New small to moderate but incompletely visualized bilateral pleural effusions. Heart size is normal. Small hiatal hernia. Cirrhotic appearing liver with a few scattered low-attenuation masses which are probably cysts. Some of these low-attenuation lesions are too small to characterize. There are additional granulomata. Por eugenio vein is patent. Prior cholecystectomy. Spleen is slightly enlarged at 12.6 cm. Atrophy of the dickerson creas. No adrenal mass. Low normal size kidneys with no obstruction. Nonobstructing calcification RIG HT kidney. Atherosclerosis aorta. Normal enhancement of the mesenteric arteries. There is a small to moderate amount of ascites with mesenteric edema. No GI tract obstruction. Prior gastric bypass. There is submucosal edema throughout the colon which may be related to the ascites. G reatest involving the ascending colon and the cecum. No obstructive pattern. There are a few scattere d distal colonic diverticula without acute diverticulitis. There are surgical sutures in the RIGHT lo wer quadrant. Unknown etiology the surgical sutures. The appendix is not definitely identified on tod ay's exam. Free fluid extends into the pelvis. PROVIDER RELATIONS REPRESENTATIVE structures are negative. Urinary bladder is not distended. No adenopathy. Mild degenerative changes at the hips. IMPRESSION: 1. Significant change in appearance of the abdomen and pelvis since 03/12/2023. 2. New small to moderate bilateral pleural effusions. 3. Interval development of a small to moderate amount of ascites and mesenteric edema. 4. Cirrhotic liver with portal venous hypertension. 5. Gastric bypass surgery. 6. Submucosal edema throughout a large portion of the colon, especially the RIGHT colon. This may be related to ascites and fluid overload. Submucosal edema can be seen with portal hypertension, infect ious colitis and ischemia. No free air or obstruction.
== END 2024-02-10 16:52 | disposition home or self-care (01) ==
LOC: RAD 16:51
PROVIDERS: PCP Family Medicine; Visit Provider Family Medicine
DX: K29.30 Chronic superficial gastritis without bleeding (principal)
CPT/HCPCS: 74178; Q9967

== ENCOUNTER 2024-02-17 18:06 | Emergency (ER) | payer MEDICARE, MEDICAID, SELFPAY ==
[2024-02-17 18:09] VITALS: BP 108/53; PULSE 81; RESP 16; TEMP 36.4; O2SAT 98
--- NOTE | 2024-02-17 18:12 | CTR_ITS ---
PROCEDURE INFORMATION: Exam: CT Abdomen And Pelvis With Contrast Exam date and time: 02/17/2024 7:36 PM Age: 63 years old Clinical indication: Abdominal pain; Generalized; Prior surgery; Surgery date: 6+ months; Surgery type: Gastric bypass; Additional info: Abd pain TECHNIQUE: Imaging protocol: Computed tomography of the abdomen and pelvis with contrast. Radiation optimization: All CT scans at this facility use at least one of these dose optimization techniques: automated exposure control; mA and/or kV adjustment per patient size (includes targeted exams where dose is matched to clinical indication); or iterative reconstruction. Contrast material: OMNI 350; Contrast volume: 100 ml; Contrast route: INTRAVENOUS (IV); COMPARISON: CT abdomen pelvis wo/w [id number] 02/10/2024 5:22 PM RADIATION DOSE METRICS: Total DLP (mGy-cm): 818.23 FINDINGS: Tubes, catheters and devices: Clips in the right lower quadrant. Lungs: Dependent atelectasis in the lower lobes. Pleural spaces: Stable moderate bilateral pleural effusions. Diaphragm: Small hiatal hernia. Liver: Cirrhotic appearing liver. Stable hypodense lesions are too small to characterize but are most likely cysts. No suspicious nodule. Calcified granulomas. Gallbladder and bile ducts: Cholecystectomy. The bile ducts are normal. Pancreas: Atrophic pancreas. No focal lesion. Spleen: Splenomegaly. Adrenal glands: Normal. No mass. Kidneys and ureters: 1 mm nonobstructing right renal calculus. No ureteral calculus or hydronephrosis. The left kidney is normal. Stomach and bowel: Duodenal diverticula. Gastric reduction surgery. Diverticulosis of the left colon. No diverticulitis. Stable submucosal fatty deposition or possible mild wall edema in the proximal through descending colon. The small bowel is unremarkable. Appendix: The appendix is not visualized. No secondary signs of appendicitis. Intraperitoneal space: Stable moderate ascites. Vasculature: Scattered calcified arterial plaque. No aneurysm. Lymph nodes: Unremarkable. No enlarged lymph nodes. Urinary bladder: Unremarkable as visualized. Reproductive: Unremarkable as visualized. Bones/joints: Degenerative spine. No acute fracture. Soft tissues: Slightly increased body wall edema. CT/CT abdomen pelvis w con* [id number] IMPRESSION: 1. Stable mild wall edema in the colon. This may in part represent submucosal fatty deposition. 2. Stable cirrhotic liver with splenomegaly. 3. Stable moderate ascites. 4. Stable moderate pleural effusions. 5. Slightly increased body wall edema.
--- NOTE | 2024-02-17 18:12 | ED_ITS ---
HPI - Abdominal Pain 2 General: Chief Complaint: Abdominal Pain Stated Complaint: abd pain Time Seen by Provider: 02/17/24 18:09 Source: patient Mode of arrival: ambulatory Limitations: no limitations History of Present Illness: 63-year-old female has a history of babbitter hussein abdominal pain along with cirrhosis she states her pain is worsened over the last 3 months she had seen Dr. Frey she stopped taking oxycodone because it was causing constipation was started on Linzess that she is scheduled to have an EGD and colonoscopy March 15. She states that her pain tonight is worse and it was a 7 out of 10 she had some radiation to her chest denies any vomiting denies any fevers. Associated Symptoms: Reports constipation; Denies chills, diarrhea, dysuria, fever(s), nausea and vomiting Review of Systems 2 Const: Denies: fever(s), chills, body aches or change in appetite ENMT: Denies: throat pain or dental pain Card: Denies: chest pain Resp: Denies: dyspnea GI: Reports: abdominal pain and constipation; Denies: nausea, vomiting or diarrhea : Denies: dysuria Musc: Denies: neck pain or back pain Skin/Breast: Denies: rash Neuro: Denies: headache(s) PFSH ED 2 PFSH: Medical History Chest pain Symptomatic cholelithiasis Metatarsalgia Nausea NAE (generalized anxiety disorder) COPD (chronic obstructive pulmonary disease) Lumbar paraspinal muscle spasm Chronic pain syndrome Hypertension, essential Did not tolerate lisinopril. Hypothyroidism Fibromyalgia Insomnia Failed amitriptyline, trazodone, Ambien caused side effects. Surgical History H/O tubal ligation H/O foot surgery Family History Other CAD (coronary artery disease) Cancer Diabetes Heart attack Hyperlipidemia Hypertension Rheumatoid arthritis Stroke Denies family history of Lupus Chronic kidney disease (CKD) Social History Smoking and tobacco/nicotine status: current every day tobacco/nicotine user cigarettes Packs smoked per day: 1 Quit status (tobacco/nicotine): has tried quititng Second hand smoke exposure: No Alcohol intake: current Alcohol intake frequency: holidays/special occasions only Substance/Drug Use: never Female Reproductive History: Spontaneous abortions: No Physical Exam 2 Const: COMMON NORMALS: no acute distress, patient oriented x3 and healthy appearing HENMT: COMMON NORMALS: normocephalic and atraumatic HEAD & SCALP: n ormocephalic and atraumatic Neck/C-Spine: COMMON NORMALS: full ROM and supple Chest: COMMONS NORMALS: normal inspection of the chest Resp: COMMON NORMALS: normal respiratory effort, No retractions, No use of accessory muscles and clear to auscultation bilaterally AUSCULTATION: clear to auscultation bilaterally Cardio: COMMON NORMALS: regular rate, regular rhythm and No murmurs present (Cardio) RATE: regular rate RHYTHM: regular rhythm GI: COMMON NORMALS: Normal to inspection, nondistended, normoactive bowel sounds present, Soft to palpation and no masses PALPATION: Yes Soft to palpation OTHER: diffusely tender Extremity: COMMON NORMALS: normal to inspection and full ROM Neuro: COMMON NORMALS: patient oriented x3, moves all extremities and no focal motor deficits Psych: COMMON NORMALS: mental status grossly normal, Normal thought process present and cooperative THOUGHT PROCESS: Normal thought process present Skin: COMMON NORMALS: no rashes or lesions noted and no wounds GENERAL SKIN EXAM: no rashes or lesions noted Course 2 Vital Signs: Vital signs: Vital Signs Temperature 97.6 F 02/17/24 18:09 Pulse Rate 76 02/17/24 18:20 Respiratory Rate 16 02/17/24 18:09 Blood Pressure 108/53 02/17/24 18:20 Pulse Oximetry 99 02/17/24 18:20 Oxygen Delivery Me thod Room Air 02/17/24 18:20 MDM - Abdominal Pain Medical Decision Making Presents with abdominal pain has been chronic in nature with that acutely getting worsening last few months she is scheduled to have an EGD and colonoscopy CT showed no acute findings here blood work here is her pain is improved she stable for discharge follow-up with Dr. Frey as scheduled she does need to get a GI physician as well return if worsening she understands agrees plan Medical Records I reviewed the patient's medical records. Lab Data I reviewed the patient's lab results. 02/17/24 18:56 02/17/24 18:56 Labs/Radiology: Radiology Impressions Abdomen/Pelvis CT 02/17/24 18:12 IMPRESSION: 1. Stable mild wall edema in the colon. This may in part represent submucosal fatty deposition. 2. Stable cirrhotic liver with splenomegaly. 3. Stable moderate ascites. 4. Stable moderate pleural effusions. 5. Slightly increased body wall edema. Laboratory Results WBC 2.96 10^3/uL (3.29-11.43) L 02/17/24 18:56 RBC 2.77 10^6/uL (3.85-5.65) L 02/17/24 18:56 Hgb 10.70 g/dL (11.27-16.99) L 02/17/24 18:56 Hct 31.6 % (36-47) L 02/17/24 18:56 MCV 114.1 fl (85-98) H 02/17/24 18:56 MCH 38.6 pg (27-33) H 02/17/24 18:56 MCHC 33.9 g/dL (30-55) 02/17/24 18:56 RDW 16.7 % (12.1-15.1) H 02/17/24 18:56 Plt Count 71 10^3/cmm (157-399) L 02/17/24 18:56 MPV 11.0 fL (7.4-10.4) H 02/17/24 18:56 Neut % (Auto) 64.5 % 02/17/24 18:56 Lymph % (Auto) 25.7 % 02/17/24 18:56 Harvey % (Auto) 5.1 % 02/17/24 18:56 Eos % (Auto) 3.7 % 02/17/24 18:56 Baso % (Auto) 0.7 % 02/17/24 18:56 Neut # (Auto) 1.91 10^3/uL (1.8-7.7) 02/17/24 18:56 Lymph # (Auto) 0.8 10^3/uL (0.8-4.8) 02/17/24 18:56 Harvey # (Auto) 0.2 10^3/uL (0.2-0.9) 02/17/24 18:56 Eos # (Auto) 0.1 10^3/uL (0.0-0.8) 02/17/24 18:56 Baso # (Auto) 0.0 10^3/uL (0.0-0.1) 02/17/24 18:56 Nucleated RBC % (auto) 0 % 02/17/24 18:56 Nucleated RBCs # 0.0 /100WBC 02/17/24 18:56 Sodium 138 mmol/L (136-145) 02/17/24 18:56 Potassium 3.8 mmol/L (3.5-5.1) 02/17/24 18:56 Chloride 109 mmol/L (98-107) H 02/17/24 18:56 Carbon Dioxide 22 mmol/L (22-29) 02/17/24 18:56 Anion Gap 10.8 (5-19) 02/17/24 18:56 BUN 9 mg/dL (8-23) 02/17/24 18:56 Creatinine 0.7 mg/dL (0.5-0.9) 02/17/24 18:56 GFR Calculation 84.0 mL/min (90-130) L 02/17/24 18:56 Glucose 97 mg/dL (65-115) 02/17/24 18:56 Calculated Osmolality 285 mOsm/kg (285-295) 02/17/24 18:56 Lactic Acid 2.1 mmol/L (0.5-2.2) 02/17/24 18:56 Calcium 7.6 mg/dL (8.5-10.5) L 02/17/24 18:56 Total Bilirubin 2.0 mg/dL (0.15-1.2) H 02/17/24 18:56 AST 27 U/L (0-32) 02/17/24 18:56 ALT 8 U/L (0-33) 02/17/24 18:56 Alkaline Phosphatase 68 U/L (35-105) 02/17/24 18:56 Troponin T Baseline 14 ng/L (0-10) H 02/17/24 18:56 Troponin T 120 Minute 13.51 ng/L (0-10) H 02/17/24 21:13 Delta Troponin T -0.49 ABS# (0-10) L 02/17/24 21:13 Total Protein 5.9 g/dL (6.6-8.7) L 02/17/24 18:56 Albumin 2.1 g/dL (3.5-5.2) L 02/17/24 18:56 Globulin 3.8 g/dL (1.3-4.6) 02/17/24 18:56 Lipase 25 U/L (13-60) 02/17/24 18:56 Urine Color [place] (Yellow) A 02/17/24 18:30 Urine Appearance Sl hazy (CLEAR) A 02/17/24 18:30 Urine pH 6 (5-7) 02/17/24 18:30 Ur Specific [place] 1.020 (1.005-1.030) 02/17/24 18:30 Urine Protein Trace (Negative) 02/17/24 18:30 Urine Glucose (UA) Norm (Normal) 02/17/24 18:30 Urine Ketones 1+ (Negative) H 02/17/24 18:30 Urine Blood 2+ (Negative) H 02/17/24 18:30 Urine Nitrate Negative (Negative) 02/17/24 18:30 Urine Bilirubin 2+ (Negative) H 02/17/24 18:30 Urine Urobilinogen 4+ mg/dL (Negative) H 02/17/24 18:30 Ur Leukocyte Esterase Negative (Negative) 02/17/24 18:30 Urine RBC 15-25 /hpf (0-2) H 02/17/24 18:30 Urine WBC 5-10 /hpf (0-5) H 02/17/24 18:30 Ur Squamous Epith Cells 0-4 /hpf (0-5) H 02/17/24 18:30 Ur Transition Epith Cell 0-4 /hpf 02/17/24 18:30 Ur Renal Epithelial Cell Rare /hpf 02/17/24 18:30 Amorphous Sediment Not Reportable 02/17/24 18:30 Urine Bacteria Trace /hpf (NONE) 02/17/24 18:30 Urine Mucus 2+ /hpf 02/17/24 18:30 Ur Oval Fat Bodies 1+ /hpf 02/17/24 18:30 All radiology interpretation(s) finalized by discharge EKG Data EKG 1: I personally reviewed and interpreted this EKG as follows: EKG interpretation date: 02/17/24 EKG interpretation time: 21:08 Interpretation: nsr hr [address] or t wave abnormalities qrs 99 qtc 431 Discharge Plan Discharge Patient Disposition: Home Clinical Impression: Abdominal pain Condition: Stable Prescriptions: No Action docusate sodium [Colace] 100 mg capsule 100 mg PO DAILY Linzess 72 mcg capsule 72 mcg PO QAM 30 Days Qty: 30 2RF Rx Instructions: pt has failed docusate, miralax, milk of mag sucralfate [Carafate] 1 gram tablet 1 g PO QID 30 Days Qty: 120 0RF Rx Instructions: TID with meal and at bedtime famotidine 20 mg tablet 20 mg PO BID 30 Days Qty: 60 2RF oxycodone 5 mg tablet 5 mg PO DAILY PRN (Reason: pain) 30 Days Qty: 30 0RF ondansetron 4 mg tablet,disintegrating 4 mg PO TID PRN (Reason: nausea and vomiting) Qty: 30 0RF Rx Instructions: 340b please pantoprazole [Protonix] 40 mg tablet,delayed release (DR/EC) 40 mg PO BID 42 Days Qty: 84 1RF Linzess 145 mcg capsule 145 mcg PO DAILY 30 Days Qty: 30 11RF Relistor 150 mg tablet 450 mg PO DAILY 30 Days Qty: 30 11RF omeprazole 40 mg capsule,delayed release(DR/EC) 40 mg PO BID 90 Days Qty: 180 3RF triamcinolone acetonide 0.025 % ointment 1 applic topical DAILY PRN (Reason: rash) Qty: 15 0RF Rx Instructions: to corners of mouth cholecalciferol (vitamin D3) 1,250 mcg (50,000 unit) capsule 1,250 mcg PO .weekly 90 Days Qty: 13 3RF sertraline 100 mg tablet 100 mg PO DAILY 30 Days Qty: 30 5RF quetiapine 25 mg tablet 25 mg PO BEDTIME 30 Days Qty: 30 5RF (DME) BD Insulin Syringe 1 mL 25 x 1 syringe See Rx Instructions .Route Qty: 100 0RF Rx Instructions: use with B12 medication once weekly cyanocobalamin (vitamin B-12) 1,000 mcg/mL solution See Rx Instructions .ROUTE .COMPLEX Qty: 6 2RF Dose Instruction: INJECT 1 ML INTRAMUSCULARLY ONCE EVERY MONTH PATIENT TO INJECT AT HOME WITH SYRINGES Rx Instructions: INJECT 1 ML INTRAMUSCULARLY ONCE EVERY MONTH PATIENT TO INJECT AT HOME WITH SYRINGES albuterol sulfate 90 mcg/actuation HFA aerosol inhaler 1 puff INHALATION QID PRN (Reason: shortness of breath or wheezing) 30 Days Qty: 18 5RF benzonatate 100 mg capsule 100 mg PO BID PRN (Reason: cough) 30 Days Qty: 60 5RF levomefolate calcium [L-Methylfolate] 15 mg tablet 15 mg PO DAILY 90 Days Qty: 90 1RF sumatriptan succinate 25 mg tablet 25 mg PO ONCE PRN (Reason: migraine headache) Qty: 9 5RF prednisone 5 mg tablet 5 mg PO DAILY Qty: 30 1RF levothyroxine 25 mcg tablet 25 mcg PO DAILY 30 Days Qty: 30 5RF polyethylene glycol 3350 [Miralax] 17 gram/dose powder 17 g PO DAILY Qty: 850 2RF Rx Instructions: mix with 8 oz water/juice ropinirole 0.25 mg tablet 0.25 mg PO BID 30 Days Qty: 60 5RF (DME) Monoject TB Safety Syringe 1 mL 25 gauge x 5/8 syringe See Rx Instructions .ROUTE .MEDSUPPLY Qty: 50 1RF Rx Instructions: As directed methotrexate sodium 25 mg/mL solution 15 mg SUBCUT .Q7days Qty: 10 0RF Rinvoq 30 mg tablet extended release 24 hr 30 mg PO DAILY Qty: 30 5RF nystatin [Nystop] 100,000 unit/gram powder 1 applic TOPICAL TID PRN (Reason: skin irritation) Qty: 15 1RF Rx Instructions: Apply under breast 3 times daily as needed nystatin 100,000 unit/mL suspension 1 ml PO QID 14 Days Qty: 56 0RF Rx Instructions: swish and swallow Probiotic Complex (Inulin) 1 cap PO DAILY Discharge Orders: Discharge ED (Routine); Ordered 02/17/24 Ordered By: Sebastian Gary Referrals: Franklin Frey DO [Physician] - 1-3 days Alix Marcus MD [Primary Care Provider] - Discharge Diet: Advance as tolerated Discharge Activity: Resume usual activity Patient Instructions: Abdominal Pain (ED) Coding Level of Care Code ED Chief Estimator for Aishwarya Barclay
[2024-02-17 18:20] VITALS: BP 108/53; PULSE 76; O2SAT 99
[2024-02-17 18:55] LABS: Bilirubin Urine 2+ (Negative); Blood Urine 2+ (Negative); Glucose Urine UA Norm (Normal); Ketones Urine 1+ (Negative); Nitrate Urine Negative (Negative); Protein Urine Trace (Negative); Urine Appearance SL Hazy (CLEAR); Urine Color Orange (Yellow); Urobilinogen Urine 4+ mg/dL (Negative); pH Urine 6 (5-7)
[2024-02-17 18:56] LABS: Add Urine Microscopic? YES; Leukocyte Esterase Urine Negative (Negative)
[2024-02-17 19:05] LABS: RBC Urine 15-25 /hpf (0-2)
[2024-02-17 19:05] LABS: Basophils % 0.7 %; Eosinophils # 0.1 10^3/uL (0.0-0.8); Eosinophils % 3.7 %; Hematocrit 31.6 % (36-47); Lymphocytes # 0.8 10^3/uL (0.8-4.8); Lymphocytes % 25.7 %; Mean Corpuscular HGB Conc 33.9 g/dL (30-55); Mean Corpuscular Hemoglobin 38.6 pg (27-33); Mean Corpuscular Volume 114.1 fl (85-98); Monocytes # 0.2 10^3/uL (0.2-0.9); Monocytes % 5.1 %; Neutrophils # 1.91 10^3/uL (1.8-7.7); Neutrophils % 64.5 %; Nucleated Red Blood Cells % 0 %; Platelet Count 71 10^3/cmm (157-399); Red Blood Count 2.77 10^6/uL (3.85-5.65); Red Cell Distribution Width 16.7 % (12.1-15.1); White Blood Count 2.96 10^3/uL (3.29-11.43)
[2024-02-17 19:06] LABS: Add Urine Culture? Yes; Bacteria Urine TRACE /hpf; Mucus Urine 2+ /hpf; Oval Fat Bodies Urine 1+ /hpf; Renal Epithelial Cells Urine RARE /hpf; Squamous Epithelial Cell Urine 0-4 /hpf (0-5); Transitional Epi Cells Urine 0-4 /hpf
[2024-02-17 19:23] LABS: Lactic Sepsis W/Reflex 2.1 mmol/L (0.5-2.2)
[2024-02-17 19:24] LABS: Alanine Aminotransferase 8 U/L (0-33); Albumin Level 2.1 g/dL (3.5-5.2); Alkaline Phosphatase 68 U/L (35-105); Aspartate Amino Transferase 27 U/L (0-32); Blood Urea Nitrogen 9 mg/dL (8-23); Calcium 7.6 mg/dL (8.5-10.5); Carbon Dioxide 22 mmol/L (22-29); Chloride 109 mmol/L (98-107); Globulin 3.8 g/dL (1.3-4.6); Glucose 97 mg/dL (65-115); Lipase 25 U/L (13-60); Osmolality Calculated 285 mOsm/kg (285-295); Sodium 138 mmol/L (136-145); Total Protein 5.9 g/dL (6.6-8.7)
[2024-02-17 19:34] LABS: Anion Gap 10.8 (5-19); Potassium 3.8 mmol/L (3.5-5.1)
[2024-02-17] MEDS: iohexol 350 mg/mL 500 mL Btl (per mL) IV (19:37)
[2024-02-17 20:48] LABS: Reflex Lactate Order REFLEX LACTIC ORDERD
--- NOTE | 2024-02-17 21:01 | XRR_ITS ---
PROCEDURE INFORMATION: Exam: XR Chest Exam date and time: 02/17/2024 9:22 PM Age: 63 years old Clinical indication: Chest wall pain; Additional info: Cp TECHNIQUE: Imaging protocol: Radiologic exam of the chest. Views: 1 view. COMPARISON: CR XR chest 1V portable [id number] 05/19/2023 7:19 PM FINDINGS: Lungs: Shallow inspiration with crowding and mild atelectasis in the lung bases. Calcified granuloma in the right lung. Pleural spaces: Unremarkable. No pleural effusion. No pneumothorax. Heart/Mediastinum: Unremarkable. No cardiomegaly. Bones/joints: Unremarkable. XR/XR chest 1V portable [id number] IMPRESSION: No acute findings.
--- NOTE | 2024-02-17 21:08 | ECG_ITS ---
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 Measurements Intervals [place] Rate: 74 P: 99 CO: 153 QRS: 22 QRSD: 99 T: 15 QT: 404 QTc: 450 Interpretive Statements SINUS RHYTHM LOW QRS VOLTAGE IN PRECORDIAL LEADS [QRS DEFLECTION < 1.0 mV IN CHEST LEADS] INCOMPLETE RIGHT BUNDLE BRANCH BLOCK [90+ ms QRS DURATION, TERMINAL R IN V1/V2, 40+ ms S IN I/aVL/V4/V5/V6] NONSPECIFIC T-WAVE ABNORMALITY Compared to ECG 05/19/2023 21:24:23 T-wave abnormality now present Sinus bradycardia no longer present Electronically Signed On 02-18-2024 17:05:58 CDT by Jayce David M.D. [id number]
[2024-02-17 21:24] LABS: Troponin(5th) Baseline 14 ng/L (0-10)
[2024-02-17 21:35] LABS: Troponin 5 2HR 13.51 ng/L (0-10)
[2024-02-17 21:41] LABS: Troponin 5 2HR Delta -0.49 ABS# (0-10)
--- NOTE | 2024-02-17 21:51 | DCPLANNER ---
Message sent to General Surgery for a follow up appointment
[2024-02-17 22:00] VITALS: BP 114/63; PULSE 70; O2SAT 95
[2024-02-17 22:04] VITALS: RESP 18; O2SAT 98
[2024-02-17] MEDS: HYDROmorphone 1 mg/mL INJ 1 mL 0.5 MG IVP (22:04)
[2024-02-17 22:25] VITALS: BP 114/63; PULSE 70; RESP 18; O2SAT 95
== END 2024-02-17 22:00 | disposition home or self-care (01) ==
PROVIDERS: Emergency Provider Emergency Medicine; PCP Family Medicine
DX: R10.9 Unspecified abdominal pain (principal); F17.210 Nicotine dependence, cigarettes, uncomplicated; J44.9 Chronic obstructive pulmonary disease, unspecified; I10 Essential (primary) hypertension
CPT/HCPCS: 36415; 71045; 74177; 80053; 81001; 83605; 83690; 84484; 85025; 87086; 93005; 96374; 99285; J1170; Q9967

== ENCOUNTER → 2024-02-29 13:29 | Outpatient (BNVA) | payer MEDICARE, MEDICAID, SELFPAY | PROVIDERS: PCP Family Medicine; Referring Provider Family Medicine; Visit Provider Family Medicine | DX: D72.819 Decreased white blood cell count, unspecified (principal); E78.00 Pure hypercholesterolemia, unspecified | CPT/HCPCS: 85007; 85027 ==

== ENCOUNTER → 2024-03-01 19:04 | Outpatient (BNVA) | payer MEDICARE, MEDICAID, SELFPAY | PROVIDERS: PCP Family Medicine; Referring Provider Family Medicine; Visit Provider Family Medicine | DX: D72.819 Decreased white blood cell count, unspecified (principal); E78.00 Pure hypercholesterolemia, unspecified | CPT/HCPCS: 80503 ==

== ENCOUNTER 2024-03-15 09:41 | Day surgery (SDC) | payer MEDICARE, MEDICAID, SELFPAY ==
[2024-03-15 10:01] VITALS: BP 95/65; PULSE 94; RESP 17; TEMP 36.1; O2SAT 94; BMI 25.5
[2024-03-15] MEDS: sodium chloride 0.9% 1,000 ML 30 ML IV (10:10)
--- NOTE | 2024-03-15 11:00 | ANES.PREANE2 ---
Pre-Anesthetic Assessment Height/Weight: Height 1.63 m Weight 67.585 kg Temp Pulse Resp BP Pulse Ox O2 Del Method 97.0 F L 94 17 95/65 94 Room Air 03/15/24 10:03/15/24 10:03/15/24 10:03/15/24 10:03/15/24 10:03/15/24 10:01 Operation Date: 03/15/24 11:15 Proposed Procedures p EGD(Not Applicable) - Franklin Frey DO s Colonoscopy(Not Applicable) - Franklin Frey DO Last intake: Intake Last Liquid Date 03/14/24 Last Liquid Time 21:00 Last Solid Date 03/13/24 Last Solid Time 19:00 Social Tobacco and No alcohol Exam alert, oriented x 3, clear to auscultation bilaterally and regular rate & rhythm Airway Mallampati: Class II Pulmonary Chronic Obstructive Pulmonary Disease GI Gastroesophageal Reflux Disease Metabolic Thyroid Disease Musc/skel Lower Back Pain and Osteoarthritis/DJD Neuropsych Anxiety and Depression Anesthetic Plan ASA status: 3 Anesthesia: MAC Medications/Allergies Home Medications Medication Instructions Recorded Confirmed Last Taken Type docusate sodium 100 mg capsule 100 mg PO DAILY 11/24/21 03/13/24 03/13/24 History (Colace) syringe with needle 1 mL 25 gauge #50 ea 08/10/22 03/07/24 Unknown Rx x 5/8 (Monoject TB Safety Syringe) omeprazole 40 mg capsule,delayed 40 mg PO BID 90 days #180 caps 06/21/23 03/13/24 03/13/24 Rx release albuterol sulfate 90 mcg/actuation 1 puff inhalation QID PRN 09/27/23 03/13/24 03/11/24 Rx aerosol inhaler shortness of breath or wheezing 30 days #18 grams benzonatate 100 mg capsule 100 mg PO BID PRN cough 30 days 09/27/23 03/13/24 03/11/24 Rx #60 caps cyanocobalamin (vitamin B-12) See Rx Instructions .Route 09/27/23 03/13/24 02/14/24 Rx 1,000 mcg/mL injection solution .COMPLEX #6 mL insulin syringe-needle U-100 1 mL #100 ea 09/27/23 03/07/24 Unknown Rx 25 x 1 levomefolate calcium 15 mg tablet 15 mg PO DAILY 90 days #90 tabs 09/27/23 03/13/24 03/14/24 Rx (L-Methylfolate) sertraline 100 mg tablet 100 mg PO DAILY 30 days #30 tabs 09/27/23 03/13/24 03/14/24 Rx sumatriptan succinate 25 mg tablet 25 mg PO ONCE PRN migraine 09/27/23 03/13/24 Unknown Rx headache #9 tabs upadacitinib 30 mg tablet,extended 30 mg PO DAILY #30 tabs 11/16/23 03/13/24 03/14/24 Rx release 24 hr (Rinvoq) nystatin 100,000 unit/gram topical 1 applic topical TID PRN skin 12/17/23 03/13/24 Unknown Rx powder (Nystop) irritation #15 grams levothyroxine 25 mcg tablet 25 mcg PO DAILY 30 days #30 tabs 12/28/23 03/13/24 03/14/24 Rx ropinirole 0.25 mg tablet 0.25 mg PO BID 30 days #60 tabs 12/28/23 03/13/24 03/14/24 Rx famotidine 20 mg tablet 20 mg PO BID 30 days #60 tabs 02/03/24 03/13/24 03/14/24 Rx ondansetron 4 mg disintegrating 4 mg PO TID PRN nausea and 02/03/24 03/15/24 Unknown Rx tablet vomiting #30 tabs oxycodone 5 mg tablet 5 mg PO DAILY PRN pain 30 days #30 02/03/24 03/13/24 Unknown Rx tabs sucralfate 1 gram tablet (Carafate) 1 g PO QID 30 days #120 tabs 02/03/24 03/13/24 03/14/24 Rx linaclotide 145 mcg capsule 145 mcg PO DAILY 30 days #30 caps 02/07/24 03/13/24 03/01/24 Rx (Linzess) methylnaltrexone 150 mg tablet 450 mg (3 x 150 mg) PO DAILY 30 02/07/24 03/13/24 03/13/24 Rx (Relistor) days #30 tabs pantoprazole 40 mg tablet,delayed 40 mg PO BID 6 weeks #84 tabs 02/07/24 03/13/24 03/14/24 Rx release (Protonix) prednisone 5 mg tablet 5 mg PO DAILY PRN flare ups 03/13/24 03/13/24 Unknown History quetiapine 25 mg tablet (Seroquel) 25 mg PO BEDTIME 03/13/24 03/13/24 03/14/24 History Allergies Allergy/AdvReac Type Severity Reaction Status Date / Time fentanyl AdvReac Severe ADR-Nightma Verified 03/13/24 13:40 re Current Medications Generic Name Dose Route Start Last Admin Trade Name Freq PRN Reason Stop Dose Admin Sodium Chloride 1,000 mls @ 30 mls/hr 03/15/24 08:15 03/15/24 10:10 Sodium Chloride 0.9% IV 03/16/24 08:14 30 mls/hr .Q24H NICOLE Administration PFSH Anesthesia Medical History Chest pain Symptomatic cholelithiasis Metatarsalgia Nausea NAE (generalized anxiety disorder) COPD (chronic obstructive pulmonary disease) Lumbar paraspinal muscle spasm Chronic pain syndrome Hypertension, essential Did not tolerate lisinopril. Hypothyroidism Fibromyalgia Insomnia Failed amitriptyline, trazodone, Ambien caused side effects. Surgical History H/O tubal ligation H/O foot surgery Family History Other CAD (coronary artery disease) Cancer Diabetes Heart attack Hyperlipidemia Hypertension Rheumatoid arthritis Stroke Denies family history of Lupus Chronic kidney disease (CKD) Social History Smoking and tobacco/nicotine status: current every day tobacco/nicotine user cigarettes Packs smoked per day: 1 Quit status (tobacco/nicotine): has tried quititng Second hand smoke exposure: No Alcohol intake: current Alcohol intake frequency: holidays/special occasions only Substance/Drug Use: never Female Reproductive History Spontaneous abortions: No Data Anesthesia Cardiac Studies: No Data to Display
--- NOTE | 2024-03-15 11:26 | PM.HP ---
Providers/Chief Complaint Primary Care Provider: Alix Marcus MD Chief Complaint: K21.9 History of Present Illness Sari Henning is a 63 year old female Review of Systems General: Reports: 10 or more systems reviewed and unremarkable except in HPI and below Medications/Allergies Home Medications Medication Instructions Recorded Confirmed Last Taken Type docusate sodium 100 mg capsule 100 mg PO DAILY 11/24/21 03/13/24 03/13/24 History (Colace) syringe with needle 1 mL 25 gauge #50 ea 08/10/22 03/07/24 Unknown Rx x 5/8 (Monoject TB Safety Syringe) omeprazole 40 mg capsule,delayed 40 mg PO BID 90 days #180 caps 06/21/23 03/13/24 03/13/24 Rx release albuterol sulfate 90 mcg/actuation 1 puff inhalation QID PRN 09/27/23 03/13/24 03/11/24 Rx aerosol inhaler shortness of breath or wheezing 30 days #18 grams benzonatate 100 mg capsule 100 mg PO BID PRN cough 30 days 09/27/23 03/13/24 03/11/24 Rx #60 caps cyanocobalamin (vitamin B-12) See Rx Instructions .Route 09/27/23 03/13/24 02/14/24 Rx 1,000 mcg/mL injection solution .COMPLEX #6 mL insulin syringe-needle U-100 1 mL #100 ea 09/27/23 03/07/24 Unknown Rx 25 x 1 levomefolate calcium 15 mg tablet 15 mg PO DAILY 90 days #90 tabs 09/27/23 03/13/24 03/14/24 Rx (L-Methylfolate) sertraline 100 mg tablet 100 mg PO DAILY 30 days #30 tabs 09/27/23 03/13/24 03/14/24 Rx sumatriptan succinate 25 mg tablet 25 mg PO ONCE PRN migraine 09/27/23 03/13/24 Unknown Rx headache #9 tabs upadacitinib 30 mg tablet,extended 30 mg PO DAILY #30 tabs 11/16/23 03/13/24 03/14/24 Rx release 24 hr (Rinvoq) nystatin 100,000 unit/gram topical 1 applic topical TID PRN skin 12/17/23 03/13/24 Unknown Rx powder (Nystop) irritation #15 grams levothyroxine 25 mcg tablet 25 mcg PO DAILY 30 days #30 tabs 12/28/23 03/13/24 03/14/24 Rx ropinirole 0.25 mg tablet 0.25 mg PO BID 30 days #60 tabs 12/28/23 03/13/24 03/14/24 Rx famotidine 20 mg tablet 20 mg PO BID 30 days #60 tabs 02/03/24 03/13/24 03/14/24 Rx ondansetron 4 mg disintegrating 4 mg PO TID PRN nausea and 02/03/24 03/15/24 Unknown Rx tablet vomiting #30 tabs oxycodone 5 mg tablet 5 mg PO DAILY PRN pain 30 days #30 02/03/24 03/13/24 Unknown Rx tabs sucralfate 1 gram tablet (Carafate) 1 g PO QID 30 days #120 tabs 02/03/24 03/13/24 03/14/24 Rx linaclotide 145 mcg capsule 145 mcg PO DAILY 30 days #30 caps 02/07/24 03/13/24 03/01/24 Rx (Linzess) methylnaltrexone 150 mg tablet 450 mg (3 x 150 mg) PO DAILY 30 02/07/24 03/13/24 03/13/24 Rx (Relistor) days #30 tabs pantoprazole 40 mg tablet,delayed 40 mg PO BID 6 weeks #84 tabs 02/07/24 03/13/24 03/14/24 Rx release (Protonix) prednisone 5 mg tablet 5 mg PO DAILY PRN flare ups 03/13/24 03/13/24 Unknown History quetiapine 25 mg tablet (Seroquel) 25 mg PO BEDTIME 03/13/24 03/13/24 03/14/24 History Allergies Allergy/AdvReac Type Severity Reaction Status Date / Time fentanyl AdvReac Severe ADR-Nightma Verified 03/13/24 13:40 re PFSH Acute PFSH: Medical History Chest pain Symptomatic cholelithiasis Metatarsalgia Nausea NAE (generalized anxiety disorder) COPD (chronic obstructive pulmonary disease) Lumbar paraspinal muscle spasm Chronic pain syndrome Hypertension, essential Did not tolerate lisinopril. Hypothyroidism Fibromyalgia Insomnia Failed amitriptyline, trazodone, Ambien caused side effects. Surgical History H/O tubal ligation H/O foot surgery Family History Other CAD (coronary artery disease) Cancer Diabetes Heart attack Hyperlipidemia Hypertension Rheumatoid arthritis Stroke Denies family history of Lupus Chronic kidney disease (CKD) Social History Smoking and tobacco/nicotine status: current every day tobacco/nicotine user cigarettes Packs smoked per day: 1 Quit status (tobacco/nicotine): has tried quititng Second hand smoke exposure: No Alcohol intake: current Alcohol intake frequency: holidays/special occasions only Substance/Drug Use: never Female Reproductive History: Spontaneous abortions: No Vitals/I&O/Wt Last Vital Signs Temp 97.0 F L 03/15/24 10:01 Pulse 94 03/15/24 10:01 Resp 17 03/15/24 10:01 BP 95/65 03/15/24 10:01 Pulse Ox 94 03/15/24 10:01 O2 Del Method Room Air 03/15/24 10:01 Weight last 48 hrs Weight 149 lb A&P Assessment and plan (1) Dysphagia: (2) GERD (gastroesophageal reflux disease): (3) Abdominal pain: (4) Colon cancer screening: Plan EGD with possible balloon dilation and colonoscopy Attestations Medical Necessity Statement*: Home Coding Level of Care Code Acute Code for g Fwd Diagnoses Dysphagia R13.10 GERD (gastroesophageal reflux disease) K21.9 Abdominal pain R10.9 Colon cancer screening Z12.11
[2024-03-15] MEDS: EPINEPHrine 1 mg/mL INJ XX (11:34)
[2024-03-15 11:55] VITALS: BP 88/50; PULSE 75; RESP 14; TEMP 36.1; O2SAT 93
--- NOTE | 2024-03-15 12:17 | ANE.PACU2 ---
Inpatient post-anesthesia follow up: Vital signs: Temperature 97.0 F Pulse Rate 75 Respiratory Rate 14 Blood Pressure 88/50 Pulse Oximetry 93 Oxygen Delivery Me thod Room Air Oxygen Flow Rate Fraction of Inspir ed Oxygen Hydration adequate: Yes Nausea and vomiting: No Pain level: 1 Mental status: Baseline
== END 2024-03-15 12:35 | disposition home or self-care (01) ==
PROVIDERS: PCP Family Medicine; Visit Provider Surgery
PROC: 0DJ08ZZ Inspection of Upper Intestinal Tract, Via Natural or Artificial Opening Endoscopic (ICD-10-PCS; CPT 43235; principal; 2024-03-15 11:15)
PROC: 0DJD8ZZ Inspection of Lower Intestinal Tract, Via Natural or Artificial Opening Endoscopic (ICD-10-PCS; CPT 45378; 2024-03-15 11:15)
DX: K59.03 Drug induced constipation (principal); K21.9 Gastro-esophageal reflux disease without esophagitis; Z87.11 Personal history of peptic ulcer disease; T40.2X5A Adverse effect of other opioids, initial encounter; K29.70 Gastritis, unspecified, without bleeding; J44.9 Chronic obstructive pulmonary disease, unspecified; F41.9 Anxiety disorder, unspecified; I10 Essential (primary) hypertension; E03.9 Hypothyroidism, unspecified; M79.7 Fibromyalgia; F17.210 Nicotine dependence, cigarettes, uncomplicated
CPT/HCPCS: 43239; 43255; 45380; 45382; 88305; 88342; J0171; J2704; J7030

== ENCOUNTER → 2024-03-31 10:57 | Outpatient (BNVA) | payer MEDICARE, MEDICAID, SELFPAY | PROVIDERS: PCP Family Medicine; Visit Provider Surgery | DX: K74.60 Unspecified cirrhosis of liver (principal); K76.89 Other specified diseases of liver; K59.04 Chronic idiopathic constipation; K59.03 Drug induced constipation; T40.2X5A Adverse effect of other opioids, initial encounter; R10.9 Unspecified abdominal pain; X58.XXXA Exposure to other specified factors, initial encounter | CPT/HCPCS: 99214 ==

== ENCOUNTER 2024-04-06 03:07 | Inpatient (IN) | payer MEDICARE, MEDICAID, SELFPAY ==
[2024-04-06] VITALS (84 sets, daily range): BP systolic 73–117; BP diastolic 36–63; PULSE 65–94; RESP 15–37; TEMP 36.1–36.4; O2SAT 91–95; BMI 25.7; BMI 27.9
--- NOTE | 2024-04-06 03:14 | ECG_ITS ---
[facility] Test Date: 2024-04-06 Pat Name: Sari Henning Department: Room: Gender: Female Neck Band Setter: : 1960 Requested By: Hua Le Order Number: [id number] Jass MD: Salomón Logan M.D. Measurements Intervals [place] Rate: 73 P: 97 GA: 144 QRS: 24 QRSD: 81 T: -29 QT: 399 QTc: 441 Interpretive Statements SINUS RHYTHM LOW QRS VOLTAGE IN PRECORDIAL LEADS [QRS DEFLECTION < 1.0 mV IN CHEST LEADS] NONSPECIFIC T-WAVE ABNORMALITY Compared to ECG 02/17/2024 21:08:35 Incomplete right bundle-branch block no longer present T-wave abnormality still present Electronically Signed On 04-06-2024 17:10:25 CDT by Salomón Logan M.D. [id number]
--- NOTE | 2024-04-06 03:28 | XRR_ITS ---
PROCEDURE INFORMATION: Exam: XR Chest Exam date and time: 04/06/2024 3:47 AM Age: 63 years old Clinical indication: Angina; Additional info: Chest pain TECHNIQUE: Imaging protocol: Radiologic exam of the chest. Views: 1 view. COMPARISON: CR (CHEST, ) 02/17/2024 9:22 PM FINDINGS: Lungs: Veil like opacity of the left lung field. Multiple calcified granulomas are noted. Pleural spaces: Unremarkable. No pleural effusion. No pneumothorax. Heart/Mediastinum: Unremarkable. No cardiomegaly. Bones/joints: Diffuse degenerative change of the visualized osseous structures. XR/XR chest 1V portable [id number] IMPRESSION: 1. Moderate-sized left pleural effusion with likely associated atelectasis. Superimposed infection cannot be ruled out. 2. Stable scattered calcified nodules, likely granulomas.
--- NOTE | 2024-04-06 03:30 | ED_ITS ---
Documented by User: Hua Le DO 04/07/24 01:09 HPI - Fall 2 General: Chief Complaint: Fall Stated Complaint: back pain Time Seen by Provider: 04/06/24 03:22 History of Present Illness: Patient presents to the ER from home by [facility] with daughter at bedside. Patient was found on the floor with unknown how long she had been there. Patient's daughter put her in bed approximately at 1630 and she got a call from her mom about 1:00 and said she fell and was on the floor and could not get up. Patient remembers standing up getting lightheaded dizzy and she thinks he passed out and went down to the floor patient does not hurt anywhere more than she has been recently. Patient is had multiple falls. Patient was seen at [facility] approximately 3 days ago for fall and was told she had pneumonia. Patient says she had a cardiac workup as well as x-rays and CTs and got a shot of morphine and was sent home. Patient is not complaining of any specific point tenderness currently. Patient has multiple bruises and skin tears in various stages of healing. Review of Systems 2 General: Reports: 10 or more systems reviewed and unremarkable except in HPI and below PFSH ED 2 PFSH: Medical History (Updated 04/06/24 @ 16:26 by Suhail Frey DO) Cirrhosis of liver GERD (gastroesophageal reflux disease) Rheumatoid arthritis Hyperlipidemia Chest pain Symptomatic cholelithiasis Metatarsalgia Nausea NAE (generalized anxiety disorder) COPD (chronic obstructive pulmonary disease) Lumbar paraspinal muscle spasm Chronic pain syndrome Hypertension, essential Did not tolerate lisinopril. Hypothyroidism Fibromyalgia Insomnia Failed amitriptyline, trazodone, Ambien caused side effects. Surgical History H/O gastric sleeve Hx laparoscopic cholecystectomy H/O tubal ligation H/O foot surgery Family History Other CAD (coronary artery disease) Cancer Diabetes Heart attack Hyperlipidemia Hypertension Rheumatoid arthritis Stroke Denies family history of Lupus Chronic kidney disease (CKD) Social History Smoking and tobacco/nicotine status: current every day tobacco/nicotine user cigarettes Packs smoked per day: 1 Quit status (tobacco/nicotine): has tried quititng Second hand smoke exposure: No Alcohol intake: current Alcohol intake frequency: holidays/special occasions only Substance/Drug Use: never Female Reproductive History: Spontaneous abortions: No Physical Exam 2 Const: COMMON NORMALS: no acute distress, average body habitus, patient oriented x3, no limitations, healthy appearing, alert and well nourished HENMT: COMMON NORMALS: normocephalic, atraumatic, hearing grossly normal bilaterally, external ears normal, Normal external nose present, moist oral mucous membranes and oropharynx normal HEAD & SCALP: normocephalic and atraumatic NOSE: Normal external nose present EXTERNAL EAR: Yes external ears normal Eye: COMMON NORMALS: Equal, round and reactive pupils present, EOMs intact bilaterally, conjunctivae normal and no scleral icterus CONJUNCTIVA: Yes conjunctivae normal PUPIL: Yes Equal, round and reactive pupils present Neck/C-Spine: COMMON NORMALS: full ROM, no lymphadenopathy, supple, no meningeal signs, no JVD and Thyroid normal THYROID: Thyroid normal Chest: COMMONS NORMALS: normal inspection of the chest; negative for normal palpation of entire chest wall (Tenderness with palpation over left anterior chest wall) Resp: COMMON NORMALS: normal respiratory effort, No retractions, No use of accessory muscles and clear to auscultation bilaterally AUSCULTATION: clear to auscultation bilaterally Cardio: COMMON NORMALS: no JVD, regular rate, regular rhythm, S1 normal heart sound present, S2 normal heart sound present, No gallops present (Cardio), No clicks present (Cardio), No murmurs present (Cardio) and No rub (Cardio) R ATE: regular rate RHYTHM: regular rhythm HEART SOUNDS: S1 normal heart sound present and S2 normal heart sound present GI: COMMON NORMALS: Normal to inspection, nondistended, normoactive bowel sounds present, Soft to palpation, non-tender, No hepatosplenomegaly present and no masses PALPATION: Yes Soft to palpation and Yes No hepatosplenomegaly present Extremity: NARRATIVE EXTREMITY EXAM: Multiple ecchymotic areas in various stages of healing with skin tears on bilateral upper extremities Neuro: COMMON NORMALS: patient oriented x3 SENSORIUM/ORIENTATION: Yes alert MENINGEAL SIGNS: Yes no meningeal signs Procedures Central Line Placement Left IJ: Time Out Performed: Yes Patient Placed on Monitor/Pulse Ox: Yes MD Prep: mask, gown and gloves Central Line Prep: Chlorhexidine scrub and sterile drapes applied Local Anesthetic: lidocaine 1% Amount of anesthesia used (mL): 3 Ultrasound Used for Placement: Yes Central Line Lumen Inserted: triple Post Procedure: sutured in place, good blood return, all ports aspirated, flushed, capped and sterile dressing applied Post Procedure X-Ray: no pneumothorax seen Patient Tolerated Procedure: well and no complications Course 2 Vital Signs: Vital signs: Vital Signs Temperature 97.6 F 04/06/24 03:08 Pulse Rate 72 04/06/24 14:00 Respiratory Rate 22 H 04/06/24 18:01 Blood Pressure 96/56 04/06/24 08:28 Pulse Oximetry 94 04/06/24 18:01 Oxygen Delivery Me thod Room Air 04/06/24 13:39 MDM - Fall Differential Diagnosis Likely syncope; Unlikely dislocation of shoulder region, fracture of wrist, compression fracture, concussion with loss of consciousness or concussion without loss of consciousness Medical Records I reviewed the patient's medical records. Lab Data I reviewed the patient's lab results. 04/06/24 03:00 04/06/24 03:00 Radiology Impressions Chest X-Ray 04/06/24 03:28 IMPRESSION: 1. Moderate-sized left pleural effusion with likely associated atelectasis. Superimposed infection cannot be ruled out. 2. Stable scattered calcified nodules, likely granulomas. Liver Ultrasound 04/06/24 06:19 IMPRESSION: 1. Prior cholecystectomy. 2. Small amount of ascites which was also noted on a CT from 02/17/2024. 3. Small RIGHT pleural effusion also noted on the prior study. 4. Cirrhotic liver. Chest/Abdomen/Pelvis CT 04/06/24 06:44 IMPRESSION: 1. No pulmonary embolism centrally. Beyond the lobar branches the opacification of the arteries becomes limited due to the pleural effusions and atelectasis. 2. No RIGHT heart strain. 3. LEFT upper lobe pleural nodule 2.6 x 1.7 cm. Neoplasm is not excluded. After the patient's acute illness resolves repeat chest CT recommended. Differential includes pneumonia and neoplasm. 4. Cirrhotic liver with a small amount of ascites. Ascites improved since 02/17/2024. 5. Large LEFT pleural effusion increased in size since 02/17/2024. 6. Small RIGHT pleural effusion slightly decreased in size. 7. Mild diffuse soft tissue anasarca. 8. Mucosal edema within large portion of the colon. This can be seen with portal hypertension, infection and ischemia. No thrombus noted within the visualized SMA or celiac axis. 9. No free air. Head CT 04/06/24 07:06 IMPRESSION: 1. No acute intracranial hemorrhage or edema. 2. Mild cerebral atrophy and mild small vessel ischemic disease. 3. Stable noncontrast head CT since 05/19/2023. Cervical Spine CT 04/06/24 09:17 IMPRESSION: 1. No acute cervical spine fracture. 2. Degenerative osteophytosis and spondylitic changes similar to 05/19/2023. Laboratory Results WBC 0.75 10^3/uL (3.29-11.43) L* 04/06/24 03:00 RBC 2.57 10^6/uL (3.85-5.65) L 04/06/24 03:00 Hgb 10.10 g/dL (11.27-16.99) L 04/06/24 03:00 Hct 29.7 % (36-47) L 04/06/24 03:00 MCV 115.6 fl (85-98) H 04/06/24 03:00 MCH 39.3 pg (27-33) H 04/06/24 03:00 MCHC 34.0 g/dL (30-55) 04/06/24 03:00 RDW 14.2 % (12.1-15.1) 04/06/24 03:00 Plt Count 78 10^3/cmm (157-399) L 04/06/24 03:00 MPV 11.1 fL (7.4-10.4) H 04/06/24 03:00 Neut % (Auto) 30.7 % 04/06/24 03:00 Lymph % (Auto) 32.0 % 04/06/24 03:00 Granite % (Auto) 37.3 % 04/06/24 03:00 Eos % (Auto) 0.0 % 04/06/24 03:00 Baso % (Auto) 0.0 % 04/06/24 03:00 Neut # (Auto) 0.23 10^3/uL (1.8-7.7) L* 04/06/24 03:00 Lymph # (Auto) 0.2 10^3/uL (0.8-4.8) L 04/06/24 03:00 Granite # (Auto) 0.3 10^3/uL (0.2-0.9) 04/06/24 03:00 Eos # (Auto) 0.0 10^3/uL (0.0-0.8) 04/06/24 03:00 Baso # (Auto) 0.0 10^3/uL (0.0-0.1) 04/06/24 03:00 Nucleated RBC % (auto) 0 % 04/06/24 03:00 Nucleated RBCs # 0.0 /100WBC 04/06/24 03:00 Haptoglobin 60.0 mg/L (30-200) 04/06/24 06:49 PT 22.50 SECONDS (12.1-14.9) H 04/06/24 06:49 INR 1.90 (0.8-1.2) H 04/06/24 06:49 Sodium 128 mmol/L (136-145) L 04/06/24 03:00 Potassium 4.0 mmol/L (3.5-5.1) 04/06/24 03:00 Chloride 95 mmol/L (98-107) L 04/06/24 03:00 Carbon Dioxide 21 mmol/L (22-29) L 04/06/24 03:00 Anion Gap 16.0 (5-19) 04/06/24 03:00 BUN 24 mg/dL (8-23) H 04/06/24 03:00 Creatinine 1.0 mg/dL (0.5-0.9) H 04/06/24 03:00 GFR Calculation 55.6 mL/min (90-130) L 04/06/24 03:00 Glucose 133 mg/dL (65-115) H 04/06/24 03:00 Calculated Osmolality 272 mOsm/kg (285-295) L 04/06/24 03:00 Lactic Acid 4.0 mmol/L (0.5-2.2) H 04/06/24 06:49 Calcium 7.7 mg/dL (8.5-10.5) L 04/06/24 03:00 Magnesium 2.2 mg/dL (1.7-2.3) 04/06/24 06:49 Total Bilirubin 3.3 mg/dL (0.15-1.2) H 04/06/24 03:00 AST 37 U/L (0-32) H 04/06/24 03:00 ALT 17 U/L (0-33) 04/06/24 03:00 Alkaline Phosphatase 60 U/L (35-105) 04/06/24 03:00 Ammonia 31 umol/L (11-51) 04/06/24 06:49 Lactate Dehydrogenase 165 U/L (135-214) 04/06/24 06:49 Creatine Kinase 39 U/L (26-192) 04/06/24 06:49 Troponin T Baseline 14 ng/L (0-10) H 04/06/24 03:00 Troponin T 120 Minute 11.42 ng/L (0-10) H 04/06/24 05:01 Delta Troponin T -2.58 ABS# (0-10) L 04/06/24 05:01 Total Protein 6.8 g/dL (6.6-8.7) 04/06/24 03:00 Albumin 2.2 g/dL (3.5-5.2) L 04/06/24 03:00 Globulin 4.6 g/dL (1.3-4.6) 04/06/24 03:00 Folate 4.9 ng/mL (4.8-37.3) 04/06/24 06:49 TSH 0.76 uIU/mL (0.27-4.20) 04/06/24 06:49 Urine Color Dark yellow (Yellow) 04/06/24 08:26 Urine Appearance Clear (CLEAR) 04/06/24 08:26 Urine pH 5 (5-7) 04/06/24 08:26 Ur Specific Big Pool 1.020 (1.005-1.030) 04/06/24 08:26 Urine Protein Neg (Negative) 04/06/24 08:26 Urine Glucose (UA) Norm (Normal) 04/06/24 08:26 Urine Ketones Negative (Negative) 04/06/24 08:26 Urine Blood Neg (Negative) 04/06/24 08:26 Urine Nitrate Negative (Negative) 04/06/24 08:26 Urine Bilirubin 1+ (Negative) H 04/06/24 08:26 Urine Urobilinogen 4 mg/dL (Negative) H 04/06/24 08:26 Ur Leukocyte Esterase Negative (Negative) 04/06/24 08:26 Hepatitis A IgM Ab Non-reactive (Nonreactive) 04/06/24 06:49 Hep Bs Antigen Non-reactive (Nonreactive) 04/06/24 06:49 Hep B Core IgM Ab Non-reactive (Nonreactive) 04/06/24 06:49 Hepatitis C Antibody Non-reactive (Nonreactive) 04/06/24 06:49 All radiology interpretation(s) finalized by discharge EKG Data EKG 1: I personally reviewed and interpreted this EKG as follows: EKG interpretation date: 04/06/24 EKG interpretation time: 03:14 Interpretation: Ventricular rate 73 beats minute, WI interval 144, QRS duration 81, QTc of 425, sinus rhythm Discharge Plan Discharge Patient Disposition: Admitted As Inpatient Admit Provider: Clifford Smith Clinical Impression: Septic shock, Rheumatoid arthritis, Pneumonia, Cirrhosis of liver, Acute hyponatremia, Neutropenia, Back pain, Accidental fall from bed, Thrombocytopenia, Anemia, macrocytic Condition: Stable Coding Level of Care Code ED Bottle Dealer for Chg Fwd Documented by User: Suhail Frey DO 04/06/24 10:24 HPI - Fall 2 General: Chief Complaint: Fall Stated Complaint: back pain Time Seen by Provider: 04/06/24 03:22 History of Present Illness: Patient presents to the ER from home by [facility] with daughter at bedside. Patient was found on the floor with unknown how long she had been there. Patient's daughter put her in bed approximately at 1630 and she got a call from her mom about 1:00 and said she fell and was on the floor and could not get up. Patient remembers standing up getting lightheaded dizzy and she thinks he passed out and went down to the floor patient does not hurt anywhere more than she has been recently. Patient is had multiple falls. Patient was seen at [facility] approximately 3 days ago for fall and was told she had pneumonia. Patient says she had a cardiac workup as well as x-rays and CTs and got a shot of morphine and was sent home. Patient is not complaining of any specific point tenderness currently. Patient has multiple bruises and skin tears in various stages of healing. Care assumed at change of shift. Chart reviewed. Patient has history rheumatoid arthritis recently has had some liver issues was on Rinvoq but it was stopped due to her liver issues. Last month she was seen here had a CT done that showed moderate ascites she also has previously had imaging suggestive of cirrhosis of the liver. Subsequent to that she was [facility] and had a paracentesis done the daughter with her states they took about a liter off she is unsure of her results of any testing from that. Patient is not a drinker they believe the cirrhosis changes are due to medication she was on in the past for her rheumatoid arthritis. She was seen a few days ago and told she had a pneumonia. The daughter had a picture of the chest x-ray on her phone which I reviewed. Patient complaining of mid to low back pain. Fall tonight because of weakness when she got out of bed see Dr. Le's note above. The daughter believes she was started on steroids and an antibiotic when she was at [facility] but the med list that she showed me on his cell phone did not include an antibiotic it did have prednisone 5 mg daily that was prescribed for as needed flareups of rheumatoid arthritis and she does not think she has been taking it recently patient confirmed. Patient states she feels somewhat short of breath at home, significantly more so whenever she tries to get up and walk. complaint: fall Onset (ago): hour(s) Fall from: out of bed Fall witnessed: no Place fall occurred: home Loss of consciousness: Unsure Prolonged down time: unclear Symptoms prior to fall: lightheadedness and other (weakness) Context: history of frequent falls Location of injury: back Associated symptoms-after fall: Reports abdominal pain, chest pain, difficulty walking, short of breath and weakness Review of Systems 2 Const: Reports: fatigue and malaise Card: Reports: chest pain Resp: Reports: dyspnea and non-productive cough GI: Reports: abdominal pain, nausea and constipation; Denies: vomiting Neuro: Reports: difficulty walking and frequent falls PFS ED 2 PFSH: Medical History (Updated 04/06/24 @ 16:26 by Suhail Frey DO) Cirrhosis of liver GERD (gastroesophageal reflux disease) Rheumatoid arthritis Hyperlipidemia Chest pain Symptomatic cholelithiasis Metatarsalgia Nausea NAE (generalized anxiety disorder) COPD (chronic obstructive pulmonary disease) Lumbar paraspinal muscle spasm Chronic pain syndrome Hypertension, essential Did not tolerate lisinopril. Hypothyroidism Fibromyalgia Insomnia Failed amitriptyline, trazodone, Ambien caused side effects. Surgical History H/O gastric sleeve Hx laparoscopic cholecystectomy H/O tubal ligation H/O foot surgery Family History Other CAD (coronary artery disease) Cancer Diabetes Heart attack Hyperlipidemia Hypertension Rheumatoid arthritis Stroke Denies family history of Lupus Chronic kidney disease (CKD) Social History Smoking and tobacco/nicotine status: current every day tobacco/nicotine user cigarettes Packs smoked per day: 1 Quit status (tobacco/nicotine): has tried quititng Second hand smoke exposure: No Alcohol intake: current Alcohol intake frequency: holidays/special occasions only Substance/Drug Use: never Physical Exam 2 Const: ORIENTATION/CONSCIOUSNESS: Yes awake, Yes oriented to person, Yes oriented to place and Yes oriented to time HENMT: COMMON NORMALS: normocephalic, atraumatic and hearing grossly normal bilaterally HEAD & SCALP: normocephalic and atraumatic Resp: AUSCULTATION: rhonchi left lower and diminished lung sounds on the left in the lower lung gagnon Cardio: COMMON NORMALS: regular rate, regular rhythm and No murmurs present (Cardio) RATE: regular rate RHYTHM: regular rhythm GI: COMMON NORMALS: No hepatosplenomegaly present AUSCULTATION: Yes normoactive bowel sounds PALPATION: Yes Tenderness to palpation present (GI) (Diffusely tender), No Guarding due to palpation present (GI) and Yes No hepatosplenomegaly present Extremity: COMMON NORMALS: normal to inspection, capillary refill normal, no clubbing, cyanosis or edema, no calf tenderness and no pedal edema Neuro: SENSORIUM/ORIENTATION: Yes oriented to person, Yes oriented to place and Yes oriented to time Skin: COMMON NORMALS: no rashes or lesions noted GENERAL SKIN EXAM: no rashes or lesions noted Course 2 Vital Signs: Vital signs: Vital Signs Temperature 97.6 F 04/06/24 03:08 Pulse Rate 72 04/06/24 14:00 Respiratory Rate 22 H 04/06/24 18:01 Blood Pressure 96/56 04/06/24 08:28 Pulse Oximetry 94 04/06/24 18:01 Oxygen Delivery Me thod Room Air 04/06/24 13:39 MDM - Fall Medical Decision Making Chest x-ray reviewed on the daughter's cell phone she had taken a picture of a computer screen when they were at [facility] when I reviewed that and comparing it to today's it is significantly different here there is a large left pleural effusion that was not present on the previous chest x-ray. Old records are being sought from [facility] to evaluate the fluid analysis on the paracentesis. CTA of the chest abdomen pelvis and head are pending urinalysis is pending lactic acid is elevated at 4.0. Patient's blood pressure at 90 systolic. Admit for septic shock likely secondary to pneumonia. Complicated by liver cirrhosis and neutropenia with an absolute neutrophil count of 0.2. Additionally she has hyponatremia. Discussed with Dr. Soliman will admit to the ICU fluid sepsis bolus has been ordered initially we had ordered Levaquin and Zosyn Dr. Smith asked that we also add vancomycin. No previous urine cultures for comparison UA at the time this dictation is still pending. We have also CT her head which is pending. She may need further imaging of her back pending the CTA chest abdomen pelvis. She has some chronic back pain. Normally you would be able to see acute fractures on the chest abdomen pelvis CT that is ordered but if not visualized depending on her pain may need further imaging. If the CTA of the chest shows large pleural effusion will consult pulmonology for diagnostic therapeutic thoracentesis. Medical Records I reviewed the patient's medical records. Lab Data I reviewed the patient's lab results. 04/06/24 03:00 04/06/24 03:00 Radiology Impressions Chest X-Ray 04/06/24 03:28 IMPRESSION: 1. Moderate-sized left pleural effusion with likely associated atelectasis. Superimposed infection cannot be ruled out. 2. Stable scattered calcified nodules, likely granulomas. Liver Ultrasound 04/06/24 06:19 IMPRESSION: 1. Prior cholecystectomy. 2. Small amount of ascites which was also noted on a CT from 02/17/2024. 3. Small RIGHT pleural effusion also noted on the prior study. 4. Cirrhotic liver. Chest/Abdomen/Pelvis CT 04/06/24 06:44 IMPRESSION: 1. No pulmonary embolism centrally. Beyond the lobar branches the opacification of the arteries becomes limited due to the pleural effusions and atelectasis. 2. No RIGHT heart strain. 3. LEFT upper lobe pleural nodule 2.6 x 1.7 cm. Neoplasm is not excluded. After the patient's acute illness resolves repeat chest CT recommended. Differential includes pneumonia and neoplasm. 4. Cirrhotic liver with a small amount of ascites. Ascites improved since 02/17/2024. 5. Large LEFT pleural effusion increased in size since 02/17/2024. 6. Small RIGHT pleural effusion slightly decreased in size. 7. Mild diffuse soft tissue anasarca. 8. Mucosal edema within large portion of the colon. This can be seen with portal hypertension, infection and ischemia. No thrombus noted within the visualized SMA or celiac axis. 9. No free air. Head CT 04/06/24 07:06 IMPRESSION: 1. No acute intracranial hemorrhage or edema. 2. Mild cerebral atrophy and mild small vessel ischemic disease. 3. Stable noncontrast head CT since 05/19/2023. Cervical Spine CT 04/06/24 09:17 IMPRESSION: 1. No acute cervical spine fracture. 2. Degenerative osteophytosis and spondylitic changes similar to 05/19/2023. Laboratory Results WBC 0.75 10^3/uL (3.29-11.43) L* 04/06/24 03:00 RBC 2.57 10^6/uL (3.85-5.65) L 04/06/24 03:00 Hgb 10.10 g/dL (11.27-16.99) L 04/06/24 03:00 Hct 29.7 % (36-47) L 04/06/24 03:00 MCV 115.6 fl (85-98) H 04/06/24 03:00 MCH 39.3 pg (27-33) H 04/06/24 03:00 MCHC 34.0 g/dL (30-55) 04/06/24 03:00 RDW 14.2 % (12.1-15.1) 04/06/24 03:00 Plt Count 78 10^3/cmm (157-399) L 04/06/24 03:00 MPV 11.1 fL (7.4-10.4) H 04/06/24 03:00 Neut % (Auto) 30.7 % 04/06/24 03:00 Lymph % (Auto) 32.0 % 04/06/24 03:00 Granite % (Auto) 37.3 % 04/06/24 03:00 Eos % (Auto) 0.0 % 04/06/24 03:00 Baso % (Auto) 0.0 % 04/06/24 03:00 Neut # (Auto) 0.23 10^3/uL (1.8-7.7) L* 04/06/24 03:00 Lymph # (Auto) 0.2 10^3/uL (0.8-4.8) L 04/06/24 03:00 Granite # (Auto) 0.3 10^3/uL (0.2-0.9) 04/06/24 03:00 Eos # (Auto) 0.0 10^3/uL (0.0-0.8) 04/06/24 03:00 Baso # (Auto) 0.0 10^3/uL (0.0-0.1) 04/06/24 03:00 Nucleated RBC % (auto) 0 % 04/06/24 03:00 Nucleated RBCs # 0.0 /100WBC 04/06/24 03:00 Haptoglobin 60.0 mg/L (30-200) 04/06/24 06:49 PT 22.50 SECONDS (12.1-14.9) H 04/06/24 06:49 INR 1.90 (0.8-1.2) H 04/06/24 06:49 Sodium 128 mmol/L (136-145) L 04/06/24 03:00 Potassium 4.0 mmol/L (3.5-5.1) 04/06/24 03:00 Chloride 95 mmol/L (98-107) L 04/06/24 03:00 Carbon Dioxide 21 mmol/L (22-29) L 04/06/24 03:00 Anion Gap 16.0 (5-19) 04/06/24 03:00 BUN 24 mg/dL (8-23) H 04/06/24 03:00 Creatinine 1.0 mg/dL (0.5-0.9) H 04/06/24 03:00 GFR Calculation 55.6 mL/min (90-130) L 04/06/24 03:00 Glucose 133 mg/dL (65-115) H 04/06/24 03:00 Calculated Osmolality 272 mOsm/kg (285-295) L 04/06/24 03:00 Lactic Acid 4.0 mmol/L (0.5-2.2) H 04/06/24 06:49 Calcium 7.7 mg/dL (8.5-10.5) L 04/06/24 03:00 Magnesium 2.2 mg/dL (1.7-2.3) 04/06/24 06:49 Total Bilirubin 3.3 mg/dL (0.15-1.2) H 04/06/24 03:00 AST 37 U/L (0-32) H 04/06/24 03:00 ALT 17 U/L (0-33) 04/06/24 03:00 Alkaline Phosphatase 60 U/L (35-105) 04/06/24 03:00 Ammonia 31 umol/L (11-51) 04/06/24 06:49 Lactate Dehydrogenase 165 U/L (135-214) 04/06/24 06:49 Creatine Kinase 39 U/L (26-192) 04/06/24 06:49 Troponin T Baseline 14 ng/L (0-10) H 04/06/24 03:00 Troponin T 120 Minute 11.42 ng/L (0-10) H 04/06/24 05:01 Delta Troponin T -2.58 ABS# (0-10) L 04/06/24 05:01 Total Protein 6.8 g/dL (6.6-8.7) 04/06/24 03:00 Albumin 2.2 g/dL (3.5-5.2) L 04/06/24 03:00 Globulin 4.6 g/dL (1.3-4.6) 04/06/24 03:00 Folate 4.9 ng/mL (4.8-37.3) 04/06/24 06:49 TSH 0.76 uIU/mL (0.27-4.20) 04/06/24 06:49 Urine Color Dark yellow (Yellow) 04/06/24 08:26 Urine Appearance Clear (CLEAR) 04/06/24 08:26 Urine pH 5 (5-7) 04/06/24 08:26 Ur Specific Big Pool 1.020 (1.005-1.030) 04/06/24 08:26 Urine Protein Neg (Negative) 04/06/24 08:26 Urine Glucose (UA) Norm (Normal) 04/06/24 08:26 Urine Ketones Negative (Negative) 04/06/24 08:26 Urine Blood Neg (Negative) 04/06/24 08:26 Urine Nitrate Negative (Negative) 04/06/24 08:26 Urine Bilirubin 1+ (Negative) H 04/06/24 08:26 Urine Urobilinogen 4 mg/dL (Negative) H 04/06/24 08:26 Ur Leukocyte Esterase Negative (Negative) 04/06/24 08:26 Hepatitis A IgM Ab Non-reactive (Nonreactive) 04/06/24 06:49 Hep Bs Antigen Non-reactive (Nonreactive) 04/06/24 06:49 Hep B Core IgM Ab Non-reactive (Nonreactive) 04/06/24 06:49 Hepatitis C Antibody Non-reactive (Nonreactive) 04/06/24 06:49 All radiology interpretation(s) finalized by discharge Discharge Plan Discharge Patient Disposition: Admitted As Inpatient Admit Provider: Clifford Smith Clinical Impression: Septic shock, Rheumatoid arthritis, Pneumonia, Cirrhosis of liver, Acute hyponatremia, Neutropenia, Back pain, Accidental fall from bed, Thrombocytopenia, Anemia, macrocytic Condition: Stable Coding Level of Care Code ED Bottle Dealer for Aishwarya Barclay
[2024-04-06 03:40] LABS: Hematocrit 29.7 % (36-47); Lymphocytes # 0.2 10^3/uL (0.8-4.8); Mean Corpuscular Hemoglobin 39.3 pg (27-33); Mean Corpuscular Volume 115.6 fl (85-98); Mean Platelet Volume 11.1 fL (7.4-10.4); Monocytes # 0.3 10^3/uL (0.2-0.9); Monocytes % 37.3 %; Neutrophils % 30.7 %; Nucleated Red Blood Cells % 0 %; Platelet Count 78 10^3/cmm (157-399); Red Blood Count 2.57 10^6/uL (3.85-5.65); Red Cell Distribution Width 14.2 % (12.1-15.1)
[2024-04-06 03:51] LABS: Troponin(5th) Baseline 14 ng/L (0-10)
[2024-04-06 03:53] LABS: Alanine Aminotransferase 17 U/L (0-33); Albumin Level 2.2 g/dL (3.5-5.2); Alkaline Phosphatase 60 U/L (35-105); Blood Urea Nitrogen 24 mg/dL (8-23); Calcium 7.7 mg/dL (8.5-10.5); Carbon Dioxide 21 mmol/L (22-29); Chloride 95 mmol/L (98-107); Creatine Phosphokinase 51 U/L (26-192); Globulin 4.6 g/dL (1.3-4.6); Glomerular Filtration Rate 55.6 mL/min (90-130); Glucose 133 mg/dL (65-115); Osmolality Calculated 272 mOsm/kg (285-295); Sodium 128 mmol/L (136-145); Total Bilirubin 3.3 mg/dL (0.15-1.2); Total Protein 6.8 g/dL (6.6-8.7)
[2024-04-06 03:56] LABS: Creatinine Clr Calc Pharmacy 53.1565
[2024-04-06 03:57] LABS: Aspartate Amino Transferase 37 U/L (0-32)
[2024-04-06 04:02] LABS: Slide Review Slide Review Perform
[2024-04-06 04:08] LABS: Neutrophils # 0.23 10^3/uL (1.8-7.7); White Blood Count 0.75 10^3/uL (3.29-11.43)
[2024-04-06 05:22] LABS: Troponin 5 2HR 11.42 ng/L (0-10)
[2024-04-06 05:27] LABS: Troponin 5 2HR Delta -2.58 ABS# (0-10)
--- NOTE | 2024-04-06 05:28 | ECG_ITS ---
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 Measurements Intervals [place] Rate: 78 P: 0 [place]: 0 QRS: 31 QRSD: 90 T: -26 QT: 387 QTc: 442 Interpretive Statements SUPRAVENTRICULAR RHYTHM LOW QRS VOLTAGE IN PRECORDIAL LEADS [QRS DEFLECTION < 1.0 mV IN CHEST LEADS] Compared to ECG 04/06/2024 04:48:26 Supraventricular rhythm now present Sinus rhythm no longer present T-wave abnormality no longer present Electronically Signed On 04-06-2024 17:14:08 CDT by Salomón Logan M.D. [id number]
--- NOTE | 2024-04-06 06:18 | ED_ITS ---
HPI - General Adult 2 General: Chief complaint: Fall Stated complaint: back pain Time Seen by Provider: 04/06/24 03:22 [facility] ED 2 PFSH: Medical History Chest pain Symptomatic cholelithiasis Metatarsalgia Nausea NAE (generalized anxiety disorder) COPD (chronic obstructive pulmonary disease) Lumbar paraspinal muscle spasm Chronic pain syndrome Hypertension, essential Did not tolerate lisinopril. Hypothyroidism Fibromyalgia Insomnia Failed amitriptyline, trazodone, Ambien caused side effects. Surgical History H/O gastric sleeve Hx laparoscopic cholecystectomy H/O tubal ligation H/O foot surgery Family History Other CAD (coronary artery disease) Cancer Diabetes Heart attack Hyperlipidemia Hypertension Rheumatoid arthritis Stroke Denies family history of Lupus Chronic kidney disease (CKD) Social History Smoking and tobacco/nicotine status: current every day tobacco/nicotine user cigarettes Packs smoked per day: 1 Quit status (tobacco/nicotine): has tried quititng Second hand smoke exposure: No Alcohol intake: current Alcohol intake frequency: holidays/special occasions only Substance/Drug Use: never Female Reproductive History: Spontaneous abortions: No Course 2 Vital Signs: Vital signs: Vital Signs Temperature 97.6 F 04/06/24 03:08 Pulse Rate 68 04/06/24 05:11 Respiratory Rate 16 04/06/24 05:11 Blood Pressure 90/52 04/06/24 05:11 Pulse Oximetry 93 04/06/24 05:11 Oxygen Delivery Me thod Room Air 04/06/24 03:08 [facility] - General Adult Lab Data 04/06/24 03:00 04/06/24 03:00 Radiology Impressions Chest X-Ray 04/06/24 03:28 IMPRESSION: 1. Moderate-sized left pleural effusion with likely associated atelectasis. Superimposed infection cannot be ruled out. 2. Stable scattered calcified nodules, likely granulomas. Laboratory Results WBC 0.75 10^3/uL (3.29-11.43) L* 04/06/24 03:00 RBC 2.57 10^6/uL (3.85-5.65) L 04/06/24 03:00 Hgb 10.10 g/dL (11.27-16.99) L 04/06/24 03:00 Hct 29.7 % (36-47) L 04/06/24 03:00 MCV 115.6 fl (85-98) H 04/06/24 03:00 MCH 39.3 pg (27-33) H 04/06/24 03:00 MCHC 34.0 g/dL (30-55) 04/06/24 03:00 RDW 14.2 % (12.1-15.1) 04/06/24 03:00 Plt Count 78 10^3/cmm (157-399) L 04/06/24 03:00 MPV 11.1 fL (7.4-10.4) H 04/06/24 03:00 Neut % (Auto) 30.7 % 04/06/24 03:00 Lymph % (Auto) 32.0 % 04/06/24 03:00 [place] % (Auto) 37.3 % 04/06/24 03:00 Eos % (Auto) 0.0 % 04/06/24 03:00 Baso % (Auto) 0.0 % 04/06/24 03:00 Neut # (Auto) 0.23 10^3/uL (1.8-7.7) L* 04/06/24 03:00 Lymph # (Auto) 0.2 10^3/uL (0.8-4.8) L 04/06/24 03:00 [place] # (Auto) 0.3 10^3/uL (0.2-0.9) 04/06/24 03:00 Eos # (Auto) 0.0 10^3/uL (0.0-0.8) 04/06/24 03:00 Baso # (Auto) 0.0 10^3/uL (0.0-0.1) 04/06/24 03:00 Nucleated RBC % (auto) 0 % 04/06/24 03:00 Nucleated RBCs # 0.0 /100WBC 04/06/24 03:00 Sodium 128 mmol/L (136-145) L 04/06/24 03:00 Potassium 4.0 mmol/L (3.5-5.1) 04/06/24 03:00 Chloride 95 mmol/L (98-107) L 04/06/24 03:00 Carbon Dioxide 21 mmol/L (22-29) L 04/06/24 03:00 Anion Gap 16.0 (5-19) 04/06/24 03:00 BUN 24 mg/dL (8-23) H 04/06/24 03:00 Creatinine 1.0 mg/dL (0.5-0.9) H 04/06/24 03:00 GFR Calculation 55.6 mL/min (90-130) L 04/06/24 03:00 Glucose 133 mg/dL (65-115) H 04/06/24 03:00 Calculated Osmolality 272 mOsm/kg (285-295) L 04/06/24 03:00 Calcium 7.7 mg/dL (8.5-10.5) L 04/06/24 03:00 Total Bilirubin 3.3 mg/dL (0.15-1.2) H 04/06/24 03:00 AST 37 U/L (0-32) H 04/06/24 03:00 ALT 17 U/L (0-33) 04/06/24 03:00 Alkaline Phosphatase 60 U/L (35-105) 04/06/24 03:00 Creatine Kinase 51 U/L (26-192) 04/06/24 03:00 Troponin T Baseline 14 ng/L (0-10) H 04/06/24 03:00 Troponin T 120 Minute 11.42 ng/L (0-10) H 04/06/24 05:01 Delta Troponin T -2.58 ABS# (0-10) L 04/06/24 05:01 Total Protein 6.8 g/dL (6.6-8.7) 04/06/24 03:00 Albumin 2.2 g/dL (3.5-5.2) L 04/06/24 03:00 Globulin 4.6 g/dL (1.3-4.6) 04/06/24 03:00 Discharge Plan Discharge Patient Disposition: Home Clinical Impression: Fall Qualifiers: Encounter type: initial encounter Qualified Code(s): W19.XXXA - Unspecified fall, initial encounter Leukopenia Qualifiers: Leukopenia type: unspecified Qualified Code(s): D72.819 - Decreased white blood cell count, unspecified Condition: Stable Prescriptions: No Action docusate sodium [Colace] 100 mg capsule 100 mg PO DAILY sucralfate [Carafate] 1 gram tablet 1 g PO QID 30 Days Qty: 120 0RF Rx Instructions: TID with meal and at bedtime famotidine 20 mg tablet 20 mg PO BID 30 Days Qty: 60 2RF oxycodone 5 mg tablet 5 mg PO DAILY PRN (Reason: pain) 30 Days Qty: 30 0RF ondansetron 4 mg tablet,disintegrating 4 mg PO TID PRN (Reason: nausea and vomiting) Qty: 30 0RF Rx Instructions: 340b please pantoprazole [Protonix] 40 mg tablet,delayed release (DR/EC) 40 mg PO BID 42 Days Qty: 84 1RF Linzess 145 mcg capsule 145 mcg PO DAILY 30 Days Qty: 30 11RF Relistor 150 mg tablet 450 mg PO DAILY 30 Days Qty: 30 11RF omeprazole 40 mg capsule,delayed release(DR/EC) 40 mg PO BID 90 Days Qty: 180 3RF sertraline 100 mg tablet 100 mg PO DAILY 30 Days Qty: 30 5RF (DME) insulin syringe-needle U-100 1 mL 25 x 1 syringe See Rx Instructions .Route Qty: 100 0RF Rx Instructions: use with B12 medication once weekly cyanocobalamin (vitamin B-12) 1,000 mcg/mL solution See Rx Instructions .ROUTE .COMPLEX Qty: 6 2RF Dose Instruction: INJECT 1 ML INTRAMUSCULARLY ONCE EVERY MONTH PATIENT TO INJECT AT HOME WITH SYRINGES Rx Instructions: INJECT 1 ML INTRAMUSCULARLY ONCE EVERY MONTH PATIENT TO INJECT AT HOME WITH SYRINGES albuterol sulfate 90 mcg/actuation HFA aerosol inhaler 1 puff INHALATION QID PRN (Reason: shortness of breath or wheezing) 30 Days Qty: 18 5RF benzonatate 100 mg capsule 100 mg PO BID PRN (Reason: cough) 30 Days Qty: 60 5RF levomefolate calcium [L-Methylfolate] 15 mg tablet 15 mg PO DAILY 90 Days Qty: 90 1RF sumatriptan succinate 25 mg tablet 25 mg PO ONCE PRN (Reason: migraine headache) Qty: 9 5RF levothyroxine 25 mcg tablet 25 mcg PO DAILY 30 Days Qty: 30 5RF ropinirole 0.25 mg tablet 0.25 mg PO BID 30 Days Qty: 60 5RF ondansetron 8 mg tablet,disintegrating 8 mg PO Q8H PRN (Reason: nausea and vomiting) Qty: 20 0RF Linzess 72 mcg capsule 72 mcg PO DAILY Qty: 30 0RF (DME) Monoject TB Safety Syringe 1 mL 25 gauge x 5/8 syringe See Rx Instructions .ROUTE .MEDSUPPLY Qty: 50 1RF Rx Instructions: As directed Rinvoq 30 mg tablet extended release 24 hr 30 mg PO DAILY Qty: 30 5RF nystatin [Nystop] 100,000 unit/gram powder 1 applic TOPICAL TID PRN (Reason: skin irritation) Qty: 15 1RF Rx Instructions: Apply under breast 3 times daily as needed quetiapine [Seroquel] 25 mg tablet 25 mg PO BEDTIME prednisone 5 mg tablet 5 mg PO DAILY PRN (Reason: flare ups) Referrals: Alix Marcus MD [Primary Care Provider] - 1 week Activity Restrictions/Additional Instructions: fu with your pcp in 7 days for recheck of your labs, your white blood cells are low, this may be due to your RA medicines, Coding Level of Care Code ED 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
--- NOTE | 2024-04-06 06:19 | US_ITS ---
WS: [id number] RIGHT UPPER QUADRANT ULTRASOUND HISTORY: Elevated transaminases, hx cholecystectomy, elevated Tbili COMPARISON: 06/08/2022 Liver: 10.2 cm in length. There is small with surface undulating suggesting cirrhosis. No mass. Portal Vein: Normal hepatopetal flow with monophasic waveform. Gallbladder: Surgically removed. CBD: 0.4 cm Pancreas: Poorly visualized. Portions of the mid body of the pancreas are normal. Head and tail are o bscured. Right kidney: 8.4 cm in length. Mild atrophy RIGHT kidney with no obstruction. With no mass or cortic al thinning. Aorta and IVC: Unremarkable abdominal aorta and IVC. Small amount of ascites surrounding the liver. There is also a very tiny RIGHT pleural effusion ident ified. US/US liver [id number] IMPRESSION: 1. Prior cholecystectomy. 2. Small amount of ascites which was also noted on a CT from 02/17/2024. 3. Small RIGHT pleural effusion also noted on the prior study. 4. Cirrhotic liver.
--- NOTE | 2024-04-06 06:44 | CT_ITS ---
WS: [id number] CTA CHEST WITH CT ABDOMEN AND PELVIS. HISTORY: Short of breath, weakness, effusion. Generalized abdominal pain and splenomegaly. Prior luisana marlon sleeve. TECHNIQUE: CT angiogram is performed through the chest. Additional imaging is performed through the a bdomen and pelvis with IV contrast. Sagittal and coronal reformats have been submitted. MIP imaging also reviewed. All CT scans at [facility] use at least one of these dose optimization techniqu es: automated exposure control; mA and/or kV adjustment per patient size (includes targeted exams whe re dose is matched to clinical indication); or iterative reconstruction. Contrast: Omnipaque 350; 95 cc IV. DLP: 966.13 mGy.cm COMPARISON: 02/17/2024, CT 08/29/2021 Chest CTA: Good opacification of the pulmonary arteries. Central pulmonary arteries are well-opacifie d and no thrombus identified. Beyond the lobar branches the opacification becomes limited due to flui d and atelectasis. Pulmonary artery size is normal. No RIGHT heart strain. Large layering LEFT pleural effusion has increased since 02/17/2024. There is a small RIGHT pleural eff usion which has slightly decreased in size. Mild pulmonary edema and hazy attenuation throughout the lungs. Subpleural LEFT upper lobe nodule measures 2.6 x 1.7 cm. Mild hazy opacification RIGHT middle lobe. Bibasilar areas of atelectasis due to the effusions. Thoracic aorta is normal size. There are f ew mediastinal and hilar lymph nodes. Some of these lymph nodes are calcified. Mild soft tissue edema and anasarca. Abdomen CT: Cirrhotic liver. There are a few scattered hypodensities in the liver which are too small to characterize but suspect these are cysts and previously described. Prior cholecystectomy. Spleen is slightly enlarged measuring approximately 13 cm in length. Portal vein is patent. No intrahepatic duct dilatation. Mild diffuse pancreatic atrophy. No adrenal mass. No renal obstruction. Kidneys are low normal size with a few areas of scarring. Nonobstructing 2 mm calcification upper pole RIGHT kidn ey. Atherosclerosis aorta but nonaneurysmal. Celiac axis and SMA are patent. There is a small amount of ascites with mesenteric edema and soft tissue anasarca. Stomach is nondistended. Changes of a prior gastric bypass. No small bowel obstruction. There are a f ew mildly prominent and thickened small bowel loops in the LEFT upper quadrant. There is diffuse muco domonique edema throughout portions of the colon which was also noted on the prior study. Most significantl y involving the ascending and transverse colon. There is no obstructive pattern. Sigmoid diverticular disease. No evidence for acute diverticulitis. Pelvic CT: Free fluid extends into the pelvis. Urinary bladder normally distended. Normal appearance of the uterus and adnexa. No adenopathy. Mild diffuse soft tissue anasarca. Degenerative changes involving the hips. Acetabular osteophytic ridging. CT/CT angio chest w abd pel w con IMPRESSION: 1. No pulmonary embolism centrally. Beyond the lobar branches the opacificatio n of the arteries becomes limited due to the pleural effusions and atelectasis. 2. No RIGHT heart strain. 3. LEFT upper lobe pleural nodule 2.6 x 1.7 cm. Neoplasm is not excluded. Afte r the patient's acute illness resolves repeat chest CT recommended. Differentia l includes pneumonia and neoplasm. 4. Cirrhotic liver with a small amount of ascites. Ascites improved since 2023. 5. Large LEFT pleural effusion increased in size since 02/17/2024. 6. Small RIGHT pleural effusion slightly decreased in size. 7. Mild diffuse soft tissue anasarca. 8. Mucosal edema within large portion of the colon. This can be seen with port al hypertension, infection and ischemia. No thrombus noted within the visualize d SMA or celiac axis. 9. No free air.
--- NOTE | 2024-04-06 07:06 | CT_ITS ---
WS: [id number] CT HEAD NONCONTRAST HISTORY: fall TECHNIQUE: Contiguous axial imaging performed through the brain in 3.0 mm imaging. Bone and soft tiss ue windows. Sagittal and coronal reformats reviewed. All CT scans at [facility] use at least one of these dose optimization techniques: automated exposure control; mA and/or kV adjustment per pa tient size (includes targeted exams where dose is matched to clinical indication); or iterative recon struction. DLP: 1173.98 mGy.cm COMPARISON: 05/19/2023 No acute intracranial hemorrhage, midline shift or mass effect. Mild atrophy and mild small vessel ischemic disease. Very similar to 05/19/2023. No infarct. Ventricles: Normal size with no hydrocephalus. Paranasal sinuses: Small air-fluid level in the LEFT maxillary sinus. Mastoid air cells: Well pneumatized. Calvarium and scalp: Skull is intact with no soft tissue edema or swelling. CT/CT head wo con* [id number] IMPRESSION: 1. No acute intracranial hemorrhage or edema. 2. Mild cerebral atrophy and mild small vessel ischemic disease. 3. Stable noncontrast head CT since 05/19/2023.
[2024-04-06 07:16] LABS: Ammonia 31 umol/L (11-51)
[2024-04-06] MEDS: piperacillin-tazobactam 3.375 GM in sodium chloride 0.9% (plus) 50 ML IV (07:16)
--- NOTE | 2024-04-06 07:18 | PC.NURSE ---
ABX DELAYED DUE TO BLOOD CULTURE DELAY.
[2024-04-06 07:32] LABS: Creatine Phosphokinase 39 U/L (26-192)
[2024-04-06 07:53] LABS: Hepatitis A Antibody IgM Non-Reactive (Nonreactive); Hepatitis B Core IgM Non-Reactive (Nonreactive); Hepatitis B Surface Antigen Non-Reactive (Nonreactive); Hepatitis C Virus Antibody Non-Reactive (Nonreactive)
[2024-04-06] MEDS: iohexol 350 mg/mL 500 mL Btl (per mL) IV (08:01)
[2024-04-06] MEDS: levofloxacin-dextrose 5 % 750 MG/150 ML PREMIX 100 MG IV (08:03)
[2024-04-06] MEDS: sodium chloride 0.9% 2,041.17 ML 2041.17000000000007 ML IV (08:07)
[2024-04-06] MEDS: vancomycin 1,000 MG in sodium chloride 0.9% 250 ML 250 MG IV ×2 (08:07→21:36)
[2024-04-06] MEDS: morphine 4 mg/mL SDV 1 mL 2 MG IVP ×2 (08:11→10:05)
--- NOTE | 2024-04-06 08:34 | PC.RESP ---
pt in ed. called ed for ekg to be done
[2024-04-06 08:36] LABS: Add Urine Microscopic? NO; Charge for UA Resulting for Rev
[2024-04-06 08:42] LABS: Reflex Lactate Order REFLEX LACTIC ORDERD
[2024-04-06 08:44] LABS: Bilirubin Urine 1+ (Negative); Blood Urine Neg (Negative); Glucose Urine UA Norm (Normal); Ketones Urine Negative (Negative); Leukocyte Esterase Urine Negative (Negative); Nitrate Urine Negative (Negative); Protein Urine Neg (Negative); Urine Appearance Clear (CLEAR); Urine Color Dark Yellow (Yellow); Urobilinogen Urine 4 mg/dL (Negative); pH Urine 5 (5-7)
[2024-04-06 08:45] LABS: Lactate Dehydrogenase 165 U/L (135-214); Magnesium 2.2 mg/dL (1.7-2.3); Thyroid Stimulating Hormone 0.76 uIU/mL (0.27-4.20)
--- NOTE | 2024-04-06 09:08 | PC.PHAR ---
PTS DAUGHTER AND PT HAD STSTED PT TAKES METHOTREXATE- PT WAS RECIEVING METHOTREXATE INJECTIONS AT HER DR OFFICE NOT TAKING PILL
--- NOTE | 2024-04-06 09:09 | P.HP_ITS ---
Providers/Chief Complaint 2 Admitting Physician: Clifford Smith MD Primary Care Provider: Alix Marcus MD Chief Complaint: back pain History of Present Illness Sari Henning is a 63 year old female with known rheumatoid arthritis with recent diagnosis of cirrhosis and recent hospitalization at [facility] who presents today with complaints of a fall last night. She was down for an unknown amount of time. She does not remember the fall itself. It occurred sometime between 4:30 PM and 1:30 AM this morning. She was found to have some bruising on her, and brought to the ER. She had a recent visit to [facility] emergency department where she was diagnosed with a pneumonia and presumably on some antibiotics. She had had a fall preceding this visit as well. She is also been to [facility] about 2 weeks ago, and hospitalized there for around 4 days. She was told there she has cirrhosis, and needed to see a inspector firearms and project accountant. She has had recurrent nausea and vomiting. She has not seen any blood in her stool. Daughter and her relate that she has had some shortness of breath but no significant cough. There have been no fevers noted. Intake overall has been poor. She had recently been taken off methotrexate, and switch to another medication for rheumatoid arthritis 1 or 2 weeks ago. Currently records from outside institution is not available. Patient herself was not a good historian but he just had morphine. Daughter fills in much of the gaps, and is present at bedside. I also discussed her case with the emergency department physician. Past EGD did have esophageal varices, nonbleeding, done here around March 15. Colonoscopy done then demonstrated some friability. Biopsies were normal. In the emergency department she received a dose of Levaquin, Zosyn, and vancomycin. A sepsis bolus was ordered. She reports she does not smoke anymore, but recently was. Denies alcohol use. Review of Systems 2 General: Reports: 10 or more systems reviewed and unremarkable except in HPI and below Card: Reports: chest pain (Some intermittent left-sided chest discomfort, difficult to qualify) GI: Reports: abdominal pain, nausea and vomiting; Denies: hematemesis, coffee ground emesis, hematochezia or melena Medications/Allergies Home Medications Medication Instructions Recorded Confirmed Last Taken Type docusate sodium 100 mg capsule 100 mg PO DAILY 01/10/22 05/23/24 04/29/24 History (Colace) syringe with needle 1 mL 25 gauge #50 ea 08/10/22 04/06/24 Unknown Rx x 5/8 (Monoject TB Safety Syringe) omeprazole 40 mg capsule,delayed 40 mg PO BID 90 days #180 caps 06/21/23 04/06/24 03/13/24 Rx release albuterol sulfate 90 mcg/actuation 1 puff inhalation QID PRN 09/27/23 04/06/24 03/11/24 Rx aerosol inhaler shortness of breath or wheezing 30 days #18 grams benzonatate 100 mg capsule 100 mg PO BID PRN cough 30 days 09/27/23 04/06/24 03/11/24 Rx #60 caps cyanocobalamin (vitamin B-12) See Rx Instructions .Route 09/27/23 04/06/24 02/14/24 Rx 1,000 mcg/mL injection solution .COMPLEX #6 mL insulin syringe-needle U-100 1 mL #100 ea 09/27/23 04/06/24 Unknown Rx 25 x 1 levomefolate calcium 15 mg tablet 15 mg PO DAILY 90 days #90 tabs 09/27/23 04/06/24 03/14/24 Rx (L-Methylfolate) sumatriptan succinate 25 mg tablet 25 mg PO ONCE PRN migraine 09/27/23 04/06/24 Unknown Rx headache #9 tabs nystatin 100,000 unit/gram topical 1 applic topical TID PRN skin 12/17/23 04/06/24 Unknown Rx powder (Nystop) irritation #15 grams levothyroxine 25 mcg tablet 25 mcg PO DAILY 30 days #30 tabs 12/28/23 04/06/24 03/14/24 Rx ropinirole 0.25 mg tablet 0.25 mg PO BID 30 days #60 tabs 12/28/23 04/06/24 03/14/24 Rx famotidine 20 mg tablet 20 mg PO BID 30 days #60 tabs 02/03/24 04/06/24 03/14/24 Rx oxycodone 5 mg tablet 5 mg PO DAILY PRN pain 30 days #30 02/03/24 04/06/24 Unknown Rx tabs pantoprazole 40 mg tablet,delayed 40 mg PO BID 6 weeks #84 tabs 02/07/24 04/06/24 03/14/24 Rx release (Protonix) quetiapine 25 mg tablet (Seroquel) 25 mg PO BEDTIME 03/13/24 04/06/24 03/14/24 History ondansetron 8 mg disintegrating 8 mg PO Q8H PRN nausea and 03/31/24 04/06/24 Unknown Rx tablet vomiting #20 tabs bupropion HCl 150 mg 24 hr tablet, 150 mg PO EVERY OTHER DAY 04/06/24 04/06/24 Unknown History extended release cholecalciferol (vitamin D3) 1,250 1,250 mcg PO DAILY 04/06/24 04/06/24 Unknown History mcg (50,000 unit) capsule dexamethasone 4 mg tablet 8 mg PO DAILY 04/06/24 04/06/24 Unknown History furosemide 40 mg tablet 40 mg PO DAILY 04/06/24 04/06/24 Unknown History linaclotide 72 mcg capsule 72 mcg PO DAILY 04/06/24 04/06/24 Unknown History (Linzess) sulfamethoxazole 800 1 tab PO BID 04/06/24 04/06/24 Unknown History mg-trimethoprim 160 mg tablet Allergies Allergy/AdvReac Type Severity Reaction Status Date / Time fentanyl AdvReac Severe ADR-Nightma Verified 04/06/24 03:14 re PFSH Acute 2 PFSH: Medical History (Updated 04/06/24 @ 09:25 by Clifford Smith MD) Cirrhosis of liver GERD (gastroesophageal reflux disease) Rheumatoid arthritis Hyperlipidemia Chest pain Symptomatic cholelithiasis Metatarsalgia Nausea NAE (generalized anxiety disorder) COPD (chronic obstructive pulmonary disease) Lumbar paraspinal muscle spasm Chronic pain syndrome Hypertension, essential Did not tolerate lisinopril. Hypothyroidism Fibromyalgia Insomnia Failed amitriptyline, trazodone, Ambien caused side effects. Surgical History H/O gastric sleeve Hx laparoscopic cholecystectomy H/O tubal ligation H/O foot surgery Family History Other CAD (coronary artery disease) Cancer Diabetes Heart attack Hyperlipidemia Hypertension Rheumatoid arthritis Stroke Denies family history of Lupus Chronic kidney disease (CKD) Social History Smoking and tobacco/nicotine status: current every day tobacco/nicotine user cigarettes Packs smoked per day: 1 Quit status (tobacco/nicotine): has tried quititng Second hand smoke exposure: No Alcohol intake: current Alcohol intake frequency: holidays/special occasions only Substance/Drug Use: never Female Reproductive History: Spontaneous abortions: No Vitals/I&O/Wt Last Vital Signs Temp 97.6 F 04/06/24 03:08 Pulse 77 04/06/24 08:28 Resp 16 04/06/24 06:32 BP 96/56 04/06/24 08:28 Pulse Ox 92 04/06/24 08:28 O2 Del Method Room Air 04/06/24 08:28 Weight last 48 hrs Weight 68.039 kg Physical Exam 2 Narrative: General exam demonstrates a white female, responsive but obviously in pain. Recognizes her daughter. Daughter reports she does not appear to be significantly confused currently. She does complain of some neck pain. HEENT atraumatic normocephalic. Pupils slightly icteric. Oropharynx clear. A dentulous. Neck is supple no lymphadenopathy thyromegaly. Some tenderness posteriorly Cardiovascular regular rate and rhythm without murmur Lungs diminished breath sounds bilaterally, left greater than right. No wheezes or crackles Abdomen is soft. Some edema noted in the skin. No obvious organomegaly. No severe tenderness. Extremities: Trace edema. Some scattered bruising over arms and legs. Pulses are palpable. Cap refill brisk. Skin see findings above Neuro no focal deficits Back some bruising noted on the left back, and some extension into the right side Sepsis: Is patient septic: Yes Focused sepsis exam performed: Yes Date exam was performed: 04/06/24 Time exam was performed: 09:00 Data 04/06/24 03:00 04/06/24 03:00 Other Labs: Head CT which I reviewed demonstrates no acute findings CT chest abdomen pelvis which I reviewed, done with contrast demonstrated a fairly large left upper lobe pleural nodule. No PE. Bilateral pleural effusions with a large left pleural effusion. Cirrhotic liver with a small amount of ascites, diffuse anasarca, some edema in the colon Liver ultrasound showed cholecystectomy, cirrhotic liver Chest x-ray demonstrates left pleural effusion. I reviewed this as well Blood cultures were taken EKG demonstrates sinus rhythm, normal axis, low voltage, no acute findings. INR is 1.9 Calcium 7.7, albumin 2.2 Troponin 14 with repeat of 11 LFTs demonstrate an AST of 37, and a total bilirubin of 3.3 LDH 165 CK 39 hepatitis panel negative UA negative Micro: Microbiology 04/06/24 06:52 Blood Culture - Preliminary Blood SPECIMEN COLLECTED 04/06/24 06:49 Blood Culture - Preliminary Blood SPECIMEN COLLECTED A&P Assessment and plan (1) Pleural effusion, left: Patient presents with a fairly large left pleural effusion. Secondary to presentation with concern of sepsis, this could be a parapneumonic effusion. Doubt abscess. She has had evidence in the past of bilateral pleural effusions as well as ascites. However, she has not had predominant left-sided pleural effusion before. At this point we will consult pulmonary critical care for their opinion regarding her acute critical illness as well as the left-sided pleural effusion. She may need a thoracentesis. Currently she is not requiring a large amount of oxygen so it is not emergent. Cannot completely exclude bleeding considering her cirrhosis, elevated INR, low platelets, recent fall, bruising around back. (2) Pneumonia: Concern of left-sided pneumonia, recent hospitalization, significantly immune deficient with history of rheumatoid arthritis, and treatment for. Sputum culture MRSA PCR Respiratory panel IV antibiotics consisting of meropenem and vancomycin. Close follow-up with CBC and CMP daily. Blood cultures have been obtained (3) Leukopenia: Significant leukopenia Hold rheumatoid arthritis medication with the exception of steroids. She may be on 8 mg of dexamethasone daily. Will need to confirm with her family, and at this point we will likely substitute hydrocortisone for this. (4) Thrombocytopenia: Thrombocytopenia could be secondary to sepsis, and certainly her cirrhosis contributes to this. Although she has slight anemia I doubt she has hemolysis. Her haptoglobin is within normal range. Secondary to her significant contusions on her back, recent fall, cannot completely rule out hemothorax, anemia will not do pharmacologic anticoagulation for DVT prophylaxis. SCDs only. (5) Anemia: Follow closely She has some significant contusions so hemoglobin may decrease. Note that she does have a history of varices, but I do not believe them to be actively bleeding currently Protonix 40 mg IV every 12 hours (6) Cirrhosis of liver: Patient has cirrhosis of the liver According to family she has been referred to hepatology from [facility]. They are awaiting this appointment. Continue to monitor LFTs daily Note that her INR is 1.9. Will go ahead and give some vitamin K to see if this improves somewhat. Repeat INR tomorrow. (7) Acute kidney injury: She has evidence of acute kidney injury With her borderline blood pressure of 96, cirrhosis with elevated bilirubin, concern of sepsis, will go ahead and initiate albumin as well as midodrine. Monitor closely to make sure this does not worsen. Cannot completely rule out hepatorenal syndrome currently but at this point creatinine is only 1.0. (8) Hyponatremia: Patient with hyponatremia. This may be secondary to cirrhosis. However, she is on chronic steroids and I believe dexamethasone 8 mg daily. A random cortisol level was checked but I do not know her use of other steroid products recently She is also recently suffered from recurrent nausea and vomiting Go ahead and initiate hydrocortisone, 100 mg IV every 8 hours (9) Sepsis: Concern as patient could have sepsis with her low white blood cell count, left- sided pneumonia, borderline hypotension. IV fluids have been ordered. Monitor closely for fluid overload in this patient who also has cirrhosis. Blood cultures been obtained IV antibiotics consisting of vancomycin, meropenem Lactic acid is 4, blood pressure is borderline low, white blood cell count significantly low, evidence of endorgan dysfunction with liver and kidney failure. Also with significant thrombocytopenia. Bilirubin is significantly elevated. High risk patient. (10) Macrocytosis: Check B12 and folate levels Note the patient has had a gastric sleeve Macrocytosis could also be from her medication for rheumatoid arthritis (11) Rheumatoid arthritis: Hold dexamethasone, changed to hydrocortisone secondary to acute illness Qualifiers: Rheumatoid arthritis location: multiple sites Rheumatoid factor presence: unspecified presence Qualified Code(s): M06.9 - Rheumatoid arthritis, unspecified (12) COPD (chronic obstructive pulmonary disease): Budesonide twice daily DuoNeb every 6 hours Qualifiers: COPD type: chronic bronchitis Chronic bronchitis type: simple Qualified Code(s): J41.0 - Simple chronic bronchitis Plan Fall. Etiology unknown. Telemetry. Check echocardiogram. Other medical problems as outlined in past medical history Allow natural , discussed extensively with patient and family SCDs for DVT prophylaxis, pharmacologic contraindicated secondary to thrombocytopenia, anemia, significant bruising with recent fall. Attestations 2 Medical Necessity Statement*: Will need greater than 2 midnight stay for evaluation and treatment of fall, electrolyte derangement, liver and kidney failure Critical Care Time: The high probability of a clinically significant, sudden or life threatening deterioration of the patient's [renal, cardiac, hepatic, infectious] system(s) required my full and direct attention, intervention and personal management. The critical care time is as shown. This time is in addition to time spent performing any reported procedures but includes the following: [x] Data and vital sign review and interpretation [x] Patient assessment, examination and intervention [x] Documentation [x] Medication orders and management Critical Care Time (min): 68 Coding Level of Care Code Critical Care >/= 30 minutes Critical care time (in minutes): 68 The high probability of a clinically significant, sudden or life threatening deterioration, as referenced in this documentation, required my full and direct attention, intervention and personal management. The critical care time shown is in addition to time spent performing any reported separately billable procedures and includes the following: [x] Data and vital sign review and interpretation [x ] Patient assessment, examination and intervention [x] Medication orders and management [x] Patient/Family updates as able [x] Care Coordination and Documentation. Diagnoses Pleural effusion, left J90 Pneumonia J18.9 Leukopenia D72.819 Thrombocytopenia D69.6 Anemia D64.9 Cirrhosis of liver K74.60 Acute kidney injury N17.9 Hyponatremia E87.1 Sepsis A41.9 Macrocytosis D75.89 Rheumatoid arthritis involving multiple sites, unspecified whether rheumatoid factor present M06.9 Rheumatoid arthritis location: multiple sites Rheumatoid factor presence: unspecified presence Simple chronic bronchitis J41.0 COPD type: chronic bronchitis Chronic bronchitis type: simple
--- NOTE | 2024-04-06 09:17 | CT_ITS ---
WS: [id number] CT CERVICAL SPINE HISTORY: fall TECHNIQUE: Contiguous 2.0 mm axial imaging performed through the entire cervical spine. Sagittal and coronal reformats also performed. All CT scans at [facility] use at least one of these dose o ptimization techniques: automated exposure control; mA and/or kV adjustment per patient size (include s targeted exams where dose is matched to clinical indication); or iterative reconstruction. DLP: 143.27 mGy.cm COMPARISON: 05/19/2023 Posterior cervical alignment is normal. Bridging claw osteophytes along the anterior cervical spine f rom C4-T1. Facet joints are normally aligned. Lateral masses of C1 and C2 are aligned. No acute fract ure. C2-C3: Normal. C3-C4: Central osteophyte encroaches upon the ventral thecal sac. C4-C5: Osteophytic ridging and central disc protrusion. C5-C6: Asymmetric osteophyte central and to the LEFT. Encroachment on the ventral thecal sac and cerv ical cord. Mild foraminal central stenosis. C6-C7: Osteophytic ridging with mild encroachment upon the central canal. C7-T1: Normal. Layering LEFT pleural effusion noted at the apex. CT/CT cervical spin wo con* [id number] IMPRESSION: 1. No acute cervical spine fracture. 2. Degenerative osteophytosis and spondylitic changes similar to 05/19/2023.
[2024-04-06 09:22] LABS: Troponin 5 6HR 9.58 ng/L (0-10)
[2024-04-06 09:24] LABS: Troponin 5 6HR Delta -4.42 ng/L (0-12)
--- NOTE | 2024-04-06 09:28 | ECG_ITS ---
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 Measurements Intervals [place] Rate: 70 P: 98 IA: 146 QRS: 29 QRSD: 82 T: -30 QT: 408 QTc: 442 Interpretive Statements SINUS RHYTHM LOW QRS VOLTAGE IN PRECORDIAL LEADS [QRS DEFLECTION < 1.0 mV IN CHEST LEADS] NONSPECIFIC T-WAVE ABNORMALITY Compared to ECG 04/06/2024 03:14:22 No significant changes Electronically Signed On 04-06-2024 17:14:14 CDT by Salomón Logan M.D. [email or web address]
--- NOTE | 2024-04-06 09:50 | USCV_ITS ---
Sari Henning Age: 63 Gender: F : 1960 Exam Date: 04/06/2024 18:02 Ordering Phys: Clifford Smith MD Technologist: LUZ [place]am [place] [facility] [place] Indication: GLF, elevated troponin, recent pneumonia. Patient is unresponsive in ICU-5. BP: 100 / 60 HR: 67 Rhythm: Sinus Technical Quality: Adequate MEASUREMENTS (Male / Female) Normal Values 2D ECHO LV Diastolic Diameter PLAX 5.0 cm 4.2 - 5.9 / 3.9 - 5.3 cm IVS Diastolic Thickness 1.1 cm 0.6 - 1.0 / 0.6 - 0.9 cm IVS Systolic Thickness 1.8 cm LVPW Diastolic Thickness 1.3 cm 0.6 - 1.0 / 0.6 - 0.9 cm LVPW Systolic Thickness 1.7 cm LVOT Diameter 1.9 cm LV Ejection Fraction 2D Teich 67.4 % LV Ejection Fraction MOD 2C 76.7 % LV Ejection Fraction 2C AL 76.6 % LA Diameter 3.2 cm Aorta at Sinotubular Diameter 3.5 cm IVC Diameter 1.4 cm M-MODE LA Ao Ratio MM 1.0 AV Cusp Separation MM 2.0 cm DOPPLER AV Peak Velocity 120.7 cm/s LVOT Peak Velocity 93.0 cm/s AV Area Cont Eq vti 1.9 cm squared AV Area Cont Eq pk 2.2 cm squared MV Peak Velocity 78.0 cm/s MV Area PHT 3.6 cm squared Mitral E to A Ratio 1.3 TV Peak Velocity 241.5 cm/s TR Peak Velocity 245.0 cm/s TR Peak Gradient 24.0 mmHg TV Peak E Velocity 59.0 cm/s Right Atrial Pressure 3.0 mmHg Pulmonary Artery Systolic Pressu 27.0 mmHg PV Peak Velocity 81.0 cm/s FINDINGS Left Ventricle Left ventricle is normal size. LV systolic function is normal with EF of 60-65%. No regional wall motion abnormalities. Right Ventricle Normal in size and function Right Atrium Normal in size Left Atrium Normal in size Mitral Valve Structurally normal mitral valve. Mild mitral regurgitation. Aortic Valve Structurally normal aortic valve. No significant stenosis or regurgitation. Tricuspid Valve Mild tricuspid regurgitation. Pulmonary artery systolic pressure is normal. Pulmonic Valve Not well visualized Pericardium Normal Aorta Normal in size IVC Appears to be normal CONCLUSIONS LV systolic function is normal with EF of 60-65% Mild mitral regurgitation Mild tricuspid regurgitation. No comparison studies are available. Salomón Logan MD (Electronically Signed) Final Date: 07 Apr 2024 10:53 S
[2024-04-06] MEDS: sodium chloride 0.9% 1,000 ML 100 ML IV ×2 (10:06→19:41)
[2024-04-06] MEDS: ondansetron 2 mg/ML SDV 2 mL 4 MG IVP ×2 (10:11→16:01)
[2024-04-06] MEDS: pantoprazole 40 mg SDV IVP ×2 (10:12→21:30)
[2024-04-06 10:14] LABS: Lactic Acid level (Lactate) 3.2 mmol/L (0.5-2.2)
[2024-04-06] MEDS: hydrocortisone 100 mg/2 mL SDV IVP ×2 (10:14→18:00)
[2024-04-06] MEDS: phytonadione (ADULT) 10 mg/mL Ampule 1 mL SUBCUT (10:15)
[2024-04-06] MEDS: albumin 25 G/100 ML BAG 60 G IV ×2 (10:21→17:42)
[2024-04-06] MEDS: meropenem 1,000 MG in sodium chloride 0.9% (plus) 50 ML 100 MG IV ×2 (10:26→17:38)
[2024-04-06 10:27] LABS: Cortisol Random 7.31 ug/dL (2.47-19.5)
[2024-04-06 10:29] LABS: Vitamin B12 673 pg/mL (232-1245)
[2024-04-06 10:30] LABS: Folate Level 4.9 ng/mL (4.8-37.3)
--- NOTE | 2024-04-06 12:07 | PC.PT ---
Patient declined PT eval due to high pain from RA medication being on hold due to side effects. Pt agreed to participate tomorrow.
[2024-04-06] MEDS: ipratropium-albuterol 3 mL Neb INHALATION ×2 (13:39→19:34)
[2024-04-06] MEDS: midodrine 5 mg TABLET 7.5 MG PO ×2 (14:03→20:18)
[2024-04-06] MEDS: HYDROmorphone 1 mg/mL INJ 1 mL 0.5 MG IVP ×2 (14:04→18:01)
[2024-04-06 14:42] LABS: Adenovirus Not Detected (NOT DETECT); Chlamydia Pneumoniae Not Detected (NOT DETECT); Coronavirus 229E,HKU1,NL63,OC4 Not Detected (NOT DETECT); Human Metapneumovirus Not Detected (NOT DETECT); Human Rhinovirus/Enterovirus Not Detected (NOT DETECT); Influenza A Not Detected (NOT DETECT); Influenza A H1 Not Detected (NOT DETECT); Influenza A H1-2009 Not Detected (NOT DETECT); Influenza A H3 Not Detected (NOT DETECT); Influenza B Not Detected (NOT DETECT); Mycoplasma Pneumoniae Not Detected (NOT DETECT); Parainfluenza Virus Type 1 Not Detected (NOT DETECT); Parainfluenza Virus Type 2 Not Detected (NOT DETECT); Parainfluenza Virus Type 3 Not Detected (NOT DETECT); Parainfluenza Virus Type 4 Not Detected (NOT DETECT); Respiratory Syncytial Virus A Not Detected (NOT DETECT); Respiratory Syncytial Virus B Not Detected (NOT DETECT); SARS-COV-2 Not Detected (NOT DETECT)
--- NOTE | 2024-04-06 17:33 | XRR_ITS ---
PROCEDURE INFORMATION: Exam: XR Chest Exam date and time: 04/06/2024 6:35 PM Age: 63 years old Clinical indication: Shortness of breath and wheezing; Additional info: Post thoracentesis TECHNIQUE: Imaging protocol: Radiologic exam of the chest. Views: 1 view. COMPARISON: CT angio chest w abd pel w con 04/06/2024 7:49 AM FINDINGS: Lungs: Nodular opacity again noted at the periphery of the left upper lung. Pleural spaces: Significant interval improvement of previously noted left pleural effusion post thoracentesis. Small residual pleural effusion remains. No pneumothorax. Heart/Mediastinum: Stable heart size. Bones/joints: Unremarkable. XR/XR chest 1V portable [id number] IMPRESSION: 1. Significant improvement of the previously noted left pleural effusion post thoracentesis with a small residual effusion. No pneumothorax. 2. Nodular opacity again noted at the periphery of the left upper lung corresponding to mass seen on prior imaging.
--- NOTE | 2024-04-06 17:36 | P.CONIM_ITS ---
Providers/Reason For Consult 2 Consulting Physician/Specialty*: Jackson Guzman MD, FCCP/pulmonary critical care Reason for Consult*: Left pleural effusion Requesting Physician: Suhail Frey MD Attending Physician: Clifford Smith MD Primary Care Provider: Alix Marcus MD History of Present Illness History of Present Illness Sari Henning is a 63 year old female with known rheumatoid arthritis with recent diagnosis of cirrhosis and recent hospitalization at [facility] who presents today with complaints of a fall last night. She was down for an unknown amount of time. She does not remember the fall itself. It occurred sometime between 4:30 PM and 1:30 AM this morning. She was found to have some bruising on her left chest wall, and brought to the ER. She had a recent visit to [facility] emergency department where she was diagnosed with a pneumonia and presumably on some antibiotics. She had had a fall preceding this visit as well. She is also been to [facility] about 2 weeks ago, and hospitalized there for around 4 days. She was told there she has cirrhosis, and needed to see a bench examiner and biochemical development engineer. She has had recurrent nausea and vomiting. She has not seen any blood in her stool. Intake overall has been poor. She had recently been taken off methotrexate, and switch to another medication for rheumatoid arthritis 1 or 2 weeks ago. Currently records from outside institution is not available. Patient herself was not a good historian but he just had morphine. Daughter fills in much of the gaps, and is present at bedside. Delete that Past EGD did have esophageal varices, nonbleeding, done here around March 15. Colonoscopy done then demonstrated some friability. Biopsies were normal. In the emergency department she received a dose of Levaquin, Zosyn, and vancomycin. A sepsis bolus was ordered and cultures pending. Patient has a history of smoking for about 15 years and quit in 2008. Denies alcohol use. Labs revealed severe leukopenia as well as neutropenia with absolute neutrophil count less than 500-patient placed on reverse isolation Admission CT chest abdomen pelvis-did not show any pulmonary embolism. Left upper lobe pleural nodule 2.6 x 1.7 cm. There is large left pleural effusion increased in size since 02/17/2024 CT chest. Small right pleural effusion slightly decreased in size. Pulmonary consult requested for thoracentesis. Patient seen at bedside She is complaining of left-sided chest pain She appeared lethargic She is on 2 L supplemental oxygen. Review of Systems 2 General: Reports: 10 or more systems reviewed and unremarkable except in HPI and below Medications/Allergies Home Medications Medication Instructions Recorded Confirmed Last Taken Type docusate sodium 100 mg capsule 100 mg PO DAILY 11/24/21 04/06/24 03/13/24 History (Colace) syringe with needle 1 mL 25 gauge #50 ea 08/10/22 04/06/24 Unknown Rx x 5/8 (Monoject TB Safety Syringe) omeprazole 40 mg capsule,delayed 40 mg PO BID 90 days #180 caps 06/21/23 04/06/24 03/13/24 Rx release albuterol sulfate 90 mcg/actuation 1 puff inhalation QID PRN 09/27/23 04/06/24 03/11/24 Rx aerosol inhaler shortness of breath or wheezing 30 days #18 grams benzonatate 100 mg capsule 100 mg PO BID PRN cough 30 days 09/27/23 04/06/24 03/11/24 Rx #60 caps cyanocobalamin (vitamin B-12) See Rx Instructions .Route 09/27/23 04/06/24 02/14/24 Rx 1,000 mcg/mL injection solution .COMPLEX #6 mL insulin syringe-needle U-100 1 mL #100 ea 09/27/23 04/06/24 Unknown Rx 25 x 1 levomefolate calcium 15 mg tablet 15 mg PO DAILY 90 days #90 tabs 09/27/23 04/06/24 03/14/24 Rx (L-Methylfolate) sumatriptan succinate 25 mg tablet 25 mg PO ONCE PRN migraine 09/27/23 04/06/24 Unknown Rx headache #9 tabs nystatin 100,000 unit/gram topical 1 applic topical TID PRN skin 12/17/23 04/06/24 Unknown Rx powder (Nystop) irritation #15 grams levothyroxine 25 mcg tablet 25 mcg PO DAILY 30 days #30 tabs 12/28/23 04/06/24 03/14/24 Rx ropinirole 0.25 mg tablet 0.25 mg PO BID 30 days #60 tabs 12/28/23 04/06/24 03/14/24 Rx famotidine 20 mg tablet 20 mg PO BID 30 days #60 tabs 02/03/24 04/06/24 03/14/24 Rx oxycodone 5 mg tablet 5 mg PO DAILY PRN pain 30 days #30 02/03/24 04/06/24 Unknown Rx tabs pantoprazole 40 mg tablet,delayed 40 mg PO BID 6 weeks #84 tabs 02/07/24 04/06/24 03/14/24 Rx release (Protonix) quetiapine 25 mg tablet (Seroquel) 25 mg PO BEDTIME 03/13/24 04/06/24 03/14/24 History ondansetron 8 mg disintegrating 8 mg PO Q8H PRN nausea and 03/31/24 04/06/24 Unknown Rx tablet vomiting #20 tabs bupropion HCl 150 mg 24 hr tablet, 150 mg PO EVERY OTHER DAY 04/06/24 04/06/24 Unknown History extended release cholecalciferol (vitamin D3) 1,250 1,250 mcg PO DAILY 04/06/24 04/06/24 Unknown History mcg (50,000 unit) capsule dexamethasone 4 mg tablet 8 mg PO DAILY 04/06/24 04/06/24 Unknown History furosemide 40 mg tablet 40 mg PO DAILY 04/06/24 04/06/24 Unknown History linaclotide 72 mcg capsule 72 mcg PO DAILY 04/06/24 04/06/24 Unknown History (Linzess) sulfamethoxazole 800 1 tab PO BID 04/06/24 04/06/24 Unknown History mg-trimethoprim 160 mg tablet Allergies Allergy/AdvReac Type Severity Reaction Status Date / Time fentanyl AdvReac Severe ADR-Nightma Verified 04/06/24 03:14 re Current Medications Generic Name Dose Route Start Last Admin Trade Name Freq PRN Reason Stop Dose Admin Albuterol/Ipratropium 3 ml 04/06/24 14:00 04/06/24 13:39 Ipratropium-Albuterol 3 Ml Neb INHALATION 3 ml Q6H.RESP NICOLE Administration Hydrocortisone Sodium Succinate 100 mg 04/06/24 09:50 04/06/24 10:14 Hydrocortisone 100 Mg/2 Ml Sdv IVP 100 mg Q8H NICOLE Administration Hydromorphone HCl 0.5 mg 04/06/24 13:54 04/06/24 14:04 Hydromorphone 1 Mg/Ml Inj 1 Ml IVP 0.5 mg Q4H PRN Administration PAIN Sodium Chloride 1,000 mls @ 100 mls/hr 04/06/24 09:50 04/06/24 10:06 Sodium Chloride 0.9% IV 100 mls/hr .Q10H NICOLE Administration Meropenem 1,000 mg/ Sodium 50 mls @ 100 mls/hr 04/06/24 09:50 04/06/24 13:56 Chloride IV Infused Q8H NICOLE Infusion Protocol Albumin Human 25 g in 100 mls @ 60 mls/hr 04/06/24 09:50 04/06/24 11:58 Albumin IV 0 mls/hr Q8H NICOLE Infusion Midodrine 7.5 mg 04/06/24 15:00 04/06/24 14:03 Midodrine 5 Mg Tablet PO 7.5 mg TID NICOLE Administration Ondansetron HCl 4 mg 04/06/24 09:50 04/06/24 16:01 Ondansetron 2 Mg/Ml Sdv 2 Ml IVP 4 mg Q6H PRN Administration NAUSEA AND VOMITING Pantoprazole Sodium 40 mg 04/06/24 09:50 04/06/24 10:12 Pantoprazole 40 Mg Sdv IVP 40 mg Q12H NICOLE Administration PFSH Acute 2 PFSH: Medical History Cirrhosis of liver GERD (gastroesophageal reflux disease) Rheumatoid arthritis Hyperlipidemia Chest pain Symptomatic cholelithiasis Metatarsalgia Nausea NAE (generalized anxiety disorder) COPD (chronic obstructive pulmonary disease) Lumbar paraspinal muscle spasm Chronic pain syndrome Hypertension, essential Did not tolerate lisinopril. Hypothyroidism Fibromyalgia Insomnia Failed amitriptyline, trazodone, Ambien caused side effects. Surgical History H/O gastric sleeve Hx laparoscopic cholecystectomy H/O tubal ligation H/O foot surgery Family History Other CAD (coronary artery disease) Cancer Diabetes Heart attack Hyperlipidemia Hypertension Rheumatoid arthritis Stroke Denies family history of Lupus Chronic kidney disease (CKD) Social History Smoking and tobacco/nicotine status: current every day tobacco/nicotine user cigarettes Packs smoked per day: 1 Quit status (tobacco/nicotine): has tried quititng Second hand smoke exposure: No Alcohol intake: current Alcohol intake frequency: holidays/special occasions only Substance/Drug Use: never Female Reproductive History: Spontaneous abortions: No Vitals/I&O/Wt Last Vital Signs Temp 97.6 F 04/06/24 03:08 Pulse 72 04/06/24 14:00 Resp 28 H 04/06/24 14:04 BP 96/56 04/06/24 08:28 Pulse Ox 92 04/06/24 14:04 O2 Del Method Room Air 04/06/24 13:39 04/06/24 04/06/24 04/06/24 06:59 14:59 22:59 Intake Total 2638.17 / 2638.17 Balance 2638.17 / 2638.17 Weight last 48 hrs Weight 150 lb Physical Exam 2 Narrative: General: alert, NAD HEENT: conj clear, EOMI, PERRL, mmm, Neck: supple, no meningismus Heme: no cervical LAP Respiratory: Inspection: No visible deformity of the chest wall Palpation: Trachea is mildly deviated to the right, bilateral symmetric expansion Percussion: Increased dullness on left lower lung zone Auscultation: Reduced breath sounds on left lower lung zone Cardiovascular: rrr, nl s1s2, no mrg Abdomen: soft, nt, nd, no r/g, bs+ Extremities: pulses +, no edema, no c/c : no CVA tenderness Skin: intact, no rash MSK: no back or neck pain Neurologic: grossly intact Data 04/12/24 03:27 04/12/24 11:12 Micro: Microbiology 04/06/24 06:52 Blood Culture - Preliminary Blood SPECIMEN COLLECTED 04/06/24 06:49 Blood Culture - Preliminary Blood SPECIMEN COLLECTED A&P Assessment and plan (1) Pleural effusion, left: S/p fall on left side chest wall yesterday She has chronic bilateral pleural effusions-in the setting of underlying cirrhosis this could be transudative However today CT chest showed worsening left pleural effusion compared to 02/17/2024 CT chest Patient being lethargic-recently being treated for pneumonia; and history of recurrent falls-I did perform bedside ultrasound guided thoracentesis and drained 1120 mL hemorrhagic pleural fluid. Pleural fluid sent for various studies including cytology-given left lung lesion on CT chest as well as smoking history-suspect malignancy Follow-up pleural studies Agree to continue vancomycin/meropenem/Levaquin (2) COPD (chronic obstructive pulmonary disease): Continue scheduled nebulizations with DuoNeb as well as budesonide Qualifiers: COPD type: chronic bronchitis Chronic bronchitis type: simple Qualified Code(s): J41.0 - Simple chronic bronchitis Consult Attestations 2 Medical Necessity Statement: Continue close ICU monitoring for sepsis Time Spent in Patient Care: Greater than 35 minutes (>than 50% of time spent in counselling and/or direct pt care on unit) . Critical Care Time: This patient has a high probability of clinically significant, sudden or life threatening deterioration (pulmonary) systems required my full, direct attention, the highest level of physician preparedness for urgent intervention and personal management. I managed/supervised life or organ supporting interventions that required frequent physician assessment. I devoted my full attention in the ICU to the direct care of this patient for the period of time indicated above. Time I spent with family or surrogate(s) is included only if the patient was incapable of providing necessary information or participating in decision making. This time includes the following services provided: Telemetry review Mechanical Ventilation Hemodynamic interpretation, assessment and management Review and interpretation of CXR Review and interpretation of lab values Review and interpretation of microbiologic data and culture results Review of medications and administration Review and interpretation of Nutrition requirements and management Discussion of management with other consultants and services Clinical update to family members [x] Data and vital sign review and interpretation [x] Patient assessment, examination and intervention [x] Documentation [x] Medication orders and management Time spent for teaching as well as performing procedures are billed separately and is not included in this note Coding Level of Care Code Acute Code for [facility] [place] Fwd Diagnoses Pleural effusion, left J90 Simple chronic bronchitis J41.0 COPD type: chronic bronchitis Chronic bronchitis type: simple Time Spent (min) 64
--- NOTE | 2024-04-06 17:36 | P.PCN_ITS ---
Procedure/Consent Procedure Narrative: Pulmonary & Critical Care Medicine Procedure - Ultrasound guided Thoracentesis Procedure: CPT code 69316 thoracentesis, needle or catheter, aspiration of the pleural space; with imaging guidance Indication: Worsening left pleural effusion. C56.2 Counter Intelligence(s): Jackson Guzman MD [facility] Clinical history:63 -year-old female with past medical history of cirrhosis of liver-and chronic bilateral pleural effusions-today presents after having left- sided fall-has bruises on left chest wall-ultrasound showed significant left pleural effusion-scheduled for diagnostic/therapeutic thoracentesis Technique: The study was performed in an [facility] accredited facility. Medication reconciliation form reviewed and any changes related this procedure resolved. Report: The procedure for thoracentesis was explained to the patient including the risks, benefits and possible complications. The patient was given the opportunity to ask questions, wished to proceed, and signed the written informed consent form. Using ultrasound guidance, a safe route of access was identified into the left pleural space. The site was then prepped and draped using maximal sterile barrier technique. The 1% lidocaine was used for local anesthetic. With sonographic guidance, a 6 Greenlandic thoracentesis catheter was placed with return of 5 cc hemorrhagic pleural fluid. The catheter was slipped into the pleural cavity and approximately 1120 m L of hemorrhagic pleural fluid was removed. The patient tolerated the procedure well without any immediate complications. Impression: 1. Successful ultrasound-guided left th oracentesis with removal of approximately 1120 m L of hemorrhagic pleural fluid was removed ICD-10 code-J90 pleural effusion, not elsewhere classified
[2024-04-06 17:50] LABS: Cyto Order Verification Order Verified
[2024-04-06 17:51] LABS: Apprearance, Body Fluid CLOUDY; Color, Body Fluid RED; Fluid Laterality LEFT PLEURAL FLUID; PATH Referral YES
[2024-04-06 18:02] LABS: Body Fluid Polynuclear #Cells 2.473; Body Fluid WBC 6516 /uL; Monocytes # Body Fluid 4.043
[2024-04-06 18:07] LABS: Body Fluid Specific Gravity 1.015
[2024-04-06 19:01] LABS: Albumin Body Fluid 1.2 g/dL; Cholesterol Body Fluid 40 mg/dL (0-200); Fluid Alkaline Phos. 23 IU/L; LDH Body Fluid 291 U/L; Triglycerides Body Fluid 19 mg/dL (0-150); Uric Acid Body Fluid 5 mg/dL
[2024-04-06 19:02] LABS: Total Protein Pleural Fluid 2.9 g/dL
--- NOTE | 2024-04-06 19:16 | PC.NURSE ---
Late note: Recieved patient from ER staff at 0945. Patient is alert and oriented to person, place, time, and situation. BP: 100/62, HR: 76, RR: 22, SPO2: 95% on room air. Patient is complaining of severe pain related to rheumatoid arthritis throughout entire body, morphine given.
--- NOTE | 2024-04-06 19:18 | PC.NURSE ---
NUrse assisted datar with left sided thoracentesis at 1645. 1120mL of pleural fluid drained. Samples sent to lab. THroughout the day, breath sounds on left side were diminished. After thoracentesis breath sounds are more audible, but still less than right side.
--- NOTE | 2024-04-06 19:20 | PC.NURSE ---
SHift SUmmary: uneventful shift. Patien rested in bed throughout the day. Frequent complaints of pain, treated with morphone which was later changed to hydromorphone. 1120mL of pleural fluid removed via left side thoracentesis. MAPs have been 65+ all day while in ICU.
[2024-04-06] MEDS: budesonide 0.5 mg/2 mL Neb INHALATION (19:34)
[2024-04-06 19:50] LABS: Glucose Point of Care 113 mg/dL (70-110)
[2024-04-06] MEDS: quetiapine 25 mg Tablet PO (20:19)
[2024-04-06] MEDS: metoclopramide 5 mg/mL SDV 2 mL 10 MG IVP (21:28)
[2024-04-06] MEDS: ketorolac 30 mg/mL INJ 15 MG IVP (21:40)
--- NOTE | 2024-04-06 21:43 | PC.NURSE ---
Addendum entered by Yulia Villarreal RN 04/06/24 23:57: 2357: Notified Dr. Cantrell that PICC team is not available tonight and increased lethargy- pt does follow commands and BG is WNL. Addendum entered by Yulia Villarreal RN 04/06/24 23:46: Regulatory And Compliance Technician (Ana) notified of PICC line order @2345. Addendum entered by Yulia Villarreal RN 04/06/24 23:42: 2340: New order for PICC Line insertion. Addendum entered by Yulia Villarreal RN 04/06/24 23:25: 2325: Updated Dr. Cantrell on Levophed requirements and that pt only has peripheral access. Addendum entered by Yulia Villarreal RN 04/06/24 21:53: 2111: Discussed PLR w/ Dr. Cantrell, Pt is unable to tolerate laying flat d/t severe pain. Addendum entered by Yulia Villarreal RN 04/06/24 21:49: 9: Dr. Cantrell on floor to see pt, verbal order for Levophed, titrate to maintain map 65. Original Note: Physician Notification: 2043: Notified Dr. Cantrell of pain 8/10 and vomiting. New order for Reglan 10mg IVP ONCE and Morphine 2mg IVP ONCE. 2110: Notified of decrease BP, Morphine not given d/t low BP. New order for Toradol 15mg IVP ONCE. 2130: Notified of BP recheck, BP continues to remain low 78/37.
[2024-04-06] MEDS: norepinephrine 4 MG/250 ML BAG 7.5 MG IV (21:58)
--- NOTE | 2024-04-06 22:06 | PC.NURSE ---
Family Notification: Contacted Sheree to notify of decreased BP and starting Levophed. Family had no questions.
[2024-04-06 23:42] LABS: Glucose Point of Care 120 mg/dL (70-110)
[2024-04-07] VITALS (87 sets, daily range): BP systolic 87–118; BP diastolic 39–65; PULSE 56–84; RESP 10–33; TEMP 36–36.6; O2SAT 90–98
--- NOTE | 2024-04-07 00:48 | XRR_ITS ---
PROCEDURE INFORMATION: Exam: XR Chest Exam date and time: 04/07/2024 12:57 AM Age: 63 years old Clinical indication: Device placement; Other: Central line; Additional info: Central line placement TECHNIQUE: Imaging protocol: Radiologic exam of the chest. Views: 1 view. COMPARISON: CR (CHEST, ) 04/06/2024 6:35 PM FINDINGS: Tubes, catheters and devices: Left IJ approach central line in satisfactory position with distal tip in the RA. Lungs: Low lung volumes. Interval worsening of bilateral airspace opacities, [id number]. Trace left pleural effusion is present. No pneumothorax. Pleural spaces: See Lungs finding. Heart/Mediastinum: Stable cardiomediastinal silhouette. Bones/joints: Degenerative changes of the spine seen. XR/XR chest 1V portable [id number] IMPRESSION: Nonspecific imaging findings, which can be seen with pulmonary edema or pneumonia. Clinical correlation recommended.
[2024-04-07] MEDS: meropenem 1,000 MG in sodium chloride 0.9% (plus) 50 ML 100 MG IV ×3 (01:49→17:34)
[2024-04-07] MEDS: hydrocortisone 100 mg/2 mL SDV IVP ×3 (01:54→17:33)
[2024-04-07] MEDS: albumin 25 G/100 ML BAG 60 G IV ×3 (01:57→17:34)
[2024-04-07] MEDS: norepinephrine 4 MG/250 ML BAG 30 MG IV (04:34)
[2024-04-07 05:16] LABS: Basophils % 1.4 %; Hematocrit 24.4 % (36-47); Lymphocytes # 0.3 10^3/uL (0.8-4.8); Lymphocytes % 12.3 %; Mean Corpuscular HGB Conc 33.6 g/dL (30-55); Mean Corpuscular Hemoglobin 39.4 pg (27-33); Mean Corpuscular Volume 117.3 fl (85-98); Mean Platelet Volume 11.2 fL (7.4-10.4); Monocytes # 0.4 10^3/uL (0.2-0.9); Neutrophils # 1.42 10^3/uL (1.8-7.7); Neutrophils % 67.4 %; Nucleated Red Blood Cells % 0 %; Platelet Count 75 10^3/cmm (157-399); Red Blood Count 2.08 10^6/uL (3.85-5.65); Red Cell Distribution Width 13.9 % (12.1-15.1); White Blood Count 2.11 10^3/uL (3.29-11.43)
[2024-04-07 05:32] LABS: Alanine Aminotransferase 10 U/L (0-33); Albumin Level 2.7 g/dL (3.5-5.2); Alkaline Phosphatase 42 U/L (35-105); Anion Gap 11.3 (5-19); Aspartate Amino Transferase 17 U/L (0-32); Blood Urea Nitrogen 25 mg/dL (8-23); Calcium 7.7 mg/dL (8.5-10.5); Carbon Dioxide 21 mmol/L (22-29); Chloride 101 mmol/L (98-107); Creatinine Clr Calc Pharmacy 61.1512; Globulin 3.5 g/dL (1.3-4.6); Glomerular Filtration Rate 62.8 mL/min (90-130); Glucose 146 mg/dL (65-115); Magnesium 2.1 mg/dL (1.7-2.3); Osmolality Calculated 277 mOsm/kg (285-295); Potassium 3.3 mmol/L (3.5-5.1); Sodium 130 mmol/L (136-145); Total Bilirubin 2.9 mg/dL (0.15-1.2); Total Protein 6.2 g/dL (6.6-8.7)
[2024-04-07] MEDS: sodium chloride 0.9% 1,000 ML 100 ML IV ×2 (05:37→15:23)
[2024-04-07 06:07] LABS: INR 2.46 (0.8-1.2)
[2024-04-07 06:19] LABS: Slide Review Slide Review Perform
[2024-04-07] MEDS: budesonide 0.5 mg/2 mL Neb INHALATION ×2 (07:41→20:01)
[2024-04-07] MEDS: midodrine 5 mg TABLET 7.5 MG PO (07:42)
[2024-04-07] MEDS: levothyroxine 25 mcg Tablet PO (07:42)
[2024-04-07] MEDS: ipratropium-albuterol 3 mL Neb INHALATION ×3 (07:42→20:01)
[2024-04-07] MEDS: pantoprazole 40 mg SDV IVP ×2 (10:15→21:00)
--- NOTE | 2024-04-07 10:45 | PC.NURSE ---
Dr Guzman made rounds. May take off reverse isolation as her neutrophils are up now.
--- NOTE | 2024-04-07 11:23 | P.PN_ITS ---
Subjective 2 Subjective: No acute events overnight Patient reported improvement in her shortness of breath still complaining of left-sided chest pain Levophed is down to 4 mcg/min She is also on midodrine Denied any complaints Medications: Reviewed: Yes Vitals/I&O/Wt Last Vital Signs Temp 96.8 F L 04/07/24 07:30 Pulse 83 04/07/24 08:30 Resp 19 H 04/07/24 08:30 BP 112/58 04/07/24 08:30 Pulse Ox 96 04/07/24 08:30 O2 Del Method Room Air 04/07/24 08:30 04/06/24 04/07/24 04/07/24 22:59 06:59 14:59 Intake Total 1617.333 / 4255.503 1423.875 / 5679.378 593.25 / 593.25 Output Total 1745 / 1745 300 / 2045 Balance -127.667 / 2510.503 1123.875 / 3634.378 593.25 / 593.25 Weight last 48 hrs Weight 161 lb 11.2 oz Weight 162 lb 12.8 oz Weight 150 lb Physical Exam 2 Narrative: General: alert, NAD HEENT: conj clear, EOMI, PERRL, mmm, Neck: supple, no meningismus Heme: no cervical LAP Respiratory: Inspection: No visible deformity of the chest wall Palpation: Trachea is mildly deviated to the right, bilateral symmetric expansion Percussion: Increased dullness on left lower lung zone Auscultation: Improved breath sounds on left lower lung zone Cardiovascular: rrr, nl s1s2, no mrg Abdomen: soft, nt, nd, no r/g, bs+ Extremities: pulses +, no edema, no c/c : no CVA tenderness Skin: intact, no rash MSK: no back or neck pain Neurologic: grossly intact Urinary Catheter Management: Black: Cath Placed During This Visit: yes Reason for Continuing Indwelling Catheter: Accurate Measurement of Urinary Output in Critically Ill Patients Urinary Catheter Date of Insertion: 04/06/24 Urinary Catheter Time of Insertion: 09:00 Data 04/12/24 03:27 04/12/24 11:12 Micro: Microbiology 04/06/24 17:30 Gram Stain - Final Pleural Fluid 04/06/24 06:52 Blood Culture - Preliminary Blood NEGATIVE TO DATE 04/06/24 06:49 Blood Culture - Preliminary Blood NEGATIVE TO DATE A&P Assessment and plan (1) Pleural effusion, left: S/p fall on left side chest wall yesterday She has chronic bilateral pleural effusions-in the setting of underlying cirrhosis this could be transudative However admission CT chest showed worsening left pleural effusion compared to 02/17/2024 CT chest Patient being lethargic-recently being treated for pneumonia; and history of recurrent falls-I did perform bedside ultrasound guided thoracentesis and drained 1120 mL hemorrhagic pleural fluid. Pleural fluid analysis-lymphocyte predominant exudative effusion-bacterial cultures, AFB cultures are pending Given left lung lesion on CT chest as well as smoking history-suspect malignancy; cytology pending Agree to continue vancomycin/meropenem/Levaquin (2) COPD (chronic obstructive pulmonary disease): Continue scheduled nebulizations with DuoNeb as well as budesonide Qualifiers: COPD type: chronic bronchitis Chronic bronchitis type: simple Qualified Code(s): J41.0 - Simple chronic bronchitis (3) Left upper lobe pulmonary nodule: CT chest 04/06/2024-showed left upper lobe pleural nodule 2.6 x 1.7 cm-pneumonia infiltrate versus malignancy Patient has history of smoking-cannot rule out underlying malignancy Pleural fluid cytology pending If negative; repeat CT chest in 4 to 6 weeks to check for persistence and may need biopsies Attestations 2 Medical Necessity Statement*: Need close ICU monitoring given soft blood pressures Time Spent in Patient Care: Greater than 35 minutes (>than 50% of time spent in counselling and/or direct pt care on unit) . Critical Care Time: Pulmonary this patient has a high probability of clinically significant, sudden or life threatening deterioration of the patient's (pulmonary) systems required my full, direct attention, the highest level of physician preparedness for urgent intervention and personal management. I managed/supervised life or organ supporting interventions that required frequent physician assessment. I devoted my full attention in the ICU to the direct care of this patient for the period of time indicated above. Time I spent with family or surrogate(s) is included only if the patient was incapable of providing necessary information or participating in decision making. This time includes the following services provided: Telemetry review Mechanical Ventilation Hemodynamic interpretation, assessment and management Review and interpretation of CXR Review and interpretation of lab values Review and interpretation of microbiologic data and culture results Review of medications and administration Review and interpretation of Nutrition requirements and management Discussion of management with other consultants and services Clinical update to family members [x] Data and vital sign review and interpretation [x] Patient assessment, examination and intervention [x] Documentation [x] Medication orders and management Time spent for teaching as well as performing procedures are billed separately and is not included in this note Critical Care Time (min): 46 Coding Level of Care Code Acute Code for [facility] Fwd Diagnoses Pleural effusion, left J90 Simple chronic bronchitis J41.0 COPD type: chronic bronchitis Chronic bronchitis type: simple Left upper lobe pulmonary nodule R91.1 Time Spent (min) 46
--- NOTE | 2024-04-07 11:48 | PC.SOCIAL ---
IMM Update pg 2 of IMM updated w/ patient. Copy provided and copy dated, initialed and placed in chart.
[2024-04-07] MEDS: phytonadione (ADULT) 10 mg/mL Ampule 1 mL PO (12:23)
[2024-04-07] MEDS: midodrine 5 mg TABLET 10 MG PO ×2 (14:14→20:59)
[2024-04-07] MEDS: HYDROmorphone 1 mg/mL INJ 1 mL 0.5 MG IVP (14:14)
--- NOTE | 2024-04-07 15:48 | P.PN_ITS ---
Subjective 2 Subjective: She had left thoracentesis done yesterday which drained 1120 mL of bloody fluid. She reports improvement in her shortness of breath but does have left lateral chest pain. Her Levophed is down to 4 mcg per minute. She is on midodrine 7.5 mg 3 times daily. She denies any abdominal pain, nausea, vomiting, diarrhea, melena, hematochezia or other symptoms at this time. Medications: Reviewed: Yes Vitals/I&O/Wt Last Vital Signs Temp 97.8 F 04/07/24 14:00 Pulse 72 04/07/24 14:45 Resp 21 H 04/07/24 14:45 BP 100/49 04/07/24 14:45 Pulse Ox 94 04/07/24 14:45 O2 Del Method Room Air 04/07/24 14:45 04/07/24 04/07/24 04/07/24 06:59 14:59 22:59 Intake Total 1423.875 / 5679.378 892.375 / 892.375 976.667 / 1869.042 Output Total 300 / 2045 Balance 1123.875 / 3634.378 892.375 / 892.375 976.667 / 1869.042 Weight last 48 hrs Weight 73.346 kg Weight 73.845 kg Weight 68.039 kg Physical Exam 2 Const: COMMON NORMALS: alert HENMT: COMMON NORMALS: normocephalic and atraumatic HEAD & SCALP: n ormocephalic and atraumatic Eye: COMMON NORMALS: Equal, round and reactive pupils present PUPIL: Yes Equal, round and reactive pupils present Neck/C-Spine: COMMON NORMALS: supple and no JVD Chest: COMMONS NORMALS: normal inspection of the chest Resp: COMMON NORMALS: normal respiratory effort OTHER: Crackles at the left base Cardio: COMMON NORMALS: no JVD, regular rate, regular rhythm, S1 normal heart sound present, S2 normal heart sound present, No gallops present (Cardio), No murmurs present (Cardio) and No rub (Cardio) RATE: regular rate RHYTHM: r egular rhythm HEART SOUNDS: S1 normal heart sound present and S2 normal heart sound present GI: COMMON NORMALS: Normal to inspection, nondistended, normoactive bowel sounds present, Soft to palpation and non-tender PALPATION: Yes Soft to palpation : COMMON NORMALS: Yes no CVA tenderness BLADDER/KIDNEY EXAM: Yes no CVA tenderness Back/Pelvis: COMMON NORMALS: no CVA tenderness Extremity: GENERAL: Yes edema Neuro: COMMON NORMALS: no focal motor deficits and no sensory deficits noted SENSORIUM/ORIENTATION: Yes alert Psych: COMMON NORMALS: denies hallucinations Skin: NARRATIVE SKIN EXAM: Bruising and ecchymosis bilateral upper and lower extremities anterior chest and back GENERAL SKIN EXAM: ecchymosis Urinary Catheter Management: Black: Cath Placed During This Visit: yes Reason for Continuing Indwelling Catheter: Accurate Measurement of Urinary Output in Critically Ill Patients Urinary Catheter Date of Insertion: 04/06/24 Urinary Catheter Time of Insertion: 09:00 Data 04/07/24 04:30 04/07/24 04:30 Micro: Microbiology 04/06/24 17:30 Gram Stain - Final Pleural Fluid Body Fluid Culture - Preliminary 04/06/24 06:52 Blood Culture - Preliminary Blood NEGATIVE TO DATE 04/06/24 06:49 Blood Culture - Preliminary Blood NEGATIVE TO DATE A&P Assessment and plan (1) Pleural effusion, left: Status post thoracentesis 1120 mL of fluid removed ? Fluid is exudative and bloody concerning for bleeding/malignancy ? She has cirrhosis with elevated INR and thrombocytopenia CT chest done on 04/06 showed left upper lobe pleural nodule 2.6 x 1.7 cm; will need repeat CT after discharge ?Also concern for possible parapneumonic effusion given elevated WBC ? Follow-up peripheral culture and cytology ? Pulmonary critical care is following (2) Pneumonia: ? Immunocompromise status due to treatment for rheumatoid arthritis ? Left upper lobe pleural nodule could represent pneumonia ? Follow-up sputum culture and MRSA PCR; blood cultures pending ? Respiratory panel was negative ?She is on vancomycin and meropenem (3) Leukopenia: She had significant leukopenia which is improved (4) Thrombocytopenia: Thrombocytopenia ? Most likely multifactorial due to sepsis and liver cirrhosis ? No evidence of hemolysis at this time (5) Anemia: She has elevated INR and contusions from a fall She does have history of esophageal varices but no evidence of active bleeding at this time Protonix 40 mg IV every 12 hours Monitor hemoglobin (6) Cirrhosis of liver: Liver cirrhosis thought to be from methotrexate use for her rheumatoid arthritis Negative for hepatitis B and C She has been referred to hepatology at [facility] and awaiting appointment t INR was 2.46 today; will give her another dose of oral vitamin K (7) Acute kidney injury: Creatinine was 1.0 mg/dL on admission and improved to 0.9 mg deciliter today ? Baseline creatinine 0.6-0.9 ? Monitor creatinine. (8) Hyponatremia: This is mild and improving ? Likely secondary to her cirrhosis; she also had recurrent nausea and vomiting recently ? She was also on chronic steroids with dexamethasone 8 mg daily this may be secondary to cirrhosis ?Random because a level done yesterday morning was equivocal for adrenal insufficiency ?Monitor sodium (9) Sepsis: Concern for sepsis given her leukopenia, suspected pneumonia, and hypotension She also had elevated lactic acid She is on IV antibiotics with vancomycin and meropenem She is on stress dose steroids with hydroxyzine 100 mg every 8 hours Currently on Levophed 4 mics per minute; wean as tolerated Will increase the midodrine to 10 mg 3 times daily Blood cultures are pending (10) Macrocytosis: B12 and folate levels are normal She has had a gastric sleeve Macrocytosis could also be from her medication for rheumatoid arthritis (11) Rheumatoid arthritis: Hold dexamethasone, changed to hydrocortisone secondary to acute illness Qualifiers: Rheumatoid arthritis location: multiple sites Rheumatoid factor presence: unspecified presence Qualified Code(s): M06.9 - Rheumatoid arthritis, unspecified (12) COPD (chronic obstructive pulmonary disease): Budesonide twice daily DuoNeb every 6 hours Qualifiers: COPD type: chronic bronchitis Chronic bronchitis type: simple Qualified Code(s): J41.0 - Simple chronic bronchitis (13) Fall: Etiology unknown CK was normal Continue fall precautions Plan Allow natural , discussed extensively with patient and family SCDs for DVT prophylaxis, pharmacologic contraindicated secondary to thrombocytopenia, anemia, significant bruising with recent fall. Attestations 2 Medical Necessity Statement*: Patient requires continued inpatient admission. She is on IV pressors, IV antibiotics, and telemetry monitoring. Critical Care Time: The high probability of a clinically significant, sudden or life threatening deterioration of the patient's cardiac, respiratory, hematologic, and GI s ystem(s) required my full and direct attention, intervention and personal management. The critical care time is as shown. This time is in addition to time spent performing any reported procedures but includes the following: [x] Data and vital sign review and interpretation [x] Patient assessment, examination and intervention [x] Documentation [x] Medication orders and management Critical Care Time (min): 50 Coding Level of Care Code Critical Care >/= 30 minutes Diagnoses Pleural effusion, left J90 Pneumonia J18.9 Leukopenia D72.819 Thrombocytopenia D69.6 Anemia D64.9 Cirrhosis of liver K74.60 Acute kidney injury N17.9 Hyponatremia E87.1 Sepsis A41.9 Macrocytosis D75.89 Rheumatoid arthritis involving multiple sites, unspecified whether rheumatoid factor present M06.9 Rheumatoid arthritis location: multiple sites Rheumatoid factor presence: unspecified presence Simple chronic bronchitis J41.0 COPD type: chronic bronchitis Chronic bronchitis type: simple Fall [id number].XXXA
[2024-04-07] MEDS: vancomycin 1,000 MG in sodium chloride 0.9% 250 ML 250 MG IV (16:55)
--- NOTE | 2024-04-07 19:19 | PC.NURSE ---
Shift summary: Pt alert and oriented. She only had complaint of back pain once this shift. She received Hydromorphone once, it relieved the pain. She was able to get out of bed with PT and go to chair. She tolerated sitting up in the chair for a couple hours. levophed was infusing at 4mcg/min. It was weaned off by the end of day shift. She is taking Midodrine, dose was increased to 10mg today.Urine out put of 425ml. No Bm noted today.
[2024-04-07] MEDS: quetiapine 25 mg Tablet PO (20:59)
[2024-04-08] VITALS (111 sets, daily range): BP systolic 72–119; BP diastolic 44–68; PULSE 58–96; RESP 8–35; TEMP 35.9–37; O2SAT 87–99
[2024-04-08] MEDS: sodium chloride 0.9% 1,000 ML 100 ML IV (00:51)
[2024-04-08] MEDS: albumin 25 G/100 ML BAG 60 G IV ×2 (00:54→10:08)
[2024-04-08] MEDS: meropenem 1,000 MG in sodium chloride 0.9% (plus) 50 ML 100 MG IV ×3 (00:58→17:01)
[2024-04-08] MEDS: hydrocortisone 100 mg/2 mL SDV IVP ×3 (01:00→17:01)
[2024-04-08] MEDS: ipratropium-albuterol 3 mL Neb INHALATION ×4 (02:08→20:03)
[2024-04-08] MEDS: norepinephrine 4 MG/250 ML BAG 7.5 MG IV (02:24)
[2024-04-08 07:10] LABS: Basophils % 1.1 %; Hematocrit 21.9 % (36-47); Lymphocytes # 0.5 10^3/uL (0.8-4.8); Lymphocytes % 13.4 %; Mean Corpuscular HGB Conc 35.6 g/dL (30-55); Mean Corpuscular Hemoglobin 41.3 pg (27-33); Mean Corpuscular Volume 115.9 fl (85-98); Mean Platelet Volume 12.4 fL (7.4-10.4); Monocytes # 0.4 10^3/uL (0.2-0.9); Monocytes % 9.4 %; Neutrophils # 2.79 10^3/uL (1.8-7.7); Neutrophils % 74.8 %; Nucleated Red Blood Cells % 0 %; Platelet Count 100 10^3/cmm (157-399); Positive M 1; Red Blood Count 1.89 10^6/uL (3.85-5.65); Red Cell Distribution Width 14.3 % (12.1-15.1); White Blood Count 3.73 10^3/uL (3.29-11.43)
[2024-04-08 07:33] LABS: Albumin Level 2.9 g/dL (3.5-5.2); Alkaline Phosphatase 31 U/L (35-105); Blood Urea Nitrogen 24 mg/dL (8-23); Calcium 7.5 mg/dL (8.5-10.5); Carbon Dioxide 21 mmol/L (22-29); Chloride 108 mmol/L (98-107); Creatinine Clr Calc Pharmacy 69.8997; Globulin 2.6 g/dL (1.3-4.6); Glucose 127 mg/dL (65-115); Osmolality Calculated 292 mOsm/kg (285-295); Sodium 138 mmol/L (136-145); Total Protein 5.5 g/dL (6.6-8.7)
[2024-04-08 07:34] LABS: Magnesium 2.1 mg/dL (1.7-2.3)
[2024-04-08 07:39] LABS: Anion Gap 12.5 (5-19); Aspartate Amino Transferase 25 U/L (0-32); Potassium 3.5 mmol/L (3.5-5.1)
[2024-04-08 07:40] LABS: Alanine Aminotransferase 11 U/L (0-33)
[2024-04-08] MEDS: budesonide 0.5 mg/2 mL Neb INHALATION ×2 (08:07→20:03)
[2024-04-08 09:32] LABS: INR 1.97 (0.8-1.2)
[2024-04-08 09:36] LABS: Vancomycin Trough 16.9 ug/mL (10-15)
[2024-04-08] MEDS: midodrine 5 mg TABLET 10 MG PO ×3 (10:07→20:41)
[2024-04-08] MEDS: levothyroxine 25 mcg Tablet PO (10:08)
[2024-04-08] MEDS: pantoprazole 40 mg SDV IVP ×2 (10:09→21:06)
[2024-04-08] MEDS: vancomycin 1,000 MG in sodium chloride 0.9% 250 ML 250 MG IV (10:47)
--- NOTE | 2024-04-08 14:16 | PM.PN ---
Subjective Subjective: She was on 4 mics of Levophed this morning. Her maps have been in the low 60s. She reports hypotension chronically. Her baseline blood pressures in the 90s/50s. She occasionally goes down to the 80s systolic. She has previously tolerated oral Lasix and spironolactone. She states she feels better this morning. She is not lethargic and denies any shortness of breath, chest pain, nausea, vomiting, abdominal pain or other symptoms. Last bowel movement was a few days ago. There is no signs of GI bleeding. Medications: Reviewed: Yes Vitals/I&O/Wt Last Vital Signs Temp 97.0 F L 04/08/24 12:50 Pulse 65 04/08/24 13:51 Resp 17 04/08/24 13:40 BP 95/56 04/08/24 12:50 Pulse Ox 95 04/08/24 13:40 O2 Del Method Room Air 04/08/24 13:40 04/07/24 04/08/24 04/08/24 22:59 06:59 14:59 Intake Total 1989.334 / 2881.709 1313.458 / 4195.167 801.375 / 801.375 Output Total 425 / 425 700 / 1125 Balance 1564.334 / 2456.709 613.458 / 3070.167 801.375 / 801.375 Weight last 48 hrs Weight 75.841 kg Weight 73.346 kg Weight 73.845 kg Physical Exam Narrative: GEN: Alert and cooperative Neuro: Oriented x 4, no focal neurological deficits HEENT: Normocephalic and atraumatic, PERRLA Neck: Supple, no JVD Cardio: S1, S2, regular rate and rhythm, no murmur noted Lungs: Normal effort, diminished breath sounds Abdomen: Soft, nontender, nondistended, normal active bowel sounds Skin: Bruising bilateral upper and lower extremities, also noted to have bruising on her chest and back Urinary Catheter Management: Black: Cath Placed During This Visit: yes Reason for Continuing Indwelling Catheter: Accurate Measurement of Urinary Output in Critically Ill Patients Urinary Catheter Date of Insertion: 04/06/24 Urinary Catheter Time of Insertion: 09:00 Data 04/08/24 06:23 04/08/24 06:23 Micro: Microbiology 04/06/24 17:30 Gram Stain - Final Pleural Fluid Anaerobic Culture - Preliminary Body Fluid Culture - Preliminary A&P Assessment and plan (1) Pleural effusion, left: Large left pleural effusion seen on CT chest done on 04/06 ? Status post thoracentesis (112 0 mL fluid removed) on 04/06 ? Fluid was exudative and bloody concerning for bleeding/malignancy ? She has cirrhosis with elevated INR and thrombocytopenia ? CT chest done on 04/06 showed left upper lobe pleural nodule 2.6 x 1.7 cm (will need repeat CT after discharge) ? Also concern for possible parapneumonic effusion given leukopenia ? Follow-up pleural fluid culture and cytology ? Pulmonary critical care is following (2) Pneumonia: ? Immunocompromise status due to treatment for rheumatoid arthritis ? Left upper lobe pleural nodule seen on CT chest could represent pneumonia ? Sputum culture ordered and MRSA PCR pending; blood cultures pending ? Respiratory panel was negative ? She is on vancomycin and meropenem (3) Leukopenia: ? She has had pancytopenia in the last few months. ? Peripheral smear done on 02/23 showed RBC changes consistent with liver disease and folate deficiency. No schistocytosis. Smudge lymphocytes present. ? Repeat peripheral smear on 04/03 moderate leukopenia with moderate lymphocytosis, mild microcytic anemia, and moderate thrombocytopenia. These findings are nonspecific. Macrocytic anemia could be due to drug/toxin effect, liver injury, nutritional deficiency (vitamin B-12/folate) or an underlying hematopoietic disorder. The lymphocytosis shows features suggestive of but not entirely conclusive for chronic lymphocytic leukemia. Clinical correlation with morphology and/or ancillary studies such as flow cytometry will be necessary for full evaluation. ? Her B12 and folic acid were normal ? Will order flow cytometry ? She was referred to hematology/oncology at [facility] recently. (4) Thrombocytopenia: Thrombocytopenia ? This is chronic ? Most likely multifactorial due to sepsis and liver cirrhosis ? No evidence of hemolysis at this time (5) Anemia: ? She has elevated INR and contusions from a fall. ?She had a EGD and colonoscopy on 03/15/2024. She was noted to have esophageal varices in the distal third of the esophagus and gastritis. She also had friable mucosa with contact bleeding from the cecum to the rectum. ? She does not have any evidence of active GI bleeding at this time. She has not had hematemesis, melena, or hematochezia. ? Pleural fluid from left thoracentesis was bloody and she may have bled into her pleural space from her fall. ? Haptoglobin was normal. ? Will transfuse 2 units of PRBCs today. ? Her INR is improved after getting oral vitamin K for 2 days. ?Protonix 40 mg IV every 12 hours ?Monitor hemoglobin (6) Cirrhosis of liver: Liver cirrhosis thought to be from methotrexate use for her rheumatoid arthritis Negative for hepatitis B and C Ferritin was recently checked and was elevated. Ceruloplasmin was normal She has been referred to hepatology at [facility] and awaiting appointment t INR was improved today but remains elevated at 1.97. Will give her 2 units of FFP. (7) Hyponatremia: This is resolved ? Likely secondary to her cirrhosis; she also had recurrent nausea and vomiting recently ? She was also on chronic steroids with dexamethasone 8 mg daily for rheumatoid arthritis s ? Random because a level done yesterday morning was equivocal for adrenal insufficiency ? Monitor sodium (8) Sepsis: Severe sepsis with septic shock Leukopenia, suspected pneumonia, and hypotension She also had elevated lactic acid She is on IV antibiotics with vancomycin and meropenem She is on stress dose steroids with hydroxyzine 100 mg every 8 hours (she was on dexamethasone for rheumatoid arthritis) Currently on Levophed 4 mcg per minute; wean as tolerated Will increase the midodrine to 10 mg 3 times daily Blood cultures are pending (9) Macrocytosis: B12 and folate levels are normal She has had a gastric sleeve Macrocytosis could also be from her medication for rheumatoid arthritis (10) Rheumatoid arthritis: Hold dexamethasone, changed to hydrocortisone secondary to acute illness Qualifiers: Rheumatoid arthritis location: multiple sites Rheumatoid factor presence: unspecified presence Qualified Code(s): M06.9 - Rheumatoid arthritis, unspecified (11) COPD (chronic obstructive pulmonary disease): Stable on room air at this time Budesonide twice daily DuoNeb every 6 hours Qualifiers: COPD type: chronic bronchitis Chronic bronchitis type: simple Qualified Code(s): J41.0 - Simple chronic bronchitis (12) Fall: Etiology unknown CK was normal Continue fall precautions Plan Allow natural , discussed extensively with patient and family SCDs for DVT prophylaxis, pharmacologic contraindicated secondary to thrombocytopenia, anemia, significant bruising with recent fall. Attestations Medical Necessity Statement*: Patient requires continued hospitalization for treatment of severe sepsis from pneumonia and anemia. Critical Care Time: The high probability of a clinically significant, sudden or life threatening deterioration of the patient's hematologic, GI, respiratory system(s) required my full and direct attention, intervention and personal management. The critical care time is as shown. This time is in addition to time spent performing any reported procedures but includes the following: [x] Data and vital sign review and interpretation [x] Patient assessment, examination and intervention [x] Documentation [x] Medication orders and management Critical Care Time (min): 40 Coding Level of Care Code Critical Care >/= 30 minutes Diagnoses Pleural effusion, left J90 Pneumonia J18.9 Leukopenia D72.819 Thrombocytopenia D69.6 Anemia D64.9 Cirrhosis of liver K74.60 Hyponatremia E87.1 Sepsis A41.9 Macrocytosis D75.89 Rheumatoid arthritis involving multiple sites, unspecified whether rheumatoid factor present M06.9 Rheumatoid arthritis location: multiple sites Rheumatoid factor presence: unspecified presence Simple chronic bronchitis J41.0 COPD type: chronic bronchitis Chronic bronchitis type: simple Fall W19.XXXA
[2024-04-08] MEDS: FUROsemide 10 mg/mL SDV 2mL 20 MG IVP ×2 (14:29→21:06)
[2024-04-08 15:25] LABS: Methicillin-Resist S.aureu PCR NOT DETECTED (NOT DETECTED)
[2024-04-08 16:25] LABS: Ferritin 1423 ng/mL (15-150)
[2024-04-08] MEDS: ropinirole 0.25 mg Tablet PO (17:01)
[2024-04-08] MEDS: HYDROmorphone 1 mg/mL INJ 1 mL 0.5 MG IVP (19:45)
[2024-04-08] MEDS: quetiapine 25 mg Tablet PO (20:41)
--- NOTE | 2024-04-08 21:15 | PC.NURSE ---
Lasix Patient complaining of shortness of breath with an oxygen saturation maintaining from 87-89% on room air. Blood product currently administering. Lungs auscultated, revealing expiratory wheezing as well as coarse breath sounds. Respiratory therapy notified. Dr. Cantrell notified; order received for 20 mg lasix IVP once one. See MAR for details.
[2024-04-08 22:29] LABS: Basophils % 0.7 %; Hematocrit 27.7 % (36-47); Lymphocytes # 0.4 10^3/uL (0.8-4.8); Lymphocytes % 9.2 %; Mean Corpuscular HGB Conc 34.3 g/dL (30-55); Mean Corpuscular Hemoglobin 36.4 pg (27-33); Mean Corpuscular Volume 106.1 fl (85-98); Mean Platelet Volume 10.9 fL (7.4-10.4); Monocytes # 0.4 10^3/uL (0.2-0.9); Monocytes % 8.2 %; Neutrophils # 3.35 10^3/uL (1.8-7.7); Neutrophils % 78.6 %; Nucleated Red Blood Cells % 0 %; Platelet Count 60 10^3/cmm (157-399); Red Blood Count 2.61 10^6/uL (3.85-5.65); Red Cell Distribution Width 21.4 % (12.1-15.1); White Blood Count 4.26 10^3/uL (3.29-11.43)
[2024-04-09] VITALS (71 sets, daily range): BP systolic 93–120; BP diastolic 45–81; PULSE 64–83; RESP 16–37; TEMP 36.2–36.8; O2SAT 86–96; BMI 29.0
[2024-04-09] MEDS: meropenem 1,000 MG in sodium chloride 0.9% (plus) 50 ML 100 MG IV ×3 (02:31→18:44)
[2024-04-09] MEDS: hydrocortisone 100 mg/2 mL SDV IVP ×3 (02:31→22:59)
[2024-04-09] MEDS: ipratropium-albuterol 3 mL Neb INHALATION ×4 (02:43→20:50)
[2024-04-09] MEDS: vancomycin 1,000 MG in sodium chloride 0.9% 250 ML 250 MG IV (04:36)
[2024-04-09 05:44] LABS: Basophils # 0.1 10^3/uL (0.0-0.1); Basophils % 1.7 %; Hematocrit 28.1 % (36-47); Lymphocytes # 0.4 10^3/uL (0.8-4.8); Lymphocytes % 9.9 %; Mean Corpuscular HGB Conc 34.2 g/dL (30-55); Mean Corpuscular Hemoglobin 36.2 pg (27-33); Mean Platelet Volume 12.5 fL (7.4-10.4); Monocytes # 0.3 10^3/uL (0.2-0.9); Neutrophils # 2.81 10^3/uL (1.8-7.7); Neutrophils % 79.1 %; Nucleated Red Blood Cells % 0 %; Platelet Count 131 10^3/cmm (157-399); Red Blood Count 2.65 10^6/uL (3.85-5.65); Red Cell Distribution Width 22.3 % (12.1-15.1); White Blood Count 3.55 10^3/uL (3.29-11.43)
[2024-04-09 05:54] LABS: INR 1.72 (0.8-1.2)
--- NOTE | 2024-04-09 07:20 | XRR_ITS ---
PROCEDURE INFORMATION: Exam: XR Chest Exam date and time: 04/09/2024 7:40 AM Age: 63 years old Clinical indication: Other: Hypoxia TECHNIQUE: Imaging protocol: Radiologic exam of the chest. Views: 1 view. COMPARISON: CR (CHEST, ) 04/07/2024 12:57 AM FINDINGS: Tubes, catheters and devices: There is a left jugular central venous catheter with its tip projecting in the region of the right atrium. Lungs: There are diffuse bilateral lung infiltrates. When compared with the prior study, there has been some improvement in the left perihilar infiltrates but increased consolidation in the left lung base. There has been interval worsening of the right perihilar infiltrates. There is a calcified granuloma in the right midlung laterally. Pleural spaces: There has been interval increase in size of the small left pleural effusion. Heart/Mediastinum: Unremarkable. No cardiomegaly. Bones/joints: There are degenerative changes in both shoulders. Suspect bilateral rotator cuff tears. There are degenerative changes in the spine XR/XR chest 1V portable [id number] IMPRESSION: 1. Diffuse bilateral lung infiltrates as described above. 2. Interval increase in small left pleural effusion. 3. Central venous catheter.
[2024-04-09] MEDS: ropinirole 0.25 mg Tablet PO ×2 (07:53→18:44)
[2024-04-09] MEDS: midodrine 5 mg TABLET 10 MG PO ×3 (07:54→22:09)
[2024-04-09] MEDS: budesonide 0.5 mg/2 mL Neb INHALATION ×2 (07:54→20:49)
[2024-04-09] MEDS: levothyroxine 25 mcg Tablet PO (07:54)
[2024-04-09] MEDS: FUROsemide 10 mg/mL SDV 4mL 40 MG IVP (07:54)
[2024-04-09 07:55] LABS: Alanine Aminotransferase 15 U/L (0-33); Albumin Level 2.8 g/dL (3.5-5.2); Alkaline Phosphatase 40 U/L (35-105); Aspartate Amino Transferase 26 U/L (0-32); Blood Urea Nitrogen 23 mg/dL (8-23); Calcium 8.1 mg/dL (8.5-10.5); Carbon Dioxide 23 mmol/L (22-29); Chloride 107 mmol/L (98-107); Globulin 2.7 g/dL (1.3-4.6); Glomerular Filtration Rate 49.8 mL/min (90-130); Glucose 117 mg/dL (65-115); Magnesium 2.1 mg/dL (1.7-2.3); Osmolality Calculated 291 mOsm/kg (285-295); Phosphorus 2.1 mg/dL (2.5-4.5); Sodium 138 mmol/L (136-145); Total Bilirubin 2.3 mg/dL (0.15-1.2); Total Protein 5.5 g/dL (6.6-8.7)
[2024-04-09 08:02] LABS: Creatinine Clr Calc Pharmacy 51.1574
[2024-04-09] MEDS: potassium phosphate (mMol PO4) 15 MMOL in sodium chloride 0.9% (100 ml) 100 ML 42 MMOL IV (09:15)
[2024-04-09] MEDS: pantoprazole 40 mg SDV IVP ×2 (09:59→22:58)
--- NOTE | 2024-04-09 12:36 | P.PN_ITS ---
Subjective 2 Subjective: She received 2 units of PRBCs and 2 units FFP yesterday. She was on IV fluids but that was discontinued yesterday morning. Levophed was discontinued yesterday morning. She states that her blood pressure runs in the 90s and occasionally in the 80s at home. She developed crackles yesterday and was given 20 mg IV Lasix which she tolerated. She got another 20 mg IV Lasix last night. She is now on with her minute O2. Chest x-ray this morning shows increased small left pleural effusion and increased infiltrates. She was given 40 IV Lasix this morning and has had good urine output. Her blood pressure remained stable. She reports shortness of breath and increased edema. Her legs are still sore from her fall. Medications: Reviewed: Yes Vitals/I&O/Wt Last Vital Signs Temp 98.2 F 04/09/24 12:25 Pulse 66 04/09/24 12:00 Resp 21 H 04/09/24 12:00 BP 100/56 04/09/24 12:15 Pulse Ox 95 04/09/24 12:00 O2 Del Method Nasal Cannula 04/09/24 12:00 O2 Flow Rate 4 04/09/24 11:15 04/08/24 04/09/24 04/09/24 22:59 06:59 14:59 Intake Total 1109 / 2260.375 50 / 2310.375 500 / 500 Output Total 1000 / 1000 1325 / 2325 Balance 109 / 1260.375 -1275 / -14.625 500 / 500 Weight last 48 hrs Weight 76.839 kg Weight 75.841 kg Physical Exam 2 Narrative: GEN: Alert and cooperative Neuro: Oriented x 4, no focal neurological deficits HEENT: Normocephalic and atraumatic, PERRLA Neck: Supple, no JVD Cardio: S1, S2, regular rate and rhythm, no murmur noted Lungs: Normal effort, crackles bilateral bases Abdomen: Soft, nontender, nondistended, normal active bowel sounds Skin: Bruising bilateral upper and lower extremities, also noted to have bruising on her chest and back Extremities: Trace edema bilateral lower extremities Urinary Catheter Management: Black: Cath Placed During This Visit: yes Reason for Continuing Indwelling Catheter: Accurate Measurement of Urinary Output in Critically Ill Patients Urinary Catheter Date of Insertion: 04/06/24 Urinary Catheter Time of Insertion: 09:00 Data 04/09/24 05:16 04/09/24 06:59 Micro: Microbiology 04/06/24 17:30 Gram Stain - Final Pleural Fluid Anaerobic Culture - Preliminary Body Fluid Culture - Final A&P Assessment and plan (1) Septic shock: #Severe sepsis with septic shock, resolved ?Source is bilateral pneumonia ?Her BP runs in the hig 80s-90s/50s at baseline; goal MAP ~60 mmHg ?Levophed was discontinued yesterday morning 04/08 ?She was on dexamethasone for rheumatoid arthritis and was started on stress dose steroids ?Random cortisol level checked on 04/06 and was 7.31 ug/dL (equivocal for adrenal insufficiency); consider ACTH stim test in the future ?Decreased hydrocortisone to 100mg every 12 hours today; continue taper tomorrow ?Continue midodrine 10 mg 3 times daily ?Blood cultures 04/06 ngtd (2) Pneumonia: Immunocompromised status due to treatment for rheumatoid arthritis ? Left upper lobe pleural nodule seen on CT chest could represent pneumonia ? Respiratory panel negative on 04/06; MRSA PCR negative ? Sputum culture ordered ? Discontinued vancomycin; continue meropenem (04/06? ) (3) Pleural effusion, left: Large left pleural effusion seen on CT chest done on 04/06 ? Status post thoracentesis on 04/06 (1120 mL fluid removed) ? Pleural fluid: Exudative, rare PMNs, no organisms on Gram stain, culture no growth to date, cytology pending ? Fluid was bloody concerning for hemothorax; she has elevated INR and thrombocytopenia ? BILLY pleural nodule (2.6x1.7 cm) on CT chest and may be malignant #she will need repeat CT chest ? Pulmonary critical care is following (4) Volume overload: ? Echo done on 04/06 showed normal systolic function with EF of 60 to 65%. No regional wall motion abnormalities. ? She was on IV fluids which have been discontinued and received 2 units of PRBCs and FFP yesterday. ? She is tolerating IV Lasix and has had good urine output. ?Reassess need for IV diuresis daily given her chronic hypotension; she was on Lasix 40 mg daily at home ? Telemetry monitoring ? Strict I's and O's and daily weights ? Monitor renal function (5) Anemia: ? She has elevated INR and contusions from a fall. ? She had a EGD and colonoscopy on 03/15/2024. She was noted to have esophageal varices in the distal third of the esophagus and gastritis. She also had friable mucosa with contact bleeding from the cecum to the rectum. ? She does not have any evidence of active GI bleeding at this time. She has not had hematemesis, melena, or hematochezia. ? Pleural fluid from left thoracentesis was bloody suggesting hemothorax ? Haptoglobin was normal. ? Hemoglobin decreased to 7.8 g/dL yesterday (04/06) INR remains elevated despite getting oral vitamin K ? She was given 2 units of PRBCs and 2 units of FFP yesterday (04/06); hemoglobin is improved and remained stable (6) Thrombocytopenia: ? This is chronic ? Most likely multifactorial due to sepsis and liver cirrhosis (7) Leukopenia: ? She has had pancytopenia in the last few months. ? Peripheral smear done on 02/23 showed RBC changes consistent with liver disease and folate deficiency. No schistocytosis. Smudge lymphocytes present. ? Repeat peripheral smear on 04/03 moderate leukopenia with moderate lymphocytosis, mild microcytic anemia, and moderate thrombocytopenia. These findings are nonspecific. Macrocytic anemia could be due to drug/toxin effect, liver injury, nutritional deficiency (vitamin B-12/folate) or an underlying hematopoietic disorder. The lymphocytosis shows features suggestive of but not entirely conclusive for chronic lymphocytic leukemia. Clinical correlation with morphology and/or ancillary studies such as flow cytometry will be necessary for full evaluation. ? Her B12 and folic acid were normal ? Flow cytometry ordered ? She was referred to hematology/oncology at [facility] recently. (8) Cirrhosis of liver: Liver cirrhosis thought to be from methotrexate use for her rheumatoid arthritis Negative for hepatitis B and C Ferritin was recently checked and was elevated. Ceruloplasmin was normal She has been referred to hepatology at [facility] and awaiting appointment (9) Hyponatremia: This is resolved ? Likely secondary to her cirrhosis; she also had recurrent nausea and vomiting recently (10) Rheumatoid arthritis: Hold dexamethasone, changed to hydrocortisone secondary to acute illness Qualifiers: Rheumatoid arthritis location: multiple sites Rheumatoid factor presence: unspecified presence Qualified Code(s): M06.9 - Rheumatoid arthritis, unspecified (11) COPD (chronic obstructive pulmonary disease): Budesonide twice daily DuoNeb every 6 hours Qualifiers: COPD type: chronic bronchitis Chronic bronchitis type: simple Qualified Code(s): J41.0 - Simple chronic bronchitis (12) Fall: Etiology unknown CK was normal Continue fall precautions (13) Hypothyroidism: Continue levothyroxine Qualifiers: Hypothyroidism type: acquired Qualified Code(s): E03.9 - Hypothyroidism, unspecified Plan Allow natural , discussed extensively with patient and family SCDs for DVT prophylaxis, pharmacologic contraindicated secondary to thrombocytopenia, anemia, significant bruising with recent fall. VTE ppx: SCDs (she is thrombocytopenic) Attestations 2 Medical Necessity Statement*: Patient continues to need hospitalization. She is on IV diuresis, IV antibiotics, and O2. She does not use O2 at home. Consider home O2 evaluation for discharge. Coding Level of Care Code 98619 Diagnoses Septic shock A41.9; R65.21 Pneumonia J18.9 Pleural effusion, left J90 Volume overload E87.70 Anemia D64.9 Thrombocytopenia D69.6 Leukopenia D72.819 Cirrhosis of liver K74.60 Hyponatremia E87.1 Rheumatoid arthritis involving multiple sites, unspecified whether rheumatoid factor present M06.9 Rheumatoid arthritis location: multiple sites Rheumatoid factor presence: unspecified presence Simple chronic bronchitis J41.0 COPD type: chronic bronchitis Chronic bronchitis type: simple Fall [id number] Acquired hypothyroidism E03.9 Hypothyroidism type: acquired
[2024-04-09] MEDS: HYDROmorphone 1 mg/mL INJ 1 mL 0.5 MG IVP (14:50)
--- NOTE | 2024-04-09 15:33 | PC.NURSE ---
Patient transferred via wheelchair to room 102, U on 2 L NC. All belongings gathered and with patient at the time of transfer including cellphone/wallet combo, dark green bag with all contents.
[2024-04-09] MEDS: quetiapine 25 mg Tablet PO (22:10)
[2024-04-10] VITALS (17 sets, daily range): BP systolic 107–122; BP diastolic 54–69; PULSE 70–87; RESP 16–34; TEMP 36.4–36.7; O2SAT 88–96; BMI 29.5
[2024-04-10] MEDS: meropenem 1,000 MG in sodium chloride 0.9% (plus) 50 ML 100 MG IV ×3 (01:33→16:51)
[2024-04-10] MEDS: ipratropium-albuterol 3 mL Neb INHALATION ×4 (02:07→19:49)
[2024-04-10 04:07] LABS: Basophils % 0.4 %; Hematocrit 30.8 % (36-47); Lymphocytes # 0.5 10^3/uL (0.8-4.8); Lymphocytes % 9.5 %; Mean Corpuscular HGB Conc 34.4 g/dL (30-55); Mean Corpuscular Hemoglobin 36.7 pg (27-33); Mean Corpuscular Volume 106.6 fl (85-98); Mean Platelet Volume 10.7 fL (7.4-10.4); Monocytes # 0.3 10^3/uL (0.2-0.9); Monocytes % 5.7 %; Neutrophils # 3.77 10^3/uL (1.8-7.7); Neutrophils % 79.1 %; Nucleated Red Blood Cells % 0 %; Platelet Count 59 10^3/cmm (157-399); Red Blood Count 2.89 10^6/uL (3.85-5.65); Red Cell Distribution Width 21.8 % (12.1-15.1); White Blood Count 4.76 10^3/uL (3.29-11.43)
[2024-04-10 04:27] LABS: Albumin Level 2.9 g/dL (3.5-5.2); Anion Gap 13.1 (5-19); Blood Urea Nitrogen 28 mg/dL (8-23); Calcium 7.9 mg/dL (8.5-10.5); Carbon Dioxide 23 mmol/L (22-29); Chloride 109 mmol/L (98-107); Creatinine Clr Calc Pharmacy 51.1574; Glomerular Filtration Rate 49.8 mL/min (90-130); Glucose 114 mg/dL (65-115); Phosphorus 2.6 mg/dL (2.5-4.5); Potassium 3.1 mmol/L (3.5-5.1); Sodium 142 mmol/L (136-145)
[2024-04-10] MEDS: FUROsemide 10 mg/mL SDV 4mL 40 MG IVP (05:14)
[2024-04-10] MEDS: budesonide 0.5 mg/2 mL Neb INHALATION ×2 (07:29→19:49)
[2024-04-10] MEDS: HYDROmorphone 1 mg/mL INJ 1 mL 0.5 MG IVP (07:33)
[2024-04-10] MEDS: midodrine 5 mg TABLET 10 MG PO ×3 (09:33→20:03)
[2024-04-10] MEDS: levothyroxine 25 mcg Tablet PO (09:33)
[2024-04-10] MEDS: ropinirole 0.25 mg Tablet PO ×2 (09:33→20:03)
[2024-04-10] MEDS: pantoprazole 40 mg SDV IVP ×2 (09:34→20:02)
[2024-04-10] MEDS: buPROPion XL (24 HR) 150 mg Tablet PO (09:52)
[2024-04-10] MEDS: FUROsemide 40 mg Tablet PO (09:58)
[2024-04-10] MEDS: lidocaine 1% 5 ML in potassium chloride premix 100 ML 26.25 ML IV (10:18)
--- NOTE | 2024-04-10 11:59 | PC.SOCIAL ---
IMM Update Pg. 2 of IMM updated and reviewed with patient who verbalized understanding. Copy provided.
[2024-04-10] MEDS: hydrocortisone 100 mg/2 mL SDV IVP (13:52)
--- NOTE | 2024-04-10 15:53 | P.PN_ITS ---
Subjective 2 Subjective: Patient states that she feels very weak overall. States that she was able to ambulate prior to this current admission but now is unable to do so. Currently on 4 L/min supplemental O2. Medications: Reviewed: Yes Vitals/I&O/Wt Last Vital Signs Temp 97.8 F 04/10/24 11:00 Pulse 70 04/10/24 15:24 Resp 16 04/10/24 13:58 BP 112/67 04/10/24 11:00 Pulse Ox 94 04/10/24 13:58 O2 Del Method Nasal Cannula 04/10/24 13:58 O2 Flow Rate 4 04/10/24 13:58 04/10/24 04/10/24 04/10/24 06:59 14:59 22:59 Intake Total 50 / 805 395 / 395 Output Total 300 / 575 600 / 600 Balance -250 / 230 -205 / -205 Weight last 48 hrs Weight 78.103 kg Weight 79.832 kg Weight 76.839 kg Physical Exam 2 Narrative: General: No acute distress, AO x3, mildly ill-appearing HEENT: PERRLA, pupils bilaterally equal and reactive, pallors not present Chest: Normal vesicular breath sounds, no added sounds, equal good air entry bilaterally CVS: S1-S2 regular, no murmurs, no tachycardia, no gallops, no rubs Abdomen: Soft, nontender, no organomegaly, bowel sounds present Neuro: No focal deficits, no facial deformity, AO x3, power 5/5 in all limbs Extremities: Bilateral lower extremity pitting edema. Several bruises noted all over the body including upper and lower extremities, torso and back. Urinary Catheter Management: Black: Cath Placed During This Visit: yes Reason for Continuing Indwelling Catheter: Accurate Measurement of Urinary Output in Critically Ill Patients Urinary Catheter Date of Insertion: 04/06/24 Urinary Catheter Time of Insertion: 09:00 Data 04/10/24 03:05 04/10/24 03:05 Micro: Microbiology 04/06/24 17:30 Gram Stain - Final Pleural Fluid Anaerobic Culture - Preliminary Body Fluid Culture - Final 04/06/24 17:30 Mycobacterial Smear - Preliminary Body Fluids - Pleura,Lt Lung A&P Assessment and plan (1) Septic shock: #Severe sepsis with septic shock, resolved ?Source is bilateral pneumonia ?Her BP runs in the hig 80s-90s/50s at baseline; goal MAP ~60 mmHg ?Levophed was discontinued 04/08 ?She was on dexamethasone for rheumatoid arthritis and was started on stress dose steroids, currently on hydrocortisone 100 IV every 12 hours. -Reduced to 50 mg IV every 12 hours, aim to change to oral if remains stable ?Continue midodrine 10 mg 3 times daily ?Blood cultures 04/06 ngtd (2) Pneumonia: Immunocompromised status due to treatment for rheumatoid arthritis, longstanding steroid use ? Left upper lobe pleural nodule seen on CT chest could represent pneumonia ? Respiratory panel negative on 04/06; MRSA PCR negative ? Sputum culture ordered , unable to be collected ? Discontinued vancomycin; continue meropenem (04/06? ) -Add atypical coverage with levofloxacin, previously received 1 dose on 04/06 -screen BDG and LDH given chronic steroid and lymphopenia (3) Pleural effusion, left: Large left pleural effusion seen on CT chest done on 04/06 ? Status post thoracentesis on 04/06 (1120 mL fluid removed) ? Pleural fluid: Exudative, rare PMNs, no organisms on Gram stain, culture no growth to date, cytology pending ? Fluid was bloody concerning for hemothorax; she has elevated INR and thrombocytopenia ? BILLY pleural nodule (2.6x1.7 cm) on CT chest and may be malignant #she will need repeat CT chest (4) Volume overload: ? Echo done on 04/06 showed normal systolic function with EF of 60 to 65%. No regional wall motion abnormalities. ? She was on IV fluids which have been discontinued; received 2 units of PRBCs and FFP yesterday. - currently on daily lasix 40mg po daily, will need additional dose of 20 mg IV today. ? Telemetry monitoring ? Strict I's and O's and daily weights ? Monitor renal function (5) Anemia: ? She has elevated INR and contusions from a fall. ? She had a EGD and colonoscopy on 03/15/2024. She was noted to have esophageal varices in the distal third of the esophagus and gastritis. She also had friable mucosa with contact bleeding from the cecum to the rectum. ? She does not have any evidence of active GI bleeding at this time. She has not had hematemesis, melena, or hematochezia. ? Pleural fluid from left thoracentesis was bloody suggesting hemothorax ? Haptoglobin was normal. ? Hemoglobin decreased to 7.8 g/dL yesterday (04/06) INR remains elevated despite getting oral vitamin K ? She was given 2 units of PRBCs and 2 units of FFP on 04/06); hemoglobin is improved and remained stable (6) Thrombocytopenia: ? This is chronic ? Most likely multifactorial due to sepsis and liver cirrhosis (7) Leukopenia: ? She has had pancytopenia in the last few months. ? Peripheral smear done on 02/23 showed RBC changes consistent with liver disease and folate deficiency. No schistocytosis. Smudge lymphocytes present. ? Repeat peripheral smear on 04/03 moderate leukopenia with moderate lymphocytosis, mild microcytic anemia, and moderate thrombocytopenia. These findings are nonspecific. Macrocytic anemia could be due to drug/toxin effect, liver injury, nutritional deficiency (vitamin B-12/folate) or an underlying hematopoietic disorder. The lymphocytosis shows features suggestive of but not entirely conclusive for chronic lymphocytic leukemia. Clinical correlation with morphology and/or ancillary studies such as flow cytometry will be necessary for full evaluation. ? Her B12 and folic acid were normal ? Flow cytometry ordered ? She was referred to hematology/oncology at [facility] recently. (8) Cirrhosis of liver: Liver cirrhosis thought to be from methotrexate use for her rheumatoid arthritis Negative for hepatitis B and C Ferritin was recently checked and was elevated. Ceruloplasmin was normal She has been referred to hepatology at [facility] and awaiting appointment (9) Hyponatremia: This is resolved ? Likely secondary to her cirrhosis; she also had recurrent nausea and vomiting recently (10) Rheumatoid arthritis: Hold dexamethasone, changed to hydrocortisone secondary to acute illness Qualifiers: Rheumatoid arthritis location: multiple sites Rheumatoid factor presence: unspecified presence Qualified Code(s): M06.9 - Rheumatoid arthritis, unspecified (11) COPD (chronic obstructive pulmonary disease): Budesonide twice daily DuoNeb every 6 hours Qualifiers: COPD type: chronic bronchitis Chronic bronchitis type: simple Qualified Code(s): J41.0 - Simple chronic bronchitis (12) Fall: Etiology unknown CK was normal Continue fall precautions (13) Hypothyroidism: Continue levothyroxine Qualifiers: Hypothyroidism type: acquired Qualified Code(s): E03.9 - Hypothyroidism, unspecified Plan Allow natural , discussed extensively with patient SCDs for DVT prophylaxis, pharmacologic contraindicated secondary to thrombocytopenia, anemia, significant bruising with recent fall. VTE ppx: SCDs (she is thrombocytopenic) Dipso: likely to benefit from skilled rehab Attestations 2 Medical Necessity Statement*: Needs continued admission for IV antibiotics, IV diuresis today, Lasix to be repeated, add atypical coverage Coding Level of Care Code Acute Code for Chg Fwd Diagnoses Septic shock A41.9; R65.21 Pneumonia J18.9 Pleural effusion, left J90 Volume overload E87.70 Anemia D64.9 Thrombocytopenia D69.6 Leukopenia D72.819 Cirrhosis of liver K74.60 Hyponatremia E87.1 Rheumatoid arthritis involving multiple sites, unspecified whether rheumatoid factor present M06.9 Rheumatoid arthritis location: multiple sites Rheumatoid factor presence: unspecified presence Simple chronic bronchitis J41.0 COPD type: chronic bronchitis Chronic bronchitis type: simple Fall [id number] Acquired hypothyroidism E03.9 Hypothyroidism type: acquired
--- NOTE | 2024-04-10 16:15 | USR_ITS ---
PROCEDURE INFORMATION: Exam: US Duplex Lower Extremity Veins, Bilateral Exam date and time: 04/10/2024 5:21 PM Age: 63 years old Clinical indication: Edema, localized; Lower extremity, bilateral; Additional info: Evaluate for dvt TECHNIQUE: Imaging protocol: Real-time duplex ultrasound of the bilateral extremities with 2-D mays scale, color Doppler flow and spectral waveform analysis including responses to compression and other maneuvers (when performed) with image documentation. Complete exam focused on the lower extremity veins. COMPARISON: CT angio chest w abd pel w con 04/06/2024 7:49 AM FINDINGS: Right deep veins: Unremarkable. The common femoral, femoral, proximal profunda femoral and popliteal veins are patent without thrombus. Normal Doppler waveforms. Normal compressibility and/or augmentation response. Left deep veins: Unremarkable. The common femoral, femoral, proximal profunda femoral and popliteal veins are patent without thrombus. Normal Doppler waveforms. Normal compressibility and/or augmentation response. Superficial veins: Greater saphenous veins at the saphenofemoral junctions are patent bilaterally without thrombus. Soft tissues: Unremarkable. US/CV venous duplex [facility] [id number] IMPRESSION: No evidence of deep vein thrombosis.
[2024-04-10] MEDS: FUROsemide 10 mg/mL SDV 2mL 20 MG IVP (16:38)
[2024-04-10] MEDS: quetiapine 25 mg Tablet PO (20:03)
[2024-04-10] MEDS: hydrocortisone 100 mg/2 mL SDV 50 MG IVP (22:53)
[2024-04-11] VITALS (21 sets, daily range): BP systolic 118–137; BP diastolic 57–73; PULSE 71–113; RESP 17–43; TEMP 36.4–36.8; O2SAT 91–96
[2024-04-11] MEDS: meropenem 1,000 MG in sodium chloride 0.9% (plus) 50 ML 100 MG IV ×3 (01:50→17:02)
[2024-04-11] MEDS: ipratropium-albuterol 3 mL Neb INHALATION ×4 (03:22→20:22)
[2024-04-11 03:30] LABS: Basophils % 0.3 %; Hematocrit 31.6 % (36-47); Lymphocytes # 0.5 10^3/uL (0.8-4.8); Lymphocytes % 9.1 %; Mean Corpuscular HGB Conc 33.5 g/dL (30-55); Mean Corpuscular Hemoglobin 35.2 pg (27-33); Mean Platelet Volume 10.8 fL (7.4-10.4); Monocytes # 0.3 10^3/uL (0.2-0.9); Monocytes % 4.4 %; Neutrophils # 4.71 10^3/uL (1.8-7.7); Neutrophils % 79.5 %; Nucleated Red Blood Cells % 0 %; Platelet Count 57 10^3/cmm (157-399); Red Blood Count 3.01 10^6/uL (3.85-5.65); Red Cell Distribution Width 20.8 % (12.1-15.1); White Blood Count 5.93 10^3/uL (3.29-11.43)
[2024-04-11 03:53] LABS: Alanine Aminotransferase 12 U/L (0-33); Albumin Level 2.8 g/dL (3.5-5.2); Alkaline Phosphatase 47 U/L (35-105); Anion Gap 10.7 (5-19); Aspartate Amino Transferase 22 U/L (0-32); Blood Urea Nitrogen 31 mg/dL (8-23); Calcium 7.6 mg/dL (8.5-10.5); Carbon Dioxide 27 mmol/L (22-29); Chloride 104 mmol/L (98-107); Creatinine Clr Calc Pharmacy 56.7209; Globulin 2.7 g/dL (1.3-4.6); Glomerular Filtration Rate 55.6 mL/min (90-130); Glucose 102 mg/dL (65-115); Osmolality Calculated 295 mOsm/kg (285-295); Sodium 139 mmol/L (136-145); Total Bilirubin 2.2 mg/dL (0.15-1.2); Total Protein 5.5 g/dL (6.6-8.7)
[2024-04-11 04:01] LABS: Lactate Dehydrogenase 269 U/L (135-214)
[2024-04-11 04:03] LABS: Potassium 2.7 mmol/L (3.5-5.1)
[2024-04-11] MEDS: lidocaine 1% 5 ML in potassium chloride premix 100 ML 52.5 ML IV (04:34)
[2024-04-11] MEDS: budesonide 0.5 mg/2 mL Neb INHALATION ×2 (08:29→20:22)
[2024-04-11] MEDS: FUROsemide 40 mg Tablet PO (08:32)
[2024-04-11] MEDS: midodrine 5 mg TABLET 10 MG PO ×3 (08:32→20:15)
[2024-04-11] MEDS: levoFLOXacin 750 mg Tablet PO (08:32)
[2024-04-11] MEDS: ropinirole 0.25 mg Tablet PO ×2 (08:32→17:01)
[2024-04-11] MEDS: pantoprazole 40 mg SDV IVP ×2 (08:32→21:54)
[2024-04-11] MEDS: levothyroxine 25 mcg Tablet PO (08:32)
[2024-04-11 11:18] LABS: Potassium 3.4 mmol/L (3.5-5.1)
[2024-04-11] MEDS: hydrocortisone 100 mg/2 mL SDV 50 MG IVP (12:26)
[2024-04-11 13:29] LABS: Amylase, Peritoneal Fluid 16 U/L; Amylase, Pleural Fluid 16 U/L
[2024-04-11] MEDS: cetylpyridinium Lozenge 1 EACH MUCOUS MEM (15:03)
--- NOTE | 2024-04-11 16:20 | P.PN_ITS ---
Subjective 2 Subjective: Patient complains of headache today. Has a history of migraines for which she takes Imitrex at home. Also uses as needed oxycodone. These are both being resumed today. Blood pressure has remained stable today. Medications: Reviewed: Yes Vitals/I&O/Wt Last Vital Signs Temp 97.6 F 04/11/24 12:00 Pulse 79 04/11/24 13:36 Resp 20 H 04/11/24 13:36 BP 125/73 04/11/24 12:00 Pulse Ox 94 04/11/24 13:36 O2 Del Method Nasal Cannula 04/11/24 13:36 O2 Flow Rate 6 04/11/24 13:36 04/11/24 04/11/24 04/11/24 06:59 14:59 22:59 Intake Total 750 / 1395 515 / 515 Output Total 1000 / 2450 Balance -250 / -1055 515 / 515 Weight last 48 hrs Weight 80.286 kg Weight 80.286 kg Weight 78.103 kg Weight 79.832 kg Physical Exam 2 Narrative: General: No acute distress, AO x3, mildly ill-appearing HEENT: PERRLA, pupils bilaterally equal and reactive, pallors not present Chest: Normal vesicular breath sounds, no added sounds, equal good air entry bilaterally CVS: S1-S2 regular, no murmurs, no tachycardia, no gallops, no rubs Abdomen: Soft, nontender, no organomegaly, bowel sounds present Neuro: No focal deficits, no facial deformity, AO x3, power 5/5 in all limbs Extremities: Bilateral lower extremity pitting edema. Several bruises noted all over the body including upper and lower extremities, torso and back. Urinary Catheter Management: Black: Cath Placed During This Visit: yes Reason for Continuing Indwelling Catheter: Accurate Measurement of Urinary Output in Critically Ill Patients Urinary Catheter Date of Insertion: 04/06/24 Urinary Catheter Time of Insertion: 09:00 Data 04/11/24 03:16 04/11/24 10:23 Micro: Microbiology 04/06/24 17:30 Gram Stain - Final Pleural Fluid Anaerobic Culture - Preliminary Body Fluid Culture - Final 04/10/24 17:06 Legionella Urinary Antigen - Final Urine,Voided 04/06/24 06:52 Blood Culture - Final Blood NO GROWTH AFTER 5 DAYS 04/06/24 06:49 Blood Culture - Final Blood NO GROWTH AFTER 5 DAYS A&P Assessment and plan (1) Septic shock: #Severe sepsis with septic shock, resolved ?Source is bilateral pneumonia ?Her BP runs in the hig 80s-90s/50s at baseline; goal MAP ~60 mmHg ?Levophed was discontinued 04/08 ?She was on dexamethasone for rheumatoid arthritis and was started on stress dose steroids, currently on hydrocortisone 100 IV every 12 hours.--> Changed to 50 mg IV every 12 hours on 527. Changed to hydrocortisone orally 20 mg in a.m. and 10 mg in the p.m. ?Continue midodrine 10 mg 3 times daily ?Blood cultures 04/06 ngtd (2) Pneumonia: Immunocompromised status due to treatment for rheumatoid arthritis, longstanding steroid use ? Left upper lobe pleural nodule seen on CT chest could represent pneumonia ? Respiratory panel negative on 04/06; MRSA PCR negative ? Sputum culture ordered , unable to be collected ? Discontinued vancomycin; continue meropenem (04/06? ) -continue atypical coverage with levofloxacin, previously received 1 dose on 04/06 -screen BDG ; not significantly elevated LDH (3) Pleural effusion, left: Large left pleural effusion seen on CT chest done on 04/06 ? Status post thoracentesis on 04/06 (1120 mL fluid removed) ? Pleural fluid: Exudative, rare PMNs, no organisms on Gram stain, culture no growth to date, cytology pending ? Fluid was bloody concerning for hemothorax; she has elevated INR and thrombocytopenia ? BILLY pleural nodule (2.6x1.7 cm) on CT chest and may be malignant #she will need repeat CT chest (4) Volume overload: ? Echo done on 04/06 showed normal systolic function with EF of 60 to 65%. No regional wall motion abnormalities. ? She was on IV fluids which have been discontinued; received 2 units of PRBCs and FFP. - currently on daily lasix 40mg po daily, will need additional dose of 20 mg IV today. ? Telemetry monitoring ? Strict I's and O's and daily weights ? Monitor renal function (5) Anemia: ? She has elevated INR and contusions from a fall. ? She had a EGD and colonoscopy on 03/15/2024. She was noted to have esophageal varices in the distal third of the esophagus and gastritis. She also had friable mucosa with contact bleeding from the cecum to the rectum. ? She does not have any evidence of active GI bleeding at this time. She has not had hematemesis, melena, or hematochezia. ? Pleural fluid from left thoracentesis was bloody suggesting hemothorax ? Haptoglobin was normal. ? Hemoglobin decreased to 7.8 g/dL yesterday (04/06) INR remains elevated despite getting oral vitamin K ? She was given 2 units of PRBCs and 2 units of FFP on 04/06); hemoglobin is improved and remained stable (6) Thrombocytopenia: ? This is chronic ? Most likely multifactorial due to sepsis and liver cirrhosis (7) Leukopenia: ? She has had pancytopenia in the last few months. ? Peripheral smear done on 02/23 showed RBC changes consistent with liver disease and folate deficiency. No schistocytosis. Smudge lymphocytes present. ? Repeat peripheral smear on 04/03 moderate leukopenia with moderate lymphocytosis, mild microcytic anemia, and moderate thrombocytopenia. These findings are nonspecific. Macrocytic anemia could be due to drug/toxin effect, liver injury, nutritional deficiency (vitamin B-12/folate) or an underlying hematopoietic disorder. The lymphocytosis shows features suggestive of but not entirely conclusive for chronic lymphocytic leukemia. Clinical correlation with morphology and/or ancillary studies such as flow cytometry will be necessary for full evaluation. ? Her B12 and folic acid were normal ? Flow cytometry ordered ? She was referred to hematology/oncology at [facility] recently. (8) Cirrhosis of liver: Liver cirrhosis thought to be from methotrexate use for her rheumatoid arthritis Negative for hepatitis B and C Ferritin was recently checked and was elevated. Ceruloplasmin was normal She has been referred to hepatology at [facility] and awaiting appointment (9) Hyponatremia: This is resolved ? Likely secondary to her cirrhosis; she also had recurrent nausea and vomiting recently (10) Rheumatoid arthritis: Hold dexamethasone, changed to hydrocortisone secondary to acute illness Qualifiers: Rheumatoid arthritis location: multiple sites Rheumatoid factor presence: unspecified presence Qualified Code(s): M06.9 - Rheumatoid arthritis, unspecified (11) COPD (chronic obstructive pulmonary disease): Budesonide twice daily DuoNeb every 6 hours Qualifiers: COPD type: chronic bronchitis Chronic bronchitis type: simple Qualified Code(s): J41.0 - Simple chronic bronchitis (12) Fall: Etiology unknown CK was normal Continue fall precautions (13) Hypothyroidism: Continue levothyroxine Qualifiers: Hypothyroidism type: acquired Qualified Code(s): E03.9 - Hypothyroidism, unspecified Plan Allow natural , discussed extensively with patient SCDs for DVT prophylaxis, pharmacologic contraindicated secondary to thrombocytopenia, anemia, significant bruising with recent fall. VTE ppx: SCDs (she is thrombocytopenic) Dipso: likely to benefit from skilled rehab Plan for today April 11, 2024. Continue antibiotics meropenem and levofloxacin. Sputum culture still unable to be collected. Urine Legionella antigen is negative. Oxygen requirement at 6 L/min today. Increased crackles on exam. Lasix 20 mg IV additionally today. Repeat chest x-ray tomorrow morning to assess for interval change. Cultures from thoracentesis remain negative to date. Blood cultures additionally remaining negative. Steroids tapered to hydrocortisone 20 mg a.m. and 10 mg p.m. Resume home dose of as needed Imitrex complaining of migraine type headache today. Additionally resume home doses of oxycodone IR. 5 mg p.o. twice daily as needed starting dose currently. Starting to develop thrush likely from antibiotic and steroid use. Start nystatin and Magic mouthwash. Attestations 2 Medical Necessity Statement*: continued admission for iv lasix today,increased 02 requirement, ongoing disposition planning Coding Level of Care Code Acute Code for [facility] Fwd Diagnoses Septic shock A41.9; R65.21 Pneumonia J18.9 Pleural effusion, left J90 Volume overload E87.70 Anemia D64.9 Thrombocytopenia D69.6 Leukopenia D72.819 Cirrhosis of liver K74.60 Hyponatremia E87.1 Rheumatoid arthritis involving multiple sites, unspecified whether rheumatoid factor present M06.9 Rheumatoid arthritis location: multiple sites Rheumatoid factor presence: unspecified presence Simple chronic bronchitis J41.0 COPD type: chronic bronchitis Chronic bronchitis type: simple Fall [id number].XXXA Acquired hypothyroidism E03.9 Hypothyroidism type: acquired
[2024-04-11] MEDS: nystatin 100,000 unit/mL UDC 5 mL 500000 UNIT PO ×2 (17:01→20:16)
[2024-04-11] MEDS: FUROsemide 10 mg/mL SDV 2mL 20 MG IVP (17:01)
[2024-04-11] MEDS: oxyCODONE 5 mg IR Tab/Cap PO (17:01)
[2024-04-11] MEDS: SUMAtriptan 25 mg Tablet PO (17:02)
[2024-04-11] MEDS: hydrocortisone 10 mg Tablet PO (17:03)
[2024-04-11] MEDS: quetiapine 25 mg Tablet PO (20:14)
[2024-04-11] MEDS: morphine 4 mg/mL SDV 1 mL 2 MG IVP (20:18)
--- NOTE | 2024-04-11 20:25 | PC.NURSE ---
Unable to measure accurate urine output, bautista bag leaked onto floor.
[2024-04-12] VITALS (36 sets, daily range): BP systolic 95–121; BP diastolic 51–80; PULSE 71–107; RESP 13–43; TEMP 36.6–36.8; O2SAT 90–97
[2024-04-12] MEDS: meropenem 1,000 MG in sodium chloride 0.9% (plus) 50 ML 100 MG IV ×3 (01:14→20:29)
[2024-04-12] MEDS: ipratropium-albuterol 3 mL Neb INHALATION ×4 (02:50→20:25)
[2024-04-12] MEDS: ondansetron 2 mg/ML SDV 2 mL 4 MG IVP (03:03)
[2024-04-12] MEDS: oxyCODONE 5 mg IR Tab/Cap PO ×2 (03:11→22:40)
--- NOTE | 2024-04-12 04:00 | XRR_ITS ---
PROCEDURE INFORMATION: Exam: XR Chest Exam date and time: 04/12/2024 4:14 AM Age: 63 years old Clinical indication: Other: See exam info; Additional info: Follow up b/l infiltrates TECHNIQUE: Imaging protocol: Radiologic exam of the chest. Views: 1 view. COMPARISON: CR (CHEST, ) 04/09/2024 7:40 AM FINDINGS: Lungs: Right upper lobe nodule, stable. There has been interval improvement in aeration of the bilateral lung gagnon. Residual diffuse coarsening of the interstitial lung markings. Pleural spaces: Grossly stable left pleural effusion. Heart/Mediastinum: Unremarkable. No cardiomegaly. Bones/joints: Diffuse degenerative change of the visualized osseous structures. XR/XR chest 1V portable [id number] IMPRESSION: 1. Interval improvement in aeration of the bilateral lung gagnon with residual coarsening of the interstitial lung markings. 2. Stable left pleural effusion.
[2024-04-12 04:15] LABS: Basophils % 0.3 %; Eosinophils % 0.2 %; Hematocrit 32.6 % (36-47); Lymphocytes # 0.9 10^3/uL (0.8-4.8); Lymphocytes % 13.6 %; Mean Corpuscular HGB Conc 33.4 g/dL (30-55); Mean Corpuscular Volume 104.8 fl (85-98); Mean Platelet Volume 10.3 fL (7.4-10.4); Monocytes # 0.2 10^3/uL (0.2-0.9); Monocytes % 2.8 %; Neutrophils # 5.06 10^3/uL (1.8-7.7); Neutrophils % 78.4 %; Nucleated Red Blood Cells % 0 %; Platelet Count 43 10^3/cmm (157-399); Red Blood Count 3.11 10^6/uL (3.85-5.65); Red Cell Distribution Width 20.3 % (12.1-15.1); White Blood Count 6.45 10^3/uL (3.29-11.43)
[2024-04-12 04:36] LABS: Alanine Aminotransferase 13 U/L (0-33); Albumin Level 2.5 g/dL (3.5-5.2); Alkaline Phosphatase 50 U/L (35-105); Anion Gap 11.4 (5-19); Aspartate Amino Transferase 26 U/L (0-32); Blood Urea Nitrogen 32 mg/dL (8-23); Calcium 8.4 mg/dL (8.5-10.5); Carbon Dioxide 29 mmol/L (22-29); Chloride 104 mmol/L (98-107); Globulin 3.1 g/dL (1.3-4.6); Glomerular Filtration Rate 49.8 mL/min (90-130); Glucose 92 mg/dL (65-115); Osmolality Calculated 301 mOsm/kg (285-295); Sodium 142 mmol/L (136-145); Total Bilirubin 2.8 mg/dL (0.15-1.2); Total Protein 5.6 g/dL (6.6-8.7)
[2024-04-12 04:48] LABS: Creatinine Clr Calc Pharmacy 52.2673
[2024-04-12 04:49] LABS: Potassium 2.4 mmol/L (3.5-5.1)
[2024-04-12] MEDS: potassium chloride ER 20 mEq Tablet 40 MEQ PO (05:01)
[2024-04-12] MEDS: hydrocortisone 10 mg Tablet 20 MG PO (05:03)
[2024-04-12] MEDS: morphine 4 mg/mL SDV 1 mL 2 MG IVP ×2 (08:15→18:13)
[2024-04-12] MEDS: budesonide 0.5 mg/2 mL Neb INHALATION ×2 (08:38→20:25)
[2024-04-12] MEDS: nystatin 100,000 unit/mL UDC 5 mL 500000 UNIT PO ×3 (08:58→20:23)
[2024-04-12] MEDS: midodrine 5 mg TABLET 10 MG PO ×3 (08:58→20:23)
[2024-04-12] MEDS: buPROPion XL (24 HR) 150 mg Tablet PO (08:58)
[2024-04-12] MEDS: levoFLOXacin 750 mg Tablet PO (08:58)
[2024-04-12] MEDS: levothyroxine 25 mcg Tablet PO (08:59)
[2024-04-12] MEDS: ropinirole 0.25 mg Tablet PO ×2 (08:59→18:19)
[2024-04-12] MEDS: pantoprazole 40 mg SDV IVP (08:59)
--- NOTE | 2024-04-12 10:13 | PC.SOCIAL ---
IMM Update pg 2 of IMM updated and reviewed w/ patient. Copy provided and copy dated, initialed and placed in chart.
[2024-04-12] MEDS: FUROsemide 40 mg Tablet PO (10:24)
[2024-04-12 11:42] LABS: Potassium 2.8 mmol/L (3.5-5.1)
--- NOTE | 2024-04-12 15:03 | US_ITS ---
WS: [id number] Abdominal ultrasound, limited. History: Evaluate for ascites. Comparison: 04/06/2024 All 4 quadrants are imaged by ultrasound to evaluate for ascites. There is a small amount of ascites in all 4 quadrants. Limited evaluation and imaging of the abdomen. US/US abdomen lmt fluid [id number] IMPRESSION: Small amount of ascites in all 4 quadrants.
--- NOTE | 2024-04-12 15:03 | XRR_ITS ---
PROCEDURE INFORMATION: Exam: XR Right Knee Exam date and time: 04/12/2024 4:02 PM Age: 63 years old Clinical indication: Pain; Knee; Right; Additional info: Evalute for fracture TECHNIQUE: Imaging protocol: Radiologic exam of the right knee. Views: 1 or 2 views. COMPARISON: CR XR knee RT 3V* [id number] 11/24/2021 2:35 PM FINDINGS: Bones/joints: There is osteophyte off the superior right patella. No acute fracture or dislocation. Soft tissues: Normal. XR/XR knee RT 1-2V [id number] IMPRESSION: There is no evidence for acute fracture or malalignment.
--- NOTE | 2024-04-12 17:16 | PM.PN ---
Subjective Subjective: Patient is experiencing abdominal distention. Also complaining of pain over the right knee since her fall which brought her into the emergency room. Notes were extensively reviewed today from our system dating back to 2022 and from recent admissions at [facility] and ER visits at [facility]. Summarized below. Medications: Reviewed: Yes Vitals/I&O/Wt Last Vital Signs Temp 97.9 F 04/12/24 16:00 Pulse 83 04/12/24 16:00 Resp 20 H 04/12/24 16:00 BP 111/55 04/12/24 16:00 Pulse Ox 95 04/12/24 16:00 O2 Del Method Nasal Cannula 04/12/24 16:00 O2 Flow Rate 2 04/12/24 14:00 04/12/24 04/12/24 04/12/24 06:59 14:59 22:59 Intake Total 650 / 1215 50 / 50 Output Total 150 / 1150 1000 / 1000 Balance 500 / 65 50 / 50 -1000 / -950 Weight last 48 hrs Weight 75.705 kg Weight 80.286 kg Weight 80.286 kg Physical Exam Narrative: General: No acute distress, AO x3, mildly ill-appearing HEENT: PERRLA, pupils bilaterally equal and reactive, pallors not present Chest: Normal vesicular breath sounds, no added sounds, equal good air entry bilaterally CVS: S1-S2 regular, no murmurs, no tachycardia, no gallops, no rubs Abdomen: Soft, nontender, no organomegaly, bowel sounds present Neuro: No focal deficits, no facial deformity, AO x3, power 5/5 in all limbs Extremities: Bilateral lower extremity pitting edema. Several bruises noted all over the body including upper and lower extremities, torso and back. Urinary Catheter Management: Black: Cath Placed During This Visit: yes Reason for Continuing Indwelling Catheter: Other Urinary Catheter Date of Insertion: 04/06/24 Urinary Catheter Time of Insertion: 09:00 Data 04/13/24 03:38 04/13/24 03:38 Micro: Microbiology 04/06/24 17:30 Gram Stain - Final Pleural Fluid Anaerobic Culture - Preliminary Body Fluid Culture - Final 04/11/24 22:03 Bacterial Antigens - Final Urine,Voided A&P Assessment and plan (1) Septic shock: #Severe sepsis with septic shock, resolved ?Source is bilateral pneumonia ?Her BP runs in the hig 80s-90s/50s at baseline; goal MAP ~60 mmHg ?Levophed was discontinued 04/08 ?She was on dexamethasone for rheumatoid arthritis and was started on stress dose steroids, currently on hydrocortisone 100 IV every 12 hours.--> Changed to 50 mg IV every 12 hours on 527. Changed to hydrocortisone orally 20 mg in a.m. and 10 mg in the p.m. ?Continue midodrine 10 mg 3 times daily ?Blood cultures 04/06 ngtd (2) Pneumonia: Immunocompromised status due to treatment for rheumatoid arthritis, longstanding steroid use ? Left upper lobe pleural nodule seen on CT chest could represent pneumonia ? Respiratory panel negative on 04/06; MRSA PCR negative ? Sputum culture ordered , unable to be collected ? Discontinued vancomycin; continue meropenem (04/06? ) -continue atypical coverage with levofloxacin, previously received 1 dose on 04/06 -screen BDG ; not significantly elevated LDH (3) Pleural effusion, left: Large left pleural effusion seen on CT chest done on 04/06 ? Status post thoracentesis on 04/06 (1120 mL fluid removed) ? Pleural fluid: Exudative, rare PMNs, no organisms on Gram stain, culture no growth to date, cytology pending ? Fluid was bloody concerning for hemothorax; she has elevated INR and thrombocytopenia ? BILLY pleural nodule (2.6x1.7 cm) on CT chest and may be malignant #she will need repeat CT chest (4) Volume overload: ? Echo done on 04/06 showed normal systolic function with EF of 60 to 65%. No regional wall motion abnormalities. ? She was on IV fluids which have been discontinued; received 2 units of PRBCs and FFP. - currently on daily lasix 40mg po daily, will need additional dose of 20 mg IV today. ? Telemetry monitoring ? Strict I's and O's and daily weights ? Monitor renal function (5) Anemia: ? She has elevated INR and contusions from a fall. ? She had a EGD and colonoscopy on 03/15/2024. She was noted to have esophageal varices in the distal third of the esophagus and gastritis. She also had friable mucosa with contact bleeding from the cecum to the rectum. ? She does not have any evidence of active GI bleeding at this time. She has not had hematemesis, melena, or hematochezia. ? Pleural fluid from left thoracentesis was bloody suggesting hemothorax ? Haptoglobin was normal. ? Hemoglobin decreased to 7.8 g/dL yesterday (04/06) INR remains elevated despite getting oral vitamin K ? She was given 2 units of PRBCs and 2 units of FFP on 04/06); hemoglobin is improved and remained stable (6) Thrombocytopenia: ? This is chronic ? Most likely multifactorial due to sepsis and liver cirrhosis (7) Leukopenia: ? She has had pancytopenia in the last few months. ? Peripheral smear done on 02/23 showed RBC changes consistent with liver disease and folate deficiency. No schistocytosis. Smudge lymphocytes present. ? Repeat peripheral smear on 04/03 moderate leukopenia with moderate lymphocytosis, mild microcytic anemia, and moderate thrombocytopenia. These findings are nonspecific. Macrocytic anemia could be due to drug/toxin effect, liver injury, nutritional deficiency (vitamin B-12/folate) or an underlying hematopoietic disorder. The lymphocytosis shows features suggestive of but not entirely conclusive for chronic lymphocytic leukemia. Clinical correlation with morphology and/or ancillary studies such as flow cytometry will be necessary for full evaluation. ? Her B12 and folic acid were normal ? Flow cytometry ordered ? She was referred to hematology/oncology at [facility] recently. (8) Cirrhosis of liver: Liver cirrhosis thought to be from methotrexate use for her rheumatoid arthritis Negative for hepatitis B and C Ferritin was recently checked and was elevated. Ceruloplasmin was normal She has been referred to hepatology at [facility] and awaiting appointment (9) Hyponatremia: This is resolved ? Likely secondary to her cirrhosis; she also had recurrent nausea and vomiting recently (10) Rheumatoid arthritis: Hold dexamethasone, changed to hydrocortisone secondary to acute illness Qualifiers: Rheumatoid arthritis location: multiple sites Rheumatoid factor presence: unspecified presence Qualified Code(s): M06.9 - Rheumatoid arthritis, unspecified (11) COPD (chronic obstructive pulmonary disease): Budesonide twice daily DuoNeb every 6 hours Qualifiers: COPD type: chronic bronchitis Chronic bronchitis type: simple Qualified Code(s): J41.0 - Simple chronic bronchitis (12) Fall: Etiology unknown CK was normal Continue fall precautions (13) Hypothyroidism: Continue levothyroxine Qualifiers: Hypothyroidism type: acquired Qualified Code(s): E03.9 - Hypothyroidism, unspecified Plan Allow natural , discussed extensively with patient SCDs for DVT prophylaxis, pharmacologic contraindicated secondary to thrombocytopenia, anemia, significant bruising with recent fall. VTE ppx: SCDs (she is thrombocytopenic) Dipso: likely to benefit from skilled rehab Plan for today April 11, 2024. Continue antibiotics meropenem and levofloxacin. Sputum culture still unable to be collected. Urine Legionella antigen is negative. Oxygen requirement at 6 L/min today. Increased crackles on exam. Lasix 20 mg IV additionally today. Repeat chest x-ray tomorrow morning to assess for interval change. Cultures from thoracentesis remain negative to date. Blood cultures additionally remaining negative. Steroids tapered to hydrocortisone 20 mg a.m. and 10 mg p.m. Resume home dose of as needed Imitrex complaining of migraine type headache today. Additionally resume home doses of oxycodone IR. 5 mg p.o. twice daily as needed starting dose currently. Starting to develop thrush likely from antibiotic and steroid use. Start nystatin and Magic mouthwash. April 12, 2024. Summary of [facility] and [facility] records: Ms. Henning is a 63-year-old lady with a past medical history of hypertension, hypothyroidism, chronic lumbar pain, COPD per review of PCPs notes and rheumatoid arthritis. Patient has had increasing generalized weakness, recurrent falls and feeling poorly with reduced appetite and abdominal discomfort at least since late 2022. CT of the abdomen and pelvis was ordered as an outpatient by her primary care physician in January 2024 which showed new finding of ascites, liver cirrhosis, portal venous hypertension, and bilateral pleural effusions.? Of note liver was previously noted to be normal in February 2023.? She has experienced rapid decompensation related to her liver cirrhosis Patient was admitted at [facility] on 21 February 2024 due to abdominal pain and anasarca.? Symptoms got progressively worse over a span of 1 week.? She was leukopenic with a white blood cell count of 3.5, BNP was over 1100.? CT abdomen and pelvis showed large ascites, mesenteric edema and anasarca related to cirrhosis.? There was moderate bilateral effusion and compressive bilateral lower lobe atelectasis. liver was noted to be cirrhotic.? There was a subcentimeter calcified hepatic granuloma.? Enlarged spleen measuring 13 x 12 x 8 cm.? History of sleeve gastrectomy.? Chronic inflammatory changes in the stomach noted.? On February 21 she underwent paracentesis with removal of 2800 cc of fluid.? She was started on spironolactone and Lasix.? Hepatitis panel was negative.? Serum ceruloplasmin was checked and returned normal range at 22.?Unable to find KATHY panel or autoimmune hepatitis labs on [facility] labs. Antibiotics (CTX) were discontinued on February 22 as all cultures remained negative.? She was constipated for which she received Dulcolax.? Referral was sent to hematology and hepatology in [place] , however patient sates she has not heard from them yet.? Peritoneal fluid analysis was without any malignant cells.? No signs of SBP. There were noted to be mesothelial cells and histiocytes.? Peripheral smear showed macrocytosis consistent with liver disease and folate deficiency.? There were no schistocytosis.? There were some smudge lymphocytes.? Concern for lymphoproliferative process considered low. She was d/c on 02/23. She then visited [facility] on April 03, 2024 due to chest pain and abdominal discomfort and near syncope.? Chest pain was located in the central chest and epigastric area.? Cardiac evaluation was overall negative and patient was discharged home.? She returned back to [facility] that same night on April 03, 2024 due to an unwitnessed syncopal fall at home while using the toilet. ? CT head was negative.? CT C-spine without contrast was without acute findings.? CT of the thoracic spine without any acute osseous abnormality.? Ankylosing spondylitis was noted.? There was edema within the lungs left greater than right and bilateral pleural effusion and noted ascites. Patient was found to be pancytopenic, not new compared to previously.?She has not been seen by heme-onc yet.? She was also diagnosed with acute flare of rheumatoid arthritis involving the right shoulder right elbow right wrist right hand right hip right knee right ankle right foot and left shoulder, left elbow left wrist left hand left hip left knee left ankle and left foot.? She was discharged from the hospital on with Dexamethasone 8mg daily presumably. Unable to see the discharge medication list from this day.? Other past medical history is notable for rheumatoid arthritis for which patient has been on methotrexate for many years . She has not received Rinvoq due to insurance issues.? Patient states that she has used intermittent steroids since November for her rheumatoid flares. Typically use prednisone 10 mg daily as needed for 1 to 2 days. She has never consistently taken steroids equivalent of prednisone 20 mg a day or higher for weeks together. Patient does not know when the dexamethasone 8 mg was prescribed, however presumably this was at the time of diagnosis of rheumatoid flare at [facility] on April 04, 2024. Review review of PCPs note show patient has sustained multiple prior falls in December 2023 at which point she had hurt her left shoulder.? She has a known history of restless legs.? On January 2024 she again reported falling to her primary care physician hitting her knees buttocks arm and shoulder.? X-ray of the shoulder was negative for any fracture or dislocation.?Then had falls resulting in [facility] ER visits as noted above. CAT scan in January 2024, there was a new finding of ascites, liver cirrhosis, portal venous hypertension, and bilateral pleural effusions, splenomegaly. She has had ensoscopic evaluation with Dr. Frey in March 2024 which showed esophageal varices. friable mucosa noted on colonoscopy. Hepatology? referral was provided from surgical office as well. She is currently admitted here she is currently admitted here at [facility] since April 06, 2024 due to another fall.? She has been lightheaded and dizzy at home. I suspect orthostatic hypotension to be the cause. ? There are multiple bruises all over and skin tears noted in various stages of healing. CT chest abdomen and pelvis performed on admission was negative for PE.? There was no right heart strain.? Left upper lobe pleural nodule was noted pneumonia versus neoplasm.? Cirrhotic liver with very small ascites.? Large mucosal edema.? Head CT, C-spine CT normal. She was admitted in view of possible septic shock related to pneumonia , hospital course from admission to now outlined as above. Since admission she has received antibiotics, steroids due to concern for adrenal insufficiency has had a thoracentesis which yielded bloody fluid. Exudative criteria met per lights criteria. Cytology showed reactive mesothelial cells with increased lymphocytes. She has been afebrile during the course of admission. No leukocytosis. Active issues as below. 1. Pneumonia present on admission. Concern for septic shock initially. This is now resolved. Based on further available information, I suspect that her hypotension was related to third spacing from liver cirrhosis, excess volume loss by way of pleural effusion and ascites. Outpatient diuretic use. May additionally have been on Aldactone on which appears on [facility] records. Patient has had multiple falls over the past few months which may have been related to orthostatic hypotension. She has received an appropriate course of antibiotics with meropenem, will complete presumptive 7-day course tomorrow. Atypical coverage with levofloxacin added on April 11, to complete presumptive 5-day course until April 16. With negative pleural fluid cultures, lack of fever or leukocytosis less suspicious of any persisting infectious etiology at this time. Less likely pneumocystis pneumonia given that patient has not been on chronic steroids in a while. Chest x-ray is showing serial improvement in infiltrates. Suspect these to be more likely pulmonary edema with available history now. 2. Hypotension Currently on midodrine 10 mg 3 times a day. We will continue this. Systolic blood pressure currently between 97 to 107 mmHg. Less suspicious of adrenal insufficiency at this time. Suspect this is related to decompensated cirrhosis and portal hypertension. Patient reports that she was not chronically on any prednisone or dexamethasone. She has had intermittent short courses of 1 to 2 days. Cortisol level of 7. Steroids have been tapered during the course of this admission. Will discontinue hydrocortisone 20/10 today and switch to prednisone 20 mg daily, with a goal to titrate down further. 3. Decompensated Liver cirrhosis Newly diagnosed in February 2024. Cause is not yet clear. Chief differentials at this time include drug-induced versus autoimmune process given her past history of rheumatoid arthritis. KATHY panel from 2021 with positive KATHY, positive anti-CCP. Will repeat KATHY panel now, also add on anti-SMA antibodies. Will have to check from lab if this testing is available at [facility] for send out. 4. Pancytopenia, suspect related to liver cirrhosis, folate deficiency. Peripheral smear as noted above from [facility]. Patient needs a follow-up appointment with hematology. May need bone marrow biopsy for further diagnostics. Likely contributed by splenomegaly and increased destruction. Status posttransfusion of both packed red blood cell and FFP as noted above. Monitor platelets. No signs of active bleeding currently. Flow cytometry ordered by Dr. Marcus is currently pending. Will defer to hematology for interpretation. 5. Deranged INR, easy bruising, also likely related to subacute liver failure. 6. Anasarca: Related to liver cirrhosis and portal hypertension hypoalbuminemia. Patient is complaining of increased abdominal distention. Last paracentesis in February 2024. Will order ultrasound-guided paracentesis. 7. Creatinine at 1.1, prior baseline 0.7-0.8. Likely prerenal from systemic hypotension. Would be concerned about development of hepatorenal syndrome. Monitoring closely. 8. 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 Add B12 folate supplementation. Significantly deconditioned as a result of her recent illness as described above. PT OT assessment appreciated. Likely to benefit from ongoing skilled therapy. Appropriate disposition planning is ongoing. Unsafe to return home alone due to falls Complaining of pain in the right knee today. I do not see any x-rays from day of admission. This was likely related to her fall.X ray right knee today to assess for any underlying fractures or dislocations. Optimized pain medications yesterday. States pain is better controlled today. Approx 1 hour was spent in talking to the patient and family (daughters) present at bedside. Explained pathophysiology and clinical course of patients with liver cirrhosis. Explained in detail that patient is currently experiencing decompensation from cirrhosis. Early outpatient hepatology assessment and possible liver biopsy will be critical to obtaining diagnostic information with regard to underlying cause of cirrhosis. Until definitive treatment can be started, we can aim to provide symptomatic support as issues arise, anasarca likely to be a recurrent issue. however would eventually need to be established with hepatology for long-term prognostication and care. We do not have any GI services available at [facility] currently. DVT prophylaxis: SCDs. Anticoagulation contraindicated due to thrombocytopenia and deranged INR. Attestations Medical Necessity Statement*: continued admission for decompensated liver cirrhosis. Status post thoracentesis. Since open symptoms stable. Follow-up platelet counts. Disposition planning Coding Level of Care Code Acute Code for Chg Fwd High Time for a total of 70 minutes, includes reviewing past or interval history, examining/interviewing patient, counseling patient/family/other support, updating patient/family/other support, documenting encounter and coordinating care Diagnoses Septic shock A41.9; R65.21 Pneumonia J18.9 Pleural effusion, left J90 Volume overload E87.70 Anemia D64.9 Thrombocytopenia D69.6 Leukopenia D72.819 Cirrhosis of liver K74.60 Hyponatremia E87.1 Rheumatoid arthritis involving multiple sites, unspecified whether rheumatoid factor present M06.9 Rheumatoid arthritis location: multiple sites Rheumatoid factor presence: unspecified presence Simple chronic bronchitis J41.0 COPD type: chronic bronchitis Chronic bronchitis type: simple Fall [id number].XXXA Acquired hypothyroidism E03.9 Hypothyroidism type: acquired
[2024-04-12] MEDS: pantoprazole DR 40 mg Tablet PO (18:13)
[2024-04-12] MEDS: albumin 12.5 GM/250 ML VIAL IV (18:14)
[2024-04-12] MEDS: lidocaine 1% 5 ML in potassium chloride premix 100 ML 26.25 ML IV (18:15)
[2024-04-12] MEDS: quetiapine 25 mg Tablet PO (20:23)
[2024-04-12] MEDS: lidocaine 1% 5 ML in potassium chloride premix 100 ML 52.5 ML IV (22:30)
[2024-04-13] VITALS (16 sets, daily range): BP systolic 94–119; BP diastolic 52–64; PULSE 72–89; RESP 14–23; TEMP 36.4–36.8; O2SAT 92–97
[2024-04-13] MEDS: benzonatate 100 mg Capsule PO (00:33)
[2024-04-13] MEDS: ipratropium-albuterol 3 mL Neb INHALATION ×4 (01:50→21:09)
[2024-04-13 04:30] LABS: Basophils % 0.2 %; Eosinophils # 0.1 10^3/uL (0.0-0.8); Eosinophils % 0.9 %; Hematocrit 30.2 % (36-47); Lymphocytes % 16.2 %; Mean Corpuscular HGB Conc 33.8 g/dL (30-55); Mean Corpuscular Hemoglobin 35.5 pg (27-33); Mean Corpuscular Volume 105.2 fl (85-98); Mean Platelet Volume 10.7 fL (7.4-10.4); Monocytes # 0.1 10^3/uL (0.2-0.9); Monocytes % 2.2 %; Neutrophils # 4.96 10^3/uL (1.8-7.7); Neutrophils % 77.8 %; Nucleated Red Blood Cells % 0 %; Platelet Count 40 10^3/cmm (157-399); Red Blood Count 2.87 10^6/uL (3.85-5.65); Red Cell Distribution Width 19.9 % (12.1-15.1); White Blood Count 6.37 10^3/uL (3.29-11.43)
[2024-04-13] MEDS: meropenem 1,000 MG in sodium chloride 0.9% (plus) 50 ML 100 MG IV ×2 (04:39→13:41)
[2024-04-13 04:49] LABS: Alanine Aminotransferase 11 U/L (0-33); Albumin Level 2.7 g/dL (3.5-5.2); Alkaline Phosphatase 48 U/L (35-105); Anion Gap 11.1 (5-19); Aspartate Amino Transferase 25 U/L (0-32); Blood Urea Nitrogen 36 mg/dL (8-23); Calcium 8.4 mg/dL (8.5-10.5); Carbon Dioxide 29 mmol/L (22-29); Chloride 99 mmol/L (98-107); Creatinine Clr Calc Pharmacy 50.7923; Globulin 2.8 g/dL (1.3-4.6); Glomerular Filtration Rate 49.8 mL/min (90-130); Glucose 72 mg/dL (65-115); Osmolality Calculated 289 mOsm/kg (285-295); Potassium 3.1 mmol/L (3.5-5.1); Sodium 136 mmol/L (136-145); Total Bilirubin 2.9 mg/dL (0.15-1.2); Total Protein 5.5 g/dL (6.6-8.7)
[2024-04-13] MEDS: budesonide 0.5 mg/2 mL Neb INHALATION ×2 (08:07→21:09)
[2024-04-13] MEDS: potassium chloride ER 20 mEq Tablet 40 MEQ PO (09:41)
[2024-04-13] MEDS: predniSONE 20 mg Tablet PO (09:41)
[2024-04-13] MEDS: levoFLOXacin 750 mg Tablet PO (09:41)
[2024-04-13] MEDS: FUROsemide 40 mg Tablet PO (09:41)
[2024-04-13] MEDS: ropinirole 0.25 mg Tablet PO ×2 (09:41→17:54)
[2024-04-13] MEDS: pantoprazole DR 40 mg Tablet PO ×2 (09:42→17:54)
[2024-04-13] MEDS: morphine 4 mg/mL SDV 1 mL 2 MG IVP (09:42)
[2024-04-13] MEDS: levothyroxine 25 mcg Tablet PO (09:42)
[2024-04-13] MEDS: midodrine 5 mg TABLET 10 MG PO ×3 (09:42→21:05)
[2024-04-13] MEDS: nystatin 100,000 unit/mL UDC 5 mL 500000 UNIT PO ×4 (09:42→21:05)
[2024-04-13] MEDS: ondansetron 2 mg/ML SDV 2 mL 4 MG IVP (10:01)
--- NOTE | 2024-04-13 16:22 | P.PN_ITS ---
Subjective 2 Subjective: Feeling better today. States that pain is better controlled. Also states that she feels better after our conversation yesterday, understanding pathophysiology of liver cirrhosis. Ultrasound of the abdomen was done today, not enough fluid to safely tap for paracentesis. Low volume ascites noted. Stable hemodynamics today. Steroids tapered to prednisone 20 mg p.o. daily. X-ray of the knee without acute fracture or dislocation. Medications: Reviewed: Yes Vitals/I&O/Wt Last Vital Signs Temp 98.3 F 04/13/24 11:54 Pulse 89 04/13/24 14:19 Resp 16 04/13/24 14:09 BP 107/52 04/13/24 11:54 Pulse Ox 97 04/13/24 14:09 O2 Del Method Nasal Cannula 04/13/24 14:09 O2 Flow Rate 2 04/13/24 14:09 04/13/24 04/13/24 04/13/24 06:59 14:59 22:59 Intake Total 155 / 1010 530 / 530 Output Total 350 / 1350 1000 / 1000 Balance -195 / -340 530 / 530 -1000 / -470 Weight last 48 hrs Weight 75.705 kg Weight 75.705 kg Physical Exam 2 Narrative: General: No acute distress, AO x3 HEENT: PERRLA, pupils bilaterally equal and reactive, pallors not present Chest: Normal vesicular breath sounds, no added sounds, equal good air entry bilaterally CVS: S1-S2 regular, no murmurs, no tachycardia, no gallops, no rubs Abdomen: Soft, nontender, no organomegaly, bowel sounds present Neuro: No focal deficits, no facial deformity, AO x3, power 5/5 in all limbs Extremities: Bilateral lower extremity pitting edema. Several bruises noted all over the body including upper and lower extremities, torso and back. Urinary Catheter Management: Black: Cath Placed During This Visit: yes Reason for Continuing Indwelling Catheter: Accurate Measurement of Urinary Output in Critically Ill Patients Urinary Catheter Date of Insertion: 04/06/24 Urinary Catheter Time of Insertion: 09:00 Data 04/13/24 03:38 04/13/24 03:38 Micro: Microbiology 04/06/24 17:30 Gram Stain - Final Pleural Fluid Anaerobic Culture - Final Body Fluid Culture - Final 04/06/24 17:30 Fungal Smear - Preliminary Pleural Fluid A&P Assessment and plan (1) Septic shock: #Severe sepsis with septic shock, resolved ?Source is bilateral pneumonia ?Her BP runs in the hig 80s-90s/50s at baseline; goal MAP ~60 mmHg ?Levophed was discontinued 04/08 ?She was on dexamethasone for rheumatoid arthritis and was started on stress dose steroids, currently on hydrocortisone 100 IV every 12 hours.--> Changed to 50 mg IV every 12 hours on 527. Changed to hydrocortisone orally 20 mg in a.m. and 10 mg in the p.m. ?Continue midodrine 10 mg 3 times daily ?Blood cultures 04/06 ngtd (2) Pneumonia: Immunocompromised status due to treatment for rheumatoid arthritis, longstanding steroid use ? Left upper lobe pleural nodule seen on CT chest could represent pneumonia ? Respiratory panel negative on 04/06; MRSA PCR negative ? Sputum culture ordered , unable to be collected ? Discontinued vancomycin; continue meropenem (04/06? ) -continue atypical coverage with levofloxacin, previously received 1 dose on 04/06 -screen BDG ; not significantly elevated LDH (3) Pleural effusion, left: Large left pleural effusion seen on CT chest done on 04/06 ? Status post thoracentesis on 04/06 (1120 mL fluid removed) ? Pleural fluid: Exudative, rare PMNs, no organisms on Gram stain, culture no growth to date, cytology pending ? Fluid was bloody concerning for hemothorax; she has elevated INR and thrombocytopenia ? BILLY pleural nodule (2.6x1.7 cm) on CT chest and may be malignant #she will need repeat CT chest (4) Volume overload: ? Echo done on 04/06 showed normal systolic function with EF of 60 to 65%. No regional wall motion abnormalities. ? She was on IV fluids which have been discontinued; received 2 units of PRBCs and FFP. - currently on daily lasix 40mg po daily, will need additional dose of 20 mg IV today. ? Telemetry monitoring ? Strict I's and O's and daily weights ? Monitor renal function (5) Anemia: ? She has elevated INR and contusions from a fall. ? She had a EGD and colonoscopy on 03/15/2024. She was noted to have esophageal varices in the distal third of the esophagus and gastritis. She also had friable mucosa with contact bleeding from the cecum to the rectum. ? She does not have any evidence of active GI bleeding at this time. She has not had hematemesis, melena, or hematochezia. ? Pleural fluid from left thoracentesis was bloody suggesting hemothorax ? Haptoglobin was normal. ? Hemoglobin decreased to 7.8 g/dL yesterday (04/06) INR remains elevated despite getting oral vitamin K ? She was given 2 units of PRBCs and 2 units of FFP on 04/06); hemoglobin is improved and remained stable (6) Thrombocytopenia: ? This is chronic ? Most likely multifactorial due to sepsis and liver cirrhosis (7) Leukopenia: ? She has had pancytopenia in the last few months. ? Peripheral smear done on 02/23 showed RBC changes consistent with liver disease and folate deficiency. No schistocytosis. Smudge lymphocytes present. ? Repeat peripheral smear on 04/03 moderate leukopenia with moderate lymphocytosis, mild microcytic anemia, and moderate thrombocytopenia. These findings are nonspecific. Macrocytic anemia could be due to drug/toxin effect, liver injury, nutritional deficiency (vitamin B-12/folate) or an underlying hematopoietic disorder. The lymphocytosis shows features suggestive of but not entirely conclusive for chronic lymphocytic leukemia. Clinical correlation with morphology and/or ancillary studies such as flow cytometry will be necessary for full evaluation. ? Her B12 and folic acid were normal ? Flow cytometry ordered ? She was referred to hematology/oncology at [facility] recently. (8) Cirrhosis of liver: Liver cirrhosis thought to be from methotrexate use for her rheumatoid arthritis Negative for hepatitis B and C Ferritin was recently checked and was elevated. Ceruloplasmin was normal She has been referred to hepatology at [facility] and awaiting appointment (9) Hyponatremia: This is resolved ? Likely secondary to her cirrhosis; she also had recurrent nausea and vomiting recently (10) Rheumatoid arthritis: Hold dexamethasone, changed to hydrocortisone secondary to acute illness Qualifiers: Rheumatoid arthritis location: multiple sites Rheumatoid factor presence: unspecified presence Qualified Code(s): M06.9 - Rheumatoid arthritis, unspecified (11) COPD (chronic obstructive pulmonary disease): Budesonide twice daily DuoNeb every 6 hours Qualifiers: COPD type: chronic bronchitis Chronic bronchitis type: simple Qualified Code(s): J41.0 - Simple chronic bronchitis (12) Fall: Etiology unknown CK was normal Continue fall precautions (13) Hypothyroidism: Continue levothyroxine Qualifiers: Hypothyroidism type: acquired Qualified Code(s): E03.9 - Hypothyroidism, unspecified Plan Allow natural , discussed extensively with patient SCDs for DVT prophylaxis, pharmacologic contraindicated secondary to thrombocytopenia, anemia, significant bruising with recent fall. VTE ppx: SCDs (she is thrombocytopenic) Dipso: likely to benefit from skilled rehab Plan for today April 11, 2024. Continue antibiotics meropenem and levofloxacin. Sputum culture still unable to be collected. Urine Legionella antigen is negative. Oxygen requirement at 6 L/min today. Increased crackles on exam. Lasix 20 mg IV additionally today. Repeat chest x-ray tomorrow morning to assess for interval change. Cultures from thoracentesis remain negative to date. Blood cultures additionally remaining negative. Steroids tapered to hydrocortisone 20 mg a.m. and 10 mg p.m. Resume home dose of as needed Imitrex complaining of migraine type headache today. Additionally resume home doses of oxycodone IR. 5 mg p.o. twice daily as needed starting dose currently. Starting to develop thrush likely from antibiotic and steroid use. Start nystatin and Magic mouthwash. April 12, 2024. Summary of [facility] and [facility] records: Ms. Henning is a 63-year-old lady with a past medical history of hypertension, hypothyroidism, chronic lumbar pain, COPD per review of PCPs notes and rheumatoid arthritis. Patient has had increasing generalized weakness, recurrent falls and feeling poorly with reduced appetite and abdominal discomfort at least since late 2022. CT of the abdomen and pelvis was ordered as an outpatient by her primary care physician in January 2024 which showed new finding of ascites, liver cirrhosis, portal venous hypertension, and bilateral pleural effusions.? Of note liver was previously noted to be normal in February 2023.? She has experienced rapid decompensation related to her liver cirrhosis Patient was admitted at [facility] on 21 February 2024 due to abdominal pain and anasarca.? Symptoms got progressively worse over a span of 1 week.? She was leukopenic with a white blood cell count of 3.5, BNP was over 1100.? CT abdomen and pelvis showed large ascites, mesenteric edema and anasarca related to cirrhosis.? There was moderate bilateral effusion and compressive bilateral lower lobe atelectasis. liver was noted to be cirrhotic.? There was a subcentimeter calcified hepatic granuloma.? Enlarged spleen measuring 13 x 12 x 8 cm.? History of sleeve gastrectomy.? Chronic inflammatory changes in the stomach noted.? On February 21 she underwent paracentesis with removal of 2800 cc of fluid.? She was started on spironolactone and Lasix.? Hepatitis panel was negative.? Serum ceruloplasmin was checked and returned normal range at 22.?Unable to find KATHY panel or autoimmune hepatitis labs on [facility] labs. Antibiotics (CTX) were discontinued on February 22 as all cultures remained negative.? She was constipated for which she received Dulcolax.? Referral was sent to hematology and hepatology in [place] , however patient sates she has not heard from them yet.? Peritoneal fluid analysis was without any malignant cells.? No signs of SBP. There were noted to be mesothelial cells and histiocytes.? Peripheral smear showed macrocytosis consistent with liver disease and folate deficiency.? There were no schistocytosis.? There were some smudge lymphocytes.? Concern for lymphoproliferative process considered low. She was d/c on 02/23. She then visited [facility] on April 03, 2024 due to chest pain and abdominal discomfort and near syncope.? Chest pain was located in the central chest and epigastric area.? Cardiac evaluation was overall negative and patient was discharged home.? She returned back to [facility] that same night on April 03, 2024 due to an unwitnessed syncopal fall at home while using the toilet. ? CT head was negative.? CT C-spine without contrast was without acute findings.? CT of the thoracic spine without any acute osseous abnormality.? Ankylosing spondylitis was noted.? There was edema within the lungs left greater than right and bilateral pleural effusion and noted ascites. Patient was found to be pancytopenic, not new compared to previously.?She has not been seen by heme-onc yet.? She was also diagnosed with acute flare of rheumatoid arthritis involving the right shoulder right elbow right wrist right hand right hip right knee right ankle right foot and left shoulder, left elbow left wrist left hand left hip left knee left ankle and left foot.? She was discharged from the hospital on with Dexamethasone 8mg daily presumably. Unable to see the discharge medication list from this day.? Other past medical history is notable for rheumatoid arthritis for which patient has been on methotrexate for many years . She has not received Rinvoq due to insurance issues.? Patient states that she has used intermittent steroids since November for her rheumatoid flares. Typically use prednisone 10 mg daily as needed for 1 to 2 days. She has never consistently taken steroids equivalent of prednisone 20 mg a day or higher for weeks together. Patient does not know when the dexamethasone 8 mg was prescribed, however presumably this was at the time of diagnosis of rheumatoid flare at [facility] on April 04, 2024. Review review of PCPs note show patient has sustained multiple prior falls in December 2023 at which point she had hurt her left shoulder.? She has a known history of restless legs.? On January 2024 she again reported falling to her primary care physician hitting her knees buttocks arm and shoulder.? X-ray of the shoulder was negative for any fracture or dislocation.?Then had falls resulting in [facility] ER visits as noted above. CAT scan in January 2024, there was a new finding of ascites, liver cirrhosis, portal venous hypertension, and bilateral pleural effusions, splenomegaly. She has had ensoscopic evaluation with Dr. Frey in March 2024 which showed esophageal varices. friable mucosa noted on colonoscopy. Hepatology? referral was provided from surgical office as well. She is currently admitted here she is currently admitted here at [facility] since April 06, 2024 due to another fall.? She has been lightheaded and dizzy at home. I suspect orthostatic hypotension to be the cause. ? There are multiple bruises all over and skin tears noted in various stages of healing. CT chest abdomen and pelvis performed on admission was negative for PE.? There was no right heart strain.? Left upper lobe pleural nodule was noted pneumonia versus neoplasm.? Cirrhotic liver with very small ascites.? Large mucosal edema.? Head CT, C-spine CT normal. She was admitted in view of possible septic shock related to pneumonia , hospital course from admission to now outlined as above. Since admission she has received antibiotics, steroids due to concern for adrenal insufficiency has had a thoracentesis which yielded bloody fluid. Exudative criteria met per lights criteria. Cytology showed reactive mesothelial cells with increased lymphocytes. She has been afebrile during the course of admission. No leukocytosis. Active issues as below. 1. Pneumonia present on admission. Concern for septic shock initially. This is now resolved. Based on further available information, I suspect that her hypotension was related to third spacing from liver cirrhosis, excess volume loss by way of pleural effusion and ascites. Outpatient diuretic use. May additionally have been on Aldactone on which appears on [facility] records. Patient has had multiple falls over the past few months which may have been related to orthostatic hypotension. She has received an appropriate course of antibiotics with meropenem, will complete presumptive 7-day course tomorrow. Atypical coverage with levofloxacin added on April 11, to complete presumptive 5-day course until April 16. With negative pleural fluid cultures, lack of fever or leukocytosis less suspicious of any persisting infectious etiology at this time. Less likely pneumocystis pneumonia given that patient has not been on chronic steroids in a while. Chest x-ray is showing serial improvement in infiltrates. Suspect these to be more likely pulmonary edema with available history now. 2. Hypotension Currently on midodrine 10 mg 3 times a day. We will continue this. Systolic blood pressure currently between 97 to 107 mmHg. Less suspicious of adrenal insufficiency at this time. Suspect this is related to decompensated cirrhosis and portal hypertension. Patient reports that she was not chronically on any prednisone or dexamethasone. She has had intermittent short courses of 1 to 2 days. Cortisol level of 7. Steroids have been tapered during the course of this admission. Will discontinue hydrocortisone 20/10 today and switch to prednisone 20 mg daily, with a goal to titrate down further. 3. Decompensated Liver cirrhosis Newly diagnosed in February 2024. Cause is not yet clear. Chief differentials at this time include drug-induced versus autoimmune process given her past history of rheumatoid arthritis. KATHY panel from 2021 with positive KATHY, positive anti-CCP. Will repeat KATHY panel now, also add on anti-SMA antibodies. Will have to check from lab if this testing is available at [facility] for send out. 4. Pancytopenia, suspect related to liver cirrhosis, folate deficiency. Peripheral smear as noted above from [facility]. Patient needs a follow- up appointment with hematology. May need bone marrow biopsy for further diagnostics. Likely contributed by splenomegaly and increased destruction. Status posttransfusion of both packed red blood cell and FFP as noted above. Monitor platelets. No signs of active bleeding currently. Flow cytometry ordered by Dr. Marcus is currently pending. Will defer to hematology for interpretation. 5. Deranged INR, easy bruising, also likely related to subacute liver failure. 6. Anasarca: Related to liver cirrhosis and portal hypertension hypoalbuminemia. Patient is complaining of increased abdominal distention. Last paracentesis in February 2024. Will order ultrasound-guided paracentesis. 7. Creatinine at 1.1, prior baseline 0.7-0.8. Likely prerenal from systemic hypotension. Would be concerned about development of hepatorenal syndrome. Monitoring closely. 8. 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 Add B12 folate supplementation. Significantly deconditioned as a result of her recent illness as described above. PT OT assessment appreciated. Likely to benefit from ongoing skilled therapy. Appropriate disposition planning is ongoing. Unsafe to return home alone due to falls Complaining of pain in the right knee today. I do not see any x-rays from day of admission. This was likely related to her fall.X ray right knee today to assess for any underlying fractures or dislocations. Optimized pain medications yesterday. States pain is better controlled today. Approx 1 hour was spent in talking to the patient and family (daughters) present at bedside. Explained pathophysiology and clinical course of patients with liver cirrhosis. Explained in detail that patient is currently experiencing decompensation from cirrhosis. Early outpatient hepatology assessment and possible liver biopsy will be critical to obtaining diagnostic information with regard to underlying cause of cirrhosis. Until definitive treatment can be started, we can aim to provide symptomatic support as issues arise, anasarca likely to be a recurrent issue. however would eventually need to be established with hepatology for long-term prognostication and care. We do not have any GI services available at [facility] currently. DVT prophylaxis: SCDs. Anticoagulation contraindicated due to thrombocytopenia and deranged INR. Plan for today April 13, 2024. Not enough fluid available for paracentesis. Low volume ascites in all 4 quadrants. Platelet count dropping to 40,000 today. Closely monitor for any signs of bleeding. Hemoglobin is currently stable. May need to transfuse platelets if further downtrend continues. Net -860 cc last 24 hours. Continue diuresis with Lasix. Ongoing appropriate disposition planning. Replete hypokalemia. Discontinue meropenem as has completed a presumptive 7-day course. Pleural fluid cultures remain negative. Urine bacterial and Legionella antigens are negative. Ordered KATHY, ASMA, LKM-1 ab to screen for autoimmune hepatitis. Several referrals generated for hepatology services at , [facility], [facility], [facility] for expedited outpatient assessment, wherever first available. patient and family willing to travel Attestations 2 Medical Necessity Statement*: Ongoing appropriate disposition planning. Coding Level of Care Code Acute Code for Chg Fwd Moderate MDM includes number and complexity of problems actively addressed during encounter, amount and/or complexity of data reviewed/ordered and described risk of complication, morbidity or mortality of management as documented Diagnoses Septic shock A41.9; R65.21 Pneumonia J18.9 Pleural effusion, left J90 Volume overload E87.70 Anemia D64.9 Thrombocytopenia D69.6 Leukopenia D72.819 Cirrhosis of liver K74.60 Hyponatremia E87.1 Rheumatoid arthritis involving multiple sites, unspecified whether rheumatoid factor present M06.9 Rheumatoid arthritis location: multiple sites Rheumatoid factor presence: unspecified presence Simple chronic bronchitis J41.0 COPD type: chronic bronchitis Chronic bronchitis type: simple Fall W19.XXXA Acquired hypothyroidism E03.9 Hypothyroidism type: acquired
[2024-04-13 17:28] LABS: Folate Level 5.2 ng/mL (4.8-37.3)
[2024-04-13] MEDS: quetiapine 25 mg Tablet PO (21:05)
[2024-04-14] VITALS (18 sets, daily range): BP systolic 97–108; BP diastolic 55–67; PULSE 72–96; RESP 12–18; TEMP 36.3–36.8; O2SAT 90–97
[2024-04-14] MEDS: ipratropium-albuterol 3 mL Neb INHALATION ×4 (01:48→19:55)
--- NOTE | 2024-04-14 03:34 | PC.NURSE ---
Obtained orders for medsurg transfer from . Report was called to [facility] and patient transfered to room 277-1 with all belongings and patients chart. Settled in room, patient states she will call her daughter in the morning to inform her of transfer.
[2024-04-14 05:24] LABS: Basophils % 0.3 %; Eosinophils % 0.3 %; Hematocrit 28.3 % (36-47); Lymphocytes # 0.6 10^3/uL (0.8-4.8); Lymphocytes % 17.9 %; Mean Corpuscular HGB Conc 34.3 g/dL (30-55); Mean Corpuscular Hemoglobin 35.9 pg (27-33); Mean Corpuscular Volume 104.8 fl (85-98); Mean Platelet Volume 10.6 fL (7.4-10.4); Monocytes # 0.1 10^3/uL (0.2-0.9); Monocytes % 3.9 %; Neutrophils # 2.75 10^3/uL (1.8-7.7); Neutrophils % 76.8 %; Nucleated Red Blood Cells % 0 %; Platelet Count 30 10^3/cmm (157-399); Red Cell Distribution Width 19.7 % (12.1-15.1); White Blood Count 3.58 10^3/uL (3.29-11.43)
[2024-04-14 05:51] LABS: Alanine Aminotransferase 10 U/L (0-33); Albumin Level 2.5 g/dL (3.5-5.2); Alkaline Phosphatase 48 U/L (35-105); Anion Gap 12.2 (5-19); Aspartate Amino Transferase 21 U/L (0-32); Blood Urea Nitrogen 35 mg/dL (8-23); Calcium 8.3 mg/dL (8.5-10.5); Carbon Dioxide 30 mmol/L (22-29); Chloride 99 mmol/L (98-107); Globulin 2.7 g/dL (1.3-4.6); Glomerular Filtration Rate 49.8 mL/min (90-130); Glucose 83 mg/dL (65-115); Osmolality Calculated 293 mOsm/kg (285-295); Potassium 3.2 mmol/L (3.5-5.1); Sodium 138 mmol/L (136-145); Total Bilirubin 2.6 mg/dL (0.15-1.2); Total Protein 5.2 g/dL (6.6-8.7)
[2024-04-14 05:56] LABS: Creatinine Clr Calc Pharmacy 51.7415
[2024-04-14 07:05] LABS: Vitamin B12 > 2000 pg/mL (232-1245)
[2024-04-14] MEDS: oxyCODONE 5 mg IR Tab/Cap PO ×2 (08:47→18:10)
[2024-04-14] MEDS: levothyroxine 25 mcg Tablet PO (08:47)
[2024-04-14] MEDS: midodrine 5 mg TABLET 10 MG PO ×3 (08:47→20:30)
[2024-04-14] MEDS: folic acid 1 mg Tablet PO (08:48)
[2024-04-14] MEDS: levoFLOXacin 750 mg Tablet PO (08:48)
[2024-04-14] MEDS: pantoprazole DR 40 mg Tablet PO ×2 (08:48→18:10)
[2024-04-14] MEDS: ondansetron 2 mg/ML SDV 2 mL 4 MG IVP ×2 (08:48→18:10)
[2024-04-14] MEDS: predniSONE 20 mg Tablet PO (08:48)
[2024-04-14] MEDS: FUROsemide 40 mg Tablet PO (08:48)
[2024-04-14] MEDS: nystatin 100,000 unit/mL UDC 5 mL 500000 UNIT PO (08:48)
[2024-04-14] MEDS: multivitamin therapeutic Tablet 1 TAB PO (08:48)
[2024-04-14] MEDS: potassium chloride ER 20 mEq Tablet 40 MEQ PO (08:48)
[2024-04-14] MEDS: ropinirole 0.25 mg Tablet PO ×2 (08:48→18:10)
[2024-04-14] MEDS: budesonide 0.5 mg/2 mL Neb INHALATION ×2 (08:57→19:55)
[2024-04-14] MEDS: buPROPion XL (24 HR) 150 mg Tablet PO (09:11)
--- NOTE | 2024-04-14 09:28 | PC.SOCIAL ---
IMM Update Pg. 2 of IMM updated and reviewed with patient, who verbalized understanding. Copy provided.
[2024-04-14 11:40] LABS: Leukemia Profile (BBPL) See Report
--- NOTE | 2024-04-14 16:21 | P.PN_ITS ---
Subjective 2 Subjective: Patient on room air today. Saturating 96%. Hemoglobin drifting down slightly to 9.7. No obvious bleeding anywhere. Platelets down to 30,000. Ordered for 2 units transfusion today. K at 3.2, received 40 mEq p.o. KCl. Appears to be in better spirits, looking forward to leaving the hospital and going to rehab. Medications: Reviewed: Yes Vitals/I&O/Wt Last Vital Signs Temp 97.8 F 04/14/24 16:02 Pulse 89 04/14/24 16:02 Resp 18 04/14/24 16:02 BP 108/66 04/14/24 16:02 Pulse Ox 91 04/14/24 16:02 O2 Del Method Room Air 04/14/24 16:02 O2 Flow Rate 92 04/14/24 14:00 04/14/24 04/14/24 04/14/24 06:59 14:59 22:59 Intake Total 0 / 650 1360 / 1360 Output Total 350 / 1350 Balance -350 / -700 1360 / 1360 Weight last 48 hrs Weight 78.653 kg Weight 75.705 kg Physical Exam 2 Narrative: General: No acute distress, AO x3 HEENT: PERRLA, pupils bilaterally equal and reactive, pallors not present Chest: Normal vesicular breath sounds, no added sounds, equal good air entry bilaterally CVS: S1-S2 regular, no murmurs, no tachycardia, no gallops, no rubs Abdomen: Soft, nontender, no organomegaly, bowel sounds present Neuro: No focal deficits, no facial deformity, AO x3, power 5/5 in all limbs Extremities: Bilateral lower extremity pitting edema. Several bruises noted all over the body including upper and lower extremities, torso and back. Urinary Catheter Management: Black: Cath Placed During This Visit: yes Reason for Continuing Indwelling Catheter: Other Urinary Catheter Date of Insertion: 04/06/24 Urinary Catheter Time of Insertion: 09:00 Data 04/14/24 05:03 04/14/24 05:03 Micro: Microbiology 04/06/24 17:30 Gram Stain - Final Pleural Fluid Anaerobic Culture - Final Body Fluid Culture - Final A&P Assessment and plan (1) Septic shock: #Severe sepsis with septic shock, resolved ?Source is bilateral pneumonia ?Her BP runs in the hig 80s-90s/50s at baseline; goal MAP ~60 mmHg ?Levophed was discontinued 04/08 ?She was on dexamethasone for rheumatoid arthritis and was started on stress dose steroids, currently on hydrocortisone 100 IV every 12 hours.--> Changed to 50 mg IV every 12 hours on 527. Changed to hydrocortisone orally 20 mg in a.m. and 10 mg in the p.m. ?Continue midodrine 10 mg 3 times daily ?Blood cultures 04/06 ngtd (2) Pneumonia: Immunocompromised status due to treatment for rheumatoid arthritis, longstanding steroid use ? Left upper lobe pleural nodule seen on CT chest could represent pneumonia ? Respiratory panel negative on 04/06; MRSA PCR negative ? Sputum culture ordered , unable to be collected ? Discontinued vancomycin; continue meropenem (04/06? ) -continue atypical coverage with levofloxacin, previously received 1 dose on 04/06 -screen BDG ; not significantly elevated LDH (3) Pleural effusion, left: Large left pleural effusion seen on CT chest done on 04/06 ? Status post thoracentesis on 04/06 (1120 mL fluid removed) ? Pleural fluid: Exudative, rare PMNs, no organisms on Gram stain, culture no growth to date, cytology pending ? Fluid was bloody concerning for hemothorax; she has elevated INR and thrombocytopenia ? BILLY pleural nodule (2.6x1.7 cm) on CT chest and may be malignant #she will need repeat CT chest (4) Volume overload: ? Echo done on 04/06 showed normal systolic function with EF of 60 to 65%. No regional wall motion abnormalities. ? She was on IV fluids which have been discontinued; received 2 units of PRBCs and FFP. - currently on daily lasix 40mg po daily, will need additional dose of 20 mg IV today. ? Telemetry monitoring ? Strict I's and O's and daily weights ? Monitor renal function (5) Anemia: ? She has elevated INR and contusions from a fall. ? She had a EGD and colonoscopy on 03/15/2024. She was noted to have esophageal varices in the distal third of the esophagus and gastritis. She also had friable mucosa with contact bleeding from the cecum to the rectum. ? She does not have any evidence of active GI bleeding at this time. She has not had hematemesis, melena, or hematochezia. ? Pleural fluid from left thoracentesis was bloody suggesting hemothorax ? Haptoglobin was normal. ? Hemoglobin decreased to 7.8 g/dL yesterday (04/06) INR remains elevated despite getting oral vitamin K ? She was given 2 units of PRBCs and 2 units of FFP on 04/06); hemoglobin is improved and remained stable (6) Thrombocytopenia: ? This is chronic ? Most likely multifactorial due to sepsis and liver cirrhosis (7) Leukopenia: ? She has had pancytopenia in the last few months. ? Peripheral smear done on 02/23 showed RBC changes consistent with liver disease and folate deficiency. No schistocytosis. Smudge lymphocytes present. ? Repeat peripheral smear on 04/03 moderate leukopenia with moderate lymphocytosis, mild microcytic anemia, and moderate thrombocytopenia. These findings are nonspecific. Macrocytic anemia could be due to drug/toxin effect, liver injury, nutritional deficiency (vitamin B-12/folate) or an underlying hematopoietic disorder. The lymphocytosis shows features suggestive of but not entirely conclusive for chronic lymphocytic leukemia. Clinical correlation with morphology and/or ancillary studies such as flow cytometry will be necessary for full evaluation. ? Her B12 and folic acid were normal ? Flow cytometry ordered ? She was referred to hematology/oncology at [facility] recently. (8) Cirrhosis of liver: Liver cirrhosis thought to be from methotrexate use for her rheumatoid arthritis Negative for hepatitis B and C Ferritin was recently checked and was elevated. Ceruloplasmin was normal She has been referred to hepatology at [facility] and awaiting appointment (9) Hyponatremia: This is resolved ? Likely secondary to her cirrhosis; she also had recurrent nausea and vomiting recently (10) Rheumatoid arthritis: Hold dexamethasone, changed to hydrocortisone secondary to acute illness Qualifiers: Rheumatoid arthritis location: multiple sites Rheumatoid factor presence: unspecified presence Qualified Code(s): M06.9 - Rheumatoid arthritis, unspecified (11) COPD (chronic obstructive pulmonary disease): Budesonide twice daily DuoNeb every 6 hours Qualifiers: COPD type: chronic bronchitis Chronic bronchitis type: simple Qualified Code(s): J41.0 - Simple chronic bronchitis (12) Fall: Etiology unknown CK was normal Continue fall precautions (13) Hypothyroidism: Continue levothyroxine Qualifiers: Hypothyroidism type: acquired Qualified Code(s): E03.9 - Hypothyroidism, unspecified Plan Allow natural , discussed extensively with patient SCDs for DVT prophylaxis, pharmacologic contraindicated secondary to thrombocytopenia, anemia, significant bruising with recent fall. VTE ppx: SCDs (she is thrombocytopenic) Dipso: likely to benefit from skilled rehab Plan for today April 11, 2024. Continue antibiotics meropenem and levofloxacin. Sputum culture still unable to be collected. Urine Legionella antigen is negative. Oxygen requirement at 6 L/min today. Increased crackles on exam. Lasix 20 mg IV additionally today. Repeat chest x-ray tomorrow morning to assess for interval change. Cultures from thoracentesis remain negative to date. Blood cultures additionally remaining negative. Steroids tapered to hydrocortisone 20 mg a.m. and 10 mg p.m. Resume home dose of as needed Imitrex complaining of migraine type headache today. Additionally resume home doses of oxycodone IR. 5 mg p.o. twice daily as needed starting dose currently. Starting to develop thrush likely from antibiotic and steroid use. Start nystatin and Magic mouthwash. April 12, 2024. Summary of [facility] and [facility] records: Ms. Henning is a 63-year-old lady with a past medical history of hypertension, hypothyroidism, chronic lumbar pain, COPD per review of PCPs notes and rheumatoid arthritis. Patient has had increasing generalized weakness, recurrent falls and feeling poorly with reduced appetite and abdominal discomfort at least since late 2022. CT of the abdomen and pelvis was ordered as an outpatient by her primary care physician in January 2024 which showed new finding of ascites, liver cirrhosis, portal venous hypertension, and bilateral pleural effusions.? Of note liver was previously noted to be normal in February 2023.? She has experienced rapid decompensation related to her liver cirrhosis Patient was admitted at [facility] on 21 February 2024 due to abdominal pain and anasarca.? Symptoms got progressively worse over a span of 1 week.? She was leukopenic with a white blood cell count of 3.5, BNP was over 1100.? CT abdomen and pelvis showed large ascites, mesenteric edema and anasarca related to cirrhosis.? There was moderate bilateral effusion and compressive bilateral lower lobe atelectasis. liver was noted to be cirrhotic.? There was a subcentimeter calcified hepatic granuloma.? Enlarged spleen measuring 13 x 12 x 8 cm.? History of sleeve gastrectomy.? Chronic inflammatory changes in the stomach noted.? On February 21 she underwent paracentesis with removal of 2800 cc of fluid.? She was started on spironolactone and Lasix.? Hepatitis panel was negative.? Serum ceruloplasmin was checked and returned normal range at 22.?Unable to find KATHY panel or autoimmune hepatitis labs on [facility] labs. Antibiotics (CTX) were discontinued on February 22 as all cultures remained negative.? She was constipated for which she received Dulcolax.? Referral was sent to hematology and hepatology in [place] , however patient sates she has not heard from them yet.? Peritoneal fluid analysis was without any malignant cells.? No signs of SBP. There were noted to be mesothelial cells and histiocytes.? Peripheral smear showed macrocytosis consistent with liver disease and folate deficiency.? There were no schistocytosis.? There were some smudge lymphocytes.? Concern for lymphoproliferative process considered low. She was d/c on 02/23. She then visited [facility] on April 03, 2024 due to chest pain and abdominal discomfort and near syncope.? Chest pain was located in the central chest and epigastric area.? Cardiac evaluation was overall negative and patient was discharged home.? She returned back to [facility] that same night on April 03, 2024 due to an unwitnessed syncopal fall at home while using the toilet. ? CT head was negative.? CT C-spine without contrast was without acute findings.? CT of the thoracic spine without any acute osseous abnormality.? Ankylosing spondylitis was noted.? There was edema within the lungs left greater than right and bilateral pleural effusion and noted ascites. Patient was found to be pancytopenic, not new compared to previously.?She has not been seen by heme-onc yet.? She was also diagnosed with acute flare of rheumatoid arthritis involving the right shoulder right elbow right wrist right hand right hip right knee right ankle right foot and left shoulder, left elbow left wrist left hand left hip left knee left ankle and left foot.? She was discharged from the hospital on with Dexamethasone 8mg daily presumably. Unable to see the discharge medication list from this day.? Other past medical history is notable for rheumatoid arthritis for which patient has been on methotrexate for many years . She has not received Rinvoq due to insurance issues.? Patient states that she has used intermittent steroids since November for her rheumatoid flares. Typically use prednisone 10 mg daily as needed for 1 to 2 days. She has never consistently taken steroids equivalent of prednisone 20 mg a day or higher for weeks together. Patient does not know when the dexamethasone 8 mg was prescribed, however presumably this was at the time of diagnosis of rheumatoid flare at [facility] on April 04, 2024. Review review of PCPs note show patient has sustained multiple prior falls in December 2023 at which point she had hurt her left shoulder.? She has a known history of restless legs.? On January 2024 she again reported falling to her primary care physician hitting her knees buttocks arm and shoulder.? X-ray of the shoulder was negative for any fracture or dislocation.?Then had falls resulting in [facility] visits as noted above. CAT scan in January 2024, there was a new finding of ascites, liver cirrhosis, portal venous hypertension, and bilateral pleural effusions, splenomegaly. She has had ensoscopic evaluation with Dr. Frey in March 2024 which showed esophageal varices. friable mucosa noted on colonoscopy. Hepatology? referral was provided from surgical office as well. She is currently admitted here she is currently admitted here at [facility] since April 06, 2024 due to another fall.? She has been lightheaded and dizzy at home. I suspect orthostatic hypotension to be the cause. ? There are multiple bruises all over and skin tears noted in various stages of healing. CT chest abdomen and pelvis performed on admission was negative for PE.? There was no right heart strain.? Left upper lobe pleural nodule was noted pneumonia versus neoplasm.? Cirrhotic liver with very small ascites.? Large mucosal edema.? Head CT, C-spine CT normal. She was admitted in view of possible septic shock related to pneumonia , hospital course from admission to now outlined as above. Since admission she has received antibiotics, steroids due to concern for adrenal insufficiency has had a thoracentesis which yielded bloody fluid. Exudative criteria met per lights criteria. Cytology showed reactive mesothelial cells with increased lymphocytes. She has been afebrile during the course of admission. No leukocytosis. Active issues as below. 1. Pneumonia present on admission. Concern for septic shock initially. This is now resolved. Based on further available information, I suspect that her hypotension was related to third spacing from liver cirrhosis, excess volume loss by way of pleural effusion and ascites. Outpatient diuretic use. May additionally have been on Aldactone on which appears on [facility] records. Patient has had multiple falls over the past few months which may have been related to orthostatic hypotension. She has received an appropriate course of antibiotics with meropenem, will complete presumptive 7-day course tomorrow. Atypical coverage with levofloxacin added on April 11, to complete presumptive 5-day course until April 16. With negative pleural fluid cultures, lack of fever or leukocytosis less suspicious of any persisting infectious etiology at this time. Less likely pneumocystis pneumonia given that patient has not been on chronic steroids in a while. Chest x-ray is showing serial improvement in infiltrates. Suspect these to be more likely pulmonary edema with available history now. 2. Hypotension Currently on midodrine 10 mg 3 times a day. We will continue this. Systolic blood pressure currently between 97 to 107 mmHg. Less suspicious of adrenal insufficiency at this time. Suspect this is related to decompensated cirrhosis and portal hypertension. Patient reports that she was not chronically on any prednisone or dexamethasone. She has had intermittent short courses of 1 to 2 days. Cortisol level of 7. Steroids have been tapered during the course of this admission. Will discontinue hydrocortisone 20/10 today and switch to prednisone 20 mg daily, with a goal to titrate down further. 3. Decompensated Liver cirrhosis Newly diagnosed in February 2024. Cause is not yet clear. Chief differentials at this time include drug-induced versus autoimmune process given her past history of rheumatoid arthritis. KATHY panel from 2021 with positive KATHY, positive anti-CCP. Will repeat KATHY panel now, also add on anti-SMA antibodies. Will have to check from lab if this testing is available at [facility] for send out. 4. Pancytopenia, suspect related to liver cirrhosis, folate deficiency. Peripheral smear as noted above from [facility]. Patient needs a follow- up appointment with hematology. May need bone marrow biopsy for further diagnostics. Likely contributed by splenomegaly and increased destruction. Status posttransfusion of both packed red blood cell and FFP as noted above. Monitor platelets. No signs of active bleeding currently. Flow cytometry ordered by Dr. Marcus is currently pending. Will defer to hematology for interpretation. 5. Deranged INR, easy bruising, also likely related to subacute liver failure. 6. Anasarca: Related to liver cirrhosis and portal hypertension hypoalbuminemia. Patient is complaining of increased abdominal distention. Last paracentesis in February 2024. Will order ultrasound-guided paracentesis. 7. Creatinine at 1.1, prior baseline 0.7-0.8. Likely prerenal from systemic hypotension. Would be concerned about development of hepatorenal syndrome. Monitoring closely. 8. 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 Add B12 folate supplementation. Significantly deconditioned as a result of her recent illness as described above. PT OT assessment appreciated. Likely to benefit from ongoing skilled therapy. Appropriate disposition planning is ongoing. Unsafe to return home alone due to falls Complaining of pain in the right knee today. I do not see any x-rays from day of admission. This was likely related to her fall.X ray right knee today to assess for any underlying fractures or dislocations. Optimized pain medications yesterday. States pain is better controlled today. Approx 1 hour was spent in talking to the patient and family (daughters) present at bedside. Explained pathophysiology and clinical course of patients with liver cirrhosis. Explained in detail that patient is currently experiencing decompensation from cirrhosis. Early outpatient hepatology assessment and possible liver biopsy will be critical to obtaining diagnostic information with regard to underlying cause of cirrhosis. Until definitive treatment can be started, we can aim to provide symptomatic support as issues arise, anasarca likely to be a recurrent issue. however would eventually need to be established with hepatology for long-term prognostication and care. We do not have any GI services available at [facility] currently. DVT prophylaxis: SCDs. Anticoagulation contraindicated due to thrombocytopenia and deranged INR. Plan for today April 13, 2024. Not enough fluid available for paracentesis. Low volume ascites in all 4 quadrants. Platelet count dropping to 40,000 today. Closely monitor for any signs of bleeding. Hemoglobin is currently stable. May need to transfuse platelets if further downtrend continues. Net -860 cc last 24 hours. Continue diuresis with Lasix. Ongoing appropriate disposition planning. Replete hypokalemia. Discontinue meropenem as has completed a presumptive 7-day course. Pleural fluid cultures remain negative. Urine bacterial and Legionella antigens are negative. Ordered KATHY, ASMA, LKM-1 ab to screen for autoimmune hepatitis. Several referrals generated for hepatology services at , [facility], [facility], [facility] for expedited outpatient assessment, wherever first available. patient and family willing to travel Plan for today April 14, 2024. Patient has been weaned down to room air today. Currently saturating 91% on room air. Blood pressure 100-108 systolic. She feels symptomatically better. States she was able to walk to the bathroom with assistance today. Discussed with her starting low-dose Aldactone now that her blood pressure appears to be slightly better, however she is hesitant. States that today is the first day she has felt better and would not like to try any new medications for now. Wants to defer this until she visits with the travel administrator. Platelets trending down to 30,000 today. Hemoglobin also drifting down to 9.7. No obvious bleeding noted. No melena. Has not had a bowel movement today. Will transfuse 2 units platelets given downtrending hemoglobin. Recheck labs in AM. Pending appropriate disposition planning, awaiting insurance Auth for SNF transfer. Attestations 2 Medical Necessity Statement*: Platelet transfusion today. Saturating better. Monitor hemoglobin tomorrow. Pending disposition planning. Coding Level of Care Code Acute Code for Chg Fwd High MDM includes number and complexity of problems actively addressed during encounter, amount and/or complexity of data reviewed/ordered and described risk of complication, morbidity or mortality of management as documented Diagnoses Septic shock A41.9; R65.21 Pneumonia J18.9 Pleural effusion, left J90 Volume overload E87.70 Anemia D64.9 Thrombocytopenia D69.6 Leukopenia D72.819 Cirrhosis of liver K74.60 Hyponatremia E87.1 Rheumatoid arthritis involving multiple sites, unspecified whether rheumatoid factor present M06.9 Rheumatoid arthritis location: multiple sites Rheumatoid factor presence: unspecified presence Simple chronic bronchitis J41.0 COPD type: chronic bronchitis Chronic bronchitis type: simple Fall [id number] Acquired hypothyroidism E03.9 Hypothyroidism type: acquired
[2024-04-14 18:37] LABS: SARS Covid-2 Antigen negative (Negative)
[2024-04-14 20:19] LABS: Fungitell 1-3-B Glucan Assay 112 pg/ml; Interpretation Positive (Negative)
[2024-04-14] MEDS: lidocaine 5% Patch 1 PATCH TOPICAL (20:30)
[2024-04-14] MEDS: quetiapine 25 mg Tablet PO (20:30)
[2024-04-15] VITALS (19 sets, daily range): BP systolic 97–119; BP diastolic 57–69; PULSE 79–94; RESP 13–20; TEMP 36.3–36.9; O2SAT 90–96
[2024-04-15] MEDS: ipratropium-albuterol 3 mL Neb INHALATION ×4 (02:38→19:47)
[2024-04-15] MEDS: morphine 4 mg/mL SDV 1 mL 2 MG IVP ×2 (02:57→23:25)
[2024-04-15 06:07] LABS: Basophils % 0.2 %; Lymphocytes # 0.9 10^3/uL (0.8-4.8); Lymphocytes % 21.4 %; Mean Corpuscular HGB Conc 33.9 g/dL (30-55); Mean Corpuscular Hemoglobin 36.7 pg (27-33); Mean Corpuscular Volume 108.1 fl (85-98); Mean Platelet Volume 11.4 fL (7.4-10.4); Monocytes # 0.2 10^3/uL (0.2-0.9); Monocytes % 5.8 %; Neutrophils # 2.94 10^3/uL (1.8-7.7); Neutrophils % 70.9 %; Nucleated Red Blood Cells % 0 %; Platelet Count 38 10^3/cmm (157-399); Red Blood Count 2.59 10^6/uL (3.85-5.65); White Blood Count 4.15 10^3/uL (3.29-11.43)
[2024-04-15 06:23] LABS: Alanine Aminotransferase 13 U/L (0-33); Albumin Level 2.6 g/dL (3.5-5.2); Alkaline Phosphatase 52 U/L (35-105); Anion Gap 11.2 (5-19); Aspartate Amino Transferase 26 U/L (0-32); Blood Urea Nitrogen 31 mg/dL (8-23); Calcium 7.9 mg/dL (8.5-10.5); Carbon Dioxide 30 mmol/L (22-29); Chloride 100 mmol/L (98-107); Globulin 3.1 g/dL (1.3-4.6); Glomerular Filtration Rate 49.8 mL/min (90-130); Glucose 71 mg/dL (65-115); Osmolality Calculated 291 mOsm/kg (285-295); Potassium 3.2 mmol/L (3.5-5.1); Sodium 138 mmol/L (136-145); Total Bilirubin 2.1 mg/dL (0.15-1.2); Total Protein 5.7 g/dL (6.6-8.7)
[2024-04-15 06:25] LABS: Creatinine Clr Calc Pharmacy 52.1504
[2024-04-15] MEDS: budesonide 0.5 mg/2 mL Neb INHALATION ×2 (08:38→19:47)
[2024-04-15] MEDS: benzonatate 100 mg Capsule PO (09:58)
[2024-04-15] MEDS: ondansetron 2 mg/ML SDV 2 mL 4 MG IVP ×3 (09:58→17:52)
[2024-04-15] MEDS: predniSONE 10 mg Tablet PO (10:02)
[2024-04-15] MEDS: folic acid 1 mg Tablet PO (10:02)
[2024-04-15] MEDS: docusate sodium 100 mg Capsule PO (10:02)
[2024-04-15] MEDS: midodrine 5 mg TABLET 10 MG PO ×3 (10:02→21:10)
[2024-04-15] MEDS: ropinirole 0.25 mg Tablet PO ×2 (10:02→17:52)
[2024-04-15] MEDS: multivitamin therapeutic Tablet 1 TAB PO (10:02)
[2024-04-15] MEDS: levothyroxine 25 mcg Tablet PO (10:03)
[2024-04-15] MEDS: FUROsemide 40 mg Tablet PO (10:03)
[2024-04-15] MEDS: pantoprazole DR 40 mg Tablet PO ×2 (10:03→17:52)
[2024-04-15] MEDS: levoFLOXacin 750 mg Tablet PO (10:04)
[2024-04-15] MEDS: oxyCODONE 5 mg IR Tab/Cap PO (10:04)
[2024-04-15] MEDS: potassium chloride ER 20 mEq Tablet 40 MEQ PO (10:05)
--- NOTE | 2024-04-15 15:44 | P.PN_ITS ---
Subjective 2 Subjective: Patient continues to be on room air. She is however noted to have increased swelling in her abdomen and lower extremities. Will be giving her an additional dose of Lasix today. Received 2 units platelet transfusion yesterday, platelets today at 38,000. I suspect she will be needing another paracentesis prior to discharge. Will transfuse more platelets today with aim to keep platelet goal at 50,000 to safely be able to undergo paracentesis by radiology on Wednesday. Medications: Reviewed: Yes Vitals/I&O/Wt Last Vital Signs Temp 97.6 F 04/15/24 11:48 Pulse 86 04/15/24 13:55 Resp 18 04/15/24 13:36 BP 100/57 04/15/24 11:48 Pulse Ox 96 04/15/24 13:36 O2 Del Method Room Air 04/15/24 13:36 O2 Flow Rate 92 04/14/24 14:00 04/15/24 04/15/24 04/15/24 06:59 14:59 22:59 Intake Total 0 / 1939 960 / 960 Balance 0 / 1439 960 / 960 Weight last 48 hrs Weight 79.923 kg Weight 78.653 kg Physical Exam 2 Narrative: General: No acute distress, AO x3 HEENT: PERRLA, pupils bilaterally equal and reactive, pallors not present Chest: Normal vesicular breath sounds, no added sounds, equal good air entry bilaterally CVS: S1-S2 regular, no murmurs, no tachycardia, no gallops, no rubs Abdomen: Soft, increasing distension, nontender, no organomegaly, bowel sounds present Neuro: No focal deficits, no facial deformity, AO x3, power 5/5 in all limbs Extremities: Bilateral lower extremity pitting edema. Several bruises noted all over the body including upper and lower extremities, torso and back. Urinary Catheter Management: Black: Cath Placed During This Visit: yes Reason for Continuing Indwelling Catheter: Other Urinary Catheter Date of Insertion: 04/06/24 Urinary Catheter Time of Insertion: 09:00 Data 04/15/24 05:34 04/15/24 05:34 A&P Assessment and plan (1) Septic shock: #Severe sepsis with septic shock, resolved ?Source is bilateral pneumonia ?Her BP runs in the hig 80s-90s/50s at baseline; goal MAP ~60 mmHg ?Levophed was discontinued 04/08 ?She was on dexamethasone for rheumatoid arthritis and was started on stress dose steroids, currently on hydrocortisone 100 IV every 12 hours.--> Changed to 50 mg IV every 12 hours on 527. Changed to hydrocortisone orally 20 mg in a.m. and 10 mg in the p.m. ?Continue midodrine 10 mg 3 times daily ?Blood cultures 04/06 ngtd (2) Pneumonia: Immunocompromised status due to treatment for rheumatoid arthritis, longstanding steroid use ? Left upper lobe pleural nodule seen on CT chest could represent pneumonia ? Respiratory panel negative on 04/06; MRSA PCR negative ? Sputum culture ordered , unable to be collected ? Discontinued vancomycin; continue meropenem (04/06? ) -continue atypical coverage with levofloxacin, previously received 1 dose on 04/06 -screen BDG ; not significantly elevated LDH (3) Pleural effusion, left: Large left pleural effusion seen on CT chest done on 04/06 ? Status post thoracentesis on 04/06 (1120 mL fluid removed) ? Pleural fluid: Exudative, rare PMNs, no organisms on Gram stain, culture no growth to date, cytology pending ? Fluid was bloody concerning for hemothorax; she has elevated INR and thrombocytopenia ? BILLY pleural nodule (2.6x1.7 cm) on CT chest and may be malignant #she will need repeat CT chest (4) Volume overload: ? Echo done on 04/06 showed normal systolic function with EF of 60 to 65%. No regional wall motion abnormalities. ? She was on IV fluids which have been discontinued; received 2 units of PRBCs and FFP. - currently on daily lasix 40mg po daily, will need additional dose of 20 mg IV today. ? Telemetry monitoring ? Strict I's and O's and daily weights ? Monitor renal function (5) Anemia: ? She has elevated INR and contusions from a fall. ? She had a EGD and colonoscopy on 03/15/2024. She was noted to have esophageal varices in the distal third of the esophagus and gastritis. She also had friable mucosa with contact bleeding from the cecum to the rectum. ? She does not have any evidence of active GI bleeding at this time. She has not had hematemesis, melena, or hematochezia. ? Pleural fluid from left thoracentesis was bloody suggesting hemothorax ? Haptoglobin was normal. ? Hemoglobin decreased to 7.8 g/dL yesterday (04/06) INR remains elevated despite getting oral vitamin K ? She was given 2 units of PRBCs and 2 units of FFP on 04/06); hemoglobin is improved and remained stable (6) Thrombocytopenia: ? This is chronic ? Most likely multifactorial due to sepsis and liver cirrhosis (7) Leukopenia: ? She has had pancytopenia in the last few months. ? Peripheral smear done on 02/23 showed RBC changes consistent with liver disease and folate deficiency. No schistocytosis. Smudge lymphocytes present. ? Repeat peripheral smear on 04/03 moderate leukopenia with moderate lymphocytosis, mild microcytic anemia, and moderate thrombocytopenia. These findings are nonspecific. Macrocytic anemia could be due to drug/toxin effect, liver injury, nutritional deficiency (vitamin B-12/folate) or an underlying hematopoietic disorder. The lymphocytosis shows features suggestive of but not entirely conclusive for chronic lymphocytic leukemia. Clinical correlation with morphology and/or ancillary studies such as flow cytometry will be necessary for full evaluation. ? Her B12 and folic acid were normal ? Flow cytometry ordered ? She was referred to hematology/oncology at [facility] recently. (8) Cirrhosis of liver: Liver cirrhosis thought to be from methotrexate use for her rheumatoid arthritis Negative for hepatitis B and C Ferritin was recently checked and was elevated. Ceruloplasmin was normal She has been referred to hepatology at [facility] and awaiting appointment (9) Hyponatremia: This is resolved ? Likely secondary to her cirrhosis; she also had recurrent nausea and vomiting recently (10) Rheumatoid arthritis: Hold dexamethasone, changed to hydrocortisone secondary to acute illness Qualifiers: Rheumatoid arthritis location: multiple sites Rheumatoid factor presence: unspecified presence Qualified Code(s): M06.9 - Rheumatoid arthritis, unspecified (11) COPD (chronic obstructive pulmonary disease): Budesonide twice daily DuoNeb every 6 hours Qualifiers: COPD type: chronic bronchitis Chronic bronchitis type: simple Qualified Code(s): J41.0 - Simple chronic bronchitis (12) Fall: Etiology unknown CK was normal Continue fall precautions (13) Hypothyroidism: Continue levothyroxine Qualifiers: Hypothyroidism type: acquired Qualified Code(s): E03.9 - Hypothyroidism, unspecified Plan Allow natural , discussed extensively with patient SCDs for DVT prophylaxis, pharmacologic contraindicated secondary to thrombocytopenia, anemia, significant bruising with recent fall. VTE ppx: SCDs (she is thrombocytopenic) Dipso: likely to benefit from skilled rehab Plan for today April 11, 2024. Continue antibiotics meropenem and levofloxacin. Sputum culture still unable to be collected. Urine Legionella antigen is negative. Oxygen requirement at 6 L/min today. Increased crackles on exam. Lasix 20 mg IV additionally today. Repeat chest x-ray tomorrow morning to assess for interval change. Cultures from thoracentesis remain negative to date. Blood cultures additionally remaining negative. Steroids tapered to hydrocortisone 20 mg a.m. and 10 mg p.m. Resume home dose of as needed Imitrex complaining of migraine type headache today. Additionally resume home doses of oxycodone IR. 5 mg p.o. twice daily as needed starting dose currently. Starting to develop thrush likely from antibiotic and steroid use. Start nystatin and Magic mouthwash. April 12, 2024. Summary of [facility] and [facility] records: Ms. Henning is a 63-year-old lady with a past medical history of hypertension, hypothyroidism, chronic lumbar pain, COPD per review of PCPs notes and rheumatoid arthritis. Patient has had increasing generalized weakness, recurrent falls and feeling poorly with reduced appetite and abdominal discomfort at least since late 2022. CT of the abdomen and pelvis was ordered as an outpatient by her primary care physician in January 2024 which showed new finding of ascites, liver cirrhosis, portal venous hypertension, and bilateral pleural effusions.? Of note liver was previously noted to be normal in February 2023.? She has experienced rapid decompensation related to her liver cirrhosis Patient was admitted at [facility] on 21 February 2024 due to abdominal pain and anasarca.? Symptoms got progressively worse over a span of 1 week.? She was leukopenic with a white blood cell count of 3.5, BNP was over 1100.? CT abdomen and pelvis showed large ascites, mesenteric edema and anasarca related to cirrhosis.? There was moderate bilateral effusion and compressive bilateral lower lobe atelectasis. liver was noted to be cirrhotic.? There was a subcentimeter calcified hepatic granuloma.? Enlarged spleen measuring 13 x 12 x 8 cm.? History of sleeve gastrectomy.? Chronic inflammatory changes in the stomach noted.? On February 21 she underwent paracentesis with removal of 2800 cc of fluid.? She was started on spironolactone and Lasix.? Hepatitis panel was negative.? Serum ceruloplasmin was checked and returned normal range at 22.?Unable to find KATHY panel or autoimmune hepatitis labs on [facility] labs. Antibiotics (CTX) were discontinued on February 22 as all cultures remained negative.? She was constipated for which she received Dulcolax.? Referral was sent to hematology and hepatology in [place] , however patient sates she has not heard from them yet.? Peritoneal fluid analysis was without any malignant cells.? No signs of SBP. There were noted to be mesothelial cells and histiocytes.? Peripheral smear showed macrocytosis consistent with liver disease and folate deficiency.? There were no schistocytosis.? There were some smudge lymphocytes.? Concern for lymphoproliferative process considered low. She was d/c on 02/23. She then visited [facility] on April 03, 2024 due to chest pain and abdominal discomfort and near syncope.? Chest pain was located in the central chest and epigastric area.? Cardiac evaluation was overall negative and patient was discharged home.? She returned back to [facility] that same night on April 03, 2024 due to an unwitnessed syncopal fall at home while using the toilet. ? CT head was negative.? CT C-spine without contrast was without acute findings.? CT of the thoracic spine without any acute osseous abnormality.? Ankylosing spondylitis was noted.? There was edema within the lungs left greater than right and bilateral pleural effusion and noted ascites. Patient was found to be pancytopenic, not new compared to previously.?She has not been seen by heme-onc yet.? She was also diagnosed with acute flare of rheumatoid arthritis involving the right shoulder right elbow right wrist right hand right hip right knee right ankle right foot and left shoulder, left elbow left wrist left hand left hip left knee left ankle and left foot.? She was discharged from the hospital on with Dexamethasone 8mg daily presumably. Unable to see the discharge medication list from this day.? Other past medical history is notable for rheumatoid arthritis for which patient has been on methotrexate for many years . She has not received Rinvoq due to insurance issues.? Patient states that she has used intermittent steroids since November for her rheumatoid flares. Typically use prednisone 10 mg daily as needed for 1 to 2 days. She has never consistently taken steroids equivalent of prednisone 20 mg a day or higher for weeks together. Patient does not know when the dexamethasone 8 mg was prescribed, however presumably this was at the time of diagnosis of rheumatoid flare at [facility] on April 04, 2024. Review review of PCPs note show patient has sustained multiple prior falls in December 2023 at which point she had hurt her left shoulder.? She has a known history of restless legs.? On January 2024 she again reported falling to her primary care physician hitting her knees buttocks arm and shoulder.? X-ray of the shoulder was negative for any fracture or dislocation.?Then had falls resulting in [facility] ER visits as noted above. CAT scan in January 2024, there was a new finding of ascites, liver cirrhosis, portal venous hypertension, and bilateral pleural effusions, splenomegaly. She has had ensoscopic evaluation with Dr. Frey in March 2024 which showed esophageal varices. friable mucosa noted on colonoscopy. Hepatology? referral was provided from surgical office as well. She is currently admitted here she is currently admitted here at [facility] since April 06, 2024 due to another fall.? She has been lightheaded and dizzy at home. I suspect orthostatic hypotension to be the cause. ? There are multiple bruises all over and skin tears noted in various stages of healing. CT chest abdomen and pelvis performed on admission was negative for PE.? There was no right heart strain.? Left upper lobe pleural nodule was noted pneumonia versus neoplasm.? Cirrhotic liver with very small ascites.? Large mucosal edema.? Head CT, C-spine CT normal. She was admitted in view of possible septic shock related to pneumonia , hospital course from admission to now outlined as above. Since admission she has received antibiotics, steroids due to concern for adrenal insufficiency has had a thoracentesis which yielded bloody fluid. Exudative criteria met per lights criteria. Cytology showed reactive mesothelial cells with increased lymphocytes. She has been afebrile during the course of admission. No leukocytosis. Active issues as below. 1. Pneumonia present on admission. Concern for septic shock initially. This is now resolved. Based on further available information, I suspect that her hypotension was related to third spacing from liver cirrhosis, excess volume loss by way of pleural effusion and ascites. Outpatient diuretic use. May additionally have been on Aldactone on which appears on [facility] records. Patient has had multiple falls over the past few months which may have been related to orthostatic hypotension. She has received an appropriate course of antibiotics with meropenem, will complete presumptive 7-day course tomorrow. Atypical coverage with levofloxacin added on April 11, to complete presumptive 5-day course until April 16. With negative pleural fluid cultures, lack of fever or leukocytosis less suspicious of any persisting infectious etiology at this time. Less likely pneumocystis pneumonia given that patient has not been on chronic steroids in a while. Chest x-ray is showing serial improvement in infiltrates. Suspect these to be more likely pulmonary edema with available history now. 2. Hypotension Currently on midodrine 10 mg 3 times a day. We will continue this. Systolic blood pressure currently between 97 to 107 mmHg. Less suspicious of adrenal insufficiency at this time. Suspect this is related to decompensated cirrhosis and portal hypertension. Patient reports that she was not chronically on any prednisone or dexamethasone. She has had intermittent short courses of 1 to 2 days. Cortisol level of 7. Steroids have been tapered during the course of this admission. Will discontinue hydrocortisone 20/10 today and switch to prednisone 20 mg daily, with a goal to titrate down further. 3. Decompensated Liver cirrhosis Newly diagnosed in February 2024. Cause is not yet clear. Chief differentials at this time include drug-induced versus autoimmune process given her past history of rheumatoid arthritis. KATHY panel from 2021 with positive KATHY, positive anti-CCP. Will repeat KATHY panel now, also add on anti-SMA antibodies. Will have to check from lab if this testing is available at [facility] for send out. 4. Pancytopenia, suspect related to liver cirrhosis, folate deficiency. Peripheral smear as noted above from [facility]. Patient needs a follow- up appointment with hematology. May need bone marrow biopsy for further diagnostics. Likely contributed by splenomegaly and increased destruction. Status posttransfusion of both packed red blood cell and FFP as noted above. Monitor platelets. No signs of active bleeding currently. Flow cytometry ordered by Dr. Marcus is currently pending. Will defer to hematology for interpretation. 5. Deranged INR, easy bruising, also likely related to subacute liver failure. 6. Anasarca: Related to liver cirrhosis and portal hypertension hypoalbuminemia. Patient is complaining of increased abdominal distention. Last paracentesis in February 2024. Will order ultrasound-guided paracentesis. 7. Creatinine at 1.1, prior baseline 0.7-0.8. Likely prerenal from systemic hypotension. Would be concerned about development of hepatorenal syndrome. Monitoring closely. 8. 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 Add B12 folate supplementation. Significantly deconditioned as a result of her recent illness as described above. PT OT assessment appreciated. Likely to benefit from ongoing skilled therapy. Appropriate disposition planning is ongoing. Unsafe to return home alone due to falls Complaining of pain in the right knee today. I do not see any x-rays from day of admission. This was likely related to her fall.X ray right knee today to assess for any underlying fractures or dislocations. Optimized pain medications yesterday. States pain is better controlled today. Approx 1 hour was spent in talking to the patient and family (daughters) present at bedside. Explained pathophysiology and clinical course of patients with liver cirrhosis. Explained in detail that patient is currently experiencing decompensation from cirrhosis. Early outpatient hepatology assessment and possible liver biopsy will be critical to obtaining diagnostic information with regard to underlying cause of cirrhosis. Until definitive treatment can be started, we can aim to provide symptomatic support as issues arise, anasarca likely to be a recurrent issue. however would eventually need to be established with hepatology for long-term prognostication and care. We do not have any GI services available at [facility] currently. DVT prophylaxis: SCDs. Anticoagulation contraindicated due to thrombocytopenia and deranged INR. Plan for today April 13, 2024. Not enough fluid available for paracentesis. Low volume ascites in all 4 quadrants. Platelet count dropping to 40,000 today. Closely monitor for any signs of bleeding. Hemoglobin is currently stable. May need to transfuse platelets if further downtrend continues. Net -860 cc last 24 hours. Continue diuresis with Lasix. Ongoing appropriate disposition planning. Replete hypokalemia. Discontinue meropenem as has completed a presumptive 7-day course. Pleural fluid cultures remain negative. Urine bacterial and Legionella antigens are negative. Ordered KATHY, ASMA, LKM-1 ab to screen for autoimmune hepatitis. Several referrals generated for hepatology services at , [facility], [facility], [facility] for expedited outpatient assessment, wherever first available. patient and family willing to travel Plan for today April 14, 2024. Patient has been weaned down to room air today. Currently saturating 91% on room air. Blood pressure 100-108 systolic. She feels symptomatically better. States she was able to walk to the bathroom with assistance today. Discussed with her starting low-dose Aldactone now that her blood pressure appears to be slightly better, however she is hesitant. States that today is the first day she has felt better and would not like to try any new medications for now. Wants to defer this until she visits with the public safety director. Platelets trending down to 30,000 today. Hemoglobin also drifting down to 9.7. No obvious bleeding noted. No melena. Has not had a bowel movement today. Will transfuse 2 units platelets given downtrending hemoglobin. Recheck labs in AM. Pending appropriate disposition planning, awaiting insurance Auth for SNF transfer. April Patient continues to be on room air. She is however noted to have increased swelling in her abdomen and lower extremities. Will be giving her an additional dose of Lasix today. Received 2 units platelet transfusion yesterday, platelets today at 38,000. I suspect she will be needing another paracentesis prior to discharge. Will transfuse more platelets today with aim to keep platelet goal at 50,000 to safely be able to undergo paracentesis by radiology on Wednesday. She is able to ambulate more. States she was able to go out into the hallway today which is more than she was able to do earlier in this week. Increased coughing today after period Of interval improvement. Check COVID PCR and influenza antigen.Increase daily K to 60 meq from 40 meq Attestations 2 Medical Necessity Statement*: transfusion today, likely will need paracentesis, additional lasix 20mg iv today, other changes as above Coding Level of Care Code Acute Code for Chg Fwd High MDM includes number and complexity of problems actively addressed during encounter, amount and/or complexity of data reviewed/ordered and described risk of complication, morbidity or mortality of management as documented Diagnoses Septic shock A41.9; R65.21 Pneumonia J18.9 Pleural effusion, left J90 Volume overload E87.70 Anemia D64.9 Thrombocytopenia D69.6 Leukopenia D72.819 Cirrhosis of liver K74.60 Hyponatremia E87.1 Rheumatoid arthritis involving multiple sites, unspecified whether rheumatoid factor present M06.9 Rheumatoid arthritis location: multiple sites Rheumatoid factor presence: unspecified presence Simple chronic bronchitis J41.0 COPD type: chronic bronchitis Chronic bronchitis type: simple Fall W19.XXXA Acquired hypothyroidism E03.9 Hypothyroidism type: acquired
[2024-04-15] MEDS: FUROsemide 10 mg/mL SDV 2mL 20 MG IVP (17:52)
[2024-04-15 20:30] LABS: Adenovirus Not Detected (NOT DETECT); Chlamydia Pneumoniae Not Detected (NOT DETECT); Coronavirus 229E,HKU1,NL63,OC4 Not Detected (NOT DETECT); Human Metapneumovirus Not Detected (NOT DETECT); Human Rhinovirus/Enterovirus Not Detected (NOT DETECT); Influenza A Not Detected (NOT DETECT); Influenza A H1 Not Detected (NOT DETECT); Influenza A H1-2009 Not Detected (NOT DETECT); Influenza A H3 Not Detected (NOT DETECT); Influenza B Not Detected (NOT DETECT); Mycoplasma Pneumoniae Not Detected (NOT DETECT); Parainfluenza Virus Type 1 Not Detected (NOT DETECT); Parainfluenza Virus Type 2 Not Detected (NOT DETECT); Parainfluenza Virus Type 3 Not Detected (NOT DETECT); Parainfluenza Virus Type 4 Not Detected (NOT DETECT); Respiratory Syncytial Virus A Not Detected (NOT DETECT); Respiratory Syncytial Virus B Not Detected (NOT DETECT); SARS-COV-2 Not Detected (NOT DETECT)
[2024-04-15] MEDS: quetiapine 25 mg Tablet PO (21:10)
[2024-04-16] VITALS (16 sets, daily range): BP systolic 91–105; BP diastolic 53–63; PULSE 77–102; RESP 16–18; TEMP 36.4–37.1; O2SAT 90–94
[2024-04-16] MEDS: ipratropium-albuterol 3 mL Neb INHALATION ×4 (03:17→20:24)
[2024-04-16 05:49] LABS: Eosinophils # 0.1 10^3/uL (0.0-0.8); Eosinophils % 1.9 %; Hematocrit 26.5 % (36-47); Lymphocytes % 27.5 %; Mean Corpuscular Volume 109.1 fl (85-98); Mean Platelet Volume 12.8 fL (7.4-10.4); Monocytes # 0.3 10^3/uL (0.2-0.9); Monocytes % 8.8 %; Neutrophils # 2.23 10^3/uL (1.8-7.7); Neutrophils % 61.5 %; Nucleated Red Blood Cells % 0 %; Platelet Count 61 10^3/cmm (157-399); Red Blood Count 2.43 10^6/uL (3.85-5.65); Red Cell Distribution Width 20.1 % (12.1-15.1); White Blood Count 3.63 10^3/uL (3.29-11.43)
[2024-04-16 06:10] LABS: Alanine Aminotransferase 15 U/L (0-33); Albumin Level 2.7 g/dL (3.5-5.2); Alkaline Phosphatase 55 U/L (35-105); Anion Gap 10.4 (5-19); Aspartate Amino Transferase 29 U/L (0-32); Blood Urea Nitrogen 27 mg/dL (8-23); Calcium 7.9 mg/dL (8.5-10.5); Carbon Dioxide 32 mmol/L (22-29); Chloride 98 mmol/L (98-107); Creatinine Clr Calc Pharmacy 52.1485; Globulin 2.9 g/dL (1.3-4.6); Glomerular Filtration Rate 49.8 mL/min (90-130); Glucose 72 mg/dL (65-115); Osmolality Calculated 288 mOsm/kg (285-295); Potassium 3.4 mmol/L (3.5-5.1); Sodium 137 mmol/L (136-145); Total Bilirubin 2.2 mg/dL (0.15-1.2); Total Protein 5.6 g/dL (6.6-8.7)
[2024-04-16] MEDS: ondansetron 2 mg/ML SDV 2 mL 4 MG IVP ×2 (08:30→17:43)
[2024-04-16] MEDS: oxyCODONE 5 mg IR Tab/Cap PO (08:30)
[2024-04-16] MEDS: budesonide 0.5 mg/2 mL Neb INHALATION ×2 (08:57→20:24)
[2024-04-16] MEDS: ropinirole 0.25 mg Tablet PO ×2 (09:14→17:35)
[2024-04-16] MEDS: potassium chloride ER 20 mEq Tablet 60 MEQ PO (09:14)
[2024-04-16] MEDS: midodrine 5 mg TABLET 10 MG PO ×3 (09:14→20:11)
[2024-04-16] MEDS: folic acid 1 mg Tablet PO (09:14)
[2024-04-16] MEDS: predniSONE 10 mg Tablet PO (09:14)
[2024-04-16] MEDS: levothyroxine 25 mcg Tablet PO (09:15)
[2024-04-16] MEDS: lidocaine 5% Patch 1 PATCH TOPICAL (09:15)
[2024-04-16] MEDS: FUROsemide 40 mg Tablet PO (09:15)
[2024-04-16] MEDS: buPROPion XL (24 HR) 150 mg Tablet PO (09:15)
[2024-04-16] MEDS: multivitamin therapeutic Tablet 1 TAB PO (09:15)
[2024-04-16] MEDS: pantoprazole DR 40 mg Tablet PO ×2 (09:15→17:35)
--- NOTE | 2024-04-16 15:38 | P.PN_ITS ---
Subjective 2 Subjective: No new complaints today except that abdomen feels distended. Needed to be placed back on oxygen transiently overnight, on room air since the morning now. Platelets up to 61,000 after transfusion yesterday. Medications: Reviewed: Yes Vitals/I&O/Wt Last Vital Signs Temp 97.8 F 04/16/24 11:56 Pulse 91 04/16/24 14:36 Resp 18 04/16/24 14:00 BP 91/54 04/16/24 11:56 Pulse Ox 94 04/16/24 14:00 O2 Del Method Room Air 04/16/24 14:00 O2 Flow Rate 92 04/14/24 14:00 04/16/24 04/16/24 04/16/24 06:59 14:59 22:59 Intake Total 1160 / 1160 Output Total 400 / 400 Balance 760 / 760 Weight last 48 hrs Weight 79.917 kg Weight 79.917 kg Weight 79.923 kg Physical Exam 2 Narrative: General: No acute distress, AO x3 HEENT: PERRLA, pupils bilaterally equal and reactive, pallors not present Chest: Normal vesicular breath sounds, no added sounds, equal good air entry bilaterally CVS: S1-S2 regular, no murmurs, no tachycardia, no gallops, no rubs Abdomen: Soft, increasing distension, nontender, no organomegaly, bowel sounds present Neuro: No focal deficits, no facial deformity, AO x3, power 5/5 in all limbs Extremities: Bilateral lower extremity pitting edema. Several bruises noted all over the body including upper and lower extremities, torso and back. None of these are new on exam today. Urinary Catheter Management: Black: Cath Placed During This Visit: yes Reason for Continuing Indwelling Catheter: Other Urinary Catheter Date of Insertion: 04/06/24 Urinary Catheter Time of Insertion: 09:00 Data 04/16/24 05:15 04/16/24 05:15 A&P Assessment and plan (1) Septic shock: #Severe sepsis with septic shock, resolved ?Source is bilateral pneumonia ?Her BP runs in the hig 80s-90s/50s at baseline; goal MAP ~60 mmHg ?Levophed was discontinued 04/08 ?She was on dexamethasone for rheumatoid arthritis and was started on stress dose steroids, currently on hydrocortisone 100 IV every 12 hours.--> Changed to 50 mg IV every 12 hours on 527. Changed to hydrocortisone orally 20 mg in a.m. and 10 mg in the p.m. ?Continue midodrine 10 mg 3 times daily ?Blood cultures 04/06 ngtd (2) Pneumonia: Immunocompromised status due to treatment for rheumatoid arthritis, longstanding steroid use ? Left upper lobe pleural nodule seen on CT chest could represent pneumonia ? Respiratory panel negative on 04/06; MRSA PCR negative ? Sputum culture ordered , unable to be collected ? Discontinued vancomycin; continue meropenem (04/06? ) -continue atypical coverage with levofloxacin, previously received 1 dose on 04/06 -screen BDG ; not significantly elevated LDH (3) Pleural effusion, left: Large left pleural effusion seen on CT chest done on 04/06 ? Status post thoracentesis on 04/06 (1120 mL fluid removed) ? Pleural fluid: Exudative, rare PMNs, no organisms on Gram stain, culture no growth to date, cytology pending ? Fluid was bloody concerning for hemothorax; she has elevated INR and thrombocytopenia ? BILLY pleural nodule (2.6x1.7 cm) on CT chest and may be malignant #she will need repeat CT chest (4) Volume overload: ? Echo done on 04/06 showed normal systolic function with EF of 60 to 65%. No regional wall motion abnormalities. ? She was on IV fluids which have been discontinued; received 2 units of PRBCs and FFP. - currently on daily lasix 40mg po daily, will need additional dose of 20 mg IV today. ? Telemetry monitoring ? Strict I's and O's and daily weights ? Monitor renal function (5) Anemia: ? She has elevated INR and contusions from a fall. ? She had a EGD and colonoscopy on 03/15/2024. She was noted to have esophageal varices in the distal third of the esophagus and gastritis. She also had friable mucosa with contact bleeding from the cecum to the rectum. ? She does not have any evidence of active GI bleeding at this time. She has not had hematemesis, melena, or hematochezia. ? Pleural fluid from left thoracentesis was bloody suggesting hemothorax ? Haptoglobin was normal. ? Hemoglobin decreased to 7.8 g/dL yesterday (04/06) INR remains elevated despite getting oral vitamin K ? She was given 2 units of PRBCs and 2 units of FFP on 04/06); hemoglobin is improved and remained stable (6) Thrombocytopenia: ? This is chronic ? Most likely multifactorial due to sepsis and liver cirrhosis (7) Leukopenia: ? She has had pancytopenia in the last few months. ? Peripheral smear done on 02/23 showed RBC changes consistent with liver disease and folate deficiency. No schistocytosis. Smudge lymphocytes present. ? Repeat peripheral smear on 04/03 moderate leukopenia with moderate lymphocytosis, mild microcytic anemia, and moderate thrombocytopenia. These findings are nonspecific. Macrocytic anemia could be due to drug/toxin effect, liver injury, nutritional deficiency (vitamin B-12/folate) or an underlying hematopoietic disorder. The lymphocytosis shows features suggestive of but not entirely conclusive for chronic lymphocytic leukemia. Clinical correlation with morphology and/or ancillary studies such as flow cytometry will be necessary for full evaluation. ? Her B12 and folic acid were normal ? Flow cytometry ordered ? She was referred to hematology/oncology at [facility] recently. (8) Cirrhosis of liver: Liver cirrhosis thought to be from methotrexate use for her rheumatoid arthritis Negative for hepatitis B and C Ferritin was recently checked and was elevated. Ceruloplasmin was normal She has been referred to hepatology at [facility] and awaiting appointment (9) Hyponatremia: This is resolved ? Likely secondary to her cirrhosis; she also had recurrent nausea and vomiting recently (10) Rheumatoid arthritis: Hold dexamethasone, changed to hydrocortisone secondary to acute illness Qualifiers: Rheumatoid arthritis location: multiple sites Rheumatoid factor presence: unspecified presence Qualified Code(s): M06.9 - Rheumatoid arthritis, unspecified (11) COPD (chronic obstructive pulmonary disease): Budesonide twice daily DuoNeb every 6 hours Qualifiers: COPD type: chronic bronchitis Chronic bronchitis type: simple Qualified Code(s): J41.0 - Simple chronic bronchitis (12) Fall: Etiology unknown CK was normal Continue fall precautions (13) Hypothyroidism: Continue levothyroxine Qualifiers: Hypothyroidism type: acquired Qualified Code(s): E03.9 - Hypothyroidism, unspecified Plan Allow natural , discussed extensively with patient SCDs for DVT prophylaxis, pharmacologic contraindicated secondary to thrombocytopenia, anemia, significant bruising with recent fall. VTE ppx: SCDs (she is thrombocytopenic) Dipso: likely to benefit from skilled rehab Plan for today April 11, 2024. Continue antibiotics meropenem and levofloxacin. Sputum culture still unable to be collected. Urine Legionella antigen is negative. Oxygen requirement at 6 L/min today. Increased crackles on exam. Lasix 20 mg IV additionally today. Repeat chest x-ray tomorrow morning to assess for interval change. Cultures from thoracentesis remain negative to date. Blood cultures additionally remaining negative. Steroids tapered to hydrocortisone 20 mg a.m. and 10 mg p.m. Resume home dose of as needed Imitrex complaining of migraine type headache today. Additionally resume home doses of oxycodone IR. 5 mg p.o. twice daily as needed starting dose currently. Starting to develop thrush likely from antibiotic and steroid use. Start nystatin and Magic mouthwash. April 12, 2024. Summary of outside and [facility] records: Ms. Henning is a 63-year-old lady with a past medical history of hypertension, hypothyroidism, chronic lumbar pain, COPD per review of PCPs notes and rheumatoid arthritis. Patient has had increasing generalized weakness, recurrent falls and feeling poorly with reduced appetite and abdominal discomfort at least since late 2022. CT of the abdomen and pelvis was ordered as an outpatient by her primary care physician in January 2024 which showed new finding of ascites, liver cirrhosis, portal venous hypertension, and bilateral pleural effusions.? Of note liver was previously noted to be normal in February 2023.? She has experienced rapid decompensation related to her liver cirrhosis Patient was admitted at [facility] on 21 February 2024 due to abdominal pain and anasarca.? Symptoms got progressively worse over a span of 1 week.? She was leukopenic with a white blood cell count of 3.5, BNP was over 1100.? CT abdomen and pelvis showed large ascites, mesenteric edema and anasarca related to cirrhosis.? There was moderate bilateral effusion and compressive bilateral lower lobe atelectasis. liver was noted to be cirrhotic.? There was a subcentimeter calcified hepatic granuloma.? Enlarged spleen measuring 13 x 12 x 8 cm.? History of sleeve gastrectomy.? Chronic inflammatory changes in the stomach noted.? On February 21 she underwent paracentesis with removal of 2800 cc of fluid.? She was started on spironolactone and Lasix.? Hepatitis panel was negative.? Serum ceruloplasmin was checked and returned normal range at 22.?Unable to find KATHY panel or autoimmune hepatitis labs on [facility]. Antibiotics (CTX) were discontinued on February 22 as all cultures remained negative.? She was constipated for which she received Dulcolax.? Referral was sent to hematology and hepatology in [place] , however patient sates she has not heard from them yet.? Peritoneal fluid analysis was without any malignant cells.? No signs of SBP. There were noted to be mesothelial cells and histiocytes.? Peripheral smear showed macrocytosis consistent with liver disease and folate deficiency.? There were no schistocytosis.? There were some smudge lymphocytes.? Concern for lymphoproliferative process considered low. She was d/c on 02/23. She then visited [facility] on April 03, 2024 due to chest pain and abdominal discomfort and near syncope.? Chest pain was located in the central chest and epigastric area.? Cardiac evaluation was overall negative and patient was discharged home.? She returned back to [facility] that same night on April 03, 2024 due to an unwitnessed syncopal fall at home while using the toilet. ? CT head was negative.? CT C-spine without contrast was without acute findings.? CT of the thoracic spine without any acute osseous abnormality.? Ankylosing spondylitis was noted.? There was edema within the lungs left greater than right and bilateral pleural effusion and noted ascites. Patient was found to be pancytopenic, not new compared to previously.?She has not been seen by heme-onc yet.? She was also diagnosed with acute flare of rheumatoid arthritis involving the right shoulder right elbow right wrist right hand right hip right knee right ankle right foot and left shoulder, left elbow left wrist left hand left hip left knee left ankle and left foot.? She was discharged from the hospital on with Dexamethasone 8mg daily presumably. Unable to see the discharge medication list from this day.? Other past medical history is notable for rheumatoid arthritis for which patient has been on methotrexate for many years . She has not received Rinvoq due to insurance issues.? Patient states that she has used intermittent steroids since November for her rheumatoid flares. Typically use prednisone 10 mg daily as needed for 1 to 2 days. She has never consistently taken steroids equivalent of prednisone 20 mg a day or higher for weeks together. Patient does not know when the dexamethasone 8 mg was prescribed, however presumably this was at the time of diagnosis of rheumatoid flare at [facility] on April 04, 2024. Review review of PCPs note show patient has sustained multiple prior falls in December 2023 at which point she had hurt her left shoulder.? She has a known history of restless legs.? On January 2024 she again reported falling to her primary care physician hitting her knees buttocks arm and shoulder.? X-ray of the shoulder was negative for any fracture or dislocation.?Then had falls resulting in [facility] ER visits as noted above. CAT scan in January 2024, there was a new finding of ascites, liver cirrhosis, portal venous hypertension, and bilateral pleural effusions, splenomegaly. She has had ensoscopic evaluation with Dr. Frey in March 2024 which showed esophageal varices. friable mucosa noted on colonoscopy. Hepatology? referral was provided from surgical office as well. She is currently admitted here she is currently admitted here at [facility] since April 06, 2024 due to another fall.? She has been lightheaded and dizzy at home. I suspect orthostatic hypotension to be the cause. ? There are multiple bruises all over and skin tears noted in various stages of healing. CT chest abdomen and pelvis performed on admission was negative for PE.? There was no right heart strain.? Left upper lobe pleural nodule was noted pneumonia versus neoplasm.? Cirrhotic liver with very small ascites.? Large mucosal edema.? Head CT, C-spine CT normal. She was admitted in view of possible septic shock related to pneumonia , hospital course from admission to now outlined as above. Since admission she has received antibiotics, steroids due to concern for adrenal insufficiency has had a thoracentesis which yielded bloody fluid. Exudative criteria met per lights criteria. Cytology showed reactive mesothelial cells with increased lymphocytes. She has been afebrile during the course of admission. No leukocytosis. Active issues as below. 1. Pneumonia present on admission. Concern for septic shock initially. This is now resolved. Based on further available information, I suspect that her hypotension was related to third spacing from liver cirrhosis, excess volume loss by way of pleural effusion and ascites. Outpatient diuretic use. May additionally have been on Aldactone on which appears on [facility] records. Patient has had multiple falls over the past few months which may have been related to orthostatic hypotension. She has received an appropriate course of antibiotics with meropenem, will complete presumptive 7-day course tomorrow. Atypical coverage with levofloxacin added on April 11, to complete presumptive 5-day course until April 16. With negative pleural fluid cultures, lack of fever or leukocytosis less suspicious of any persisting infectious etiology at this time. Less likely pneumocystis pneumonia given that patient has not been on chronic steroids in a while. Chest x-ray is showing serial improvement in infiltrates. Suspect these to be more likely pulmonary edema with available history now. 2. Hypotension Currently on midodrine 10 mg 3 times a day. We will continue this. Systolic blood pressure currently between 97 to 107 mmHg. Less suspicious of adrenal insufficiency at this time. Suspect this is related to decompensated cirrhosis and portal hypertension. Patient reports that she was not chronically on any prednisone or dexamethasone. She has had intermittent short courses of 1 to 2 days. Cortisol level of 7. Steroids have been tapered during the course of this admission. Will discontinue hydrocortisone 20/10 today and switch to prednisone 20 mg daily, with a goal to titrate down further. 3. Decompensated Liver cirrhosis Newly diagnosed in February 2024. Cause is not yet clear. Chief differentials at this time include drug-induced versus autoimmune process given her past history of rheumatoid arthritis. KATHY panel from 2021 with positive KATHY, positive anti-CCP. Will repeat KATHY panel now, also add on anti-SMA antibodies. Will have to check from lab if this testing is available at [facility] for send out. 4. Pancytopenia, suspect related to liver cirrhosis, folate deficiency. Peripheral smear as noted above from [facility]. Patient needs a follow- up appointment with hematology. May need bone marrow biopsy for further diagnostics. Likely contributed by splenomegaly and increased destruction. Status posttransfusion of both packed red blood cell and FFP as noted above. Monitor platelets. No signs of active bleeding currently. Flow cytometry ordered by Dr. Marcus is currently pending. Will defer to hematology for interpretation. 5. Deranged INR, easy bruising, also likely related to subacute liver failure. 6. Anasarca: Related to liver cirrhosis and portal hypertension hypoalbuminemia. Patient is complaining of increased abdominal distention. Last paracentesis in February 2024. Will order ultrasound-guided paracentesis. 7. Creatinine at 1.1, prior baseline 0.7-0.8. Likely prerenal from systemic hypotension. Would be concerned about development of hepatorenal syndrome. Monitoring closely. 8. 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 Add B12 folate supplementation. Significantly deconditioned as a result of her recent illness as described above. PT OT assessment appreciated. Likely to benefit from ongoing skilled therapy. Appropriate disposition planning is ongoing. Unsafe to return home alone due to falls Complaining of pain in the right knee today. I do not see any x-rays from day of admission. This was likely related to her fall.X ray right knee today to assess for any underlying fractures or dislocations. Optimized pain medications yesterday. States pain is better controlled today. Approx 1 hour was spent in talking to the patient and family (daughters) present at bedside. Explained pathophysiology and clinical course of patients with liver cirrhosis. Explained in detail that patient is currently experiencing decompensation from cirrhosis. Early outpatient hepatology assessment and possible liver biopsy will be critical to obtaining diagnostic information with regard to underlying cause of cirrhosis. Until definitive treatment can be started, we can aim to provide symptomatic support as issues arise, anasarca likely to be a recurrent issue. however would eventually need to be established with hepatology for long-term prognostication and care. We do not have any GI services available at [facility] currently. DVT prophylaxis: SCDs. Anticoagulation contraindicated due to thrombocytopenia and deranged INR. Plan for today April 13, 2024. Not enough fluid available for paracentesis. Low volume ascites in all 4 quadrants. Platelet count dropping to 40,000 today. Closely monitor for any signs of bleeding. Hemoglobin is currently stable. May need to transfuse platelets if further downtrend continues. Net -860 cc last 24 hours. Continue diuresis with Lasix. Ongoing appropriate disposition planning. Replete hypokalemia. Discontinue meropenem as has completed a presumptive 7-day course. Pleural fluid cultures remain negative. Urine bacterial and Legionella antigens are negative. Ordered KATHY, ASMA, LKM-1 ab to screen for autoimmune hepatitis. Several referrals generated for hepatology services at , [facility], [facility], [facility] for expedited outpatient assessment, wherever first available. patient and family willing to travel Plan for today April 14, 2024. Patient has been weaned down to room air today. Currently saturating 91% on room air. Blood pressure 100-108 systolic. She feels symptomatically better. States she was able to walk to the bathroom with assistance today. Discussed with her starting low-dose Aldactone now that her blood pressure appears to be slightly better, however she is hesitant. States that today is the first day she has felt better and would not like to try any new medications for now. Wants to defer this until she visits with the sales supervisor. Platelets trending down to 30,000 today. Hemoglobin also drifting down to 9.7. No obvious bleeding noted. No melena. Has not had a bowel movement today. Will transfuse 2 units platelets given downtrending hemoglobin. Recheck labs in AM. Pending appropriate disposition planning, awaiting insurance Auth for SNF transfer. April Patient continues to be on room air. She is however noted to have increased swelling in her abdomen and lower extremities. Will be giving her an additional dose of Lasix today. Received 2 units platelet transfusion yesterday, platelets today at 38,000. I suspect she will be needing another paracentesis prior to discharge. Will transfuse more platelets today with aim to keep platelet goal at 50,000 to safely be able to undergo paracentesis by radiology on Wednesday. She is able to ambulate more. States she was able to go out into the hallway today which is more than she was able to do earlier in this week. Increased coughing today after period Of interval improvement. Check COVID PCR and influenza antigen.Increase daily K to 60 meq from 40 meq Plan for today April 16, 2024. Patient briefly needed oxygen overnight. Now back on room air. Noted to have increased abdominal distention today. Paracentesis planned for tomorrow. She received 2 units platelet transfusion yesterday, platelet count now up to 61,000. At this platelet count she should safely be able to undergo paracentesis if enough fluid is encountered to safely drain. Will hold off on further transfusion today. Received extra dose of Lasix 20 mg IV last evening. 1200 cc urine output charted. She is participating with physical therapy. She is able to ambulate to the bathroom and back. COVID PCR was negative. No fever. Beta glucan mildly elevated at 112. Overall low suspicion for pneumocystis pneumonia given history that patient was not on any long-term suppressive steroids, clinical improvement with regards to respiratory function without directed PCP treatment. Suspect that the BD glucan was related to thrush that was encountered on exam. She is on nystatin for the same. Reduce prednisone to 5 mg p.o. daily. She may need to remain on Prednisone 5-10mg going forward given her underlying history of rheumatoid arthritis, not currently able to take methotrexate or other immunomodulating agents. Will need f/up with rheumatology. Likely discharge in the upcoming 24 hours with recommendations to follow with hepatology as soon as possible. We did receive response from outpatient GI services at [facility] and [facility] requesting patient's records, hopeful that she will be able to be seen soon. Attestations 2 Medical Necessity Statement*: Planned paracentesis tomorrow, [facility]. Coding Level of Care Code Acute Code for Chg Fwd Diagnoses Septic shock A41.9; R65.21 Pneumonia J18.9 Pleural effusion, left J90 Volume overload E87.70 Anemia D64.9 Thrombocytopenia D69.6 Leukopenia D72.819 Cirrhosis of liver K74.60 Hyponatremia E87.1 Rheumatoid arthritis involving multiple sites, unspecified whether rheumatoid factor present M06.9 Rheumatoid arthritis location: multiple sites Rheumatoid factor presence: unspecified presence Simple chronic bronchitis J41.0 COPD type: chronic bronchitis Chronic bronchitis type: simple Fall W19.XXXA Acquired hypothyroidism E03.9 Hypothyroidism type: acquired
[2024-04-16] MEDS: morphine 4 mg/mL SDV 1 mL 2 MG IVP (17:43)
--- NOTE | 2024-04-16 18:40 | PC.NURSE ---
Nystatin Pt refuse her nystatin all day. I explained to her that she needed to taken it due to the sore in mouth, she still refused.
[2024-04-16] MEDS: quetiapine 25 mg Tablet PO (20:11)
[2024-04-17] VITALS (9 sets, daily range): BP systolic 93–99; BP diastolic 52–63; PULSE 82–101; RESP 16–18; TEMP 36.6–36.9; O2SAT 90–98
[2024-04-17] MEDS: ipratropium-albuterol 3 mL Neb INHALATION ×2 (02:19→08:18)
[2024-04-17 03:30] LABS: Basophils % 0.4 %; Eosinophils # 0.1 10^3/uL (0.0-0.8); Hematocrit 29.4 % (36-47); Lymphocytes # 1.2 10^3/uL (0.8-4.8); Lymphocytes % 26.8 %; Mean Corpuscular HGB Conc 32.7 g/dL (30-55); Mean Corpuscular Hemoglobin 35.6 pg (27-33); Mean Corpuscular Volume 108.9 fl (85-98); Mean Platelet Volume 11.3 fL (7.4-10.4); Monocytes # 0.4 10^3/uL (0.2-0.9); Monocytes % 8.2 %; Neutrophils # 2.81 10^3/uL (1.8-7.7); Neutrophils % 62.2 %; Nucleated Red Blood Cells % 0 %; Platelet Count 42 10^3/cmm (157-399); Red Cell Distribution Width 19.9 % (12.1-15.1); White Blood Count 4.52 10^3/uL (3.29-11.43)
[2024-04-17 03:41] LABS: INR 1.66 (0.8-1.2)
[2024-04-17 03:53] LABS: Alanine Aminotransferase 15 U/L (0-33); Albumin Level 2.6 g/dL (3.5-5.2); Alkaline Phosphatase 62 U/L (35-105); Aspartate Amino Transferase 25 U/L (0-32); Blood Urea Nitrogen 27 mg/dL (8-23); Calcium 7.9 mg/dL (8.5-10.5); Carbon Dioxide 33 mmol/L (22-29); Chloride 101 mmol/L (98-107); Creatinine Clr Calc Pharmacy 47.8028; Globulin 3.2 g/dL (1.3-4.6); Glomerular Filtration Rate 45.1 mL/min (90-130); Glucose 84 mg/dL (65-115); Osmolality Calculated 292 mOsm/kg (285-295); Sodium 139 mmol/L (136-145); Total Bilirubin 2.2 mg/dL (0.15-1.2); Total Protein 5.8 g/dL (6.6-8.7)
[2024-04-17] MEDS: acetaminophen 1,000 MG/100 ML PIGGYBACK 400 MG IV (04:05)
--- NOTE | 2024-04-17 08:00 | US_ITS ---
WS: [id number] INDICATION: Evaluate fluid for paracentesis TECHNIQUE: Ultrasound abdomen limited FINDINGS: Abdomen evaluated for paracentesis. Only mild Ascites in the paracolic gutters. Prominent d ilated visualized bowel. Insufficient fluid for paracentesis and also inaccessible due to dilated bow el US/US abdomen lmt fluid [id number] IMPRESSION: See above
[2024-04-17] MEDS: budesonide 0.5 mg/2 mL Neb INHALATION (08:18)
[2024-04-17] MEDS: FUROsemide 40 mg Tablet PO (08:53)
[2024-04-17] MEDS: pantoprazole DR 40 mg Tablet PO (08:53)
[2024-04-17] MEDS: folic acid 1 mg Tablet PO (08:53)
[2024-04-17] MEDS: predniSONE 5 mg Tablet 10 MG PO (08:54)
[2024-04-17] MEDS: potassium chloride ER 20 mEq Tablet 60 MEQ PO (08:54)
[2024-04-17] MEDS: ropinirole 0.25 mg Tablet PO (08:54)
[2024-04-17] MEDS: levothyroxine 25 mcg Tablet PO (08:54)
[2024-04-17] MEDS: multivitamin therapeutic Tablet 1 TAB PO (08:54)
[2024-04-17] MEDS: midodrine 5 mg TABLET 10 MG PO (08:54)
[2024-04-17] MEDS: ondansetron 2 mg/ML SDV 2 mL 4 MG IVP (09:01)
--- NOTE | 2024-04-17 12:43 | PC.SOCIAL ---
IMM Updated Updated pt on IMM. No questions voiced. Provided pt a copy. Initialed, dated, & timed copy in chart.
--- NOTE | 2024-04-17 12:59 | P.DS_ITS ---
Discharge Providers Date of Admission: 04/06/24 08:27 Date of Discharge: April 17, 2024 Attending Provider at Admission: Clifford Smith MD Attending Provider at Discharge: Kristen King MD Primary Care Provider: Alix Marcus MD Diagnoses at Discharge Discharge Diagnosis (1) Septic shock: Status: Acute (2) Pneumonia: Status: Acute (3) Pleural effusion, left: Status: Acute (4) Volume overload: Status: Acute (5) Anemia: Status: Acute (6) Thrombocytopenia: Status: Acute (7) Leukopenia: Status: Acute (8) Cirrhosis of liver: Status: Chronic (9) Hyponatremia: Status: Resolved (10) Rheumatoid arthritis: Status: Acute Qualifiers: Rheumatoid arthritis location: multiple sites Rheumatoid factor presence: unspecified presence Qualified Code(s): M06.9 - Rheumatoid arthritis, unspecified (11) COPD (chronic obstructive pulmonary disease): Status: Chronic Qualifiers: COPD type: chronic bronchitis Chronic bronchitis type: simple Qualified Code(s): J41.0 - Simple chronic bronchitis (12) Fall: Status: Acute (13) Hypothyroidism: Status: Chronic Qualifiers: Hypothyroidism type: acquired Qualified Code(s): E03.9 - Hypothyroidism, unspecified Reason for Visit Reason for Visit: back pain Brief History: 63-year-old lady with recently diagnosed liver cirrhosis in February came with history of recurrent falls which resulted in several multiple bruises all over the body. She was found to have severe sepsis with septic shock possibly due to bilateral pneumonia, left-sided pleural effusion, volume overload, anemia, thrombocytopenia and ascites. Hospital Course Hospital Course She was started on IV antibiotics for possible sepsis and pneumonia, midodrine for hypotension and Lasix for her fluid overload. She had thoracentesis done this admission, lights criteria said exudative effusion but eventually culture was negative and there was no probability for infective process. During her hospital stay she was found to have gradually worsening abdominal distention, repeat abdominal ultrasound was done but she did not required any paracentesis. She received 2 units platelet transfusion for thrombocytopenia and platelet count improved to 61,000. She also had 2 units of PRBCs transfused during this admission. she has been able to ambulate to the bathroom and back. 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 She was found to be hepatitis B and hepatitis C negative .she needs to follow-up with hepatology as outpatient. She needs to continue with p.o. prednisone 20 mg daily for her rheumatoid arthritis and follow-up with rheumatology as an outpatient for alternate to methotrexate. She is feeling better now although has some abdominal discomfort and, and ready to be discharged back to [facility]. Physical Exam Narrative: She is alert awake oriented x 3 Chest clear to auscultation bilaterally Cardiovascular normal heart sounds Abdomen firm, distended nontender normal bowel sounds present Extremities bilateral trace pedal edema present. Urinary Catheter Management: Black: Cath Placed During This Visit: yes Reason for Continuing Indwelling Catheter: Other Urinary Catheter Date of Insertion: 04/06/24 Urinary Catheter Time of Insertion: 09:00 Discharge Data Studies Completed and Pending Completed Studies During Hospitalization Category Date Time Status CT cervical spine wo con [CT cervical spin wo con* Cat Scan 04/06/24 09:17 Completed 65615] Stat CT head wo con* [id number] Stat Cat Scan 04/06/24 07:[address] abdomen pelvis [CT angio chest w abd pel w Cat Scan 04/06/24 06:44 Completed con] Stat CXRP [XR chest 1V portable 65725] AM LABS Exams 04/12/24 04:00 Completed CXRP [XR chest 1V portable [id number]] Stat Exams 04/09/24 07:20 Completed XR chest 1V portable [id number] Routine Exams 04/06/24 17:33 Completed XR chest 1V portable [id number] Stat Exams 04/06/24 03:28 Completed XR chest 1V portable [id number] Stat Exams 04/07/24 00:48 Completed XR knee RT 1-2V 43152 Routine Exams 04/12/24 15:03 Completed Cytology [PTH] Routine Pth 04/06/24 17:37 [place] [id number] Routine Ultrasound 04/10/24 16:15 Completed CV. echo complete* 53432 Routine Ultrasound 04/06/24 09:50 Completed US abdomen lmt fluid [id number] Routine Ultrasound 04/12/24 15:03 Completed US liver 31814 Stat Ultrasound 04/06/24 06:19 Completed Pending at discharge Category Date Time Status KATHY Profile Rheumatology AM LABS Lab 04/14/24 05:03 Received Albumin Body Fluid Routine Lab 04/17/24 05:55 Ordered Body Fluid Analysis Routine Lab 04/17/24 05:55 Ordered Cyto Order Verification Routine Lab 04/17/24 05:55 Ordered Fungal Culture not HR/SK/BL Routine Lab 04/06/24 17:30 Results Liver Kidney Microsome (LKM-1) AM LABS Lab 04/14/24 05:03 Received Mycobacteria, Culture w/Fluor Routine Lab 04/06/24 17:30 Results SMAB [Smooth Muscle AB Screen w/Refl] AM LABS Lab 04/14/24 05:03 Received Sputum Culture and Gram Stain Routine Lab 04/07/24 16:08 Uncollected Total Protein Body Fluid Routine Lab 04/17/24 05:55 Ordered pH Body Fluid Routine Lab 04/17/24 05:55 Ordered US abdomen lmt fluid [id number] Routine Ultrasound 04/17/24 08:00 Taken Radiology Impressions Liver Ultrasound 04/06/24 06:19 IMPRESSION: 1. Prior cholecystectomy. 2. Small amount of ascites which was also noted on a CT from 02/17/2024. 3. Small RIGHT pleural effusion also noted on the prior study. 4. Cirrhotic liver. Chest/Abdomen/Pelvis CT 04/06/24 06:44 IMPRESSION: 1. No pulmonary embolism centrally. Beyond the lobar branches the opacification of the arteries becomes limited due to the pleural effusions and atelectasis. 2. No RIGHT heart strain. 3. LEFT upper lobe pleural nodule 2.6 x 1.7 cm. Neoplasm is not excluded. After the patient's acute illness resolves repeat chest CT recommended. Differential includes pneumonia and neoplasm. 4. Cirrhotic liver with a small amount of ascites. Ascites improved since 02/17/2024. 5. Large LEFT pleural effusion increased in size since 02/17/2024. 6. Small RIGHT pleural effusion slightly decreased in size. 7. Mild diffuse soft tissue anasarca. 8. Mucosal edema within large portion of the colon. This can be seen with portal hypertension, infection and ischemia. No thrombus noted within the visualized SMA or celiac axis. 9. No free air. Head CT 04/06/24 07:06 IMPRESSION: 1. No acute intracranial hemorrhage or edema. 2. Mild cerebral atrophy and mild small vessel ischemic disease. 3. Stable noncontrast head CT since 05/19/2023. Cervical Spine CT 04/06/24 09:17 IMPRESSION: 1. No acute cervical spine fracture. 2. Degenerative osteophytosis and spondylitic changes similar to 05/19/2023. Venous Duplex 04/10/24 16:15 IMPRESSION: No evidence of deep vein thrombosis. Chest X-Ray 04/12/24 04:00 IMPRESSION: 1. Interval improvement in aeration of the bilateral lung gagnon with residual coarsening of the interstitial lung markings. 2. Stable left pleural effusion. Knee X-Ray 04/12/24 15:03 IMPRESSION: There is no evidence for acute fracture or malalignment. Laboratory Results WBC 4.52 10^3/uL (3.29-11.43) 04/17/24 03:05 RBC 2.70 10^6/uL (3.85-5.65) L 04/17/24 03:05 Hgb 9.60 g/dL (11.27-16.99) L 04/17/24 03:05 Hct 29.4 % (36-47) L 04/17/24 03:05 MCV 108.9 fl (85-98) H 04/17/24 03:05 MCH 35.6 pg (27-33) H 04/17/24 03:05 MCHC 32.7 g/dL (30-55) 04/17/24 03:05 RDW 19.9 % (12.1-15.1) H 04/17/24 03:05 Plt Count 42 10^3/cmm (157-399) L D 04/17/24 03:05 MPV 11.3 fL (7.4-10.4) H 04/17/24 03:05 Neut % (Auto) 62.2 % 04/17/24 03:05 Lymph % (Auto) 26.8 % 04/17/24 03:05 [place] % (Auto) 8.2 % 04/17/24 03:05 Eos % (Auto) 2.0 % 04/17/24 03:05 Baso % (Auto) 0.4 % 04/17/24 03:05 Neut # (Auto) 2.81 10^3/uL (1.8-7.7) 04/17/24 03:05 Lymph # (Auto) 1.2 10^3/uL (0.8-4.8) 04/17/24 03:05 [place]gs # (Auto) 0.4 10^3/uL (0.2-0.9) 04/17/24 03:05 Eos # (Auto) 0.1 10^3/uL (0.0-0.8) 04/17/24 03:05 Baso # (Auto) 0.0 10^3/uL (0.0-0.1) 04/17/24 03:05 Nucleated RBC % (auto) 0 % 04/17/24 03:05 Nucleated RBCs # 0.0 /100WBC 04/17/24 03:05 Differential Comment Yes 04/06/24 17:30 Haptoglobin 60.0 mg/L (30-200) 04/06/24 06:49 PT 20.20 SECONDS (12.1-14.9) H 04/17/24 03:05 INR 1.66 (0.8-1.2) H 04/17/24 03:05 Sodium 139 mmol/L (136-145) 04/17/24 03:05 Potassium 4.0 mmol/L (3.5-5.1) 04/17/24 03:05 Chloride 101 mmol/L (98-107) 04/17/24 03:05 Carbon Dioxide 33 mmol/L (22-29) H 04/17/24 03:05 Anion Gap 9.0 (5-19) 04/17/24 03:05 BUN 27 mg/dL (8-23) H 04/17/24 03:05 Creatinine 1.2 mg/dL (0.5-0.9) H 04/17/24 03:05 GFR Calculation 45.1 mL/min (90-130) L 04/17/24 03:05 Glucose 84 mg/dL (65-115) 04/17/24 03:05 POC Glucose 120 mg/dL (70-110) H 04/06/24 23:39 Calculated Osmolality 292 mOsm/kg (285-295) 04/17/24 03:05 Lactic Acid 4.0 mmol/L (0.5-2.2) H 04/06/24 06:49 Lactic Acid (Sepsis) 3.2 mmol/L (0.5-2.2) H 04/06/24 09:45 Calcium 7.9 mg/dL (8.5-10.5) L 04/17/24 03:05 Phosphorus 2.6 mg/dL (2.5-4.5) 04/10/24 03:05 Magnesium 2.1 mg/dL (1.7-2.3) 04/09/24 06:59 Ferritin 1423 ng/mL (15-150) H 04/08/24 08:49 Total Bilirubin 2.2 mg/dL (0.15-1.2) H 04/17/24 03:05 AST 25 U/L (0-32) 04/17/24 03:05 ALT 15 U/L (0-33) 04/17/24 03:05 Alkaline Phosphatase 62 U/L (35-105) 04/17/24 03:05 Ammonia 31 umol/L (11-51) 04/06/24 06:49 Lactate Dehydrogenase 269 U/L (135-214) H 04/11/24 03:16 Creatine Kinase 39 U/L (26-192) 04/06/24 06:49 Troponin T Baseline 14 ng/L (0-10) H 04/06/24 03:00 Troponin T 120 Minute 11.42 ng/L (0-10) H 04/06/24 05:01 Delta Troponin T -2.58 ABS# (0-10) L 04/06/24 05:01 Troponin T Hi Sens 6Hr 9.58 ng/L (0-10) 04/06/24 08:42 Troponin T Hi Sens 6Hr Delta -4.42 ng/L (0-12) L 04/06/24 08:42 Total Protein 5.8 g/dL (6.6-8.7) L 04/17/24 03:05 Albumin 2.6 g/dL (3.5-5.2) L 04/17/24 03:05 Globulin 3.2 g/dL (1.3-4.6) 04/17/24 03:05 Vitamin B12 > 2000 pg/mL (232-1245) H 04/14/24 05:03 Folate 5.2 ng/mL (4.8-37.3) 04/13/24 03:38 TSH 0.76 uIU/mL (0.27-4.20) 04/06/24 06:49 Random Cortisol 7.31 ug/dL (2.47-19.5) 04/06/24 08:42 Urine Color Dark yellow (Yellow) 04/06/24 08:26 Urine Appearance Clear (CLEAR) 04/06/24 08:26 Urine pH 5 (5-7) 04/06/24 08:26 Ur Specific [place] 1.020 (1.005-1.030) 04/06/24 08:26 Urine Protein Neg (Negative) 04/06/24 08:26 Urine Glucose (UA) Norm (Normal) 04/06/24 08:26 Urine Ketones Negative (Negative) 04/06/24 08:26 Urine Blood Neg (Negative) 04/06/24 08:26 Urine Nitrate Negative (Negative) 04/06/24 08:26 Urine Bilirubin 1+ (Negative) H 04/06/24 08:26 Urine Urobilinogen 4 mg/dL (Negative) H 04/06/24 08:26 Ur Leukocyte Esterase Negative (Negative) 04/06/24 08:26 Fluid Color Red 04/06/24 17:30 Fluid Appearance Cloudy 04/06/24 17:30 Fluid Specific Grav 1.015 04/06/24 17:30 Fluid pH 8.0 04/06/24 17:30 Fluid WBC 6516 /uL 04/06/24 17:30 Fluid RBC 18.000 10^3/uL 04/06/24 17:30 Fld Polynuclear WBCs # 2.473 04/06/24 17:30 Fld Polynuclear WBCs % 38.000 % 04/06/24 17:30 Fl Mononucl WBCs #(Auto) 4.043 04/06/24 17:30 Fl Mononuclear % Auto 62.000 % 04/06/24 17:30 Fld Crystal Laterality Left pleural fluid 04/06/24 17:30 Fluid Glucose 71.0 mg/dL 04/06/24 17:30 Fluid Albumin 1.2 g/dL 04/06/24 17:30 Fluid LDH 291 U/L 04/06/24 17:30 Fluid Alk Phosphatase 23 IU/L 04/06/24 17:30 Fluid Cholesterol 40 mg/dL (0-200) 04/06/24 17:30 Fluid Triglycerides 19 mg/dL (0-150) 04/06/24 17:30 Fluid Uric Acid 5 mg/dL 04/06/24 17:30 Peritoneal Amylase 16 U/L 04/06/24 17:30 Pleural Total Protein 2.9 g/dL 04/06/24 17:30 Pleural Amylase 16 U/L 04/06/24 17:30 Vancomycin Trough 16.9 ug/mL (10-15) H 04/08/24 08:49 Abs CD3+/CD8+/CD57+ Cancelled 04/13/24 03:38 CD57+/CD3-/CD8- %Lymph Cancelled 04/13/24 03:38 CD57+/CD3-/CD8- %WBCs Cancelled 04/13/24 03:38 % CD3+/CD57+ of WBCs Cancelled 04/13/24 03:38 Absolute CD3+/CD57+ Cancelled 04/13/24 03:38 CD57+/CD3- % Lymphs Cancelled 04/13/24 03:38 % CD8+/CD57+ of WBCs Cancelled 04/13/24 03:38 Absolute CD8-/CD57+ Cancelled 04/13/24 03:38 CD57+/CD8- % Lymphs Cancelled 04/13/24 03:38 Immunophenotype Interp See report 04/13/24 03:38 Adenovirus (PCR) Not detected (NOT DETECT) 04/06/24 12:15 C. pneumoniae DNA (PCR) Not detected (NOT DETECT) 04/06/24 12:15 Coronavirus 229E (PCR) Not detected (NOT DETECT) 04/15/24 18:11 Hepatitis A IgM Ab Non-reactive (Nonreactive) 04/06/24 06:49 Hep Bs Antigen Non-reactive (Nonreactive) 04/06/24 06:49 Hep B Core IgM Ab Non-reactive (Nonreactive) 04/06/24 06:49 Hepatitis C Antibody Non-reactive (Nonreactive) 04/06/24 06:49 Human Metapneumovir PCR Not detected (NOT DETECT) 04/06/24 12:15 Influenza A (H1) PCR Not detected (NOT DETECT) 04/06/24 12:15 Influ A (H1/09) PCR Not detected (NOT DETECT) 04/06/24 12:15 Influenza A (H3) PCR Not detected (NOT DETECT) 04/06/24 12:15 Influenza Type A (PCR) Not detected (NOT DETECT) 04/06/24 12:15 Influenza Type B (PCR) Not detected (NOT DETECT) 04/06/24 12:15 M. pneumoniae (PCR) Not detected (NOT DETECT) 04/06/24 12:15 Parainfluenza 1 (PCR) Not detected (NOT DETECT) 04/06/24 12:15 Parainfluenza 2 (PCR) Not detected (NOT DETECT) 04/06/24 12:15 Parainfluenza 3 (PCR) Not detected (NOT DETECT) 04/06/24 12:15 Parainfluenza 4 (PCR) Not detected (NOT DETECT) 04/06/24 12:15 RSV Type A (PCR) Not detected (NOT DETECT) 04/06/24 12:15 RSV Type B (PCR) Not detected (NOT DETECT) 04/06/24 12:15 Entero/Rhino (PCR) Not detected (NOT DETECT) 04/06/24 12:15 SARS-CoV-2 (PCR) Not detected (NOT DETECT) 04/15/24 18:11 SARS-CoV-2 Ag (Rapid) negative (Negative) 04/14/24 15:30 MRSA (PCR) Not detected (NOT DETECTED) 04/06/24 12:15 Beta-(1,3)-D-Glucan 112 pg/ml 04/11/24 03:16 B-(1,3)-D-Glucan Intrp Positive (Negative) A 04/11/24 03:16 Blood Type O Negative 04/14/24 14:30 Rho(D) Type Rh negative 04/14/24 14:30 Antibody Screen Negative 04/08/24 08:49 Crossmatch See Detail 04/08/24 08:49 Vitals Last Vital Signs Temp 98.2 F 04/17/24 11:17 Pulse 90 04/17/24 11:17 Resp 17 04/17/24 11:17 BP 95/54 04/17/24 11:17 Pulse Ox 93 04/17/24 11:17 O2 Del Method Room Air 04/17/24 11:17 O2 Flow Rate 92 04/14/24 14:00 Discharge Plan Discharge Patient Disposition: Xfer SNF Condition: Stable Prescriptions: New nystatin 100,000 unit/mL Suspension 500,000 unit PO QID 14 Days Qty: 280 0RF midodrine 5 mg Tablet 10 mg PO TID 30 Days Qty: 180 0RF Klor-Con M20 20 mEq Tablet,Er Particles/Crystals 40 meq PO DAILY 30 Days Qty: 30 0RF prednisone 10 mg tablet 10 mg PO DAILY Qty: 30 0RF Continued docusate sodium [Colace] 100 mg capsule 100 mg PO DAILY oxycodone 5 mg tablet 5 mg PO DAILY PRN (Reason: pain) 30 Days Qty: 30 0RF pantoprazole [Protonix] 40 mg tablet,delayed release (DR/EC) 40 mg PO BID 42 Days Qty: 84 1RF omeprazole 40 mg capsule,delayed release(DR/EC) 40 mg PO BID 90 Days Qty: 180 3RF (DME) insulin syringe-needle U-100 1 mL 25 x 1 syringe See Rx Instructions .Route Qty: 100 0RF Rx Instructions: use with B12 medication once weekly cyanocobalamin (vitamin B-12) 1,000 mcg/mL solution See Rx Instructions .ROUTE .COMPLEX Qty: 6 2RF Dose Instruction: INJECT 1 ML INTRAMUSCULARLY ONCE EVERY MONTH PATIENT TO INJECT AT HOME WITH SYRINGES Rx Instructions: INJECT 1 ML INTRAMUSCULARLY ONCE EVERY MONTH PATIENT TO INJECT AT HOME WITH SYRINGES albuterol sulfate 90 mcg/actuation HFA aerosol inhaler 1 puff INHALATION QID PRN (Reason: shortness of breath or wheezing) 30 Days Qty: 18 5RF benzonatate 100 mg capsule 100 mg PO BID PRN (Reason: cough) 30 Days Qty: 60 5RF levomefolate calcium [L-Methylfolate] 15 mg tablet 15 mg PO DAILY 90 Days Qty: 90 1RF sumatriptan succinate 25 mg tablet 25 mg PO ONCE PRN (Reason: migraine headache) Qty: 9 5RF levothyroxine 25 mcg tablet 25 mcg PO DAILY 30 Days Qty: 30 5RF ropinirole 0.25 mg tablet 0.25 mg PO BID 30 Days Qty: 60 5RF ondansetron 8 mg tablet,disintegrating 8 mg PO Q8H PRN (Reason: nausea and vomiting) Qty: 20 0RF (DME) Monoject TB Safety Syringe 1 mL 25 gauge x 5/8 syringe See Rx Instructions .ROUTE .MEDSUPPLY Qty: 50 1RF Rx Instructions: As directed nystatin [Nystop] 100,000 unit/gram powder 1 applic TOPICAL TID PRN (Reason: skin irritation) Qty: 15 1RF Rx Instructions: Apply under breast 3 times daily as needed quetiapine [Seroquel] 25 mg tablet 25 mg PO BEDTIME Linzess 72 mcg capsule 72 mcg PO DAILY furosemide 40 mg tablet 40 mg PO DAILY bupropion HCl 150 mg tablet extended release 24 hr 150 mg PO EVERY OTHER DAY cholecalciferol (vitamin D3) 1,250 mcg (50,000 unit) capsule 1,250 mcg PO DAILY Discontinued famotidine 20 mg tablet 20 mg PO BID 30 Days Qty: 60 2RF sulfamethoxazole-trimethoprim 800-160 mg tablet 1 tab PO BID dexamethasone 4 mg tablet 8 mg PO DAILY Discharge Orders: Discharge Order (Routine); Ordered 04/17/24 Ordered By: Kristen King Referrals: Division ofGastroenterology, [facility] [Other] - 2 weeks ( newly diagnosed cirrhosis of unclear etiology ?? methotrexate induced ?? autoimmune process with decompensation over course of 6-8 weeks. Normal liver imaging one year ago. Requesting urgent outpatient referral given quick decompensation needing recurrent admissions. ) [facility] [Other] - 2 weeks (newly diagnosed cirrhosis of unclear etiology ?? methotrexate induced ?? autoimmune process with decompensation over course of 6-8 weeks. Normal liver imaging one year ago. Requesting urgent outpatient referral given quick decompensation needing recurrent admissions) [facility],gastroenterology [Other] - 2 weeks ( newly diagnosed cirrhosis of unclear etiology ?? methotrexate induced ?? autoimmune process with decompensation over course of 6-8 weeks. Normal liver imaging one year ago. Requesting urgent outpatient referral given quick d ecompensation needing recurrent admissions ) [facility] [Outside] Alix Marcus MD [Primary Care Provider] - 1 week Discharge Diet: Cardiac Discharge Activity: Increase activity as tolerated Patient Instructions: Opioid Safety Activity Restrictions/Additional Instructions: # Division of Gastroenterology and Hepatology [address] [place] [address], [address] [address] email [email or web address] # Division of Gastroenterology and Hepatology [facility], Second Floor [address] [place] [address] # Division of Gastroenterology, [facility] Department of Medicine [email or web address] [facility] [id number] [place] [address] ? ? # [facility] [address] [place] [address] [facility]?[place]?[id number] Tel:? tel:[phone] # [facility] Internal Medicine Gastroenterology, Hepatology & Motility Division Mailstop [phone] [place] [address] Discharge Attestations Time Spent in Discharge Care*: less than 30 min Status at Discharge: Cognitive status at discharge: cognitively intact , Behavioral status at discharge: cooperative , Quality Metrics Clinical Quality Measures [ No reported AMI, CVA or VTE this stay] Coding Level of Care Code Acute Code for Chg Fwd Diagnoses Septic shock A41.9; R65.21 Pneumonia J18.9 Pleural effusion, left J90 Volume overload E87.70 Anemia D64.9 Thrombocytopenia D69.6 Leukopenia D72.819 Cirrhosis of liver K74.60 Hyponatremia E87.1 Rheumatoid arthritis involving multiple sites, unspecified whether rheumatoid factor present M06.9 Rheumatoid arthritis location: multiple sites Rheumatoid factor presence: unspecified presence Simple chronic bronchitis J41.0 COPD type: chronic bronchitis Chronic bronchitis type: simple Fall W19.XXXA Acquired hypothyroidism E03.9 Hypothyroidism type: acquired Time Spent (min) 25
[2024-04-17 14:25] LABS: COMPLEMENT COMPONENT C3C 49 mg/dL (83-193); COMPLEMENT COMPONENT C4C 6 mg/dL (15-57); THYROID PEROXIDASE ANTIBODIES 10 IU/mL (<9)
[2024-04-17 15:00] LABS: CENTROMERE B ANTIBODY <1.0 NEG AI (<1.0 NEG); JO-1 ANTIBODY <1.0 NEG AI (<1.0 NEG); RNP ANTIBODY <1.0 NEG AI (<1.0 NEG); SCL-70 ANTIBODY <1.0 NEG AI (<1.0 NEG); SJOGREN'S ANTIBODY (SS-A) <1.0 NEG AI (<1.0 NEG); SM ANTIBODY <1.0 NEG AI (<1.0 NEG); SS-B <1.0 NEG AI (<1.0 NEG)
[2024-04-17 15:10] LABS: ANA SCREEN, IFA NEGATIVE (NEGATIVE)
--- NOTE | 2024-04-17 15:22 | PC.NURSE ---
Discussed discharge with patient and family. Follow up appointments, new medications and patient going to [facility]. Report was also called to Marci West RN at the [facility]. Verbalized understanding from all present.
[2024-04-18 10:00] LABS: Smooth Muscle Ab Screen NEGATIVE (NEGATIVE)
[2024-04-18 13:34] LABS: Liver Kidney Microsome (LKM-1) <=20.0 U (<=20.0)
[2024-04-19 16:35] LABS: COMPLEMENT, TOTAL (CH50) <13 U/mL (31-60)
== END 2024-04-17 14:49 | disposition skilled nursing facility (03) | DRG 871 ==
LOC: ER 07:42 → ICU 08:28 → CSU 04-09 15:37 → MEDSURG 04-14 03:22
PROVIDERS: Emergency Medicine; Internal Medicine; Internal Medicine Pulmonary Disease; Student in an Organized Health Care Education/Training Program; Admitting Provider Internal Medicine; Emergency Provider Family Medicine; PCP Family Medicine; Visit Provider Student in an Organized Health Care Education/Training Program
DX: A41.9 Sepsis, unspecified organism (principal); J18.9 Pneumonia, unspecified organism; R65.21 Severe sepsis with septic shock; J44.0 Chronic obstructive pulmonary disease with (acute) lower respiratory infection; D61.818 Other pancytopenia; E87.1 Hypo-osmolality and hyponatremia; N17.9 Acute kidney failure, unspecified; D84.821 Immunodeficiency due to drugs; J90 Pleural effusion, not elsewhere classified; W18.30XA Fall on same level, unspecified, initial encounter; M06.9 Rheumatoid arthritis, unspecified; K74.60 Unspecified cirrhosis of liver; Z87.01 Personal history of pneumonia (recurrent); F17.210 Nicotine dependence, cigarettes, uncomplicated; K21.9 Gastro-esophageal reflux disease without esophagitis; E78.5 Hyperlipidemia, unspecified; F41.1 Generalized anxiety disorder; G89.4 Chronic pain syndrome; I10 Essential (primary) hypertension; E03.9 Hypothyroidism, unspecified; M79.7 Fibromyalgia; E53.8 Deficiency of other specified B group vitamins; I95.9 Hypotension, unspecified; R91.1 Solitary pulmonary nodule; D75.89 Other specified diseases of blood and blood-forming organs; D64.9 Anemia, unspecified; D69.59 Other secondary thrombocytopenia; Z79.631 Long term (current) use of antimetabolite agent; G47.00 Insomnia, unspecified; Z98.84 Bariatric surgery status
CPT/HCPCS: 36415; 36416; 36430; 36592; 49083; 70450; 71045; 71275; 72125; 73560; 74177; 76705; 80053; 80069; 80074; 80202; 80503; 81003; 82042; 82140; 82150; 82465; 82533; 82550; 82607; 82728; 82746; 82945; 82962; 83010; 83516; 83605; 83615; 83735; 83986; 84075; 84100; 84132; 84157; 84315; 84443; 84478; 84484; 84560; 85025; 85610; 86160; 86162; 86235; 86255; 86376; 86403; 86850; 86900; 86920; 86927; 87015; 87040; 87070; 87075; 87102; 87116; 87205; 87206; 87426; 87449; 87486; 87581; 87633; 87635; 87641; 87801; 88112; 88184; 88185; 88305; 89050; 93005; 93306; 93970; 94640; 96365; 96367; 96372; 96376; 97110; 97116; 97162; 97530; 99285; C9113; J0131; J1170; J1720; J1885; J1940; J1956; J2185; J2270; J2405; J2543; J2765; J3370; J3430; J3480; J7030; J7050; J7512; J7626; J8499; P9016; P9017; P9035; P9045; P9046; Q9967

== ENCOUNTER 2024-04-22 10:59 | Inpatient (IN) | payer MEDICARE, MEDICAID, SELFPAY ==
[2024-04-22] VITALS (31 sets, daily range): BP systolic 84–121; BP diastolic 44–72; PULSE 78–92; RESP 15–23; TEMP 36.5–37.2; O2SAT 94–99; BMI 30.4
--- NOTE | 2024-04-22 11:09 | XRR_ITS ---
PROCEDURE INFORMATION: Exam: XR Chest Exam date and time: 04/22/2024 11:13 AM Age: 63 years old Clinical indication: Cough and dyspnea; Additional info: Dyspnea/cough TECHNIQUE: Imaging protocol: Radiologic exam of the chest. Views: 1 view. COMPARISON: CR (CHEST, ) 04/12/2024 4:14 AM FINDINGS: Lungs: Prominent scarring in the right lung. Prominent collapse of the left lung. Pleural spaces: Large left-sided hydropneumothorax. Heart/Mediastinum: The cardiomediastinal silhouette is within normal limits. Bones/joints: Unremarkable. XR/XR chest 1V portable [id number] IMPRESSION: 1. Large left-sided hydropneumothorax. 2. Prominent collapse of the left lung.
[2024-04-22 11:18] LABS: Basophils % 0.2 %; Eosinophils # 0.1 10^3/uL (0.0-0.8); Eosinophils % 1.1 %; Hematocrit 28.4 % (36-47); Lymphocytes # 0.7 10^3/uL (0.8-4.8); Mean Corpuscular HGB Conc 33.1 g/dL (30-55); Mean Corpuscular Hemoglobin 35.9 pg (27-33); Mean Corpuscular Volume 108.4 fl (85-98); Monocytes # 0.3 10^3/uL (0.2-0.9); Monocytes % 5.4 %; Neutrophils # 4.39 10^3/uL (1.8-7.7); Neutrophils % 81.1 %; Nucleated Red Blood Cells % 0 %; Platelet Count 98 10^3/cmm (157-399); Red Blood Count 2.62 10^6/uL (3.85-5.65); Red Cell Distribution Width 20.7 % (12.1-15.1); White Blood Count 5.41 10^3/uL (3.29-11.43)
--- NOTE | 2024-04-22 11:21 | ED_ITS ---
HPI - SOB/Dyspnea 2 General: Chief Complaint: Shortness of Breath/Dyspnea Stated Complaint: SOB Time Seen by Provider: 04/22/24 11:00 Source: patient Mode of arrival: EMS History of Present Illness: HPI Narrative: 63-year-old female presents emergency ro om complaining of shortness of breath weakness some mild chest discomfort. Initial chest x-ray was done along with basic labs ordered off of the nurses notes on was about to see the patient chest x-ray been completed I viewed it before going in to see the patient and she was found to have a significant hydropneumothorax. She was moved to room 11 and emergently consented for conscious sedation and placement of chest tube see notations. Patient states she suddenly became short of breath overnight she has not had any hemoptysis. Reviewing the chart she was admitted on 523 with a large left pleural effusion cytology did not show definitive abnormal cells. Cultures done during that stay have all been negative to date. She does have rheumatoid arthritis as well as cirrhosis of the liver. She was thought to be immune compromised in part due to her methotrexate previously and that was stopped at the last visit. MD elicited complaint: shortness of breath and cough Pertinent past history: COPD, congestive heart failure and other (Rheumatoid arthritis) Onset (ago): hour(s) Context: recent illness Timing: constant Severity: severe Exacerbating factors: lying flat, exertion and coughing Relieving factors: oxygen, rest and upright position Known history of: COPD and congestive heart failure Associated symptoms: Reports chest congestion, cough, nausea and orthopnea; Deny abdominal pain, chest pain, diaphoresis, dizziness, extremity pain, fever(s), hemoptysis, lightheadedness, myalgias, palpitations, paresthesias, polydipsia, polyuria, rash, sense of impending doom, syncope or vomiting Treatment prior to arrival: oxygen and bronchodilator Review of Systems 2 Const: Denies: fever(s) or diaphoresis Card: Reports: orthopnea; Denies: chest pain, palpitations, lightheadedness or syncope Resp: Reports: dyspnea, non-productive cough and chest congestion; Denies: hemoptysis GI: Reports: nausea; Denies: abdominal pain or vomiting : Denies: dysuria, urinary frequency or urinary urgency Musc: Denies: neck pain, back pain or extremity pain Skin/Breast: Denies: rash Neuro: Denies: dizziness Endo: Denies: polyuria or polydipsia PFSH ED 2 PFSH: Medical History Cirrhosis of liver GERD (gastroesophageal reflux disease) Rheumatoid arthritis Hyperlipidemia Chest pain Symptomatic cholelithiasis Metatarsalgia Nausea NAE (generalized anxiety disorder) COPD (chronic obstructive pulmonary disease) Lumbar paraspinal muscle spasm Chronic pain syndrome Hypertension, essential Did not tolerate lisinopril. Hypothyroidism Fibromyalgia Insomnia Failed amitriptyline, trazodone, Ambien caused side effects. Surgical History H/O gastric sleeve Hx laparoscopic cholecystectomy H/O tubal ligation H/O foot surgery Family History Other CAD (coronary artery disease) Cancer Diabetes Heart attack Hyperlipidemia Hypertension Rheumatoid arthritis Stroke Denies family history of Lupus Chronic kidney disease (CKD) Social History Smoking and tobacco/nicotine status: current every day tobacco/nicotine user cigarettes Packs smoked per day: 1 Quit status (tobacco/nicotine): has tried quititng Second hand smoke exposure: No Alcohol intake: current Alcohol intake frequency: holidays/special occasions only Substance/Drug Use: never Female Reproductive History: Spontaneous abortions: No Physical Exam 2 Const: GENERAL APPEARANCE: cooperative ORIENTATION/CONSCIOUSNESS: Yes awake, Yes oriented to person, Yes oriented to place and Yes oriented to time HENMT: COMMON NORMALS: normocephalic, atraumatic and hearing grossly normal bilaterally HEAD & SCALP: normocephalic and atraumatic Resp: COMMON NORMALS: normal respiratory effort, No retractions and No use of accessory muscles AUSCULTATION: crackles Laterality: right (Base) and breath sounds absent on th left Cardio: COMMON NORMALS: regular rate, regular rhythm and No murmurs present (Cardio) RATE: regular rate RHYTHM: regular rhythm GI: COMMON NORMALS: Soft to palpation and No hepatosplenomegaly present A USCULTATION: Yes normoactive bowel sounds PALPATION: Yes Soft to palpation, No Tenderness to palpation present (GI), No Guarding due to palpation present (GI) and Yes No hepatosplenomegaly present Extremity: COMMON NORMALS: normal to inspection, capillary refill normal, no clubbing, cyanosis or edema, no calf tenderness and no pedal edema Neuro: SENSORIUM/ORIENTATION: Yes oriented to person, Yes oriented to place and Yes oriented to time Skin: COMMON NORMALS: no rashes or lesions noted GENERAL SKIN EXAM: no rashes or lesions noted Procedures Chest Tube Chest Tube 1: Chest Tube Location: left, anterior axillary line and fourth interspace Size of Tube (cm): 24 Chest Tube Prep: Yes betadine prep and sterile drapes applied Local Anesthetic: lidocaine 1% and with epi Amount of anesthesia used (mL): 10 Incision Made With: #10 blade Post Procedure: sutured to skin and sterile dressing applied Tube Drainage: fluid Amount of initial drainage (mL): 1,300 Post Procedure CXR?: Yes Patient Tolerated Procedure: Yes Procedural Sedation Indication: other ASA Class: I Preparation: director cardiac applied, pulse oximeter, supplemental O2 applied, suction/airway equipment at bedside and IV secured Fentanyl: IV Fentanyl dose (mcg): 50 Ketamine: IV Ketamine dose (mg): 200 Patient Tolerated Procedure: well Complications: none Course 2 Vital Signs: Vital signs: Vital Signs Temperature 97.7 F 04/22/24 11:00 Pulse Rate 81 04/22/24 14:30 Respiratory Rate 20 H 04/22/24 14:30 Blood Pressure 109/68 04/22/24 14:30 Pulse Oximetry 98 04/22/24 14:30 Oxygen Delivery Me thod Nasal Cannula 04/22/24 14:30 Oxygen Flow Rate 2 04/22/24 14:30 MDM - SOB/Dyspnea Medical Decision Making Patient presents with spontaneous pneumothorax with large pleural effusion. Chest tube placed with significant amount of pleural effusion drained almost 200 out just as we placed the chest tube. CT afterwards shows a pretty large residual pneumothorax. I did attempt to place a Thora vent anteriorly however the tip was in a pocket of fluid and we could not get air or fluid out of it only a scant amount of fluid. Placement was confirmed decided to remove it since it was not actually draining air the repeat chest x-ray did show that the chest tube had to further reduce the pneumothorax I do not think she will need any further drainage at this time. Discussed with Dr. Lerner and consulted him will admit his ICU with Dr. Hosea Porter is attending. Started on vancomycin and Zosyn. Did discuss with Dr. Orourke'am Adar that Dr. Lerner is here today but will be gone tomorrow and Wednesday. Initially had ordered analysis of the pleural fluid however after talking with Dr. Lerner he states they did full analysis during the recent hospitalization does not feel that the repeat is necessary other than the culture. Medical Records I reviewed the patient's medical records. Lab Data I reviewed the patient's lab results. 04/22/24 10:45 04/22/24 10:45 Labs/Radiology: Radiology Impressions Chest CTA 04/22/24 11:38 IMPRESSION: 1. Large left-sided pneumothorax with a chest tube in good position 2. New bilateral pulmonary infiltrates which appear to represent pneumonia 3. Stable bilateral pleural effusions 4. A nodular mass in the left upper lobe has improved over the past 5 weeks 5. Prominent abdominal ascites Chest X-Ray 04/22/24 14:13 IMPRESSION: 1. The left-sided pneumothorax has improved 2. Subcutaneous emphysema has worsened Laboratory Results WBC 5.41 10^3/uL (3.29-11.43) 04/22/24 10:45 RBC 2.62 10^6/uL (3.85-5.65) L 04/22/24 10:45 Hgb 9.40 g/dL (11.27-16.99) L 04/22/24 10:45 Hct 28.4 % (36-47) L 04/22/24 10:45 MCV 108.4 fl (85-98) H 04/22/24 10:45 MCH 35.9 pg (27-33) H 04/22/24 10:45 MCHC 33.1 g/dL (30-55) 04/22/24 10:45 RDW 20.7 % (12.1-15.1) H 04/22/24 10:45 Plt Count 98 10^3/cmm (157-399) L 04/22/24 10:45 MPV 11.0 fL (7.4-10.4) H 04/22/24 10:45 Neut % (Auto) 81.1 % 04/22/24 10:45 Lymph % (Auto) 12.0 % 04/22/24 10:45 [place] % (Auto) 5.4 % 04/22/24 10:45 Eos % (Auto) 1.1 % 04/22/24 10:45 Baso % (Auto) 0.2 % 04/22/24 10:45 Neut # (Auto) 4.39 10^3/uL (1.8-7.7) 04/22/24 10:45 Lymph # (Auto) 0.7 10^3/uL (0.8-4.8) L 04/22/24 10:45 [place] # (Auto) 0.3 10^3/uL (0.2-0.9) 04/22/24 10:45 Eos # (Auto) 0.1 10^3/uL (0.0-0.8) 04/22/24 10:45 Baso # (Auto) 0.0 10^3/uL (0.0-0.1) 04/22/24 10:45 Nucleated RBC % (auto) 0 % 04/22/24 10:45 Nucleated RBCs # 0.0 /100WBC 04/22/24 10:45 Sodium 138 mmol/L (136-145) 04/22/24 10:45 Potassium 4.0 mmol/L (3.5-5.1) 04/22/24 10:45 Chloride 98 mmol/L (98-107) 04/22/24 10:45 Carbon Dioxide 28 mmol/L (22-29) 04/22/24 10:45 Anion Gap 16.0 (5-19) 04/22/24 10:45 BUN 18 mg/dL (8-23) 04/22/24 10:45 Creatinine 1.4 mg/dL (0.5-0.9) H 04/22/24 10:45 GFR Calculation 37.7 mL/min (90-130) L 04/22/24 10:45 Glucose 103 mg/dL (65-115) 04/22/24 10:45 Calculated Osmolality 288 mOsm/kg (285-295) 04/22/24 10:45 Lactic Acid 2.4 mmol/L (0.5-2.2) H 04/22/24 13:10 Calcium 8.1 mg/dL (8.5-10.5) L 04/22/24 10:45 Total Bilirubin 3.6 mg/dL (0.15-1.2) H 04/22/24 10:45 AST 26 U/L (0-32) 04/22/24 10:45 ALT 16 U/L (0-33) 04/22/24 10:45 Alkaline Phosphatase 81 U/L (35-105) 04/22/24 10:45 Troponin T Baseline 33 ng/L (0-10) H 04/22/24 10:45 Troponin T 120 Minute 26.93 ng/L (0-10) H 04/22/24 13:10 Delta Troponin T -6.07 ABS# (0-10) L 04/22/24 13:10 NT-Pro-B Natriuret Pep 4625 pg/mL (0-125) H 04/22/24 10:45 Total Protein 6.5 g/dL (6.6-8.7) L 04/22/24 10:45 Albumin 2.9 g/dL (3.5-5.2) L 04/22/24 10:45 Globulin 3.6 g/dL (1.3-4.6) 04/22/24 10:45 All radiology interpretation(s) finalized by discharge Discharge Plan Discharge Patient Disposition: Admitted As Inpatient Admit Provider: Kristen King Clinical Impression: Spontaneous pneumothorax, Pneumonia, Pleural effusion on right Condition: Stable Coding Level of Care Code ED Supervisor [employer] for Aishwarya Barclay
[2024-04-22 11:34] LABS: Alanine Aminotransferase 16 U/L (0-33); Albumin Level 2.9 g/dL (3.5-5.2); Alkaline Phosphatase 81 U/L (35-105); Aspartate Amino Transferase 26 U/L (0-32); Blood Urea Nitrogen 18 mg/dL (8-23); Calcium 8.1 mg/dL (8.5-10.5); Carbon Dioxide 28 mmol/L (22-29); Chloride 98 mmol/L (98-107); Globulin 3.6 g/dL (1.3-4.6); Glomerular Filtration Rate 37.7 mL/min (90-130); Glucose 103 mg/dL (65-115); Osmolality Calculated 288 mOsm/kg (285-295); Sodium 138 mmol/L (136-145); Total Bilirubin 3.6 mg/dL (0.15-1.2); Total Protein 6.5 g/dL (6.6-8.7)
[2024-04-22 11:36] LABS: Troponin(5th) Baseline 33 ng/L (0-10)
[2024-04-22 11:38] LABS: Creatinine Clr Calc Pharmacy 41.0671
--- NOTE | 2024-04-22 11:38 | XRR_ITS ---
PROCEDURE INFORMATION: Exam: XR Chest Exam date and time: 04/22/2024 12:16 PM Age: 63 years old Clinical indication: Device placement; Chest tube; Additional info: Chest tube placement TECHNIQUE: Imaging protocol: Radiologic exam of the chest. Views: 1 view. COMPARISON: CR (CHEST, ) 04/22/2024 11:13 AM FINDINGS: Lungs: Patchy interstitial infiltrates are noted involving both lungs. Pleural spaces: The left-sided pneumothorax has decreased in size since the last film and since chest tube placement. A large pneumothorax persists however. The left pleural effusion has decreased in size. Heart/Mediastinum: Unremarkable. No cardiomegaly. Bones/joints: Unremarkable. XR/XR chest 1V portable [id number] IMPRESSION: 1. Improved left hydropneumothorax since chest tube placement 2. Bilateral interstitial infiltrates noted
--- NOTE | 2024-04-22 11:38 | CTR_ITS ---
PROCEDURE INFORMATION: Exam: CTA Chest With Contrast Exam date and time: 04/22/2024 12:36 PM Age: 63 years old Clinical indication: Other: Spontaneous pneumothorax/dyspnea TECHNIQUE: Imaging protocol: Computed tomographic angiography of the chest with contrast. Exam focused on the arteries. 3D rendering (Not supervised by radiologist): MIP and/or 3D reconstructed images were created by the technologist. Radiation optimization: All CT scans at this facility use at least one of these dose optimization techniques: automated exposure control; mA and/or kV adjustment per patient size (includes targeted exams where dose is matched to clinical indication); or iterative reconstruction. Contrast material: OMNI 350; Contrast volume: 61 ml; Contrast route: INTRAVENOUS (IV); COMPARISON: CT angio chest w abd pel w con 04/06/2024 7:49 AM RADIATION DOSE METRICS: Total DLP (mGy-cm): 355.28 FINDINGS: Pulmonary arteries: Normal. No pulmonary emboli. Aorta: Unremarkable. No aortic aneurysm. No aortic dissection. Lungs: Patchy infiltrate involves the left upper lobe along with a 1 cm cavitary lesion. Patchy infiltrate is noted throughout the entire right lung. Pleural spaces: There is a large left-sided pneumothorax along with a small amount of pleural effusion present. A left-sided chest tube is in good position superiorly. A moderate right pleural effusion is noted. Heart: Unremarkable. No cardiomegaly. No pericardial effusion. Lymph nodes: Unremarkable. No enlarged lymph nodes. Intraperitoneal space: Abdominal images demonstrate prominent ascites along with hepatic cirrhosis. Bones/joints: Unremarkable. No acute fracture. Soft tissues: Subcutaneous emphysema involves the left lateral chest wall. CT/CT angio chest PE protcl [id number] IMPRESSION: 1. Large left-sided pneumothorax with a chest tube in good position 2. New bilateral pulmonary infiltrates which appear to represent pneumonia 3. Stable bilateral pleural effusions 4. A nodular mass in the left upper lobe has improved over the past 5 weeks 5. Prominent abdominal ascites
[2024-04-22 11:58] LABS: NT Pro B Type Natriuretic Pept 4625 pg/mL (0-125)
[2024-04-22] MEDS: lidocaine-epi 1% 20 mL INJ INJECTION (12:00)
--- NOTE | 2024-04-22 12:00 | PC.NURSE ---
assist with chest tube placement. 1300ml of fluid drainage at insertion. pt give 25 fentanyl and 200 ketamine for sedation. EMS IV in right ac infiltrated during first administration of fentanyl, medication wasted and new order placed after new IV placed.
[2024-04-22] MEDS: ketamine 100 mg/mL Inj 5 mL 200 MG IVP ×2 (12:01→13:54)
[2024-04-22] MEDS: fentaNYL 50 mcg/mL INJ 2mL 25 MCG IVP (12:03)
[2024-04-22] MEDS: iohexol 350 mg/mL 500 mL Btl (per mL) IV (12:40)
[2024-04-22] MEDS: piperacillin-tazobactam 3.375 GM in sodium chloride 0.9% (plus) 50 ML IV (13:22)
[2024-04-22] MEDS: ondansetron 2 mg/ML SDV 2 mL 4 MG IVP (13:22)
[2024-04-22 13:37] LABS: Troponin 5 2HR 26.93 ng/L (0-10)
[2024-04-22 13:38] LABS: Lactic Sepsis W/Reflex 2.4 mmol/L (0.5-2.2)
[2024-04-22 13:57] LABS: Troponin 5 2HR Delta -6.07 ABS# (0-10)
--- NOTE | 2024-04-22 14:13 | XRR_ITS ---
PROCEDURE INFORMATION: Exam: XR Chest Exam date and time: 04/22/2024 2:06 PM Age: 63 years old Clinical indication: Device placement; Chest tube; Additional info: Post left chest tube adjustment; Thoravent placement TECHNIQUE: Imaging protocol: Radiologic exam of the chest. Views: 1 view. COMPARISON: CT angio chest PE protcl [id number] 04/22/2024 12:36 PM FINDINGS: Lungs: Unremarkable. No consolidation or mass. Pleural spaces: An additional left-sided pleural catheter has been placed in the left-sided pneumothorax has reduced in size. A 20% pneumothorax persists. Subcutaneous air has worsened throughout the left lateral chest wall. Heart/Mediastinum: Unremarkable. No cardiomegaly. Bones/joints: Unremarkable. XR/XR chest 1V portable [id number] IMPRESSION: 1. The left-sided pneumothorax has improved 2. Subcutaneous emphysema has worsened
--- NOTE | 2024-04-22 14:43 | P.HP_ITS ---
Providers/Chief Complaint 2 Admitting Physician: Kristen King MD Chief Complaint: SOB History of Present Illness Sari Henning is a 63 year old female with history of rheumatoid arthritis, liver cirrhosis, esophageal varices, GERD,, hyperlipidemia, COPD , NAE hypertension, hypothyroidism, fibromyalgia, was brought in for complaint of shortness of breath and chest discomfort since last night. As per the daughter who is at the bedside stated she started feeling short of breath yesterday morning which has been gradually worsening, she [facility] but she refused and eventually was very short of breath and hence transferred to the ER. Denies any fever, cold, cough, urinary or bowel complaints. She also endorses abdominal pain which is gradually worsening since last admission. Of note she was recently admitted to the hospital on 04/06/2024 . She had presented s/p fall and was found to have possible sepsis and pneumonia . she was started on IV antibiotics vancomycin and meropenem and Levophed for possible sepsis and pneumonia, changed to midodrine for hypotension and Lasix for her fluid overload. She was also given stress dose of steroids. she had thoracentesis done this admission for left-sided pleural effusion/hemothorax lights criteria said exudative effusion but eventually Gram stain and culture was negative and there was no probability for infective process. During her hospital stay she was found to have gradually worsening abdominal distention, repeat abdominal ultrasound was done but she did not required any paracentesis. She had thrombocytopenia likely multifactorial due to sepsis and liver cirrhosis. Liver cirrhosis was thought to be from methotrexate use for her rheumatoid arthritis. She was negative for hepatitis B and C. She received 2 units platelet transfusion for thrombocytopenia and platelet count improved to 61,000. She also had 2 units of PRBCs transfused during this admission for GI bleed. She had a EGD and colonoscopy done on 03/15/2024 which showed esophageal varices and gastritis. She has been able to ambulate to the bathroom and back. 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 She was found to be hepatitis B and hepatitis C negative .she needs to follow-up with hepatology as outpatient. She needs to continue with p.o. prednisone 20 mg daily for her rheumatoid arthritis and follow-up with rheumatology as an outpatient for alternate to methotrexate. She is feeling better now although has some abdominal discomfort and, and [facility]. Review of Systems 2 General: Reports: 10 or more systems reviewed and unremarkable except in HPI and below Medications/Allergies Home Medications Medication Instructions Recorded Confirmed Last Taken Type docusate sodium 100 mg capsule 100 mg PO DAILY 11/24/21 04/06/24 03/13/24 History (Colace) syringe with needle 1 mL 25 gauge #50 ea 08/10/22 04/06/24 Unknown Rx x 5/8 (Monoject TB Safety Syringe) omeprazole 40 mg capsule,delayed 40 mg PO BID 90 days #180 caps 06/21/23 04/06/24 03/13/24 Rx release albuterol sulfate 90 mcg/actuation 1 puff inhalation QID PRN 09/27/23 04/06/24 03/11/24 Rx aerosol inhaler shortness of breath or wheezing 30 days #18 grams benzonatate 100 mg capsule 100 mg PO BID PRN cough 30 days 09/27/23 04/06/24 03/11/24 Rx #60 caps cyanocobalamin (vitamin B-12) See Rx Instructions .Route 09/27/23 04/06/24 02/14/24 Rx 1,000 mcg/mL injection solution .COMPLEX #6 mL insulin syringe-needle U-100 1 mL #100 ea 09/27/23 04/06/24 Unknown Rx 25 x 1 levomefolate calcium 15 mg tablet 15 mg PO DAILY 90 days #90 tabs 09/27/23 04/06/24 03/14/24 Rx (L-Methylfolate) sumatriptan succinate 25 mg tablet 25 mg PO ONCE PRN migraine 09/27/23 04/06/24 Unknown Rx headache #9 tabs nystatin 100,000 unit/gram topical 1 applic topical TID PRN skin 12/17/23 04/06/24 Unknown Rx powder (Nystop) irritation #15 grams levothyroxine 25 mcg tablet 25 mcg PO DAILY 30 days #30 tabs 12/28/23 04/06/24 03/14/24 Rx ropinirole 0.25 mg tablet 0.25 mg PO BID 30 days #60 tabs 12/28/23 04/06/24 03/14/24 Rx oxycodone 5 mg tablet 5 mg PO DAILY PRN pain 30 days #30 02/03/24 04/06/24 Unknown Rx tabs pantoprazole 40 mg tablet,delayed 40 mg PO BID 6 weeks #84 tabs 02/07/24 04/06/24 03/14/24 Rx release (Protonix) quetiapine 25 mg tablet (Seroquel) 25 mg PO BEDTIME 03/13/24 04/06/24 03/14/24 History ondansetron 8 mg disintegrating 8 mg PO Q8H PRN nausea and 03/31/24 04/06/24 Unknown Rx tablet vomiting #20 tabs bupropion HCl 150 mg 24 hr tablet, 150 mg PO EVERY OTHER DAY 04/06/24 04/06/24 Unknown History extended release cholecalciferol (vitamin D3) 1,250 1,250 mcg PO DAILY 04/06/24 04/06/24 Unknown History mcg (50,000 unit) capsule furosemide 40 mg tablet 40 mg PO DAILY 04/06/24 04/06/24 Unknown History linaclotide 72 mcg capsule 72 mcg PO DAILY 04/06/24 04/06/24 Unknown History (Linzess) midodrine 5 mg tablet 10 mg (2 x 5 mg) PO TID 30 days 04/14/24 Unknown Rx #180 tabs nystatin 100,000 unit/mL oral 500,000 unit (5 mL) PO QID 14 days 04/14/24 Unknown Rx suspension #280 mL potassium chloride 20 mEq 40 meq (2 x 20 mEq) PO DAILY 30 04/14/24 Unknown Rx tablet,extended days #30 tabs release(part/cryst) (Klor-Con M) prednisone 10 mg tablet 10 mg PO DAILY #30 tabs 04/17/24 Unknown Rx Allergies Allergy/AdvReac Type Severity Reaction Status Date / Time fentanyl AdvReac Severe ADR-Nightma Verified 04/22/24 11:10 re PFSH Acute 2 PFSH: Medical History Cirrhosis of liver GERD (gastroesophageal reflux disease) Rheumatoid arthritis Hyperlipidemia Chest pain Symptomatic cholelithiasis Metatarsalgia Nausea NAE (generalized anxiety disorder) COPD (chronic obstructive pulmonary disease) Lumbar paraspinal muscle spasm Chronic pain syndrome Hypertension, essential Did not tolerate lisinopril. Hypothyroidism Fibromyalgia Insomnia Failed amitriptyline, trazodone, Ambien caused side effects. Surgical History H/O gastric sleeve Hx laparoscopic cholecystectomy H/O tubal ligation H/O foot surgery Family History Other CAD (coronary artery disease) Cancer Diabetes Heart attack Hyperlipidemia Hypertension Rheumatoid arthritis Stroke Denies family history of Lupus Chronic kidney disease (CKD) Social History Smoking and tobacco/nicotine status: current every day tobacco/nicotine user cigarettes Packs smoked per day: 1 Quit status (tobacco/nicotine): has tried quititng Second hand smoke exposure: No Alcohol intake: current Alcohol intake frequency: holidays/special occasions only Substance/Drug Use: never Female Reproductive History: Spontaneous abortions: No Vitals/I&O/Wt Last Vital Signs Temp 97.7 F 04/22/24 11:00 Pulse 81 04/22/24 14:30 Resp 20 H 04/22/24 14:30 BP 109/68 04/22/24 14:30 Pulse Ox 98 04/22/24 14:30 O2 Del Method Nasal Cannula 04/22/24 14:30 O2 Flow Rate 2 04/22/24 14:30 04/21/24 04/22/24 04/22/24 22:59 06:59 14:59 Intake Total 50 / 50 Balance 50 / 50 Weight last 48 hrs Weight 80.286 kg Physical Exam 2 Narrative: She is alert awake oriented x 3 not in acute distress Chest clear to auscultation on right side, left-sided decreased breath sounds laterally and at the base, chest tube in place laterally on the left draining hemorrhagic fluid. Cardiovascular normal heart sounds no murmurs Abdomen soft distended, diffusely tender normal bowel sounds. Extremities trace edema bilateral lower extremity noted Data 04/22/24 10:45 04/22/24 10:45 Micro: Microbiology 04/22/24 11:50 Blood Culture - Preliminary Blood SPECIMEN COLLECTED 04/22/24 11:36 Blood Culture - Preliminary Blood SPECIMEN COLLECTED A&P Assessment and plan (1) Pleural effusion, left: (2) Pneumothorax on left: (3) Anemia: (4) Thrombocytopenia: (5) Leukopenia: (6) Cirrhosis of liver: (7) COPD (chronic obstructive pulmonary disease): Qualifiers: COPD type: chronic bronchitis Chronic bronchitis type: simple Qualified Code(s): J41.0 - Simple chronic bronchitis (8) Hypothyroidism: Qualifiers: Hypothyroidism type: acquired Qualified Code(s): E03.9 - Hypothyroidism, unspecified (9) Acute kidney injury: (10) Abdominal pain: (11) Ascites: (12) Rheumatoid arthritis: Qualifiers: Rheumatoid arthritis location: multiple sites Rheumatoid factor presence: unspecified presence Qualified Code(s): M06.9 - Rheumatoid arthritis, unspecified (13) Volume overload: Plan 63 year old female with history of rheumatoid arthritis, liver cirrhosis, esophageal varices, GERD,, hyperlipidemia, COPD , NAE hypertension, hypothyroidism, fibromyalgia, was brought in for complaint of shortness of breath and chest discomfort since last night. As per the daughter who is at the bedside stated she started feeling short of breath yesterday morning which has been gradually worsening, she was [facility] but she refused and eventually was very short of breath and hence transferred to the ER. (1)Shortness of breath and chest discomfort likely secondary to hydropneumothorax secondary to COPD and rheumatoid arthritis. On chest x-ray she was noted to have large left-sided hydropneumothorax with prominent collapse of left lung CT angio chest showed 1. Large left-sided pneumothorax with a chest tube in good position 2. New bilateral pulmonary infiltrates which appear to represent pneumonia 3. Stable bilateral pleural effusions 4. A nodular mass in the left upper lobe has improved over the past 5 weeks 5. Prominent abdominal ascites She is s/p chest tube placement draining 1300 mL of hematologic pleural fluid Repeat chest x-ray showed 1. Improved left hydropneumothorax since chest tube placement 2. Bilateral interstitial infiltrates noted Repeat chest x-ray post Thora vent showed 1. The left-sided pneumothorax has improved 2. Subcutaneous emphysema has worsened Dr. Guzman consulted in ER, will follow-up for further recommendations. Follow-up blood cultures and pleural fluid Gram stain and cultures 2D ECHO 04/06/24 LV systolic function is normal with EF of 60-65% Mild mitral regurgitation Mild tricuspid regurgitation. (2)Anemia-hemoglobin stable at 9.4 Will continue to monitor. (3)Thrombocytopenia-stable at 98 secondary to liver cirrhosis Improved from last admission from 42 Will monitor for now (4)Coagulopathy with INR of 1.6 secondary to liver cirrhosis (5)Acute renal failure with creatinine of 1.4-likely prerenal, baseline creatinine 1.1 Will continue to monitor (6) Liver cirrhosis-referred at [facility] and awaiting appointment. (7) Rheumatoid arthritis continue p.o. prednisone 10 mg daily (8) COPD will continue DuoNebs every 6 hours and budesonide twice daily (9) Hypothyroidism continue levothyroxine daily (10) Hypotension-continue p.o. midodrine 10 mg 3 times daily (11) Migraine-continue sumatriptan 25 mg p.o. as needed (12) Fluid overload, pleural effusions and ascites secondary to cirrhosis- will do IV lasix 40mg daily. N.p.o. except sips and meds for now Stress ulcer prophylaxis with IV Pepcid 20 mg twice a day DVT prophylaxis with SCD She is full code as discussed with the patient and family. Attestations 2 Medical Necessity Statement*: She needs continued hospitalization crossing 2 midnights for management of left- sided hydropneumothorax with chest tube placement, pulmonary and critical care consult, ICU management Time Spent in Patient Care: 60 minutes Coding Level of Care Code Acute Code for Chg Fwd Diagnoses Pleural effusion, left J90 Pneumothorax on left J93.9 Anemia D64.9 Thrombocytopenia D69.6 Leukopenia D72.819 Cirrhosis of liver K74.60 Simple chronic bronchitis J41.0 COPD type: chronic bronchitis Chronic bronchitis type: simple Acquired hypothyroidism E03.9 Hypothyroidism type: acquired Acute kidney injury N17.9 Abdominal pain R10.9 Ascites R18.8 Rheumatoid arthritis involving multiple sites, unspecified whether rheumatoid factor present M06.9 Rheumatoid arthritis location: multiple sites Rheumatoid factor presence: unspecified presence Volume overload E87.70 Time Spent (min) 60
[2024-04-22 15:02] LABS: Reflex Lactate Order REFLEX LACTIC ORDERD
--- NOTE | 2024-04-22 15:13 | USR_ITS ---
PROCEDURE INFORMATION: Exam: US Abdomen; Limited Exam date and time: 04/22/2024 5:45 PM Age: 63 years old Clinical indication: Condition or disease; Ascites TECHNIQUE: Imaging protocol: Real time ultrasound of the abdomen with image documentation. Limited exam focused on the region of clinical interest. COMPARISON: US abdomen lmt fluid [id number] 04/17/2024 7:17 AM FINDINGS: Liver: Examination of the abdomen demonstrates hepatic cirrhosis with a large amount ascites. US/US abdomen lmt fluid [id number] IMPRESSION: Prominent ascites
--- NOTE | 2024-04-22 15:31 | ECG_ITS ---
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 Measurements Intervals [place] Rate: 76 P: 113 ME: 145 QRS: 35 QRSD: 86 T: 58 QT: 331 QTc: 372 Interpretive Statements SINUS RHYTHM NONSPECIFIC T-WAVE ABNORMALITY Compared to ECG 04/22/2024 13:11:13 No significant changes Electronically Signed On 04-23-2024 20:25:33 CDT by Jayce David M.D. [email or web address]
[2024-04-22] MEDS: vancomycin 1,000 MG in sodium chloride 0.9% 250 ML 250 MG IV (15:59)
[2024-04-22] MEDS: sodium chloride 0.9% 1,000 ML 100 ML IV (15:59)
[2024-04-22] MEDS: FUROsemide 10 mg/mL SDV 4mL 40 MG IVP (16:00)
[2024-04-22] MEDS: famotidine 20 mg/2 mL INJ IVP (16:00)
[2024-04-22 16:19] LABS: Adenovirus Not Detected (NOT DETECT); Chlamydia Pneumoniae Not Detected (NOT DETECT); Coronavirus 229E,HKU1,NL63,OC4 Not Detected (NOT DETECT); Human Metapneumovirus Not Detected (NOT DETECT); Human Rhinovirus/Enterovirus Not Detected (NOT DETECT); Influenza A Not Detected (NOT DETECT); Influenza A H1 Not Detected (NOT DETECT); Influenza A H1-2009 Not Detected (NOT DETECT); Influenza A H3 Not Detected (NOT DETECT); Influenza B Not Detected (NOT DETECT); Mycoplasma Pneumoniae Not Detected (NOT DETECT); Parainfluenza Virus Type 1 Not Detected (NOT DETECT); Parainfluenza Virus Type 2 Not Detected (NOT DETECT); Parainfluenza Virus Type 3 Not Detected (NOT DETECT); Parainfluenza Virus Type 4 Not Detected (NOT DETECT); Respiratory Syncytial Virus A Not Detected (NOT DETECT); Respiratory Syncytial Virus B Not Detected (NOT DETECT); SARS-COV-2 Not Detected (NOT DETECT)
[2024-04-22 16:56] LABS: Lactic Acid level (Lactate) 2.9 mmol/L (0.5-2.2)
[2024-04-22] MEDS: ropinirole 0.25 mg Tablet PO (17:26)
[2024-04-22] MEDS: LORazepam 0.5 mg Tablet PO (17:26)
[2024-04-22] MEDS: nystatin 100,000 unit/mL UDC 5 mL 500000 UNIT PO (17:26)
--- NOTE | 2024-04-22 17:26 | ECG_ITS ---
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 Measurements Intervals [place] Rate: 81 P: 0 TX: 0 QRS: 33 QRSD: 85 T: 54 QT: 389 QTc: 452 Interpretive Statements Possible sinus rhythm NONSPECIFIC T-WAVE ABNORMALITY ABNORMAL RHYTHM ECG Baseline artifact Compared to ECG 04/22/2024 15:31:35 Need to repeat the study Electronically Signed On 04-23-2024 20:40:45 CDT by Jayce David M.D. [email or web address]
[2024-04-22 18:30] LABS: Add Urine Microscopic? YES; Bilirubin Urine Neg (Negative); Blood Urine Neg (Negative); Glucose Urine UA Norm (Normal); Ketones Urine 1+ (Negative); Leukocyte Esterase Urine Negative (Negative); Nitrate Urine Negative (Negative); Protein Urine Neg (Negative); Urine Appearance Cloudy (CLEAR); Urine Color Yellow (Yellow); Urobilinogen Urine 1 mg/dL (Negative); pH Urine 5 (5-7)
[2024-04-22 18:31] LABS: Amorphous Sediment Urine TRACE /hpf; Bacteria Urine 1+ /hpf; Mucus Urine TRACE /hpf; RBC Urine 0-4 /hpf (0-2); Squamous Epithelial Cell Urine 0-4 /hpf (0-5)
[2024-04-22] MEDS: midodrine 5 mg TABLET 10 MG PO (20:21)
[2024-04-22] MEDS: quetiapine 25 mg Tablet PO (20:21)
[2024-04-22] MEDS: budesonide 0.5 mg/2 mL Neb INHALATION (20:41)
[2024-04-22] MEDS: ipratropium-albuterol 3 mL Neb INHALATION (20:41)
--- NOTE | 2024-04-22 21:21 | P.CONIM_ITS ---
Providers/Reason For Consult 2 Consulting Physician/Specialty*: Jackson aragon MD/pulmonary critical care Reason for Consult*: hydropneumothorax Requesting Physician: Dr. Frey Attending Physician: Kristen King MD History of Present Illness History of Present Illness Sari Henning is a 63 year old female with history of rheumatoid arthritis, liver cirrhosis, esophageal varices, GERD,, hyperlipidemia, COPD , NAE hypertension, hypothyroidism, fibromyalgia, was brought in for complaint of shortness of breath and chest discomfort since last night. Patient was recently admitted to [facility] on 04/17/2024. She was admitted on 04/06/2024 after sustaining a fall was brought to ED, found to be sepsis secondary to pneumonia. Treated with IV vancomycin and meropenem, required Levophed transiently-changed to midodrine for persistent hypotension as well as received Lasix for fluid overload. She also received stress doses of steroids. On 04/06/2024 she had left thoracentesis which yielded 1100 cc hemorrhagic pleural effusion-exudative by lights criteria; cultures negative, cytology negative for malignancy. Subsequent chest x-rays during admission-showed improvement in aeration in bilateral lung gagnon. Patient had liver cirrhosis likely secondary to methotrexate use for her rheumatoid arthritis. She was a thrombocytopenic and received 2 units of platelet transfusion and platelet count improved to 61,000. She also received 2 units of PRBC during admission for GI bleed. EGD and colonoscopy recently on 03/15/2024 showed esophageal varices and gastritis. She was supposed to follow-up with hepatology in [place] for liver biopsy. Overall during hospitalization-after treatment for her pneumonia; platelet transfusions, RBC transfusions, she was able to ambulate and so was discharged home. As per the daughter who is at the bedside stated she started feeling short of breath yesterday morning which has been gradually worsening, she was offered hospitalization by the [facility] but she refused and eventually was very short of breath and hence transferred to the ER. Denies any fever, cold, cough, urinary or bowel complaints. She also endorses abdominal pain which is gradually worsening since last admission. Admission chest x-ray showed significant left-sided hydropneumothorax. Under conscious sedation-ED physician placed 24 Marshallese chest tube; chest tube drained 1100 cc hemorrhagic fluid. Subsequent CT chest showed good placement of chest tube however large residual pneumothorax. An additional 13 Marshallese Thora vent was placed anteriorly, however tip was in a pocket of fluid and could not get air all fluid; chest x-ray confirmed position of Thora vent and there is significant reduction of pneumothorax. As Thora vent was not draining it was removed at that point and 24 Marshallese chest tube was left in place under suction and patient transferred to ICU. Pulmonary critical care consult requested for management of chest tube I have seen patient at bedside in ICU Her daughter was at bedside was able to provide history Patient reported improvement in her chest pain and states she is able to breathe better after placement of chest tube She does have some subcutaneous emphysema on the left anterior chest wall Chest tube connected to suction-and there is good tidaling-with occasional grade 1 airleak Other labs and imaging reviewed Review of Systems 2 General: Reports: 10 or more systems reviewed and unremarkable except in HPI and below Medications/Allergies Home Medications Medication Instructions Recorded Confirmed Last Taken Type docusate sodium 100 mg capsule 100 mg PO DAILY 11/24/21 04/06/24 03/13/24 History (Colace) syringe with needle 1 mL 25 gauge #50 ea 08/10/22 04/06/24 Unknown Rx x 5/8 (Monoject TB Safety Syringe) omeprazole 40 mg capsule,delayed 40 mg PO BID 90 days #180 caps 06/21/23 04/06/24 03/13/24 Rx release albuterol sulfate 90 mcg/actuation 1 puff inhalation QID PRN 09/27/23 04/06/24 03/11/24 Rx aerosol inhaler shortness of breath or wheezing 30 days #18 grams benzonatate 100 mg capsule 100 mg PO BID PRN cough 30 days 09/27/23 04/06/24 03/11/24 Rx #60 caps cyanocobalamin (vitamin B-12) See Rx Instructions .Route 09/27/23 04/06/24 02/14/24 Rx 1,000 mcg/mL injection solution .COMPLEX #6 mL insulin syringe-needle U-100 1 mL #100 ea 09/27/23 04/06/24 Unknown Rx 25 x 1 levomefolate calcium 15 mg tablet 15 mg PO DAILY 90 days #90 tabs 09/27/23 04/06/24 03/14/24 Rx (L-Methylfolate) sumatriptan succinate 25 mg tablet 25 mg PO ONCE PRN migraine 09/27/23 04/06/24 Unknown Rx headache #9 tabs nystatin 100,000 unit/gram topical 1 applic topical TID PRN skin 12/17/23 04/06/24 Unknown Rx powder (Nystop) irritation #15 grams levothyroxine 25 mcg tablet 25 mcg PO DAILY 30 days #30 tabs 12/28/23 04/06/24 03/14/24 Rx ropinirole 0.25 mg tablet 0.25 mg PO BID 30 days #60 tabs 12/28/23 04/06/24 03/14/24 Rx oxycodone 5 mg tablet 5 mg PO DAILY PRN pain 30 days #30 02/03/24 04/06/24 Unknown Rx tabs pantoprazole 40 mg tablet,delayed 40 mg PO BID 6 weeks #84 tabs 02/07/24 04/06/24 03/14/24 Rx release (Protonix) quetiapine 25 mg tablet (Seroquel) 25 mg PO BEDTIME 03/13/24 04/06/24 03/14/24 History ondansetron 8 mg disintegrating 8 mg PO Q8H PRN nausea and 03/31/24 04/06/24 Unknown Rx tablet vomiting #20 tabs bupropion HCl 150 mg 24 hr tablet, 150 mg PO EVERY OTHER DAY 04/06/24 04/06/24 Unknown History extended release cholecalciferol (vitamin D3) 1,250 1,250 mcg PO DAILY 04/06/24 04/06/24 Unknown History mcg (50,000 unit) capsule furosemide 40 mg tablet 40 mg PO DAILY 04/06/24 04/06/24 Unknown History linaclotide 72 mcg capsule 72 mcg PO DAILY 04/06/24 04/06/24 Unknown History (Linzess) midodrine 5 mg tablet 10 mg (2 x 5 mg) PO TID 30 days 04/14/24 Unknown Rx #180 tabs nystatin 100,000 unit/mL oral 500,000 unit (5 mL) PO QID 14 days 04/14/24 Unknown Rx suspension #280 mL potassium chloride 20 mEq 40 meq (2 x 20 mEq) PO DAILY 30 04/14/24 Unknown Rx tablet,extended days #30 tabs release(part/cryst) (Klor-Con M) prednisone 10 mg tablet 10 mg PO DAILY #30 tabs 04/17/24 Unknown Rx Allergies Allergy/AdvReac Type Severity Reaction Status Date / Time fentanyl AdvReac Severe ADR-Nightma Verified 04/22/24 11:10 re Current Medications Generic Name Dose Route Start Last Admin Trade Name Varun PRN Reason Stop Dose Admin Albuterol/Ipratropium 3 ml 04/22/24 20:00 04/22/24 20:41 Ipratropium-Albuterol 3 Ml Neb INHALATION 3 ml Q6H.RESP NICOLE Administration Budesonide 0.5 mg 04/22/24 20:00 04/22/24 20:41 Budesonide 0.5 Mg/2 Ml Neb INHALATION 0.5 mg BID.RESPIRATORY NICOLE Administration Famotidine 20 mg 04/22/24 15:15 04/22/24 16:00 Famotidine 20 Mg/2 Ml Inj IVP 20 mg Q12H NICOLE Administration Furosemide 40 mg 04/22/24 15:45 04/22/24 16:00 Furosemide 10 Mg/Ml Sdv 4ml IVP 40 mg Q24H NICOLE Administration Sodium Chloride 1,000 mls @ 100 mls/hr 04/22/24 15:12 04/22/24 15:59 Sodium Chloride 0.9% IV 100 mls/hr .Q10H NICOLE Administration Midodrine 10 mg 04/22/24 21:00 04/22/24 20:21 Midodrine 5 Mg Tablet PO 10 mg TID NICOLE Administration Nystatin 500,000 unit 04/22/24 17:00 04/22/24 20:35 Nystatin 100,000 Unit/Ml Udc 5 Ml PO Not Given QID NICOLE Quetiapine Fumarate 25 mg 04/22/24 21:00 04/22/24 20:21 Quetiapine 25 Mg Tablet PO 25 mg BEDTIME NICOLE Administration Ropinirole HCl 0.25 mg 04/22/24 18:00 04/22/24 17:26 Ropinirole 0.25 Mg Tablet PO 0.25 mg BID NICOLE Administration PFSH Acute 2 PFSH: Medical History Cirrhosis of liver GERD (gastroesophageal reflux disease) Rheumatoid arthritis Hyperlipidemia Chest pain Symptomatic cholelithiasis Metatarsalgia Nausea NAE (generalized anxiety disorder) COPD (chronic obstructive pulmonary disease) Lumbar paraspinal muscle spasm Chronic pain syndrome Hypertension, essential Did not tolerate lisinopril. Hypothyroidism Fibromyalgia Insomnia Failed amitriptyline, trazodone, Ambien caused side effects. Surgical History H/O gastric sleeve Hx laparoscopic cholecystectomy H/O tubal ligation H/O foot surgery Family History Other CAD (coronary artery disease) Cancer Diabetes Heart attack Hyperlipidemia Hypertension Rheumatoid arthritis Stroke Denies family history of Lupus Chronic kidney disease (CKD) Social History Smoking and tobacco/nicotine status: current every day tobacco/nicotine user cigarettes Packs smoked per day: 1 Quit status (tobacco/nicotine): has tried quititng Second hand smoke exposure: No Alcohol intake: current Alcohol intake frequency: holidays/special occasions only Substance/Drug Use: never Female Reproductive History: Spontaneous abortions: No Vitals/I&O/Wt Last Vital Signs Temp 97.8 F 04/22/24 19:37 Pulse 81 04/22/24 20:41 Resp 15 04/22/24 20:41 BP 100/61 04/22/24 20:30 Pulse Ox 98 04/22/24 20:41 O2 Del Method Nasal Cannula 04/22/24 20:41 O2 Flow Rate 2 04/22/24 20:41 04/22/24 04/22/24 04/22/24 06:59 14:59 22:59 Intake Total 50 / 50 300 / 350 Output Total 2200 / 2200 Balance 50 / 50 -1900 / -1850 Weight last 48 hrs Weight 177 lb Weight 177 lb Physical Exam 2 Narrative: General: alert, NAD HEENT: conj clear, EOMI, PERRL, mmm, Neck: supple, no meningismus Heme: no cervical LAP Respiratory: Inspection: No visible deformity of the chest wall, swelling noted left-sided chest wall, left chest tube in midclavicular line with dressing Palpation: Trachea is mildly deviated to the right, bilateral symmetric expansion, there is subcutaneous crepitus over left anterior chest wall Percussion: Bilateral tympanic percussion note both anterior and posteriorly Auscultation: Bilateral clear to auscultation both anterior and posteriorly, no crackles wheezing or rhonchi Cardiovascular: rrr, nl s1s2, no mrg Abdomen: soft, nt, nd, no r/g, bs+ Extremities: pulses +, no edema, no c/c : no CVA tenderness Skin: intact, no rash MSK: no back or neck pain Neurologic: grossly intact Urinary Catheter Management: Black: Cath Placed During This Visit: yes Reason for Continuing Indwelling Catheter: Accurate Measurement of Urinary Output in Critically Ill Patients Urinary Catheter Date of Insertion: 04/22/24 Urinary Catheter Time of Insertion: 15:00 Data 04/22/24 10:45 04/22/24 10:45 Other Labs: Radiology Impressions Chest CTA 04/22/24 11:38 IMPRESSION: 1. Large left-sided pneumothorax with a chest tube in good position 2. New bilateral pulmonary infiltrates which appear to represent pneumonia 3. Stable bilateral pleural effusions 4. A nodular mass in the left upper lobe has improved over the past 5 weeks 5. Prominent abdominal ascites Chest X-Ray 04/22/24 14:13 IMPRESSION: 1. The left-sided pneumothorax has improved 2. Subcutaneous emphysema has worsened Abdomen Ultrasound 04/22/24 15:13 IMPRESSION: Prominent ascites Laboratory Results WBC 5.41 10^3/uL (3.29-11.43) 04/22/24 10:45 RBC 2.62 10^6/uL (3.85-5.65) L 04/22/24 10:45 Hgb 9.40 g/dL (11.27-16.99) L 04/22/24 10:45 Hct 28.4 % (36-47) L 04/22/24 10:45 MCV 108.4 fl (85-98) H 04/22/24 10:45 MCH 35.9 pg (27-33) H 04/22/24 10:45 MCHC 33.1 g/dL (30-55) 04/22/24 10:45 RDW 20.7 % (12.1-15.1) H 04/22/24 10:45 Plt Count 98 10^3/cmm (157-399) L 04/22/24 10:45 MPV 11.0 fL (7.4-10.4) H 04/22/24 10:45 Neut % (Auto) 81.1 % 04/22/24 10:45 Lymph % (Auto) 12.0 % 04/22/24 10:45 [place] % (Auto) 5.4 % 04/22/24 10:45 Eos % (Auto) 1.1 % 04/22/24 10:45 Baso % (Auto) 0.2 % 04/22/24 10:45 Neut # (Auto) 4.39 10^3/uL (1.8-7.7) 04/22/24 10:45 Lymph # (Auto) 0.7 10^3/uL (0.8-4.8) L 04/22/24 10:45 [place] # (Auto) 0.3 10^3/uL (0.2-0.9) 04/22/24 10:45 Eos # (Auto) 0.1 10^3/uL (0.0-0.8) 04/22/24 10:45 Baso # (Auto) 0.0 10^3/uL (0.0-0.1) 04/22/24 10:45 Nucleated RBC % (auto) 0 % 04/22/24 10:45 Nucleated RBCs # 0.0 /100WBC 04/22/24 10:45 Sodium 138 mmol/L (136-145) 04/22/24 10:45 Potassium 4.0 mmol/L (3.5-5.1) 04/22/24 10:45 Chloride 98 mmol/L (98-107) 04/22/24 10:45 Carbon Dioxide 28 mmol/L (22-29) 04/22/24 10:45 Anion Gap 16.0 (5-19) 04/22/24 10:45 BUN 18 mg/dL (8-23) 04/22/24 10:45 Creatinine 1.4 mg/dL (0.5-0.9) H 04/22/24 10:45 GFR Calculation 37.7 mL/min (90-130) L 04/22/24 10:45 Glucose 103 mg/dL (65-115) 04/22/24 10:45 Calculated Osmolality 288 mOsm/kg (285-295) 04/22/24 10:45 Lactic Acid 2.4 mmol/L (0.5-2.2) H 04/22/24 13:10 Lactic Acid (Sepsis) 2.9 mmol/L (0.5-2.2) H 04/22/24 16:31 Calcium 8.1 mg/dL (8.5-10.5) L 04/22/24 10:45 Total Bilirubin 3.6 mg/dL (0.15-1.2) H 04/22/24 10:45 AST 26 U/L (0-32) 04/22/24 10:45 ALT 16 U/L (0-33) 04/22/24 10:45 Alkaline Phosphatase 81 U/L (35-105) 04/22/24 10:45 Troponin T Baseline 33 ng/L (0-10) H 04/22/24 10:45 Troponin T 120 Minute 26.93 ng/L (0-10) H 04/22/24 13:10 Delta Troponin T -6.07 ABS# (0-10) L 04/22/24 13:10 Troponin T Hi Sens 6Hr 27.60 ng/L (0-10) H 04/22/24 16:31 Troponin T Hi Sens 6Hr Delta -5.40 ng/L (0-12) L 04/22/24 16:31 NT-Pro-B Natriuret Pep 4625 pg/mL (0-125) H 04/22/24 10:45 Total Protein 6.5 g/dL (6.6-8.7) L 04/22/24 10:45 Albumin 2.9 g/dL (3.5-5.2) L 04/22/24 10:45 Globulin 3.6 g/dL (1.3-4.6) 04/22/24 10:45 Urine Color Yellow (Yellow) 04/22/24 17:35 Urine Appearance Cloudy (CLEAR) A 04/22/24 17:35 Urine pH 5 (5-7) 04/22/24 17:35 Ur Specific [place] 1.010 (1.005-1.030) 04/22/24 17:35 Urine Protein Neg (Negative) 04/22/24 17:35 Urine Glucose (UA) Norm (Normal) 04/22/24 17:35 Urine Ketones 1+ (Negative) H 04/22/24 17:35 Urine Blood Neg (Negative) 04/22/24 17:35 Urine Nitrate Negative (Negative) 04/22/24 17:35 Urine Bilirubin Neg (Negative) 04/22/24 17:35 Urine Urobilinogen 1 mg/dL (Negative) H 04/22/24 17:35 Ur Leukocyte Esterase Negative (Negative) 04/22/24 17:35 Urine RBC 0-4 /hpf (0-2) H 04/22/24 17:35 Urine WBC 5-10 /hpf (0-5) H 04/22/24 17:35 Ur Squamous Epith Cells 0-4 /hpf (0-5) H 04/22/24 17:35 Amorphous Sediment Trace /hpf 04/22/24 17:35 Urine Bacteria 1+ /hpf (NONE) H 04/22/24 17:35 Hyaline Casts 5-10 /lpf H 04/22/24 17:35 Urine Mucus Trace /hpf 04/22/24 17:35 Urine Yeast 1+ /hpf H 04/22/24 17:35 Adenovirus (PCR) Not detected (NOT DETECT) 04/22/24 14:30 C. pneumoniae DNA (PCR) Not detected (NOT DETECT) 04/22/24 14:30 Coronavirus 229E (PCR) Not detected (NOT DETECT) 04/22/24 14:30 Human Metapneumovir PCR Not detected (NOT DETECT) 04/22/24 14:30 Influenza A (H1) PCR Not detected (NOT DETECT) 04/22/24 14:30 Influ A (H1/09) PCR Not detected (NOT DETECT) 04/22/24 14:30 Influenza A (H3) PCR Not detected (NOT DETECT) 04/22/24 14:30 Influenza Type A (PCR) Not detected (NOT DETECT) 04/22/24 14:30 Influenza Type B (PCR) Not detected (NOT DETECT) 04/22/24 14:30 M. pneumoniae (PCR) Not detected (NOT DETECT) 04/22/24 14:30 Parainfluenza 1 (PCR) Not detected (NOT DETECT) 04/22/24 14:30 Parainfluenza 2 (PCR) Not detected (NOT DETECT) 04/22/24 14:30 Parainfluenza 3 (PCR) Not detected (NOT DETECT) 04/22/24 14:30 Parainfluenza 4 (PCR) Not detected (NOT DETECT) 04/22/24 14:30 RSV Type A (PCR) Not detected (NOT DETECT) 04/22/24 14:30 RSV Type B (PCR) Not detected (NOT DETECT) 04/22/24 14:30 Entero/Rhino (PCR) Not detected (NOT DETECT) 04/22/24 14:30 SARS-CoV-2 (PCR) Not detected (NOT DETECT) 04/22/24 14:30 Micro: Microbiology 04/22/24 13:05 Gram Stain - Final Pleural Fluid 04/22/24 11:50 Blood Culture - Preliminary Blood SPECIMEN COLLECTED 04/22/24 11:36 Blood Culture - Preliminary Blood SPECIMEN COLLECTED A&P Assessment and plan (1) Hydropneumothorax: Presented with respiratory distress and initial imaging showed hydropneumothorax-s/p 24 Marshallese chest tube-yielded 1100 cc hemorrhagic fluid as well as improvement in pneumothorax; There is evidence of subcutaneous emphysema Chest tube connected to suction-patient reported symptomatic improvement in her chest pain and shortness of breath Currently she is on 2 L supplemental oxygen saturating 98% Continue morphine 2 Mg every 4 hours as needed for pain; oxycodone 5 Mg p.o. daily as needed for pain Patient had smoking history-cannot rule out underlying COPD emphysema -Review of her CT scans from 04/06/2024 showed 2.6 cm subpleural left upper lobe nodule-on today's CT chest the size has decreased but there is a cavity seen within the lesion-not sure if it ruptured and cause pneumothorax -Will continue chest tube under suction for at least 24 to 36 hours; then turn off suction and repeat chest x-ray in 2 hours to see if there is any recurrence of pneumothorax -If there is persistent pneumothorax-she may need CT surgery consultation for bronchopleural fistula (2) Pleural effusion, left: After placement of 24-hour chest tube-drained 1100 cc hemorrhagic fluid-chest tube left under suction Patient underwent left-sided thoracentesis 04/06/2024 during previous admission- exudative by lights criteria-drained 1100 cc hemorrhagic fluid-cytology negative for malignancy; cultures were negative (3) Pneumonia: CT chest showed new bilateral pulmonary infiltrates-which may represent pneumonia Patient received 1 dose of vancomycin and Zosyn; continue vancomycin and cefepime for HCAP until culture results Blood cultures: Sputum cultures pending Check for barium swallow during this admission to check for aspiration risk (4) Cirrhosis of liver: Thought to be secondary to [id number]-previous admission hepatitis B and C are negative Patient is scheduled to see [facility] in [place] for liver biopsy as outpatient; patient reported she is not interested in liver transplant even if she qualifies Elevated bilirubin 3.2; AST ALT normal; albumin 2.9 EGD 03/15/2024-showed esophageal varices; received 2 units PRBC during last admission-H&H stable today (5) Ascites: Abdominal ultrasound showed prominent ascites Currently patient is on 2 L supplemental oxygen saturating 98% Continue Lasix 40 Mg daily-recommended to supplement albumin She may need therapeutic paracentesis if shortness of breath worsens (6) Hypotension: Likely secondary to liver cirrhosis Currently she is on midodrine 10 Mg 3 times daily-blood pressure 100/60 (7) High risk medication use: Plan 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 Recommended transfer patient to a facility with pulmonary/CT surgery services if there is any active/in person management needed with chest tube Recommendations conveyed to hospitalist, RN, RT taking care of the patient Consult Attestations 2 Medical Necessity Statement: Need close ICU monitoring for hydropneumothorax requiring chest tube at least for next 48 hours Time Spent in Patient Care: Greater than 35 minutes (>than 50% of time spent in counselling and/or direct pt care on unit) . Critical Care Time: The high probability of a clinically significant, sudden or life threatening deterioration of the patient's [pulmonary, hepatic, cardiac] system(s) required my full and direct attention, intervention and personal management. The critical care time is as shown. This time is in addition to time spent performing any reported procedures but includes the following: [x] Data and vital sign review and interpretation [x] Patient assessment, examination and intervention [x] Documentation [x] Medication orders and management Critical Care Time (min): 77 Coding Level of Care Code Acute Code for Chg Fwd Diagnoses Hydropneumothorax J94.8 Pleural effusion, left J90 Pneumonia J18.9 Cirrhosis of liver K74.60 Ascites R18.8 Hypotension I95.9 High risk medication use Z79.899 Time Spent (min) 77
--- NOTE | 2024-04-22 23:29 | PC.NURSE ---
Addendum entered by Delphine Lopez RN 04/23/24 03:41: Patients blood pressure still trending down after fluid bolus; 0200 blood pressure was 76/42(MAP 53). Dr. Cullen was notified and ordered Levophed to maintain a MAP goal of 65. Addendum entered by Delphine Lopez RN 04/23/24 01:32: Hypotension: Patient's blood pressure still remains low (86/43, MAP 57) after receiving solu-cortef and albumin. Dr. Cullen notified and ordered 500ml ns bolus then turn off fluids. Original Note: Hypotension: Patient's blood pressure has been trending down this shift, currently 89/44(Map 59). Dr. Cullen was notified and put in orders for solu-cortef. Dr. Guzman was notified per pharmacy question about albumin dose; order received for 25mg q8h x 3. Dr. Guzman updated of patients vital signs.
[2024-04-22] MEDS: hydrocortisone 100 mg/2 mL SDV IVP (23:43)
[2024-04-22] MEDS: albumin 25 G/100 ML BAG 60 G IV (23:44)
[2024-04-23] VITALS (51 sets, daily range): BP systolic 76–116; BP diastolic 35–64; PULSE 79–99; RESP 15–27; TEMP 36.4; O2SAT 90–100
[2024-04-23] MEDS: ipratropium-albuterol 3 mL Neb INHALATION ×2 (01:33→07:54)
[2024-04-23] MEDS: sodium chloride 0.9% 500 ML 999 ML IV (01:36)
[2024-04-23] MEDS: norepinephrine 4 MG/250 ML BAG 7.5 MG IV (02:22)
[2024-04-23] MEDS: famotidine 20 mg/2 mL INJ IVP ×2 (02:25→16:22)
[2024-04-23] MEDS: hydrocortisone 100 mg/2 mL SDV IVP ×2 (05:15→11:33)
[2024-04-23 05:45] LABS: Basophils % 0.2 %; Hematocrit 21.8 % (36-47); Lymphocytes # 0.4 10^3/uL (0.8-4.8); Lymphocytes % 7.7 %; Mean Corpuscular HGB Conc 33.9 g/dL (30-55); Mean Corpuscular Hemoglobin 36.5 pg (27-33); Mean Corpuscular Volume 107.4 fl (85-98); Mean Platelet Volume 11.9 fL (7.4-10.4); Monocytes # 0.2 10^3/uL (0.2-0.9); Monocytes % 2.8 %; Neutrophils # 4.71 10^3/uL (1.8-7.7); Neutrophils % 88.5 %; Nucleated Red Blood Cells % 0 %; Platelet Count 66 10^3/cmm (157-399); Red Blood Count 2.03 10^6/uL (3.85-5.65); Red Cell Distribution Width 20.8 % (12.1-15.1); White Blood Count 5.32 10^3/uL (3.29-11.43)
[2024-04-23 06:11] LABS: Alanine Aminotransferase 11 U/L (0-33); Albumin Level 2.8 g/dL (3.5-5.2); Alkaline Phosphatase 56 U/L (35-105); Blood Urea Nitrogen 19 mg/dL (8-23); Calcium 7.5 mg/dL (8.5-10.5); Carbon Dioxide 26 mmol/L (22-29); Chloride 101 mmol/L (98-107); Globulin 2.8 g/dL (1.3-4.6); Glomerular Filtration Rate 45.1 mL/min (90-130); Glucose 103 mg/dL (65-115); Magnesium 1.8 mg/dL (1.7-2.3); Osmolality Calculated 295 mOsm/kg (285-295); Sodium 141 mmol/L (136-145); Total Bilirubin 2.8 mg/dL (0.15-1.2); Total Protein 5.6 g/dL (6.6-8.7)
[2024-04-23 06:17] LABS: Creatinine Clr Calc Pharmacy 46.5862
[2024-04-23 06:18] LABS: Anion Gap 17.8 (5-19); Potassium 3.8 mmol/L (3.5-5.1)
[2024-04-23 06:19] LABS: Aspartate Amino Transferase 22 U/L (0-32)
[2024-04-23 06:40] LABS: INR 1.61 (0.8-1.2)
[2024-04-23] MEDS: albumin 25 G/100 ML BAG 60 G IV ×2 (07:34→16:22)
[2024-04-23] MEDS: budesonide 0.5 mg/2 mL Neb INHALATION (07:54)
--- NOTE | 2024-04-23 08:41 | XRR_ITS ---
PROCEDURE INFORMATION: Exam: XR Chest Exam date and time: 04/23/2024 11:48 AM Age: 63 years old Clinical indication: Patient HX: Lt chest tube eval; Acsites; Fluid retention TECHNIQUE: Imaging protocol: Radiologic exam of the chest. Views: 1 view. Total images: 480 COMPARISON: CR XR chest 1V portable [id number] 04/22/2024 2:06 PM FINDINGS: Tubes, catheters and devices: Left chest tube is again noted and is unchanged in position. Lungs: Interval worsening of bilateral pleuroparenchymal disease. Benign granulomatous disease of the lung is noted. Pleural spaces: Left pneumothorax appears improved but lucency along left mediastinum suggest residual anterior pneumothorax. No pneumothorax. Heart/Mediastinum: Heart size is stable when compared to the prior exam. Bones/joints: Osseous structures are unchanged from the prior exam. Soft tissues: Subcutaneous emphysema in the chest wall is again noted and appears unchanged. XR/XR chest 1V portable [id number] IMPRESSION: 1. Left pneumothorax appears improved but lucency along left mediastinum suggest residual anterior pneumothorax. 2. Interval worsening of bilateral pleuroparenchymal disease.
[2024-04-23] MEDS: potassium chloride ER 20 mEq Tablet 40 MEQ PO (09:07)
[2024-04-23] MEDS: cholecalciferol (vitamin D3) 1,000 unit Tablet 1000 UNIT PO (09:07)
[2024-04-23] MEDS: ropinirole 0.25 mg Tablet PO (09:07)
[2024-04-23] MEDS: midodrine 5 mg TABLET 10 MG PO ×2 (09:08→16:22)
[2024-04-23] MEDS: levothyroxine 25 mcg Tablet PO (09:09)
[2024-04-23] MEDS: docusate sodium 100 mg Capsule PO (09:09)
[2024-04-23] MEDS: ondansetron 2 mg/ML SDV 2 mL 4 MG IVP (09:13)
--- NOTE | 2024-04-23 10:30 | P.PN_ITS ---
Subjective 2 Subjective: Overnight she did not had any acute events noted. Seen her at bedside this morning, she is hemodynamically stable, breathing comfortably, looks anxious but denies any complaint of pain. She states she is feeling better as compared to on admission. Medications: Reviewed: Yes Vitals/I&O/Wt Last Vital Signs Temp 97.6 F 04/23/24 05:38 Pulse 92 04/23/24 10:00 Resp 19 H 04/23/24 10:00 BP 90/45 04/23/24 10:00 Pulse Ox 93 04/23/24 09:45 O2 Del Method Nasal Cannula 04/23/24 07:55 O2 Flow Rate 2 04/23/24 07:55 04/22/24 04/23/24 04/23/24 22:59 06:59 14:59 Intake Total 300 / 350 1600 / 1950 41.625 / 41.625 Output Total 2200 / 2200 1425 / 3625 Balance -1900 / -1850 175 / -1675 41.625 / 41.625 Weight last 48 hrs Weight 75.795 kg Weight 80.286 kg Weight 80.286 kg Physical Exam 2 Narrative: She is alert awake oriented x 3 not in acute distress Chest clear to auscultation on right side, left-sided decreased breath sounds laterally and at the base, chest tube in place laterally on the left draining hemorrhagic fluid which is clearing up. Cardiovascular normal heart sounds no murmurs Abdomen soft distended, diffusely tender normal bowel sounds. Extremities trace edema bilateral lower extremity noted Urinary Catheter Management: Black: Cath Placed During This Visit: yes Reason for Continuing Indwelling Catheter: Accurate Measurement of Urinary Output in Critically Ill Patients Urinary Catheter Date of Insertion: 04/22/24 Urinary Catheter Time of Insertion: 15:00 Data 04/23/24 04:20 04/23/24 04:20 Micro: Microbiology 04/22/24 13:05 Gram Stain - Final Pleural Fluid 04/22/24 11:50 Blood Culture - Preliminary Blood SPECIMEN COLLECTED 04/22/24 11:36 Blood Culture - Preliminary Blood SPECIMEN COLLECTED A&P Assessment and plan (1) Pleural effusion, left: (2) Pneumothorax on left: (3) Anemia: (4) Thrombocytopenia: (5) Leukopenia: (6) Cirrhosis of liver: (7) COPD (chronic obstructive pulmonary disease): Qualifiers: COPD type: chronic bronchitis Chronic bronchitis type: simple Qualified Code(s): J41.0 - Simple chronic bronchitis (8) Hypothyroidism: Qualifiers: Hypothyroidism type: acquired Qualified Code(s): E03.9 - Hypothyroidism, unspecified (9) Acute kidney injury: (10) Abdominal pain: (11) Ascites: (12) Rheumatoid arthritis: Qualifiers: Rheumatoid arthritis location: multiple sites Rheumatoid factor presence: unspecified presence Qualified Code(s): M06.9 - Rheumatoid arthritis, unspecified (13) Volume overload: Plan 63 year old female with history of rheumatoid arthritis, liver cirrhosis, esophageal varices, GERD,, hyperlipidemia, COPD , NAE hypertension, hypothyroidism, fibromyalgia, was brought in for complaint of shortness of breath and chest discomfort since last night. As per the daughter who is at the bedside stated she started feeling short of breath yesterday morning which has been gradually worsening, she was offered hospitalization by the residential but she refused and eventually was very short of breath and hence transferred to the ER. (1)Shortness of breath and chest discomfort likely secondary to hydropneumothorax secondary to COPD and rheumatoid arthritis. On chest x-ray she was noted to have large left-sided hydropneumothorax with prominent collapse of left lung CT angio chest showed 1. Large left-sided pneumothorax with a chest tube in good position 2. New bilateral pulmonary infiltrates which appear to represent pneumonia 3. Stable bilateral pleural effusions 4. A nodular mass in the left upper lobe has improved over the past 5 weeks 5. Prominent abdominal ascites She is s/p chest tube placement draining 1100 mL of hematologic pleural fluid Repeat chest x-ray showed 1. Improved left hydropneumothorax since chest tube placement 2. Bilateral interstitial infiltrates noted Repeat chest x-ray post Thora vent showed 1. The left-sided pneumothorax has improved 2. Subcutaneous emphysema has worsened Dr. Guzman consulted , will follow-up for further recommendations. Follow-up blood cultures and pleural fluid Gram stain and cultures Will follow-up chest x-ray this morning. Will do IV vancomycin and IV meropenem for broad-spectrum coverage. 2D ECHO 04/06/24 LV systolic function is normal with EF of 60-65% Mild mitral regurgitation Mild tricuspid regurgitation. (2)Anemia-hemoglobin trending down to 7.4 Will continue to monitor. Repeat CBC at 4 PM and will do PRBC transfusion as needed if hemoglobin less than 7 (3)Thrombocytopenia-trending downward at 66k secondary to liver cirrhosis Improved from last admission from 42 Will monitor for now, might need platelet transfusion if platelets less than 30 K (4)Coagulopathy with INR of 1.6 secondary to liver cirrhosis (5)Acute renal failure with creatinine of 1.4-likely prerenal, baseline creatinine 1.1 Will continue to monitor (6) Liver cirrhosis-referred at [facility] and awaiting appointment. (7) Rheumatoid arthritis continue p.o. prednisone 10 mg daily (8) COPD will continue DuoNebs every 6 hours and budesonide twice daily (9) Hypothyroidism continue levothyroxine daily (10) Hypotension-continue p.o. midodrine 10 mg 3 times daily (11) Migraine-continue sumatriptan 25 mg p.o. as needed (12) Fluid overload, pleural effusions and ascites secondary to cirrhosis- will do IV lasix 40mg daily. Patient was complaining of worsening abdominal distention and pain as a result abdominal ultrasound abdominal ultrasound done showed significant ascites Plan for abdominal paracentesis on Wednesday. Soft diet Stress ulcer prophylaxis with IV Pepcid 20 mg twice a day DVT prophylaxis with SCD She is full code as discussed with the patient and family. Attestations 2 Medical Necessity Statement*: She needs continued hospitalization crossing 2 midnights for management of left- sided hydropneumothorax with chest tube placement, pulmonary and critical care consult, ICU management, abdominal paracentesis for significant ascites. Time Spent in Patient Care: 25minutes Coding Level of Care Code Acute Code for Chg Fwd Diagnoses Pleural effusion, left J90 Pneumothorax on left J93.9 Anemia D64.9 Thrombocytopenia D69.6 Leukopenia D72.819 Cirrhosis of liver K74.60 Simple chronic bronchitis J41.0 COPD type: chronic bronchitis Chronic bronchitis type: simple Acquired hypothyroidism E03.9 Hypothyroidism type: acquired Acute kidney injury N17.9 Abdominal pain R10.9 Ascites R18.8 Rheumatoid arthritis involving multiple sites, unspecified whether rheumatoid factor present M06.9 Rheumatoid arthritis location: multiple sites Rheumatoid factor presence: unspecified presence Volume overload E87.70 Time Spent (min) 25
[2024-04-23] MEDS: MEROPENEM IV (11:32)
[2024-04-23] MEDS: SODIUM CHLORIDE 0.9% IV (11:32)
--- NOTE | 2024-04-23 12:30 | P.TS_ITS ---
Transfer Summary Providers Date of Admission: 04/22/24 14:24 Date of Discharge/Transfer: 04/23/24 Attending Provider at Admission: Kristen King MD Attending Provider at Transfer: Kristen King MD Consults: Pulmonary and critical care, Datar Transfer Plans: Anticipated date of transfer: 04/23/24 . Receiving Facility: [facility] . Receiving Provider: Dr Omid Deal . Diagnoses at Discharge Discharge Diagnosis (1) Pleural effusion, left: Status: Acute (2) Pneumothorax on left: Status: Acute (3) Anemia: Status: Acute (4) Thrombocytopenia: Status: Acute (5) Leukopenia: Status: Acute (6) Cirrhosis of liver: Status: Chronic (7) COPD (chronic obstructive pulmonary disease): Status: Chronic Qualifiers: COPD type: chronic bronchitis Chronic bronchitis type: simple Qualified Code(s): J41.0 - Simple chronic bronchitis (8) Hypothyroidism: Status: Chronic Qualifiers: Hypothyroidism type: acquired Qualified Code(s): E03.9 - Hypothyroidism, unspecified (9) Acute kidney injury: Status: Acute (10) Abdominal pain: Status: Acute (11) Ascites: Status: Acute (12) Rheumatoid arthritis: Status: Acute Qualifiers: Rheumatoid arthritis location: multiple sites Rheumatoid factor presence: unspecified presence Qualified Code(s): M06.9 - Rheumatoid arthritis, unspecified (13) Volume overload: Status: Acute Reason for Visit Reason for Visit SOB Brief History: Sari Henning is a 63 year old female with history of rheumatoid arthritis, liver cirrhosis, esophageal varices, GERD,, hyperlipidemia, COPD , NAE hypertension, hypothyroidism, fibromyalgia, was brought in for complaint of shortness of breath and chest discomfort since last night. As per the daughter who is at the bedside stated she started feeling short of breath yesterday morning which has been gradually worsening, she [facility] but she refused and eventually was very short of breath and hence transferred to the ER. Denies any fever, cold, cough, urinary or bowel complaints. She also endorses abdominal pain which is gradually worsening since last admission. Of note she was recently admitted to the hospital on 04/06/2024 . She had presented s/p fall and was found to have possible sepsis and pneumonia . she was started on IV antibiotics vancomycin and meropenem and Levophed for possible sepsis and pneumonia, changed to midodrine for hypotension and Lasix for her fluid overload. She was also given stress dose of steroids. she had thoracentesis done this admission for left-sided pleural effusion/hemothorax lights criteria said exudative effusion but eventually Gram stain and culture was negative and there was no probability for infective process. During her hospital stay she was found to have gradually worsening abdominal distention, repeat abdominal ultrasound was done but she did not required any paracentesis. She had thrombocytopenia likely multifactorial due to sepsis and liver cirrhosis. Liver cirrhosis was thought to be from methotrexate use for her rheumatoid arthritis. She was negative for hepatitis B and C. She received 2 units platelet transfusion for thrombocytopenia and platelet count improved to 61,000. She also had 2 units of PRBCs transfused during this admission for GI bleed. She had a EGD and colonoscopy done on 03/15/2024 which showed esophageal varices and gastritis. She has been able to ambulate to the bathroom and back. 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 She was found to be hepatitis B and hepatitis C negative .she needs to follow-up with hepatology as outpatient. She needs to continue with p.o. prednisone 20 mg daily for her rheumatoid arthritis and follow-up with rheumatology as an outpatient for alternate to methotrexate. She is feeling better now although has some abdominal discomfort and, and [facility]. Hospital Course Hospital Course 63 year old female with history of rheumatoid arthritis, liver cirrhosis, esophageal varices, GERD,, hyperlipidemia, COPD , NAE hypertension, hypothyroidism, fibromyalgia, was brought in for complaint of shortness of breath and chest discomfort since last night. As per the daughter who is at the bedside stated she started feeling short of breath yesterday morning which has been gradually worsening, she was [facility] but she refused and eventually was very short of breath and hence transferred to the ER. (1)Shortness of breath and chest discomfort likely secondary to hydropneumothorax secondary to COPD and rheumatoid arthritis. On chest x-ray she was noted to have large left-sided hydropneumothorax with prominent collapse of left lung CT angio chest showed 1. Large left-sided pneumothorax with a chest tube in good position 2. New bilateral pulmonary infiltrates which appear to represent pneumonia 3. Stable bilateral pleural effusions 4. A nodular mass in the left upper lobe has improved over the past 5 weeks 5. Prominent abdominal ascites She is s/p chest tube placement draining total of 1400 of hematologic pleural fluid until transfer Repeat chest x-ray showed 1. Improved left hydropneumothorax since chest tube placement 2. Bilateral interstitial infiltrates noted Repeat chest x-ray post Thora vent showed 1. The left-sided pneumothorax has improved 2. Subcutaneous emphysema has worsened Repeat chest x-ray this morning showed 1. Left pneumothorax appears improved but lucency along left mediastinum suggest residual anterior pneumothorax. 2. Interval worsening of bilateral pleuroparenchymal disease. She is on IV vancomycin and IV meropenem for broad-spectrum coverage. Has stayed afebrile during her stay. Dr. Guzman pulmonary and critical care consulted in ER, will follow-up for further recommendations. Follow-up blood cultures and pleural fluid Gram stain and cultures 2D ECHO 04/06/24 LV systolic function is normal with EF of 60-65% Mild mitral regurgitation Mild tricuspid regurgitation. (2)Anemia-secondary to liver cirrhosis hemoglobin stable at 7.4 Plan was to repeat CBC this afternoon and transfuse as needed Will continue to monitor. (3)Thrombocytopenia-stable at 66 but trending down from 98 secondary to liver cirrhosis Improved from last admission from 42 Will monitor for now (4)Coagulopathy with INR of 1.6 secondary to liver cirrhosis (5)Acute renal failure with creatinine of 1.2-likely prerenal, baseline creatinine 1.1 Will continue to monitor (6) Liver cirrhosis-referred at [facility] and awaiting appointment. Liver cirrhosis was initially thought to be secondary to long-term methotrexate use (7) Rheumatoid arthritis continue p.o. prednisone 10 mg daily (8) COPD will continue DuoNebs every 6 hours and budesonide twice daily (9) Hypothyroidism continue levothyroxine daily (10) Hypotension-continue p.o. midodrine 10 mg 3 times daily (11) Migraine-continue sumatriptan 25 mg p.o. as needed (12) Fluid overload, pleural effusions and ascites secondary to cirrhosis- will do IV lasix 40mg daily. Patient had worsening abdominal distention and pain, as a result abdominal ultrasound done showed significant ascites and plan was for abdominal paracentesis on Wednesday. Family wanting to transfer patient to higher level of care for need for pulmonary and critical care, cardiothoracic surgery, for liver biopsy. Soft diet Stress ulcer prophylaxis with IV Pepcid 20 mg twice a day DVT prophylaxis with SCD She is full code as discussed with the patient and family. Physical Exam Narrative: She is alert awake oriented x 3 not in acute distress Chest clear to auscultation on right side, left-sided decreased breath sounds laterally and at the base, chest tube in place laterally on the left draining hemorrhagic fluid which is clearing up. Cardiovascular normal heart sounds no murmurs Abdomen soft distended, diffusely tender normal bowel sounds. Extremities trace edema bilateral lower extremity noted Urinary Catheter Management: Black: Cath Placed During This Visit: yes Reason for Continuing Indwelling Catheter: Accurate Measurement of Urinary Output in Critically Ill Patients Urinary Catheter Date of Insertion: 04/22/24 Urinary Catheter Time of Insertion: 15:00 TS Data Studies Completed and Pending Pending at discharge Category Date Time Status Blood Culture Stat Lab 04/22/24 11:50 Results Body Fluid Culture & GS Routine Lab 04/22/24 13:05 Results CBC Auto Diff [Complete Blood Count w/Auto] Timed Lab 04/23/24 16:00 Ordered Complete Blood Count w/Auto AM LABS Lab 04/24/24 04:00 Ordered Complete Blood Count w/Auto AM LABS Lab 04/25/24 04:00 Ordered Comprehensive Metabolic Panel AM LABS Lab 04/24/24 04:00 Ordered Comprehensive Metabolic Panel AM LABS Lab 04/25/24 04:00 Ordered Magnesium AM LABS Lab 04/24/24 04:00 Ordered Magnesium AM LABS Lab 04/25/24 04:00 [place] w [id number] Routine Ultrasound 04/24/24 06:00 Ordered Completed Studies During Hospitalization Category Date Time Status CT angio chest PE protcl [id number] Stat Cat Scan 04/22/24 11:38 Completed CXRP [XR chest 1V portable [id number]] Routine Exams 04/23/24 08:41 Completed XR chest 1V portable [id number] Stat Exams 04/22/24 11:09 Completed XR chest 1V portable [id number] Stat Exams 04/22/24 11:38 Completed XR chest 1V portable [id number] Stat Exams 04/22/24 14:13 Completed US abdomen lmt fluid [id number] Stat Ultrasound 04/22/24 15:13 Completed Laboratory Last Values WBC 5.32 10^3/uL (3.29-11.43) 04/23/24 04:20 RBC 2.03 10^6/uL (3.85-5.65) L 04/23/24 04:20 Hgb 7.40 g/dL (11.27-16.99) L 04/23/24 04:20 Hct 21.8 % (36-47) L 04/23/24 04:20 MCV 107.4 fl (85-98) H 04/23/24 04:20 MCH 36.5 pg (27-33) H 04/23/24 04:20 MCHC 33.9 g/dL (30-55) 04/23/24 04:20 RDW 20.8 % (12.1-15.1) H 04/23/24 04:20 Plt Count 66 10^3/cmm (157-399) L D 04/23/24 04:20 MPV 11.9 fL (7.4-10.4) H 04/23/24 04:20 Neut % (Auto) 88.5 % 04/23/24 04:20 Lymph % (Auto) 7.7 % 04/23/24 04:20 Curry % (Auto) 2.8 % 04/23/24 04:20 Eos % (Auto) 0.0 % 04/23/24 04:20 Baso % (Auto) 0.2 % 04/23/24 04:20 Neut # (Auto) 4.71 10^3/uL (1.8-7.7) 04/23/24 04:20 Lymph # (Auto) 0.4 10^3/uL (0.8-4.8) L 04/23/24 04:20 Curry # (Auto) 0.2 10^3/uL (0.2-0.9) 04/23/24 04:20 Eos # (Auto) 0.0 10^3/uL (0.0-0.8) 04/23/24 04:20 Baso # (Auto) 0.0 10^3/uL (0.0-0.1) 04/23/24 04:20 Nucleated RBC % (auto) 0 % 04/23/24 04:20 Nucleated RBCs # 0.0 /100WBC 04/23/24 04:20 PT 19.70 SECONDS (12.1-14.9) H 04/23/24 06:15 INR 1.61 (0.8-1.2) H 04/23/24 06:15 Sodium 141 mmol/L (136-145) 04/23/24 04:20 Potassium 3.8 mmol/L (3.5-5.1) 04/23/24 04:20 Chloride 101 mmol/L (98-107) 04/23/24 04:20 Carbon Dioxide 26 mmol/L (22-29) 04/23/24 04:20 Anion Gap 17.8 (5-19) 04/23/24 04:20 BUN 19 mg/dL (8-23) 04/23/24 04:20 Creatinine 1.2 mg/dL (0.5-0.9) H 04/23/24 04:20 GFR Calculation 45.1 mL/min (90-130) L 04/23/24 04:20 Glucose 103 mg/dL (65-115) 04/23/24 04:20 Calculated Osmolality 295 mOsm/kg (285-295) 04/23/24 04:20 Lactic Acid 2.4 mmol/L (0.5-2.2) H 04/22/24 13:10 Lactic Acid (Sepsis) 2.9 mmol/L (0.5-2.2) H 04/22/24 16:31 Calcium 7.5 mg/dL (8.5-10.5) L 04/23/24 04:20 Magnesium 1.8 mg/dL (1.7-2.3) 04/23/24 04:20 Total Bilirubin 2.8 mg/dL (0.15-1.2) H 04/23/24 04:20 AST 22 U/L (0-32) 04/23/24 04:20 ALT 11 U/L (0-33) 04/23/24 04:20 Alkaline Phosphatase 56 U/L (35-105) 04/23/24 04:20 Troponin T Baseline 33 ng/L (0-10) H 04/22/24 10:45 Troponin T 120 Minute 26.93 ng/L (0-10) H 04/22/24 13:10 Delta Troponin T -6.07 ABS# (0-10) L 04/22/24 13:10 Troponin T Hi Sens 6Hr 27.60 ng/L (0-10) H 04/22/24 16:31 Troponin T Hi Sens 6Hr Delta -5.40 ng/L (0-12) L 04/22/24 16:31 NT-Pro-B Natriuret Pep 4625 pg/mL (0-125) H 04/22/24 10:45 Total Protein 5.6 g/dL (6.6-8.7) L 04/23/24 04:20 Albumin 2.8 g/dL (3.5-5.2) L 04/23/24 04:20 Globulin 2.8 g/dL (1.3-4.6) 04/23/24 04:20 Urine Color Yellow (Yellow) 04/22/24 17:35 Urine Appearance Cloudy (CLEAR) A 04/22/24 17:35 Urine pH 5 (5-7) 04/22/24 17:35 Ur Specific [place] 1.010 (1.005-1.030) 04/22/24 17:35 Urine Protein Neg (Negative) 04/22/24 17:35 Urine Glucose (UA) Norm (Normal) 04/22/24 17:35 Urine Ketones 1+ (Negative) H 04/22/24 17:35 Urine Blood Neg (Negative) 04/22/24 17:35 Urine Nitrate Negative (Negative) 04/22/24 17:35 Urine Bilirubin Neg (Negative) 04/22/24 17:35 Urine Urobilinogen 1 mg/dL (Negative) H 04/22/24 17:35 Ur Leukocyte Esterase Negative (Negative) 04/22/24 17:35 Urine RBC 0-4 /hpf (0-2) H 04/22/24 17:35 Urine WBC 5-10 /hpf (0-5) H 04/22/24 17:35 Ur Squamous Epith Cells 0-4 /hpf (0-5) H 04/22/24 17:35 Amorphous Sediment Trace /hpf 04/22/24 17:35 Urine Bacteria 1+ /hpf (NONE) H 04/22/24 17:35 Hyaline Casts 5-10 /lpf H 04/22/24 17:35 Urine Mucus Trace /hpf 04/22/24 17:35 Urine Yeast 1+ /hpf H 04/22/24 17:35 Adenovirus (PCR) Not detected (NOT DETECT) 04/22/24 14:30 C. pneumoniae DNA (PCR) Not detected (NOT DETECT) 04/22/24 14:30 Coronavirus 229E (PCR) Not detected (NOT DETECT) 04/22/24 14:30 Human Metapneumovir PCR Not detected (NOT DETECT) 04/22/24 14:30 Influenza A (H1) PCR Not detected (NOT DETECT) 04/22/24 14:30 Influ A (H1/09) PCR Not detected (NOT DETECT) 04/22/24 14:30 Influenza A (H3) PCR Not detected (NOT DETECT) 04/22/24 14:30 Influenza Type A (PCR) Not detected (NOT DETECT) 04/22/24 14:30 Influenza Type B (PCR) Not detected (NOT DETECT) 04/22/24 14:30 M. pneumoniae (PCR) Not detected (NOT DETECT) 04/22/24 14:30 Parainfluenza 1 (PCR) Not detected (NOT DETECT) 04/22/24 14:30 Parainfluenza 2 (PCR) Not detected (NOT DETECT) 04/22/24 14:30 Parainfluenza 3 (PCR) Not detected (NOT DETECT) 04/22/24 14:30 Parainfluenza 4 (PCR) Not detected (NOT DETECT) 04/22/24 14:30 RSV Type A (PCR) Not detected (NOT DETECT) 04/22/24 14:30 RSV Type B (PCR) Not detected (NOT DETECT) 04/22/24 14:30 Entero/Rhino (PCR) Not detected (NOT DETECT) 04/22/24 14:30 SARS-CoV-2 (PCR) Not detected (NOT DETECT) 04/22/24 14:30 Radiology Impressions Chest CTA 04/22/24 11:38 IMPRESSION: 1. Large left-sided pneumothorax with a chest tube in good position 2. New bilateral pulmonary infiltrates which appear to represent pneumonia 3. Stable bilateral pleural effusions 4. A nodular mass in the left upper lobe has improved over the past 5 weeks 5. Prominent abdominal ascites Abdomen Ultrasound 04/22/24 15:13 IMPRESSION: Prominent ascites Chest X-Ray 04/23/24 08:41 IMPRESSION: 1. Left pneumothorax appears improved but lucency along left mediastinum suggest residual anterior pneumothorax. 2. Interval worsening of bilateral pleuroparenchymal disease. Recent Clincial Data Last Vital Signs Temp 97.6 F 04/23/24 05:38 Pulse 92 04/23/24 10:00 Resp 19 H 04/23/24 10:00 BP 90/45 04/23/24 10:00 Pulse Ox 93 04/23/24 09:45 O2 Del Method Nasal Cannula 04/23/24 07:55 O2 Flow Rate 2 04/23/24 07:55 Vital Signs Temp Pulse Resp BP Pulse Ox O2 Del Method O2 Flow Rate 04/23/24 10:00 92 19 H 90/45 04/23/24 09:45 93 20 H 102/53 93 04/23/24 09:30 94 17 94/52 96 04/23/24 09:15 94 19 H 116/55 90 04/23/24 09:00 92 20 H 107/52 99 04/23/24 08:45 99 20 H 104/55 04/23/24 08:30 91 27 H 90/56 99 04/23/24 08:15 94 20 H 78/64 96 04/23/24 08:00 90 19 H 04/23/24 07:55 87 16 98 Nasal Cannula 2 04/23/24 07:45 86 18 111/54 04/23/24 07:30 83 23 H 109/56 90 04/23/24 07:15 86 21 H 102/54 04/23/24 07:00 79 21 H 113/55 96 04/23/24 06:45 86 21 H 107/54 04/23/24 06:30 87 19 H 103/57 96 04/23/24 06:15 82 16 103/57 99 04/23/24 06:00 85 17 111/53 04/23/24 05:57 81 04/23/24 05:45 96 20 H 102/54 93 04/23/24 05:38 97.6 F 04/23/24 05:30 85 15 97/49 04/23/24 05:15 88 15 98/49 99 04/23/24 05:00 86 18 102/52 04/23/24 04:45 87 20 H 100/51 94 04/23/24 04:30 88 18 100 04/23/24 04:15 85 19 H 101/52 100 04/23/24 04:00 87 17 93/52 99 04/23/24 03:45 87 16 97/51 04/23/24 03:30 87 18 97/51 99 04/23/24 03:15 89 18 97/50 04/23/24 03:00 91 19 H 91/49 97 04/23/24 02:45 91 20 H 95/47 95 04/23/24 02:30 92 20 H 78/35 97 04/23/24 02:15 92 17 76/42 98 04/23/24 02:00 90 18 83/41 94 04/23/24 01:45 87 18 86/43 98 04/23/24 01:33 83 18 98 Nasal Cannula 2 04/23/24 01:30 83 18 87/44 04/23/24 01:15 82 16 90/47 04/23/24 01:00 81 17 90/47 99 04/23/24 00:45 81 18 88/43 Intake & Output/Weight 04/21/24 04/22/24 04/23/24 04/24/24 06:59 06:59 06:59 06:59 Intake Total 1950 / 1950 141.625 / 141.625 Output Total 3625 / 3625 Balance -1675 / -1675 141.625 / 141.625 Weight 75.795 kg Vitals Last Vital Signs Temp 97.6 F 04/23/24 05:38 Pulse 92 04/23/24 10:00 Resp 19 H 04/23/24 10:00 BP 90/45 04/23/24 10:00 Pulse Ox 93 04/23/24 09:45 O2 Del Method Nasal Cannula 04/23/24 07:55 O2 Flow Rate 2 04/23/24 07:55 TS Medications Medications Albuterol/Ipratropium (Ipratropium-Albuterol 3 Ml Neb) 3 ml INHALATION Q6H.RESP NICOLE Last Admin: 04/23/24 07:54 Dose: 3 ml Benzonatate (Benzonatate 100 Mg Capsule) 100 mg PO BID PRN PRN Reason: cough Budesonide (Budesonide 0.5 Mg/2 Ml Neb) 0.5 mg INHALATION BID.RESPIRATORY NICOLE Last Admin: 04/23/24 07:54 Dose: 0.5 mg Bupropion HCl (Bupropion Xl (24 Hr) 150 Mg Tablet) 150 mg PO EVERY OTHER DAY NICOLE Docusate Sodium (Docusate Sodium 100 Mg Capsule) 100 mg PO DAILY NICOLE Last Admin: 04/23/24 09:09 Dose: 100 mg Famotidine (Famotidine 20 Mg/2 Ml Inj) 20 mg IVP Q12H NICOLE Last Admin: 04/23/24 02:25 Dose: 20 mg Furosemide (Furosemide 10 Mg/Ml Sdv 4ml) 40 mg IVP Q24H [facility] Last Admin: 04/22/24 16:00 Dose: 40 mg Hydrocortisone Sodium Succinate (Hydrocortisone 100 Mg/2 Ml Sdv) 100 mg IVP Q6H [facility] Last Admin: 04/23/24 11:33 Dose: 100 mg Vancomycin/PEG/NADA/Lysine/Water (Vancocin) 1,250 mg in 250 mls @ 250 mls/hr IV Q24H [facility] Albumin Human (Albumin) 25 g in 100 mls @ 60 mls/hr IV Q8H [facility] Stop: 04/23/24 17:09 Last Infusion: 04/23/24 10:33 Dose: Infused Norepinephrine Bitartrate (Levophed) 4 mg in 250 mls @ 0 mls/hr IV .Q0M [facility]; Protocol Last Titration: 04/23/24 07:55 Dose: 0 mcg/min, 0 mls/hr Meropenem 1,000 mg/ Sodium (Chloride) 100 mls @ 200 mls/hr IV Q8H [facility]; Protocol Last Admin: 04/23/24 11:32 Dose: 200 mls/hr Levothyroxine Sodium (Levothyroxine 25 Mcg Tablet) 25 mcg PO DAILY [facility] Last Admin: 04/23/24 09:09 Dose: 25 mcg Lorazepam (Lorazepam 0.5 Mg Tablet) 0.25 mg PO Q8H PRN PRN Reason: ANXIETY Midodrine (Midodrine 5 Mg Tablet) 10 mg PO TID [facility] Last Admin: 04/23/24 09:08 Dose: 10 mg Morphine Sulfate (Morphine 4 Mg/Ml Sdv 1 Ml) 2 mg IVP Q4H PRN PRN Reason: SEVERE PAIN Non-Formulary Medication (Levomefolate Calcium [L-Methylfolate]) 15 mg PO DAILY [facility] Last Admin: 04/23/24 09:14 Dose: Not Given Nystatin (Nystatin 100,000 Unit/Ml Udc 5 Ml) 500,000 unit PO QID [facility] Last Admin: 04/23/24 11:42 Dose: Not Given Ondansetron HCl (Ondansetron 2 Mg/Ml Sdv 2 Ml) 4 mg IVP Q6H PRN PRN Reason: NAUSEA AND VOMITING Last Admin: 04/23/24 09:13 Dose: 4 mg Oxycodone HCl (Oxycodone 5 Mg Ir Tab/Cap) 5 mg PO DAILY PRN PRN Reason: pain Potassium Chloride (Potassium Chloride Er 20 Meq Tablet) 40 meq PO DAILY [facility] Last Admin: 04/23/24 09:07 Dose: 40 meq Quetiapine Fumarate (Quetiapine 25 Mg Tablet) 25 mg PO BEDTIME [facility] Last Admin: 04/22/24 20:21 Dose: 25 mg Ropinirole HCl (Ropinirole 0.25 Mg Tablet) 0.25 mg PO BID [facility] Last Admin: 04/23/24 09:07 Dose: 0.25 mg Sumatriptan Succinate (Sumatriptan 25 Mg Tablet) 25 mg PO ONCE PRN PRN Reason: migraine headache Vitamin D (Cholecalciferol (Vitamin D3) 1,000 Unit Tablet) 1,000 unit PO DAILY [facility] Last Admin: 04/23/24 09:07 Dose: 1,000 unit Discontinued Medications Fentanyl (Fentanyl 50 Mcg/Ml Inj 2ml) 25 mcg IVP ONCE ONE Stop: 04/22/24 11:25 Last Admin: 04/22/24 12:03 Dose: 25 mcg Fentanyl (Fentanyl 50 Mcg/Ml Inj 2ml) 25 mcg IVP ONCE ONE Stop: 04/22/24 12:01 Last Admin: 04/22/24 15:51 Dose: Not Given Furosemide (Furosemide 40 Mg Tablet) 40 mg PO DAILY [facility] Vancomycin HCl 1,000 mg/ (Sodium Chloride) 250 mls @ 250 mls/hr IV ONCE ONE; Protocol Stop: 04/22/24 14:07 Last Infusion: 04/22/24 19:15 Dose: Infused Piperacillin Sod/Tazobactam (Sod 3.375 gm/ Sodium Chloride) 50 mls @ 100 mls/hr IV ONCE ONE; Protocol Stop: 04/22/24 13:37 Last Infusion: 04/22/24 14:15 Dose: Infused Sodium Chloride (Sodium Chloride 0.9%) 1,000 mls @ 100 mls/hr IV .Q10H [facility] Last Infusion: 04/23/24 02:07 Dose: Infused Vancomycin/PEG/NADA/Lysine/Water (Vancocin) 1,250 mg in 250 mls @ 250 mls/hr IV Q24H [facility] Sodium Chloride (Sodium Chloride 0.9%) 500 mls @ 999 mls/hr IV .Q31M ONE Stop: 04/23/24 02:00 Last Infusion: 04/23/24 02:07 Dose: Infused Iohexol (Iohexol 350 Mg/Ml 500 Ml Btl (Per Ml)) 0 ml IV ONCE ONE Stop: 04/22/24 12:40 Last Admin: 04/22/24 12:40 Dose: 61 ml Ketamine HCl (Ketamine 100 Mg/Ml Inj 5 Ml) 200 mg IVP ONCE ONE Stop: 04/22/24 11:25 Last Admin: 04/22/24 12:01 Dose: 200 mg Ketamine HCl (Ketamine 100 Mg/Ml Inj 5 Ml) 200 mg IVP ONCE ONE Stop: 04/22/24 13:49 Last Admin: 04/22/24 13:54 Dose: 200 mg Lidocaine/Epinephrine (Lidocaine-Epi 1% 20 Ml Inj) 20 ml INJECTION ONCE ONE Stop: 04/22/24 11:26 Last Admin: 04/22/24 12:00 Dose: 20 ml Lorazepam (Lorazepam 0.5 Mg Tablet) 0.5 mg PO ONCE ONE Stop: 04/22/24 17:22 Last Admin: 04/22/24 17:26 Dose: 0.5 mg Ondansetron HCl (Ondansetron 2 Mg/Ml Sdv 2 Ml) 4 mg IVP ONCE ONE Stop: 04/22/24 13:12 Last Admin: 04/22/24 13:22 Dose: 4 mg Prednisone (Prednisone 10 Mg Tablet) 10 mg PO DAILY NICOLE Allergies fentanyl Adverse Reaction (Severe, Verified 04/22/24 11:10) ADR-Nightmare Home Medications docusate sodium 100 mg capsule (Colace) 100 mg PO DAILY 11/24/21 [History Confirmed 04/06/24] syringe with needle 1 mL 25 gauge x 5/8 (Monoject TB Safety Syringe) #50 ea 08/10/22 [Rx Confirmed 04/06/24] omeprazole 40 mg capsule,delayed release 40 mg PO BID 90 days #180 caps 06/21/23 [Rx Confirmed 04/06/24] albuterol sulfate 90 mcg/actuation aerosol inhaler 1 puff inhalation QID PRN shortness of breath or wheezing 30 days #18 grams 09/27/23 [Rx Confirmed 04/06/24] benzonatate 100 mg capsule 100 mg PO BID PRN cough 30 days #60 caps 11/13/23 [Rx Confirmed 04/06/24] cyanocobalamin (vitamin B-12) 1,000 mcg/mL injection solution See Rx Instructions .Route .COMPLEX #6 mL 09/27/23 [Rx Confirmed 04/06/24] insulin syringe-needle U-100 1 mL 25 x 1 #100 ea 09/27/23 [Rx Confirmed 04/06/24] levomefolate calcium 15 mg tablet (L-Methylfolate) 15 mg PO DAILY 90 days #90 tabs 09/27/23 [Rx Confirmed 04/06/24] sumatriptan succinate 25 mg tablet 25 mg PO ONCE PRN migraine headache #9 tabs 09/27/23 [Rx Confirmed 04/06/24] nystatin 100,000 unit/gram topical powder (Nystop) 1 applic topical TID PRN skin irritation #15 grams 12/17/23 [Rx Confirmed 04/06/24] levothyroxine 25 mcg tablet 25 mcg PO DAILY 30 days #30 tabs 12/28/23 [Rx Confirmed 04/06/24] ropinirole 0.25 mg tablet 0.25 mg PO BID 30 days #60 tabs 12/28/23 [Rx Confirmed 04/06/24] oxycodone 5 mg tablet 5 mg PO DAILY PRN pain 30 days #30 tabs 02/03/24 [Rx Confirmed 04/06/24] pantoprazole 40 mg tablet,delayed release (Protonix) 40 mg PO BID 6 weeks #84 tabs 02/07/24 [Rx Confirmed 04/06/24] quetiapine 25 mg tablet (Seroquel) 25 mg PO BEDTIME 03/13/24 [History Confirmed 04/06/24] ondansetron 8 mg disintegrating tablet 8 mg PO Q8H PRN nausea and vomiting #20 tabs 03/31/24 [Rx Confirmed 04/06/24] bupropion HCl 150 mg 24 hr tablet, extended release 150 mg PO EVERY OTHER DAY 04/06/24 [History Confirmed 04/06/24] cholecalciferol (vitamin D3) 1,250 mcg (50,000 unit) capsule 1,250 mcg PO DAILY 04/06/24 [History Confirmed 04/06/24] furosemide 40 mg tablet 40 mg PO DAILY 04/06/24 [History Confirmed 04/06/24] linaclotide 72 mcg capsule (Linzess) 72 mcg PO DAILY 04/06/24 [History Confirmed 04/06/24] midodrine 5 mg tablet 10 mg (2 x 5 mg) PO TID 30 days #180 tabs 04/14/24 [Rx] nystatin 100,000 unit/mL oral suspension 500,000 unit (5 mL) PO QID 14 days #280 mL 04/14/24 [Rx] potassium chloride 20 mEq tablet,extended release(part/cryst) (Klor-Con M) 40 meq (2 x 20 mEq) PO DAILY 30 days #30 tabs 04/14/24 [Rx] prednisone 10 mg tablet 10 mg PO DAILY #30 tabs 04/17/24 [Rx] Discharge Plan Discharge Patient Disposition: Xfer Other Condition: Stable Prescriptions: New norepinephrine bitartrate-NaCl 4 mg/250 mL (16 mcg/mL) Solution 7.5 ml continuous IV infusion .Q0M 1 Days Qty: 400 0RF meropenem 1 gram recon soln 1 g IV Q8H Continued docusate sodium [Colace] 100 mg capsule 100 mg PO DAILY oxycodone 5 mg tablet 5 mg PO DAILY PRN (Reason: pain) 30 Days Qty: 30 0RF cyanocobalamin (vitamin B-12) 1,000 mcg/mL solution See Rx Instructions .ROUTE .COMPLEX Qty: 6 2RF Dose Instruction: INJECT 1 ML INTRAMUSCULARLY ONCE EVERY MONTH PATIENT TO INJECT AT HOME WITH SYRINGES Rx Instructions: INJECT 1 ML INTRAMUSCULARLY ONCE EVERY MONTH PATIENT TO INJECT AT HOME WITH SYRINGES albuterol sulfate 90 mcg/actuation HFA aerosol inhaler 1 puff INHALATION QID PRN (Reason: shortness of breath or wheezing) 30 Days Qty: 18 5RF benzonatate 100 mg capsule 100 mg PO BID PRN (Reason: cough) 30 Days Qty: 60 5RF levomefolate calcium [L-Methylfolate] 15 mg tablet 15 mg PO DAILY 90 Days Qty: 90 1RF sumatriptan succinate 25 mg tablet 25 mg PO ONCE PRN (Reason: migraine headache) Qty: 9 5RF levothyroxine 25 mcg tablet 25 mcg PO DAILY 30 Days Qty: 30 5RF ropinirole 0.25 mg tablet 0.25 mg PO BID 30 Days Qty: 60 5RF nystatin [Nystop] 100,000 unit/gram powder 1 applic TOPICAL TID PRN (Reason: skin irritation) Qty: 15 1RF Rx Instructions: Apply under breast 3 times daily as needed quetiapine [Seroquel] 25 mg tablet 25 mg PO BEDTIME Linzess 72 mcg capsule 72 mcg PO DAILY furosemide 40 mg tablet 40 mg PO DAILY bupropion HCl 150 mg tablet extended release 24 hr 150 mg PO EVERY OTHER DAY cholecalciferol (vitamin D3) 1,250 mcg (50,000 unit) capsule 1,250 mcg PO DAILY nystatin 100,000 unit/mL Suspension 500,000 unit PO QID 14 Days Qty: 280 0RF midodrine 5 mg Tablet 10 mg PO TID 30 Days Qty: 180 0RF Klor-Con M20 20 mEq Tablet,Er Particles/Crystals 40 meq PO DAILY 30 Days Qty: 30 0RF prednisone 10 mg tablet 10 mg PO DAILY Qty: 30 0RF Discontinued pantoprazole [Protonix] 40 mg tablet,delayed release (DR/EC) 40 mg PO BID 42 Days Qty: 84 1RF omeprazole 40 mg capsule,delayed release(DR/EC) 40 mg PO BID 90 Days Qty: 180 3RF ondansetron 8 mg tablet,disintegrating 8 mg PO Q8H PRN (Reason: nausea and vomiting) Qty: 20 0RF No Action (DME) insulin syringe-needle U-100 1 mL 25 x 1 syringe See Rx Instructions .Route Qty: 100 0RF Rx Instructions: use with B12 medication once weekly (DME) Monoject TB Safety Syringe 1 mL 25 gauge x 5/8 syringe See Rx Instructions .ROUTE .MEDSUPPLY Qty: 50 1RF Rx Instructions: As directed Discharge Orders: Discharge Order (Routine); Ordered 04/23/24 Ordered By: Kristen King Discharge Diet: GI Soft Discharge Activity: Bedrest Transfer Attestations Time Spent in Transfer Care: greater than 30 min Status at Transfer: Cognitive status at transfer: cognitively intact ; Behavioral status at transfer: cooperative ; Quality Metrics Clinical Quality Measures [ No reported AMI, CVA or VTE this stay] Coding Level of Care Code Acute Code for Chg Fwd Diagnoses Pleural effusion, left J90 Pneumothorax on left J93.9 Anemia D64.9 Thrombocytopenia D69.6 Leukopenia D72.819 Cirrhosis of liver K74.60 Simple chronic bronchitis J41.0 COPD type: chronic bronchitis Chronic bronchitis type: simple Acquired hypothyroidism E03.9 Hypothyroidism type: acquired Acute kidney injury N17.9 Abdominal pain R10.9 Ascites R18.8 Rheumatoid arthritis involving multiple sites, unspecified whether rheumatoid factor present M06.9 Rheumatoid arthritis location: multiple sites Rheumatoid factor presence: unspecified presence Volume overload E87.70 Time Spent (min) 35
[2024-04-23] MEDS: vancomycin 1,250 MG/250 ML PIGGYBACK 250 MG IV (13:19)
--- NOTE | 2024-04-23 16:51 | PC.NURSE ---
report called to [facility] and prepared for transport beth barrera here report done and transfered
== END 2024-04-23 16:30 | disposition short-term general hospital (02) | DRG 186 ==
LOC: ER 14:27 → ICU 14:40
PROVIDERS: Admitting Provider Internal Medicine; Emergency Provider Family Medicine; Visit Provider Internal Medicine
DX: J94.2 Hemothorax (principal); J18.9 Pneumonia, unspecified organism; D68.9 Coagulation defect, unspecified; N17.9 Acute kidney failure, unspecified; R18.8 Other ascites; T79.7XXA Traumatic subcutaneous emphysema, initial encounter; J44.0 Chronic obstructive pulmonary disease with (acute) lower respiratory infection; J90 Pleural effusion, not elsewhere classified; F17.210 Nicotine dependence, cigarettes, uncomplicated; J44.9 Chronic obstructive pulmonary disease, unspecified; D64.9 Anemia, unspecified; D69.6 Thrombocytopenia, unspecified; D72.819 Decreased white blood cell count, unspecified; K74.60 Unspecified cirrhosis of liver; E03.9 Hypothyroidism, unspecified; M06.9 Rheumatoid arthritis, unspecified; I95.9 Hypotension, unspecified; G43.909 Migraine, unspecified, not intractable, without status migrainosus; Y99.9 Unspecified external cause status; K21.9 Gastro-esophageal reflux disease without esophagitis; E78.5 Hyperlipidemia, unspecified; I10 Essential (primary) hypertension
CPT/HCPCS: 32551; 36415; 51702; 71045; 71275; 76705; 80053; 81001; 83605; 83735; 83880; 84484; 85025; 85610; 87040; 87070; 87075; 87205; 87486; 87581; 87633; 93005; 94640; 94664; 96365; 96367; 96374; 96375; 96376; 99291; J1720; J1940; J2185; J2405; J2543; J3010; J3370; J3490; J7030; J7040; J7050; J7626; P9046; Q9967

== ENCOUNTER 2024-05-16 10:54 | Emergency (ER) | payer MEDICARE, MEDICAID, SELFPAY ==
[2024-05-16] VITALS (12 sets, daily range): BP systolic 96–114; BP diastolic 51–75; PULSE 76–87; RESP 16–18; TEMP 36.6; O2SAT 94–100; BMI 25.4
--- NOTE | 2024-05-16 11:30 | ED_ITS ---
HPI - Abdominal Pain 2 General: Chief Complaint: Abdominal Pain Stated Complaint: Fluid ABD Time Seen by Provider: 05/16/24 10:59 History of Present Illness: 64-year-old female with a history of cir rhosis secondary to chronic methotrexate use, rheumatoid arthritis and COPD who presents to the emergency room with abdominal fullness/ascites. She was discharged from the hospital not too long ago. She says at that time she was told to just come to the emergency room if she needed her abdomen drain. She [facility] at this point. She has some diffuse abdominal tenderness but not severe. No other complaints today. No worsening shortness of breath. No fevers. No altered mental status. Review of Systems 2 Narrative: Constitutional symptoms: Negative except as documented in HPI. Skin symptoms: Negative except as documented in HPI. Eye symptoms: Negative except as documented in HPI. ENMT symptoms: Negative except as documented in HPI. Respiratory symptoms: Negative except as documented in HPI. Cardiovascular symptoms: Negative except as documented in HPI. Gastrointestinal symptoms: Negative except as documented in HPI. Genitourinary symptoms: Negative except as documented in HPI. Musculoskeletal symptoms: Negative except as documented in HPI. Neurologic symptoms: Negative except as documented in HPI. Psychiatric symptoms: Negative except as documented in HPI. Endocrine symptoms: Negative except as documented in HPI. PFSH ED 2 PFSH: Medical History Cirrhosis of liver GERD (gastroesophageal reflux disease) Rheumatoid arthritis Hyperlipidemia Chest pain Symptomatic cholelithiasis Metatarsalgia Nausea NAE (generalized anxiety disorder) COPD (chronic obstructive pulmonary disease) Lumbar paraspinal muscle spasm Chronic pain syndrome Hypertension, essential Did not tolerate lisinopril. Hypothyroidism Fibromyalgia Insomnia Failed amitriptyline, trazodone, Ambien caused side effects. Surgical History H/O gastric sleeve Hx laparoscopic cholecystectomy H/O tubal ligation H/O foot surgery Family History Other CAD (coronary artery disease) Cancer Diabetes Heart attack Hyperlipidemia Hypertension Rheumatoid arthritis Stroke Denies family history of Lupus Chronic kidney disease (CKD) Social History Smoking and tobacco/nicotine status: current every day tobacco/nicotine user cigarettes Packs smoked per day: 1 Quit status (tobacco/nicotine): has tried quititng Second hand smoke exposure: No Alcohol intake: current Alcohol intake frequency: holidays/special occasions only Substance/Drug Use: never Female Reproductive History: Spontaneous abortions: No Physical Exam 2 Narrative: EXAM NARRATIVE: General: Alert, no acute distress. Skin: Warm, dry. Head: Normocephalic, atraumatic. Neck: Supple, trachea midline. Eye: Extraocular movements are intact. Ears, nose, mouth and throat: mucosa moist. Cardiovascular: Regular, Normal peripheral perfusion. Respiratory: Lungs are clear to auscultation, respirations are non-labored, breath sounds are equal, Symmetrical chest wall expansion. Gastrointestinal: Distended but soft, mild diffuse tenderness. Nothing focal. Musculoskeletal: Normal ROM, no deformity. Neurological: Alert and oriented, No focal neurological deficit observed. Psychiatric: Cooperative, appropriate mood & affect. Course 2 Vital Signs: Vital signs: Vital Signs Temperature 97.9 F 05/16/24 10:57 Pulse Rate 86 05/16/24 13:30 Respiratory Rate 16 05/16/24 13:30 Blood Pressure 110/61 05/16/24 13:30 Pulse Oximetry 98 05/16/24 13:30 Oxygen Delivery Me thod Room Air 05/16/24 13:30 MDM - Abdominal Pain Medical Decision Making Medical decision making: Differential diagnosis including but not limited to and based on the above HPI, review of systems and physical exam: Patient is requesting paracentesis. Obtaining basic lab work and coags. We will see if interventional radiology is willing to do this today. I discussed with her that is typical to come to the emergency room for routine paracentesis. Orders placed to evaluate differential diagnosis based on the above differential, HPI and physical exam Lab Review: Laboratory results were reviewed and interpreted by myself the emergency room physician. Stable anemia with a hemoglobin of 9. No leukocytosis. White count is 3. BUN/creatinine are 15 and 1 and stable. Her INR is slightly elevated at 1.4 which is expected with her cirrhosis. Consultation: I spoke with interventional radiology Dr. Perera. He performed bedside ultrasound guided paracentesis. Fluids were sent to the lab. For analysis. Body fluid studies: Minimal leukocytosis. Not high enough to indicate SBP. Her tenderness is improved with paracentesis. I reviewed the patient's medical record. Reexamination: Much less distention of the abdomen after almost 6 L of fluid were taken off. She has been given some albumin afterwards. Assessment and plan: Ascites Cirrhosis ?Paracentesis and IV albumin - Discharged home - Discussed findings and plan with patient. Answered any questions. - All laboratory values were reviewed and interpreted personally by myself, the ER physician - Evaluation and treatment of this problem were appropriate in the emergency setting Lab Data 05/16/24 11:11 05/16/24 11:11 Labs/Radiology: Laboratory Results WBC 3.32 10^3/uL (3.29-11.43) 05/16/24 11:11 RBC 2.40 10^6/uL (3.85-5.65) L 05/16/24 11:11 Hgb 9.00 g/dL (11.27-16.99) L 05/16/24 11:11 Hct 28.3 % (36-47) L 05/16/24 11:11 MCV 117.9 fl (85-98) H 05/16/24 11:11 MCH 37.5 pg (27-33) H 05/16/24 11:11 MCHC 31.8 g/dL (30-55) 05/16/24 11:11 RDW 19.9 % (12.1-15.1) H 05/16/24 11:11 Plt Count 82 10^3/cmm (157-399) L 05/16/24 11:11 MPV 10.2 fL (7.4-10.4) 05/16/24 11:11 Neut % (Auto) 52.2 % 05/16/24 11:11 Lymph % (Auto) 28.6 % 05/16/24 11:11 [place] % (Auto) 10.2 % 05/16/24 11:11 Eos % (Auto) 8.4 % 05/16/24 11:11 Baso % (Auto) 0.6 % 05/16/24 11:11 Neut # (Auto) 1.73 10^3/uL (1.8-7.7) L 05/16/24 11:11 Lymph # (Auto) 1.0 10^3/uL (0.8-4.8) 05/16/24 11:11 [place] # (Auto) 0.3 10^3/uL (0.2-0.9) 05/16/24 11:11 Eos # (Auto) 0.3 10^3/uL (0.0-0.8) 05/16/24 11:11 Baso # (Auto) 0.0 10^3/uL (0.0-0.1) 05/16/24 11:11 Nucleated RBC % (auto) 0 % 05/16/24 11:11 Nucleated RBCs # 0.0 /100WBC 05/16/24 11:11 PT 18.50 SECONDS (12.1-14.9) H 05/16/24 11:11 INR 1.49 (0.8-1.2) H 05/16/24 11:11 APTT 36.9 SECONDS (23.9-36.7) H 05/16/24 11:11 Sodium 138 mmol/L (136-145) 05/16/24 11:11 Potassium 3.4 mmol/L (3.5-5.1) L 05/16/24 11:11 Chloride 105 mmol/L (98-107) 05/16/24 11:11 Carbon Dioxide 23 mmol/L (22-29) 05/16/24 11:11 Anion Gap 13.4 (5-19) 05/16/24 11:11 BUN 15 mg/dL (8-23) 05/16/24 11:11 Creatinine 1.0 mg/dL (0.5-0.9) H 05/16/24 11:11 GFR Calculation 55.5 mL/min (90-130) L 05/16/24 11:11 Glucose 87 mg/dL (65-115) 05/16/24 11:11 Calculated Osmolality 286 mOsm/kg (285-295) 05/16/24 11:11 Lactic Acid 2.8 mmol/L (0.5-2.2) H 05/16/24 11:11 Calcium 7.8 mg/dL (8.5-10.5) L 05/16/24 11:11 Total Bilirubin 2.2 mg/dL (0.15-1.2) H 05/16/24 11:11 AST 26 U/L (0-32) 05/16/24 11:11 ALT 14 U/L (0-33) 05/16/24 11:11 Alkaline Phosphatase 87 U/L (35-105) 05/16/24 11:11 C-Reactive Protein 36.4 mg/L (0.0-4.9) H 05/16/24 11:11 Total Protein 6.0 g/dL (6.6-8.7) L 05/16/24 11:11 Albumin 2.3 g/dL (3.5-5.2) L 05/16/24 11:11 Globulin 3.7 g/dL (1.3-4.6) 05/16/24 11:11 Fluid Color Pale yellow 05/16/24 13:11 Fluid Appearance Clear 05/16/24 13:11 Fluid WBC 31 /uL 05/16/24 13:11 Fluid RBC 0 10^3/uL 05/16/24 13:11 Fld Polynuclear WBCs # 0.002 05/16/24 13:11 Fld Polynuclear WBCs % 6.400 % 05/16/24 13:11 Fl Mononucl WBCs #(Auto) 0.029 05/16/24 13:11 Fl Mononuclear % Auto 93.600 % 05/16/24 13:11 Fld Crystal Laterality Not Reportable 05/16/24 13:11 No radiology studies performed this visit Discharge Plan Discharge Patient Disposition: Home Clinical Impression: Ascites Qualifiers: Ascites type: other type Qualified Code(s): R18.8 - Other ascites Condition: Stable Prescriptions: No Action oxycodone 5 mg tablet 5 mg PO DAILY PRN (Reason: pain) 30 Days Qty: 30 0RF (DME) insulin syringe-needle U-100 1 mL 25 x 1 syringe See Rx Instructions .Route Qty: 100 0RF Rx Instructions: use with B12 medication once weekly albuterol sulfate 90 mcg/actuation HFA aerosol inhaler 1 puff INHALATION QID PRN (Reason: shortness of breath or wheezing) 30 Days Qty: 18 5RF benzonatate 100 mg capsule 100 mg PO BID PRN (Reason: cough) 30 Days Qty: 60 5RF sumatriptan succinate 25 mg tablet 25 mg PO ONCE PRN (Reason: migraine headache) Qty: 9 5RF levothyroxine 25 mcg tablet 25 mcg PO DAILY 30 Days Qty: 30 5RF ropinirole 0.25 mg tablet 0.25 mg PO BID 30 Days Qty: 60 5RF ondansetron 8 mg tablet,disintegrating 8 mg PO Q8H PRN (Reason: nausea and vomiting) Qty: 20 0RF (DME) Monoject TB Safety Syringe 1 mL 25 gauge x 5/8 syringe See Rx Instructions .ROUTE .MEDSUPPLY Qty: 50 1RF Rx Instructions: As directed quetiapine [Seroquel] 25 mg tablet 25 mg PO BEDTIME Baqsimi 3 mg/actuation [place],Non-Aerosol See Rx Instructions .ROUTE .COMPLEX Rx Instructions: ADMINISTER 1 SPRAY IN NOSTRIL NEEDED IF GLUCOSE UNDER 60 AND SYMPTOMATIC. midodrine 5 mg Tablet 10 mg PO BID Rx Instructions: do not give last dose of day after 6PM or within 4 hrs of bedtime Miralax 17 gram/dose Powder 17 g PO DAILY bisacodyl 5 mg Tablet 10 mg PO DAILY PRN (Reason: Constipation) Relistor 150 mg Tablet 150 mg PO DAILY Protonix 40 mg tablet,delayed release (DR/EC) 40 mg PO DAILY Nystop 100,000 unit/gram powder 1 applic TOPICAL BID PRN (Reason: skin irritation) Rx Instructions: Apply under breast 3 times daily as needed prednisone 10 mg tablet 10 mg PO DAILY furosemide 40 mg tablet 40 mg PO BID bupropion HCl 150 mg tablet extended release 24 hr 150 mg PO DAILY Discharge Orders: Discharge ED (Routine); Ordered 05/16/24 Ordered By: Maddi Means Discharge Diet: Usual diet Discharge Activity: Increase activity as tolerated Patient Instructions: Ascites (ED), Paracentesis (DC) Activity Restrictions/Additional Instructions: Please follow-up with your doctor about scheduling biweekly paracentesis. Thank you for choosing [facility] for your healthcare needs today. Please realize this is an emergency room and that we are providing you with a medical screening exam and this may not be complete and all inclusive of all the testing and or work up that you may need to determine your ailment or severity of your illness. You have been screened and evaluated and felt safe for discharge. Health conditions do change or evolve sometimes and as such it is important that you follow up with your Primary Doctor to be re checked, 3-5 days is a general good time frame for follow up. You are always welcome to return to the ED for re assessment if your symptoms are worsening or you have new concerns Coding Level of Care Code ED Performance Test Consultant for Aishwarya Barclay
[2024-05-16 11:52] LABS: Basophils % 0.6 %; Eosinophils # 0.3 10^3/uL (0.0-0.8); Eosinophils % 8.4 %; Hematocrit 28.3 % (36-47); Lymphocytes % 28.6 %; Mean Corpuscular HGB Conc 31.8 g/dL (30-55); Mean Corpuscular Hemoglobin 37.5 pg (27-33); Mean Corpuscular Volume 117.9 fl (85-98); Mean Platelet Volume 10.2 fL (7.4-10.4); Monocytes # 0.3 10^3/uL (0.2-0.9); Monocytes % 10.2 %; Neutrophils # 1.73 10^3/uL (1.8-7.7); Neutrophils % 52.2 %; Nucleated Red Blood Cells % 0 %; Platelet Count 82 10^3/cmm (157-399); Red Cell Distribution Width 19.9 % (12.1-15.1); White Blood Count 3.32 10^3/uL (3.29-11.43)
[2024-05-16 12:05] LABS: INR 1.49 (0.8-1.2)
[2024-05-16 12:06] LABS: Partial Thromboplastin Time 36.9 SECONDS (23.9-36.7)
[2024-05-16 12:12] LABS: Alanine Aminotransferase 14 U/L (0-33); Albumin Level 2.3 g/dL (3.5-5.2); Alkaline Phosphatase 87 U/L (35-105); Anion Gap 13.4 (5-19); Aspartate Amino Transferase 26 U/L (0-32); Blood Urea Nitrogen 15 mg/dL (8-23); C Reactive Protein 36.4 mg/L (0.0-4.9); Calcium 7.8 mg/dL (8.5-10.5); Carbon Dioxide 23 mmol/L (22-29); Chloride 105 mmol/L (98-107); Creatinine Clr Calc Pharmacy 52.1308; Globulin 3.7 g/dL (1.3-4.6); Glomerular Filtration Rate 55.5 mL/min (90-130); Glucose 87 mg/dL (65-115); Osmolality Calculated 286 mOsm/kg (285-295); Potassium 3.4 mmol/L (3.5-5.1); Sodium 138 mmol/L (136-145); Total Bilirubin 2.2 mg/dL (0.15-1.2)
[2024-05-16 12:13] LABS: Lactic Sepsis W/Reflex 2.8 mmol/L (0.5-2.2)
--- NOTE | 2024-05-16 12:21 | US_ITS ---
WS: [id number] ULTRASOUND-GUIDED PARACENTESIS CLINICAL INFORMATION: ascites. COMPARISON: None. Procedure Informed consent: The risks, benefits, and alternatives of the procedure were discussed with the artur ent. Verbal and written consent was obtained. Timeout: A timeout was performed to confirm the correct patient, procedure, and site. Preparation: A suitable skin site was identified. The patient was prepped and draped in usual sterile fashion. Lidocaine 1% was used for local anesthesia. Catheter: 4 [place] One-step Yueh catheter. Side: LEFT lower quadrant. Fluid Volume: 5500 ml Color: Clear yellow DISPOSITION: Discarded safely. Complications: None. US/US paracentesis abd w [id number] IMPRESSION: Uncomplicated ultrasound-guided paracentesis. Removal of 5500cc
[2024-05-16 13:32] LABS: Apprearance, Body Fluid CLEAR; Color, Body Fluid PALE YELLOW; Cyto Order Verification No Order
[2024-05-16 13:34] LABS: Reflex Lactate Order REFLEX LACTIC ORDERD
[2024-05-16 13:37] LABS: Body Fluid Polynuclear #Cells 0.002; Body Fluid WBC 31 /uL; Monocytes # Body Fluid 0.029; RBC, Body Fluid 0 10^3/uL
[2024-05-16] MEDS: albumin 25 G/100 ML BAG 60 G IV (14:11)
[2024-05-16 14:35] LABS: Lactic Acid level (Lactate) 1.9 mmol/L (0.5-2.2)
== END 2024-05-16 16:37 | disposition home or self-care (01) ==
PROVIDERS: Emergency Provider Emergency Medicine
DX: R18.8 Other ascites (principal); E78.5 Hyperlipidemia, unspecified; J44.9 Chronic obstructive pulmonary disease, unspecified; I10 Essential (primary) hypertension; F17.210 Nicotine dependence, cigarettes, uncomplicated
CPT/HCPCS: 36415; 49083; 80053; 80503; 83605; 85025; 85610; 85730; 86140; 87040; 87070; 87075; 87205; 89050; 96374; 99285; P9046

== ENCOUNTER 2024-05-23 11:22 | Emergency (ER) | payer MEDICARE, MEDICAID, SELFPAY ==
[2024-05-23 11:28] VITALS: BP 111/67; PULSE 85; RESP 20; O2SAT 98
--- NOTE | 2024-05-23 11:36 | W.ED.ABDPA2 ---
HPI - Abdominal Pain General: Chief Complaint: Abdominal Pain Stated Complaint: SOB, Abd Pain Time Seen by Provider: 05/23/24 11:24 Source: patient Mode of arrival: ambulatory Limitations: no limitations History of Present Illness: 64-year-old female who has a history of cirrhosis she has had history of abdominal ascites she states she has drained a week ago states she feels like her abdomen is full again causing her pain having some dyspnea she denies any fevers denies any worse improved factors. Associated Symptoms: Denies chills, diarrhea, fever(s), nausea and vomiting Review of Systems Const: Denies: fever(s), chills, body aches or change in appetite ENMT: Denies: throat pain or dental pain Card: Denies: chest pain Resp: Denies: dyspnea GI: Reports: abdominal pain; Denies: nausea, vomiting or diarrhea Musc: Denies: neck pain or back pain Skin/Breast: Denies: rash Neuro: Denies: headache(s) PFSH ED PFSH: Medical History Cirrhosis of liver GERD (gastroesophageal reflux disease) Rheumatoid arthritis Hyperlipidemia Chest pain Symptomatic cholelithiasis Metatarsalgia Nausea NAE (generalized anxiety disorder) COPD (chronic obstructive pulmonary disease) Lumbar paraspinal muscle spasm Chronic pain syndrome Hypertension, essential Did not tolerate lisinopril. Hypothyroidism Fibromyalgia Insomnia Failed amitriptyline, trazodone, Ambien caused side effects. Surgical History H/O gastric sleeve Hx laparoscopic cholecystectomy H/O tubal ligation H/O foot surgery Family History Other CAD (coronary artery disease) Cancer Diabetes Heart attack Hyperlipidemia Hypertension Rheumatoid arthritis Stroke Denies family history of Lupus Chronic kidney disease (CKD) Social History Smoking and tobacco/nicotine status: current every day tobacco/nicotine user cigarettes Packs smoked per day: 1 Quit status (tobacco/nicotine): has tried quititng Second hand smoke exposure: No Alcohol intake: current Alcohol intake frequency: holidays/special occasions only Substance/Drug Use: never Female Reproductive History: Spontaneous abortions: No Physical Exam Const: COMMON NORMALS: no acute distress, patient oriented x3 and healthy appearing HENMT: COMMON NORMALS: normocephalic and atraumatic HEAD & SCALP: normocephalic and atraumatic Neck/C-Spine: COMMON NORMALS: full ROM and supple Chest: COMMONS NORMALS: normal inspection of the chest Resp: COMMON NORMALS: normal respiratory effort, No retractions, No use of accessory muscles and clear to auscultation bilaterally AUSCULTATION: clear to auscultation bilaterally Cardio: COMMON NORMALS: regular rate, regular rhythm and No murmurs present (Cardio) RATE: regular rate RHYTHM: regular rhythm GI: COMMON NORMALS: Normal to inspection, nondistended, normoactive bowel sounds present OTHER: distended abd Extremity: COMMON NORMALS: normal to inspection and full ROM Neuro: COMMON NORMALS: patient oriented x3, moves all extremities and no focal motor deficits Psych: COMMON NORMALS: mental status grossly normal, Normal thought process present and cooperative THOUGHT PROCESS: Normal thought process present Skin: COMMON NORMALS: no rashes or lesions noted and no wounds GENERAL SKIN EXAM: no rashes or lesions noted Course Vital Signs: Vital signs: Vital Signs Pulse Rate 79 05/23/24 13:03 Respiratory Rate 17 05/23/24 13:03 Blood Pressure 109/62 05/23/24 13:03 Pulse Oximetry 100 05/23/24 13:03 Oxygen Delivery Me thod Room Air 05/23/24 13:03 MDM - Abdominal Pain Medical Decision Making Patient presents here with abdominal pain likely from her ascites she did have a paracentesis in the ER with 4800 out feels improved blood works normal no signs of SBP she stable for discharge follow-up with PCP return if worsening Medical Records I reviewed the patient's medical records. Lab Data I reviewed the patient's lab results. 05/23/24 12:08 05/23/24 12:08 Labs/Radiology: Laboratory Results WBC 4.29 10^3/uL (3.29-11.43) 05/23/24 12:08 RBC 2.78 10^6/uL (3.85-5.65) L 05/23/24 12:08 Hgb 10.30 g/dL (11.27-16.99) L 05/23/24 12:08 Hct 32.2 % (36-47) L 05/23/24 12:08 MCV 115.8 fl (85-98) H 05/23/24 12:08 MCH 37.1 pg (27-33) H 05/23/24 12:08 MCHC 32.0 g/dL (30-55) 05/23/24 12:08 RDW 16.4 % (12.1-15.1) H 05/23/24 12:08 Plt Count 126 10^3/cmm (157-399) L 05/23/24 12:08 MPV 9.7 fL (7.4-10.4) 05/23/24 12:08 Neut % (Auto) 46.3 % 05/23/24 12:08 Lymph % (Auto) 39.9 % 05/23/24 12:08 [place] % (Auto) 9.6 % 05/23/24 12:08 Eos % (Auto) 3.3 % 05/23/24 12:08 Baso % (Auto) 0.7 % 05/23/24 12:08 Neut # (Auto) 1.99 10^3/uL (1.8-7.7) 05/23/24 12:08 Lymph # (Auto) 1.7 10^3/uL (0.8-4.8) 05/23/24 12:08 [place] # (Auto) 0.4 10^3/uL (0.2-0.9) 05/23/24 12:08 Eos # (Auto) 0.1 10^3/uL (0.0-0.8) 05/23/24 12:08 Baso # (Auto) 0.0 10^3/uL (0.0-0.1) 05/23/24 12:08 Nucleated RBC % (auto) 0 % 05/23/24 12:08 Nucleated RBCs # 0.0 /100WBC 05/23/24 12:08 Sodium 138 mmol/L (136-145) 05/23/24 12:08 Potassium 3.8 mmol/L (3.5-5.1) 05/23/24 12:08 Chloride 103 mmol/L (98-107) 05/23/24 12:08 Carbon Dioxide 25 mmol/L (22-29) 05/23/24 12:08 Anion Gap 13.8 (5-19) 05/23/24 12:08 BUN 15 mg/dL (8-23) 05/23/24 12:08 Creatinine 1.1 mg/dL (0.5-0.9) H 05/23/24 12:08 GFR Calculation 49.7 mL/min (90-130) L 05/23/24 12:08 Glucose 84 mg/dL (65-115) 05/23/24 12:08 Calculated Osmolality 286 mOsm/kg (285-295) 05/23/24 12:08 Calcium 8.1 mg/dL (8.5-10.5) L 05/23/24 12:08 Total Bilirubin 3.0 mg/dL (0.15-1.2) H 05/23/24 12:08 AST 30 U/L (0-32) 05/23/24 12:08 ALT 15 U/L (0-33) 05/23/24 12:08 Alkaline Phosphatase 105 U/L (35-105) 05/23/24 12:08 NT-Pro-B Natriuret Pep 2471 pg/mL (0-125) H 05/23/24 12:08 Total Protein 6.7 g/dL (6.6-8.7) 05/23/24 12:08 Albumin 2.6 g/dL (3.5-5.2) L 05/23/24 12:08 Globulin 4.1 g/dL (1.3-4.6) 05/23/24 12:08 Lipase 18 U/L (13-60) 05/23/24 12:08 No radiology studies performed this visit Discharge Plan Discharge Patient Disposition: Home Clinical Impression: Abdominal pain Ascites Qualifiers: Ascites type: other type Qualified Code(s): R18.8 - Other ascites Condition: Stable Prescriptions: No Action oxycodone 5 mg tablet 5 mg PO DAILY PRN (Reason: pain) 30 Days Qty: 30 0RF (DME) insulin syringe-needle U-100 1 mL 25 x 1 syringe See Rx Instructions .Route Qty: 100 0RF Rx Instructions: use with B12 medication once weekly albuterol sulfate 90 mcg/actuation HFA aerosol inhaler 1 puff INHALATION QID PRN (Reason: shortness of breath or wheezing) 30 Days Qty: 18 5RF benzonatate 100 mg capsule 100 mg PO BID PRN (Reason: cough) 30 Days Qty: 60 5RF sumatriptan succinate 25 mg tablet 25 mg PO ONCE PRN (Reason: migraine headache) Qty: 9 5RF levothyroxine 25 mcg tablet 25 mcg PO DAILY 30 Days Qty: 30 5RF ropinirole 0.25 mg tablet 0.25 mg PO BID 30 Days Qty: 60 5RF ondansetron 8 mg tablet,disintegrating 8 mg PO Q8H PRN (Reason: nausea and vomiting) Qty: 20 0RF (DME) Monoject TB Safety Syringe 1 mL 25 gauge x 5/8 syringe See Rx Instructions .ROUTE .MEDSUPPLY Qty: 50 1RF Rx Instructions: As directed quetiapine [Seroquel] 25 mg tablet 25 mg PO BEDTIME Baqsimi 3 mg/actuation [place],Non-Aerosol See Rx Instructions .ROUTE .COMPLEX Rx Instructions: ADMINISTER 1 SPRAY IN NOSTRIL NEEDED IF GLUCOSE UNDER 60 AND SYMPTOMATIC. midodrine 5 mg Tablet 10 mg PO BID Rx Instructions: do not give last dose of day after 6PM or within 4 hrs of bedtime Miralax 17 gram/dose Powder 17 g PO DAILY bisacodyl 5 mg Tablet 10 mg PO DAILY PRN (Reason: Constipation) Relistor 150 mg Tablet 150 mg PO DAILY Protonix 40 mg tablet,delayed release (DR/EC) 40 mg PO DAILY Nystop 100,000 unit/gram powder 1 applic TOPICAL BID PRN (Reason: skin irritation) Rx Instructions: Apply under breast 3 times daily as needed prednisone 10 mg tablet 10 mg PO DAILY furosemide 40 mg tablet 40 mg PO BID bupropion HCl 150 mg tablet extended release 24 hr 150 mg PO DAILY Discharge Orders: Discharge ED (Routine); Ordered 05/23/24 Ordered By: Sebastian Gary Discharge Diet: Advance as tolerated Discharge Activity: Resume usual activity Patient Instructions: Abdominal Pain (ED) Coding Level of Care Code ED Director Digital Marketing for Aishwarya Barclay
--- NOTE | 2024-05-23 11:37 | US_ITS ---
WS: [id number] ULTRASOUND-GUIDED PARACENTESIS CLINICAL INFORMATION: abd distension COMPARISON: None. Procedure Informed consent: The risks, benefits, and alternatives of the procedure were discussed with the artur ent. Verbal and written consent was obtained. Timeout: A timeout was performed to confirm the correct patient, procedure, and site. Preparation: A suitable skin site was identified. The patient was prepped and draped in usual sterile fashion. Lidocaine 1% was used for local anesthesia. Catheter: 4 Icelandic One-step Yueh catheter. Side: LEFT lower quadrant. Fluid Volume: 4800 ml Color: Clear yellow Complications: None. US/US paracentesis abd w [id number] IMPRESSION: Uncomplicated ultrasound-guided paracentesis. Removal of 4800 cc
[2024-05-23 12:21] LABS: Basophils % 0.7 %; Eosinophils # 0.1 10^3/uL (0.0-0.8); Eosinophils % 3.3 %; Hematocrit 32.2 % (36-47); Lymphocytes # 1.7 10^3/uL (0.8-4.8); Lymphocytes % 39.9 %; Mean Corpuscular Hemoglobin 37.1 pg (27-33); Mean Corpuscular Volume 115.8 fl (85-98); Mean Platelet Volume 9.7 fL (7.4-10.4); Monocytes # 0.4 10^3/uL (0.2-0.9); Monocytes % 9.6 %; Neutrophils # 1.99 10^3/uL (1.8-7.7); Neutrophils % 46.3 %; Nucleated Red Blood Cells % 0 %; Platelet Count 126 10^3/cmm (157-399); Red Blood Count 2.78 10^6/uL (3.85-5.65); Red Cell Distribution Width 16.4 % (12.1-15.1); White Blood Count 4.29 10^3/uL (3.29-11.43)
[2024-05-23 12:43] LABS: Alanine Aminotransferase 15 U/L (0-33); Albumin Level 2.6 g/dL (3.5-5.2); Alkaline Phosphatase 105 U/L (35-105); Anion Gap 13.8 (5-19); Aspartate Amino Transferase 30 U/L (0-32); Blood Urea Nitrogen 15 mg/dL (8-23); Calcium 8.1 mg/dL (8.5-10.5); Carbon Dioxide 25 mmol/L (22-29); Chloride 103 mmol/L (98-107); Creatinine Clr Calc Pharmacy 46.8151; Globulin 4.1 g/dL (1.3-4.6); Glomerular Filtration Rate 49.7 mL/min (90-130); Glucose 84 mg/dL (65-115); Lipase 18 U/L (13-60); NT Pro B Type Natriuretic Pept 2471 pg/mL (0-125); Osmolality Calculated 286 mOsm/kg (285-295); Potassium 3.8 mmol/L (3.5-5.1); Sodium 138 mmol/L (136-145); Total Protein 6.7 g/dL (6.6-8.7)
[2024-05-23 12:56] VITALS: RESP 19; O2SAT 100
[2024-05-23] MEDS: morphine 4 mg/mL SDV 1 mL IVP (12:56)
[2024-05-23] MEDS: ondansetron 2 mg/ML SDV 2 mL 4 MG IVP (12:58)
--- NOTE | 2024-05-23 13:00 | PC.NURSE ---
4800cc out paracentesis.
[2024-05-23 13:03] VITALS: BP 109/62; PULSE 79; RESP 17; O2SAT 100
== END 2024-05-23 13:25 | disposition home or self-care (01) ==
PROVIDERS: Emergency Provider Emergency Medicine
DX: R18.8 Other ascites (principal); R10.9 Unspecified abdominal pain; F17.210 Nicotine dependence, cigarettes, uncomplicated; E78.5 Hyperlipidemia, unspecified; J44.9 Chronic obstructive pulmonary disease, unspecified; I10 Essential (primary) hypertension
CPT/HCPCS: 49083; 80053; 83690; 83880; 85025; 96374; 96375; 99285; J2270; J2405

== ENCOUNTER → 2024-05-29 14:35 | Outpatient (BNVA) | payer MEDICARE, MEDICAID, SELFPAY | PROVIDERS: Visit Provider Surgery | DX: R18.8 Other ascites (principal) | CPT/HCPCS: 99214 ==

== ENCOUNTER → 2024-05-30 09:26 | Day surgery (SDC) | payer MEDICARE, MEDICAID, SELFPAY ==
[2024-05-30] VITALS (10 sets, daily range): BP systolic 91–111; BP diastolic 49–70; PULSE 84–125; RESP 16–20; TEMP 36.6–37.3; O2SAT 95–100; BMI 26.9
[2024-05-30] MEDS: sodium chloride 0.9% 1,000 ML 30 ML IV (10:05)
--- NOTE | 2024-05-30 11:25 | W.PM.OPSUD ---
Surgery/Procedure H&P Update DATE OF PROCEDURE: May 30, 2024 DATE H&P PERFORMED: 05/29/24 H&P UPDATE INFORMATION: I have reviewed H&P completed within last 30 days, I have examined patient prior to procedure and No changes to prior documentation PLANNED PROCEDURE: Operation Date: 05/30/24 11:10 Proposed Procedures p Laparoscopic Peritoneal Cath Inserti(Not Applicable) - Franklin Frey DO
--- NOTE | 2024-05-30 12:11 | ANES.PREANE2 ---
Pre-Anesthetic Assessment Height/Weight: Height 1.63 m Weight 71.214 kg Temp Pulse Resp BP Pulse Ox O2 Del Method 99.2 F 125 H 18 111/70 97 Room Air 05/30/24 09:58 05/30/24 09:58 05/30/24 09:58 05/30/24 09:58 05/30/24 09:58 05/30/24 10:01 Operation Date: 05/30/24 11:10 Proposed Procedures p Laparoscopic Peritoneal Cath Inserti(Not Applicable) - Franklin Frey DO Familial anesthetic complications: None Was Beta Lazara taken within 24 hours: N/A Was Clonidine taken within 24 hours: N/A Last intake: Intake Last Liquid Date 05/29/24 Last Liquid Time 18:00 Last Solid Date 05/29/24 Last Solid Time 18:00 Social No alcohol Exam alert, oriented x 3, clear to auscultation bilaterally and regular rate & rhythm Airway Mallampati: Class II Dentition: other (no teeth) Pulmonary Hx L pTX and R Pleural effusions Hepatic hx ascites GI Gastroesophageal Reflux Disease and Peptic Ulcer Disease Metabolic MTHFR mutation b12 def [facility] [place] Rheumatoid Arthritis Anesthetic Plan ASA status: 4 Anesthesia: General Risk of > 500 ml blood loss (7ml/kg in children): No Medications/Allergies Home Medications Medication Instructions Recorded Confirmed Last Taken Type syringe with needle 1 mL 25 gauge #50 ea 08/10/22 05/16/24 Unknown Rx x 5/8 (Monoject TB Safety Syringe) albuterol sulfate 90 mcg/actuation 1 puff inhalation QID PRN 09/27/23 05/29/24 03/11/24 Rx aerosol inhaler shortness of breath or wheezing 30 days #18 grams benzonatate 100 mg capsule 100 mg PO BID PRN cough 30 days 09/27/23 05/29/24 04/22/24 Rx #60 caps insulin syringe-needle U-100 1 mL #100 ea 09/27/23 05/16/24 Unknown Rx 25 x 1 levothyroxine 25 mcg tablet 25 mcg PO DAILY 30 days #30 tabs 12/28/23 05/29/24 05/29/24 Rx ropinirole 0.25 mg tablet 0.25 mg PO BID 30 days #60 tabs 12/28/23 05/29/24 05/29/24 Rx oxycodone 5 mg tablet 5 mg PO DAILY PRN pain 30 days #30 02/03/24 05/29/24 05/16/24 Rx tabs ondansetron 8 mg disintegrating 8 mg PO Q8H PRN nausea and 03/31/24 05/29/24 05/16/24 Rx tablet vomiting #20 tabs bupropion HCl 150 mg 24 hr tablet, 150 mg PO DAILY 04/06/24 05/29/24 05/29/24 History extended release furosemide 40 mg tablet 40 mg PO BID 04/06/24 05/29/24 05/29/24 History bisacodyl 5 mg tablet 10 mg PO DAILY PRN Constipation 05/16/24 05/29/24 04/18/24 History glucagon 3 mg/actuation nasal See Rx Instructions .Route .COMPLEX 05/16/24 05/29/24 Unknown History spray (Baqsimi) methylnaltrexone 150 mg tablet 150 mg PO DAILY 05/16/24 05/29/24 05/29/24 History (Relistor) midodrine 5 mg tablet 10 mg PO BID 05/16/24 05/29/24 05/29/24 History nystatin 100,000 unit/gram topical 1 applic topical BID PRN skin 05/16/24 05/29/24 05/16/24 History powder (Nystop) irritation pantoprazole 40 mg tablet,delayed 40 mg PO DAILY 05/16/24 05/29/24 05/29/24 History release (Protonix) polyethylene glycol 3350 17 17 g PO DAILY 05/16/24 05/29/24 05/29/24 History gram/dose oral powder (Miralax) Allergies Allergy/AdvReac Type Severity Reaction Status Date / Time fentanyl AdvReac Severe ADR-Nightma Verified 05/29/24 15:00 re Current Medications Generic Name Dose Route Start Last Admin Trade Name Freq PRN Reason Stop Dose Admin Sodium Chloride 1,000 mls @ 30 mls/hr 05/30/24 09:45 05/30/24 10:05 Sodium Chloride 0.9% IV 05/31/24 09:44 30 mls/hr .Q24H NICOLE Administration PFSH Anesthesia Medical History Acute kidney injury COPD (chronic obstructive pulmonary disease) Cirrhosis of liver GERD (gastroesophageal reflux disease) Rheumatoid arthritis Hyperlipidemia Chest pain Symptomatic cholelithiasis Metatarsalgia Nausea NAE (generalized anxiety disorder) COPD (chronic obstructive pulmonary disease) Lumbar paraspinal muscle spasm Chronic pain syndrome Hypertension, essential Did not tolerate lisinopril. Hypothyroidism Fibromyalgia Insomnia Failed amitriptyline, trazodone, Ambien caused side effects. Surgical History H/O gastric sleeve Hx laparoscopic cholecystectomy H/O tubal ligation H/O foot surgery Family History Other CAD (coronary artery disease) Cancer Diabetes Heart attack Hyperlipidemia Hypertension Rheumatoid arthritis Stroke Denies family history of Lupus Chronic kidney disease (CKD) Social History Smoking and tobacco/nicotine status: former use of tobacco/nicotine Quit status (tobacco/nicotine): has tried quititng Second hand smoke exposure: No Alcohol intake: current Alcohol intake frequency: holidays/special occasions only Substance/Drug Use: never Female Reproductive History Spontaneous abortions: No Data Anesthesia Cardiac Studies: Echocardiogram 04/06/24
[2024-05-30] MEDS: ceFAZolin 2,000 mg SDV 2000 MG IVP (12:36)
[2024-05-30] MEDS: lidocaine-epi 2% PF 1:200,000 20 mL SDV (13:19)
--- NOTE | 2024-05-30 13:30 | PM.OP ---
Operative Report Date of procedure: May 30, 2024 Pre-op diagnosis: Liver failure with ascites Post-op diagnosis: same Procedure done: Laparoscopic peritoneal dialysis catheter placement Implants: Peritoneal dialysis catheter Specimens removed/disposition: 3.75 L of ascitic fluid, not sent Surgeon: Franklin Frey DO Anesthesia: General and Local Estimated blood loss (mL): 5 Complications: None apparent Brief History: This is a very pleasant 64-year-old female with ascites and liver failure. She has been getting frequent paracentesis. She desired laparoscopic peritoneal dialysis catheter placed for at home drainage. The risks and benefits were explained and documented. Procedure: Patient was wheeled in the operative room and placed on the OR table in supine position. The abdomen was inspected prepped and draped in usual sterile fashion. A timeout was performed all present were in agreement. A Veress needle was placed in the left upper quadrant and intra-abdominal insufflation was brought to 15 mmHg. A 5 mm trocar was then placed into the site using Optiview. A second 5 mm trocar was placed in the left lower quadrant. An 8 mm trocar was then placed just left of the umbilicus and tunneled subcutaneously and then preperitoneal he down to the pelvis. This was done under direct visualization. A peritoneal dialysis catheter was then fed through this trocar down into the pelvis. Both cuffs were noted to be subcutaneously and preperitoneum only. 3.75 L of thin yellow peritoneal fluid was suctioned through the catheter. The catheter appeared in good working order. Ports were removed. 25 g of albumin was infused in her IV. A 2-0 Ethilon suture was used to suture the catheter in place. Skin was closed using 4-0 Monocryl in a subcutaneous fashion. Dermabond was applied. Patient tolerated the procedure well.
--- NOTE | 2024-05-30 13:52 | SUR.PHASEI ---
13:32 RECEIVED PT FROM OR STAFF. RESPONSIVE TO VERBAL. VENTILATING WELL. NSR ON MONITOR. ABDOMINAL DRESSING DRY AND INTACT. 13:45 PT ON ROOM AIR DENIES ANY PAIN OR NAUSEA.ROM ALL 4 EXTREMITIES. DENIES DYSPNEA
--- NOTE | 2024-05-30 14:01 | SUR.PHASEI ---
14:00 TOLERATING ICE CHIPS. DENIES PAIN OR NAUSEA.
[2024-05-30] MEDS: oxyCODONE 5 mg IR Tab/Cap PO (14:47)
--- NOTE | 2024-05-30 14:50 | ANE.PACU2 ---
Inpatient post-anesthesia follow up: Airway intact: Yes Vital signs: Temperature 98.2 F Pulse Rate 89 Respiratory Rate 17 Blood Pressure 91/56 Pulse Oximetry 95 Oxygen Delivery Me thod Room Air Oxygen Flow Rate 8 Fraction of Inspir ed Oxygen Hydration adequate: Yes Nausea and vomiting: No Pain level: 1 Mental status: Baseline
== END | disposition home or self-care (01) ==
PROVIDERS: PCP Family Medicine; Visit Provider Surgery
PROC: 0WHG43Z Insertion of Infusion Device into Peritoneal Cavity, Percutaneous Endoscopic Approach (ICD-10-PCS; CPT 49324; principal; 2024-05-30 11:10)
DX: K72.90 Hepatic failure, unspecified without coma (principal); R18.8 Other ascites; Z87.11 Personal history of peptic ulcer disease; M06.9 Rheumatoid arthritis, unspecified; J44.9 Chronic obstructive pulmonary disease, unspecified; E78.5 Hyperlipidemia, unspecified; E03.9 Hypothyroidism, unspecified; M79.7 Fibromyalgia; Z87.891 Personal history of nicotine dependence
CPT/HCPCS: 49324; J0690; J1100; J1170; J2405; J2704; J3490; J7030; P9047